=== PATIENT | male | born 1945 | race Caucasian/White ===

== ENCOUNTER 2019-11-11 16:06 | Inpatient (IN) | payer OTHER ==
--- OUTSIDE RECORDS SUMMARY | 2019-11-11 16:08 | XMS REPORT | Continuity of Care Document ---
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 claudication Coronary Active Diagnosis 10/10/2018 Ahmed atherosclerosis Ahme d 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 Ahmed heart disease without Ahmed congestive heart failure Pure Active Problem 10/10/2018 Ahmed hypercholesterolemia Ahmed Ex-smoker Active Diagnosis 10/10/2018 Ahmed Ahmed Medications Medication Details Route Status Patient Ordering Order Source Instructions Provider Date Calcium 1 tab Oral Active Oral Ahmed Ahmed Ahmed Prolia not Subcutaneous Active 60 MG/ML Ahmed Ahmed defined Subcutaneous Ahmed Plavix 1 tablet Orally Active 75 MG Orally Ahmed Ahmed Once a day Ahmed Levothyroxine 1 tablet Orally Active 50 MCG Orally Ahmed Ahm ed Sodium Once a day Ahmed Vitamin B 12 not Orally Active 100 MCG Orally Ahmed Ahme d defined Ahmed Omeprazole 1 capsule Orally Active 20 MG Orally Ahmed Ahmed Once a day Ahmed Aspir-81 1 tablet Orally Active 81 MG Orally Ahmed Ahmed Once a day Ahmed Vitamin D-3 1 capsule Orally Active 800 Orally Ahmed Ahmed Once a day Ahmed Furosemide 1 tablet Orally Active 40 MG Orally Ahmed Ahmed Once a day Ahmed Simvastatin 1 tablet Orally Active 40 MG Orally Ahmed Ahmed every Once a day Ahmed evening Lisinopril 1 tablet Orally Active 10 MG Orally Ahmed Ahmed Once a day Ahmed Vitamin C not Orally Active 500 MG Orally Ahmed Ahmed defined Ahmed Magnesium 1 capsule Orally Active 300 MG Orally Ahmed Ahmed with a Once a day Ahmed meal Folic Acid 1 tablet Orally Active 400 MCG Orally Ahmed [place] Once a day Ahmed Allergies, Adverse Reactions, Alerts Substance Category Reaction Severity Reaction Status Date Comments S ource type Reported N.K.D.A. Adverse Info Not Adverse Active Ahme d Reaction Available Reaction 9 Ahme d Immunizations No Data Provided for This Section Results No Data Provided for This Section Pathology Reports No Data Provided for This Section Diagnostic Reports No Data Provided for This Section Consultation Notes No Data Provided for This Section Discharge Summaries No Data Provided for This Section History and Physicals No Data Provided for This Section Vital Signs Vital Sign Value Date Comments Source Weight 230 06/26/2018 Ahmed Ahmed Heart Rate 60 06/26/2018 Ahmed Ahmed Diastolic (mm Hg) 76 06/26/2018 Ahmed Ahme d Systolic (mm Hg) 134 06/26/2018 Ahmed Ahmed Weight 225 04/26/2018 Ahmed Ahmed Heart Rate 68 04/26/2018 Ahmed Ahmed Diastolic (mm Hg) 80 04/26/2018 Ahmed Ahme d Systolic (mm Hg) 140 04/26/2018 Ahmed Ahmed Weight 233 10/24/2017 Ahmed Ahmed Heart Rate 60 10/24/2017 Ahmed Ahmed Diastolic (mm Hg) 78 10/24/2017 Ahmed Ahme d Systolic (mm Hg) 138 10/24/2017 Ahmed Ahmed Weight 236 04/25/2017 Ahmed Ahmed Heart Rate 60 04/25/2017 Ahmed Ahmed Diastolic (mm Hg) 72 04/25/2017 Ahmed Ahme d Systolic (mm Hg) 130 04/25/2017 Ahmed Ahmed Weight 223 01/04/2017 Ahmed Ahmed Heart Rate 52 01/04/2017 Ahmed Ahmed Diastolic (mm Hg) 66 01/04/2017 Ahmed Ahme d Systolic (mm Hg) 136 01/04/2017 Ahmed Ahmed Encounters No Data Provided for This Section Procedures No Data Provided for This Section Assessment and Plan No Data Provided for This Section Plan of Care No Data Provided for This Section Social History No Data Provided for This Section Family History No Data Provided for This Section Advance Directives No Data Provided for This Section Functional Status No Data Provided for This Section
[2019-11-11 16:49] LABS: Absolute Lymphocytes (CBC) 0.6 K/uL (0.7-4.9); Basophils % 0.3 % (0-1.3); Hematocrit 36.9 % (39.6-49.0); Lymphocytes % 4.4 % (15.3-44.8); MPV 7.6 fL (7.6-11.3); RBC Red Blood Cell Count 4.17 M/uL (4.33-5.43)
[2019-11-11 17:02] LABS: Protime INR 1.36
[2019-11-11 17:10] LABS: ALT/SGPT 21 U/L (12-78); AST/SGOT 17 U/L (15-37); Albumin 3.3 g/dL (3.4-5.0); Alkaline Phosphatase 50 U/L (45-117); BUN Blood Urea Nitrogen 23 mg/dL (7-18); Bicarbonate 24 mmol/L (21-32); Bilirubin Direct 0.3 mg/dL (0-0.2); Bilirubin Total 0.7 mg/dL (0.2-1.0); Glucose Level 159 mg/dL (74-106); Magnesium 2.1 mg/dL (1.8-2.4); NT PRO-BNP 254 pg/mL (<450); Potassium 4.2 mmol/L (3.5-5.1); Protein, Total 7.5 g/dL (6.4-8.2); Sodium Level 139 mmol/L (136-145); Troponin (Emerg Dept Use Only) < 0.02 ng/mL (0.0-0.045)
--- NOTE | 2019-11-11 18:11 | RAD REPORT ---
EXAM DESCRIPTION: RAD - Chest Single View - 11/11/2019 5:46 pm CLINICAL HISTORY: fever, sob COMPARISON: Portable September 2010 TECHNIQUE: AP portable chest image was obtained 11/11/2019 5:46 pm . FINDINGS: Lung volumes are low. No peripheral mass or consolidation. Interstitial pattern is promine nt due to body habitus, portable technique and low lung volumes. A true change is doubtful. Heart and vasculature are normal. No measurable pleural effusion and no pneumothorax. No acute bony abnormalit y seen. No acute aortic findings suspected. IMPRESSION: No acute cardiopulmonary process. Chest is not significantly different from comparison.
[2019-11-11 18:22] LABS: Blood Morphology Comment NOT SEEN (NOT SEEN); Platelet Estimate ADEQ; Urine White Blood Cell Casts OK
--- NOTE | 2019-11-11 19:38 | RAD REPORT ---
EXAM DESCRIPTION: CT - Chest For Pe Angio - 11/11/2019 6:57 pm CLINICAL HISTORY: shortness of breath, fever COMPARISON: CTANGIO CHEST FOR PE dated 10/08/2010; Chest Single View dated 11/11/2019 TECHNIQUE: Dynamically enhanced 3 mm thick images of the chest were obtained during administration o f approximately 150mL Isovue 370 IV contrast. Coronal and oblique MIP reconstruction images were gene rated and reviewed. Exam utilizes a protocol to evaluate the pulmonary arterial tree. All CT scans are performed using dose optimization technique as appropriate and may include automated exposure control or mA/KV adjustment according to patient size. FINDINGS: Pulmonary emboli present in the medial left lower lobe segmental branches. No left upper l obe pulmonary emboli confirmed. No right upper lobe emboli confirmed. Middle lobe is clear as well. M ultiple segmental branch and subsegmental branch pulmonary emboli noted in the right lower lobe. Atel ectasis changes are present in both lower lung brand. A more focal masslike density abutting the ple ura in the posterior left base can be monitored on a follow-up examination. This is still favored to be atelectasis rather than a mass or focal infiltrate. Small right pleural effusion is present. No left pleural effusion. The aorta as imaged shows no acute or suspicious finding. No pericardial thickening or effusion. No mediastinal or hilar suspicious masses. No chest wall masses or abnormal axillary lymphadenopathy. Prominent right side gynecomastia matches the remote study. No acute bone finding. Sternotomy wires are in place. IMPRESSION: Multiple segmental and subsegmental branch pulmonary emboli present in the bilateral low er lobes. Small right pleural effusion. Bilateral lower lobe atelectasis changes are present. The 3 centimeter masslike density posterior gut ter on the left is favored to be atelectasis. Follow-up imaging can be performed to monitor for infil trate versus mass. No mediastinal or hilar abnormalities.
[2019-11-11] MEDS ORDERED: ALBUTEROL 2.5 MG/3 ML NEB SOL NEB PRN (19:46)
[2019-11-11] MEDS ORDERED: IPRATROPIUM BROM 0.5MG/2.5ML NEB PRN (19:46)
[2019-11-11] MEDS ORDERED: ONDANSETRON 4 MG/2 ML VIAL IV PRN (19:46)
--- NOTE | 2019-11-11 19:51 | EDPHYS ---
Physician Documentation [facility] [place], [place] Name: Quentin Lei Age: 74 yrs Sex: Male : 1945 Arrival Date: 11/11/2019 Time: 16:08 Bed 13 Private MD: ED Physician Jose Maria Bauer HPI: 11/10 16:10 This 74 yrs old Male presents to ER via EMS with complaints of Shortness Of jmm Breath. 16:10 The patient has shortness of breath at rest, with light activity. Onset: The jmm symptoms/episode began/occurred gradually, 1 week(s) ago. Duration: The symptoms are continuous. The patient's shortness of breath is aggravated by exertion. Associated signs and symptoms: Pertinent positives: fever, Pertinent negatives: chest pain. This is a 74 year old male with a history of htn, hypothyroidism that presents to the ED with complaints of shortness of breath beginning 1 week ago with fever. Patient denies chest pain, denies abdominal pain, patient states increased urination since beginning bph medication. . Historical: - Allergies: 17:15 tramadol; - Home Meds: 17:15 aspirin 81 mg Oral chew 1 tab once daily [Active]; clopidogrel Oral [Active]; Furosemide Oral [Active]; levothyroxine 50 mcg tab 1 tab once daily [Active]; lisinopril Oral [Active]; Omeprazole Oral [Active]; Simvastatin Oral [Active]; anoro [Active]; - PMHx: 17:15 Arthritis; Arevalo's Esophagus; Hypertension; Hypothyroidism; Osteoporosis; - PSHx: 17:15 triple bypass; Heart stents; - Immunization history:: Adult Immunizations unknown. - Social history:: Smoking status: Patient denies any tobacco usage or history of. Patient/guardian denies using alcohol. ROS: 16:10 Cardiovascular: Negative for chest pain, palpitations, and edema, Abdomen/GI: Negative jmm for abdominal pain, nausea, vomiting, diarrhea, and constipation, Neuro: Negative for headache, weakness, numbness, tingling, and seizure. 16:10 Constitutional: Positive for body aches, fever. 16:10 Respiratory: Positive for cough. 16:10 All other systems are negative. Exam: 16:10 Constitutional: This is a well developed, well nourished patient who is awake, alert, jmm and in no acute distress. Head/Face: atraumatic. Eyes: EOMI, no conjunctival erythema appreciated ENT: Moist Mucus Membranes Neck: Trachea midline, Supple Chest/axilla: Normal chest wall appearance and motion. 16:10 Cardiovascular: Rate: normal, Rhythm: regular. 16:10 Respiratory: the patient does not display signs of respiratory distress, Respirations: normal, Breath sounds: are clear throughout. 16:10 Abdomen/GI: Inspection: abdomen appears normal, Bowel sounds: normal, Palpation: abdomen is soft and non-tender, in all quadrants. 16:10 Musculoskeletal/extremity: ROM: intact in all extremities, Compartment Syndrome exam of affected extremity: 16:10 Skin: Appearance: Color: normal in color. 16:10 Neuro: Orientation: is normal, Mentation: is normal, Memory: is normal. 16:10 Psych: Behavior/mood is pleasant, cooperative. Vital Signs: 16:08 BP 153 / 83; Pulse 117; Resp 18; Temp 100.6; Pulse Ox 93% 2 lpm ; Weight 115.21 kg; Height 5 ft. 11 in. (180.34 cm); Pain 0/10; 17:00 BP 131 / 78; Pulse 55; Resp 23; Pulse Ox 96% on R/A; vc 18:00 BP 135 / 80; Pulse 93; Resp 23; Pulse Ox 98% on R/A; vc 19:00 BP 129 / 88; Pulse 110; Resp 22; Pulse Ox 97% on R/A; vc 20:00 BP 148 / 73; Pulse 98; Resp 24; Temp 98.4(O); Pulse Ox 99% on R/A; vc 21:00 BP 132 / 77; Pulse 98; Resp 25; Temp 98.8(O); Pulse Ox 98% on R/A; vc 22:00 BP 121 / 66; Pulse 87; Resp 22; Pulse Ox 99% on R/A; vc 23:00 BP 138 / 65; Pulse 83; Resp 22; Pulse Ox 98% on R/A; vc 23:45 BP 142 / 73; Pulse 84; Resp 22; Pulse Ox 99% on R/A; vc 16:08 Body Mass Index 35.43 (115.21 kg, 180.34 cm) MDM: 16:17 Patient medically screened. [facility] 19:48 Data reviewed: vital signs, nurses notes, lab test result(s), radiologic studies, CT [facility] scan. ED course: I discussed the patient with Dr. Mccord whom accepted admission. . 11/10 16:10 Order name: Basic Metabolic Panel; Complete Time: 17:17 [facility] 11/10 16:10 Order name: CBC with Diff; Complete Time: 18:33 [facility] 11/10 16:10 Order name: LFT's; Complete Time: 17:17 [facility] 11/10 16:10 Order name: Magnesium; Complete Time: 17:17 [facility] 11/10 16:10 Order name: NT PRO-BNP; Complete Time: 17:17 [facility] 11/10 16:10 Order name: PT-INR; Complete Time: 17:11 [facility] 11/10 16:10 Order name: Troponin (emerg Dept Use Only); Complete Time: 17:17 [facility] 11/10 16:12 Order name: Procalcitonin; Complete Time: 17:46 [facility] 11/10 16:12 Order name: Lactate; Complete Time: 17:17 [facility] 11/10 16:12 Order name: Blood Culture Adult (2) [facility] 11/10 16:12 Order name: COVID-19; Complete Time: 21:37 [facility] 11/10 17:29 Order name: Flu; Complete Time: 18:33 [facility] 11/10 17:29 Order name: Strep; Complete Time: 18:20 [facility] 11/10 18:20 Order name: Throat Culture [facility] 11/10 16:10 Order name: XRAY Chest (1 view); Complete Time: 18:16 [facility] 11/10 16:10 Order name: EKG; Complete Time: 16:11 [facility] 11/10 16:10 Order name: Cardiac monitoring; Complete Time: 17:12 [facility] 11/10 16:10 Order name: EKG - Nurse/Tech; Complete Time: 17:12 [facility] 11/10 16:10 Order name: IV Saline Lock; Complete Time: 17:12 [facility] 11/10 18:21 Order name: CT Chest For PE Angio; Complete Time: 19:39 [facility] 11/10 18:23 Order name: CBC Smear Scan; Complete Time: 18:33 [facility] 11/10 19:52 Order name: Comprehensive Metabolic Panel [facility] 11/10 19:52 Order name: Comprehensive Metabolic Panel [facility] 11/10 19:52 Order name: Lactate [facility] 11/10 19:52 Order name: Lactate [facility] 11/10 19:52 Order name: Magnesium [facility] 11/10 19:52 Order name: Magnesium [facility] 11/10 19:53 Order name: Echo with Doppler [facility] 11/10 19:53 Order name: Troponin I; Complete Time: 23:23 [facility] 11/10 16:10 Order name: Labs collected and sent; Complete Time: 17:12 [facility] 11/10 16:10 Order name: O2 Per Protocol; Complete Time: 17:12 [facility] 11/10 16:10 Order name: O2 Sat Monitoring; Complete Time: 17:12 [facility] 11/10 16:12 Order name: Urine Dipstick-Ancillary (obtain specimen); Complete Time: 18:50 [facility] Administered Medications: 20:00 Drug: Lovenox 1 mg/kg Route: Sub-Q; Site: right lower abdomen; vc 20:29 Follow up: Response: No adverse reaction vc Disposition: 11/11/19 19:50 Hospitalization ordered by Ritesh Mccord for Inpatient Admission. Preliminary diagnosis is Pulmonary Embolism. - Bed requested for Telemetry/MedSurg (Inpatient). - Status is Inpatient Admission. vc - Condition is Stable. - Problem is new. - Symptoms are unchanged. Addendum: 11/15/2019 21:15 Co-signature as Attending Physician, Jose Maria Bauer MD. m Signatures: Dispatcher [facility] Joi Camarillo RN RN Jarrett Mcguire PA PA [facility] Maria E Bonilla RN RN vc Harris, Amy, RN RN Jose Maria Bauer MD MD [email or web address] Corrections: (The following items were deleted from the chart) 11/10 20:02 19:50 Hospitalization Ordered by Ritesh Mccord MD for Inpatient Admission. Preliminary brenna diagnosis is Pulmonary Embolism. Bed requested for Telemetry/MedSurg (Inpatient). Status is Inpatient Admission. Condition is Stable. Problem is new. Symptoms are unchanged. [facility] 23:58 20:02 11/11/2019 19:50 Hospitalization Ordered by Ritesh Mccord MD for Inpatient vc Admission. Preliminary diagnosis is Pulmonary Embolism. Bed requested for Telemetry/MedSurg (Inpatient). Status is Inpatient Admission. Condition is Stable. Problem is new. Symptoms are unchanged. dw
--- NOTE | 2019-11-11 19:51 | ER ---
Nurse's Notes [facility] Name: Quentin Lei Age: 74 yrs Sex: Male : 1945 Arrival Date: 11/11/2019 Time: 16:08 Bed 13 Private MD: Diagnosis: Pulmonary Embolism Presentation: 11/10 16:08 Chief complaint: EMS states: that pt has been short of breath for about one week. Coronavirus screen: Surgical mask placed on patient. Patient moved to private room, placed in contact and droplet isolation with eye protection until further assessment. Patient denies a cough. Patient reports shortness of breath or difficulty breathing. Patient reports a measured and/or subjective temperature greater than 100.4F. Patient denies travel on a cruise ship or to a country the [facility] currently lists as an affected area. Patient denies contact with known and/or suspected case of COVID-19. Ebola Screen: No symptoms or risks identified at this time. Initial Sepsis Screen: Does the patient meet any 2 criteria? No. Patient's initial sepsis screen is negative. Does the patient have a suspected source of infection? No. Patient's initial sepsis screen is negative. Risk Assessment: Do you want to hurt yourself or someone else? Patient reports no desire to harm self or others. Onset of symptoms is unknown. 16:08 Method Of Arrival: EMS: [facility] 16:08 Acuity: MAE 3 Triage Assessment: 17:20 General: Appears in no apparent distress. Respiratory: Reports shortness of breath at rest the patient has moderate shortness of breath. Historical: - Allergies: 17:15 tramadol; - Home Meds: 17:15 aspirin 81 mg Oral chew 1 tab once daily [Active]; clopidogrel Oral [Active]; Furosemide Oral [Active]; levothyroxine 50 mcg tab 1 tab once daily [Active]; lisinopril Oral [Active]; Omeprazole Oral [Active]; Simvastatin Oral [Active]; anoro [Active]; - PMHx: 17:15 Arthritis; Arevalo's Esophagus; Hypertension; Hypothyroidism; Osteoporosis; - PSHx: 17:15 triple bypass; Heart stents; - Immunization history:: Adult Immunizations unknown. - Social history:: Smoking status: Patient denies any tobacco usage or history of. Patient/guardian denies using alcohol. Screenin:16 Abuse screen: Denies threats or abuse. Nutritional screening: No deficits noted. ah Tuberculosis screening: No symptoms or risk factors identified. Fall Risk None identified. Assessment: 17:17 General: Appears in no apparent distress. Behavior is calm, cooperative. Pain: Denies ah pain. Neuro: Level of Consciousness is awake, alert, Oriented to person, place, time, situation. Cardiovascular: Denies chest pain, Heart tones S1 S2 present Capillary refill < 3 seconds Patient's skin is warm and dry. Pulses are palpable in right radial artery and left radial artery Rhythm is sinus tachycardia. Respiratory: Airway is patent Respiratory effort is even, unlabored, Respiratory pattern is regular, symmetrical, Breath sounds are diminished bilaterally. Onset: The symptoms/episode began/occurred x1 week, Denies cough. GI: No signs and/or symptoms were reported involving the gastrointestinal system. : No signs and/or symptoms were reported regarding the genitourinary system. EENT: No signs and/or symptoms were reported regarding the EENT system. Derm: No signs and/or symptoms reported regarding the dermatologic system. Musculoskeletal: No signs and/or symptoms reported regarding the musculoskeletal system. 19:00 Reassessment: Patient appears in no apparent distress at this time. Patient and/or vc family updated on plan of care and expected duration. Pain level reassessed. Patient is alert, oriented x 3, equal unlabored respirations, skin warm/dry/pink. No complaints at this time. 20:00 Reassessment: Patient appears in no apparent distress at this time. Patient and/or vc family updated on plan of care and expected duration. Pain level reassessed. Patient is alert, oriented x 3, equal unlabored respirations, skin warm/dry/pink. 21:00 Reassessment: Patient appears in no apparent distress at this time. Patient and/or vc family updated on plan of care and expected duration. Pain level reassessed. Patient is alert, oriented x 3, equal unlabored respirations, skin warm/dry/pink. Patient denies pain at this time. 22:00 Reassessment: Patient appears in no apparent distress at this time. Patient and/or vc family updated on plan of care and expected duration. Pain level reassessed. Patient is alert, oriented x 3, equal unlabored respirations, skin warm/dry/pink. Patient denies pain at this time. 23:00 Reassessment: Patient appears in no apparent distress at this time. Patient and/or vc family updated on plan of care and expected duration. Pain level reassessed. Patient is alert, oriented x 3, equal unlabored respirations, skin warm/dry/pink. Patient denies pain at this time. Vital Signs: 16:08 BP 153 / 83; Pulse 117; Resp 18; Temp 100.6; Pulse Ox 93% 2 lpm ; Weight 115.21 kg; Height 5 ft. 11 in. (180.34 cm); Pain 0/10; 17:00 BP 131 / 78; Pulse 55; Resp 23; Pulse Ox 96% on R/A; vc 18:00 BP 135 / 80; Pulse 93; Resp 23; Pulse Ox 98% on R/A; vc 19:00 BP 129 / 88; Pulse 110; Resp 22; Pulse Ox 97% on R/A; vc 20:00 BP 148 / 73; Pulse 98; Resp 24; Temp 98.4(O); Pulse Ox 99% on R/A; vc 21:00 BP 132 / 77; Pulse 98; Resp 25; Temp 98.8(O); Pulse Ox 98% on R/A; vc 22:00 BP 121 / 66; Pulse 87; Resp 22; Pulse Ox 99% on R/A; vc 23:00 BP 138 / 65; Pulse 83; Resp 22; Pulse Ox 98% on R/A; vc 23:45 BP 142 / 73; Pulse 84; Resp 22; Pulse Ox 99% on R/A; vc 16:08 Body Mass Index 35.43 (115.21 kg, 180.34 cm) ED Course: 16:08 Patient arrived in ED. aa5 16:09 Jarrett Mcguire PA is PHCP. [facility] 16:09 Jose Maria aBuer MD is Attending Physician. [facility] 16:35 Inserted saline lock: 22 gauge in right antecubital area, using aseptic technique. [email or web address] Blood collected. 16:35 First set of blood cultures drawn by mn. [email or web address] 16:50 Second set of blood cultures drawn by mn. [email or web address] 17:02 Crystal Alcocer, RN is Primary Nurse. 17:10 Triage completed. 17:12 COVID-19 Sent. [facility] 17:12 Blood Culture Adult (2) Sent. kj1 17:17 Patient has correct armband on for positive identification. Placed in gown. Bed in low ah position. Call light in reach. Side rails up X2. monitoring manager on. Pulse ox on. NIBP on. 17:46 XRAY Chest (1 view) In Process Unspecified. EDMS 18:57 CT Chest For PE Angio In Process Unspecified. EDMS 19:50 Ritesh Mccord MD is Hospitalizing Provider. [facility] 23:58 No provider procedures requiring assistance completed. Patient admitted, IV remains in vc place. Administered Medications: 20:00 Drug: Lovenox 1 mg/kg Route: Sub-Q; Site: right lower abdomen; vc 20:29 Follow up: Response: No adverse reaction vc Outcome: 19:50 Decision to Hospitalize by Provider. [facility] 23:27 Admitted to Med/surg accompanied by tech, via stretcher, room 413, Report called to armond Solano RN 23:58 Condition: good vc 23:58 Patient left the ED. vc Signatures: Dispatcher [employer] Elza Zuniga RN RN Jarrett Mcguire PA PA [facility] Cintia Fry RN RN Sanam Sun [email or web address] Maria E Bonilla RN RN Crystal Alcocer, RN RN Corrections: (The following items were deleted from the chart) 17:11 16:50 Initial lab(s) drawn, by me, sent to lab. First set of blood cultures drawn [email or web address] Second set of blood cultures drawn by me, [email or web address] 20:28 19:00 Reassessment: Patient appears in no apparent distress at this time. Patient vc and/or family updated on plan of care and expected duration. Pain level reassessed. Patient is alert, oriented x 3, equal unlabored respirations, skin warm/dry/pink. vc
[2019-11-11] MEDS ORDERED: NA CHLORIDE 0.9% 1,000 ML IV SCH (20:00)
[2019-11-11] MEDS ORDERED: ENOXAPARIN 100 MG/ML SYR SQ ONE (20:13)
[2019-11-12] MEDS ORDERED: FUROSEMIDE 20 MG/ 2ML VIAL IV ONE (01:18)
[2019-11-12 01:56] VITALS: BMI 34.0
[2019-11-12 04:39] LABS: Absolute Lymphocytes (CBC) 1.1 K/uL (0.7-4.9); Basophils % 0.4 % (0-1.3); Lymphocytes % 6.9 % (15.3-44.8); MPV 7.7 fL (7.6-11.3); Protime INR 1.36; RBC Red Blood Cell Count 3.91 M/uL (4.33-5.43)
[2019-11-12 04:47] LABS: Albumin 2.9 g/dL (3.4-5.0); Bilirubin Total 0.5 mg/dL (0.2-1.0); Magnesium 2.2 mg/dL (1.8-2.4); Phosphorus 1.5 mg/dL (2.5-4.9); Potassium 3.8 mmol/L (3.5-5.1); Protein, Total 6.9 g/dL (6.4-8.2); Troponin I 0.02 ng/mL (0.0-0.045)
[2019-11-12 06:50] LABS: Urine Appearance CLOUDY; Urine Bilirubin NEGATIVE (NEG); Urine Blood 1+ (NEG); Urine Color YELLOW; Urine Glucose NEGATIVE (NEG); Urine Protein NEGATIVE (NEG)
[2019-11-12 06:56] LABS: Urine Microscopic Reflex ORDER UMIC
[2019-11-12 07:04] LABS: Urine Bacteria >50 /HPF (NONE SEEN); Urine Culture Reflex Order REFLEXED; Urine RBC <5 /HPF (NONE SEEN)
[2019-11-12] MEDS: ACETAMINOPHEN 500 MG TAB PO PRN ×3 (07:38→21:00)
[2019-11-12] MEDS: APIXABAN 5 MG TABLET PO SCH ×3 (07:39→20:59)
[2019-11-12] MEDS: POTASS/SODIUM PHOSPHATE 1 PKT POWD.PACK PO SCH ×3 (07:39→09:31)
--- NOTE | 2019-11-12 08:53 | EKG ---
Test Date: 2019-11-11 Test Time: 16:25:45 Principal Research Economist: KARINA MEASUREMENT RESULTS: Intervals: Rate: 115 WV: 144 QRSD: 102 QT: 328 QTc: 453 [place]: P: 62 WV: 144 QRS: -13 T: 70 INTERPRETIVE STATEMENTS: Sinus tachycardia with premature atrial complexes with aberrant conduction Incomplete right bundle branch block Borderline ECG Compared to ECG 02/08/2011 14:50:20 Atrial premature complex(es) now present Aberrant conduction of supraventricular beat(s) now present Incomplete right bundle-branch block now present Sinus bradycardia no longer present Electronically Signed On 11-12-19 08:52:18 CDT by Myke Jose
--- NOTE | 2019-11-12 08:58 | RAD REPORT ---
EXAM DESCRIPTION: [place] Single View11/12/2019 7:09 am CLINICAL HISTORY: Chest pain COMPARISON: November 10 FINDINGS: Mild bibasilar lung opacities Heart is normal size. Postsurgical changes involve the chest. Small pleural effusions
[2019-11-12] MEDS ORDERED: HOME MED 1 EA UNK (Omeprazole [Omeprazole] 20 MG) PO SCH (09:00)
[2019-11-12] MEDS ORDERED: HOME MED 1 EA UNK (Cyclosporine [Restasis] 1 DROP) EACH EYE SCH (09:00)
[2019-11-12] MEDS ORDERED: HOME MED 1 EA UNK (Simvastatin [Simvastatin] 40 MG) PO SCH (09:00)
[2019-11-12] MEDS: ASPIRIN 81 MG CHEWABLE TABLET PO SCH ×3 (09:00→21:00)
[2019-11-12] MEDS ORDERED: lisinopriL 10 MG TAB PO SCH (09:00)
[2019-11-12] MEDS ORDERED: LEVOTHYROXINE SOD 0.05 MG TABLET PO SCH (09:00)
[2019-11-12] MEDS: FUROSEMIDE 40 MG TABLET PO SCH (09:29)
[2019-11-12] MEDS: PANTOPRAZOLE 40MG TABLET PO SCH (09:30)
--- NOTE | 2019-11-12 12:04 | P.HP ---
Certification for Inpatient Patient admitted to: Inpatient With expected LOS: >2 Midnights Patient will require the following post-hospital care: Home Health Services Practitioner: I am a practitioner with admitting privileges, knowledge of patient current condition, hospital course, and medical plan of care. Services: Services provided to patient in accordance with Admission requirements found in Title 42 Section 412.3 of the Code of Federal Regulations Patient History Date of Service: 11/11/19 Reason for admission: Acute pulmonary embolism History of Present Illness: Patient is a 74-year-old gentlemen who came into the hospital with difficulty breathing. Pt came into the emergency room for further evaluation. Patient's workup revealed a pulmonary embolism. Otherwise, patient's workup has been unremarkable. Patient is still short of breath. We will get an echocardiogram to evaluate for right ventricular strain from the pulmonary embolism. Although this is a distal pulmonary embolism patient is still short of breath. At this time, we will admit the patient to the hospital for further evaluation. Allergies tramadol Adverse Reaction (Severe, Verified 11/12/19 01:37) Unknown Home Medications: Apixaban [Eliquis] 5 mg PO SEECOM #75 tablet 11/12/19 Aspirin Chewable [Aspirin Chewable*] 81 mg PO DAILY 11/12/19 Clopidogrel Bisulfate [Plavix*] 75 mg PO DAILY 11/12/19 Cyclosporine [Restasis] 1 drop EACH EYE BID 11/12/19 Furosemide [Lasix*] 40 mg PO DAILY 11/12/19 Levothyroxine [Synthroid*] 0.05 mg PO DAILY 11/12/19 Lisinopril [Zestril] 10 mg PO DAILY 11/12/19 Omeprazole 20 mg PO DAILY 11/12/19 Simvastatin 40 mg PO DAILY 11/12/19 Umeclidinium Brm/Vilanterol Tr [Anoro Ellipta 62.5-25 Mcg INH] 1 dose IH DAILY 11/12/19 - Past Medical/Surgical History Has patient received pneumonia vaccine in the past: Yes Diabetic: No -: HTN -: hypothyroid -: glacoma -: Barretts esophagus -: CABG 2006 -: cardiac stent - Family History Father Medical History: Other (see notes) Notes: osteo arthritis Mother Medical History: Cancer Notes: Stomach CA Brother Medical History: Heart disease, Cancer Notes: Asbestosis - Social History Smoking Status: Never smoker Alcohol use: No CD- Drugs: No Caffeine use: Yes Place of Residence: Home Physical Examination - Vital Signs Temperature: 97.8 F Blood Pressure: 141/74 Pulse: 72 Respirations: 20 Pulse Ox (%): 97 - Physical Exam General: Alert, In no apparent distress, Oriented x3 HEENT: Atraumatic, PERRLA, Mucous membr. moist/pink, EOMI, Sclerae nonicteric Neck: Supple, 2+ carotid pulse no bruit, No LAD, Without JVD or thyroid abnormality Respiratory: Normal air movement, Diminished Cardiovascular: Regular rate/rhythm, Normal S1 S2, Other (Tachyarrhythmia ), Systolic murmur Gastrointestinal: Normal bowel sounds, Soft and benign, Non-distended, No tenderness Musculoskeletal: No clubbing, No swelling, No tenderness Integumentary: No rashes Neurological: Normal gait, Normal speech, Normal strength at 5/5 x4 extr, Normal tone, Sensation intact, Cranial nerves 3-12 intact, Normal affect Lymphatics: No axilla or inguinal lymphadenopathy - Studies Laboratory Data (last 24 hrs) 11/11/19 22:50: Troponin I 0.02 11/11/19 16:35: PT 16.0 H, INR 1.36 11/11/19 16:35: WBC 13.1 H, Hgb 12.1 L, Hct 36.9 L, Plt Count 152 11/11/19 16:35: Sodium 139, Potassium 4.2, BUN 23 H, Creatinine 1.41 H, Glucose 159 H, Magnesium 2.1, Total Bilirubin 0.7, AST 17, ALT 21, Alkaline Phosphatase 50 Microbiology Data (last 24 hrs): 11/11/19 14:35 Nasopharnyx Coronavirus COVID-19 PCR - Final 11/11/19 17:45 Nasopharnyx Influenza Type A Antigen Screen - Final 11/11/19 17:45 Nasopharnyx Influenza Type B Antigen Screen - Final 11/11/19 17:45 Throat Group A Streptococcus Rapid Screen - Final Assessment & Plan - Problems (Diagnosis) (1) Tachyarrhythmia Current Visit: Yes Status: Acute (2) Pulmonary embolism Current Visit: Yes Status: Acute (3) History of coronary artery disease Current Visit: Yes Status: Acute (4) History of coronary artery bypass graft x 2 Current Visit: Yes Status: Acute - Plan Plan: 1. Continue with anticoagulation 2. Echocardiogram 3. Venous Doppler of the lower extremities 4. Out of bed and ambulate 5. Monitor labs closely 6. GI and DVT prophylaxis Discharge Plan: Home Plan to discharge in: Greater than 2 days - Advance Directives Does patient have a Living Will: No Does patient have a Durable POA for Healthcare: No - Code Status/Comfort Care Code Status Assessed: Yes Code Status: Full Code Critical Care: No
--- NOTE | 2019-11-12 12:18 | P.PN ---
Subjective Date of Service: 11/12/19 Subjective: No new changes, No C/O voiced, Improving Review of Systems 10-point ROS is otherwise unremarkable Physical Examination - Vital Signs Temperature: 97.8 F Blood Pressure: 141/74 Pulse: 72 Respirations: 20 Pulse Ox (%): 97 - Physical Exam General: Alert, In no apparent distress, Oriented x3 Respiratory: Clear to auscultation bilaterally, Normal air movement Cardiovascular: Regular rate/rhythm, Normal S1 S2, Systolic murmur Gastrointestinal: Hypoactive, Soft and benign, Non-distended, No tenderness, No rebound, No guarding Musculoskeletal: No clubbing, No swelling - Studies Laboratory Data (last 24 hrs) 11/11/19 22:50: Troponin I 0.02 11/11/19 16:35: PT 16.0 H, INR 1.36 11/11/19 16:35: WBC 13.1 H, Hgb 12.1 L, Hct 36.9 L, Plt Count 152 11/11/19 16:35: Sodium 139, Potassium 4.2, BUN 23 H, Creatinine 1.41 H, Glucose 159 H, Magnesium 2.1, Total Bilirubin 0.7, AST 17, ALT 21, Alkaline Phosphatase 50 Microbiology Data (last 24 hrs): 11/11/19 14:35 Nasopharnyx Coronavirus COVID-19 PCR - Final 11/11/19 17:45 Nasopharnyx Influenza Type A Antigen Screen - Final 11/11/19 17:45 Nasopharnyx Influenza Type B Antigen Screen - Final 11/11/19 17:45 Throat Group A Streptococcus Rapid Screen - Final Assessment & Plan - Problems (Diagnosis) (1) Tachyarrhythmia Current Visit: Yes Status: Acute (2) Pulmonary embolism Current Visit: Yes Status: Acute (3) History of coronary artery disease Current Visit: Yes Status: Acute (4) History of coronary artery bypass graft x 2 Current Visit: Yes Status: Acute - Plan Plan: Continue with current plan of care as mentioned below 1. Continue with anticoagulation 2. Echocardiogram is pending 3. Venous Doppler of the lower extremities is pending 4. Out of bed and ambulate 5. Monitor labs closely 6. GI and DVT prophylaxis Discharge Plan: Home Plan to discharge in: Greater than 2 days - Advance Directives Does patient have a Living Will: No Does patient have a Durable POA for Healthcare: No - Code Status/Comfort Care Code Status: Full Code Critical Care: No Time Spent Managing PTS Care (In Minutes): 40
--- NOTE | 2019-11-12 14:05 | RAD REPORT ---
EXAM DESCRIPTION: US - Extrem Venous W Compress Carlo - 11/12/2019 1:57 pm CLINICAL HISTORY: DVT;history of pulmonary embolism Bilateral leg edema and swelling. COMPARISON: Chest For Pe Angio dated 11/11/2019 TECHNIQUE: Real-time sonographic interrogation of the left and right lower extremity deep venous sys tems was performed. FINDINGS: Right lower extremity deep venous system demonstrates no evidence of thrombus. In the left lower extremity deep venous system, partially occlusive small thrombus is present in the left poplit eal vein. IMPRESSION: Small area of partially occlusive thrombus is seen in the left popliteal vein.
--- NOTE | 2019-11-12 14:21 | P.PN ---
Subjective Date of Service: 11/12/19 Chief Complaint: Acute pulmonary embolism Subjective: No new changes, No C/O voiced Physical Examination - Vital Signs Temperature: 97.8 F Blood Pressure: 141/74 Pulse: 72 Respirations: 20 Pulse Ox (%): 97 - Physical Exam General: Alert - Studies Laboratory Data (last 24 hrs) 11/11/19 22:50: Troponin I 0.02 11/11/19 16:35: PT 16.0 H, INR 1.36 11/11/19 16:35: WBC 13.1 H, Hgb 12.1 L, Hct 36.9 L, Plt Count 152 11/11/19 16:35: Sodium 139, Potassium 4.2, BUN 23 H, Creatinine 1.41 H, Glucose 159 H, Magnesium 2.1, Total Bilirubin 0.7, AST 17, ALT 21, Alkaline Phosphatase 50 Microbiology Data (last 24 hrs): 11/11/19 14:35 Nasopharnyx Coronavirus COVID-19 PCR - Final 11/11/19 17:45 Nasopharnyx Influenza Type A Antigen Screen - Final 11/11/19 17:45 Nasopharnyx Influenza Type B Antigen Screen - Final 11/11/19 17:45 Throat Group A Streptococcus Rapid Screen - Final Assessment & Plan - Problems (Diagnosis) (1) DVT (deep venous thrombosis) Current Visit: Yes Status: Acute (2) Acute respiratory insufficiency Current Visit: Yes Status: Acute (3) History of coronary artery bypass graft x 2 Current Visit: Yes Status: Acute (4) History of coronary artery disease Current Visit: Yes Status: Acute (5) Pulmonary embolism Current Visit: Yes Status: Acute
--- NOTE | 2019-11-12 16:40 | P.PN ---
Date of Service: 11/12/19 Patient was seen, examined and findings were discussed with the patient On Lovenox for pulmonary embolism ultrasound findings noted to have DVT Awaiting echocardiogram Patient noted to have acute hypoxic respiratory insufficiency On oxygen supplementation We get a home O2 requirement evaluation. If needed will get home oxygen setup. Discussed with the patient regarding treatment options including Eliquis, Coumadin, Lovenox Monitor closely under telemetry Possible Dc in a.m.
[2019-11-12] MEDS: ATORVASTATIN 20 MG TAB PO SCH (21:00)
[2019-11-12] MEDS: lisinopriL 10 MG TAB PO SCH (21:01)
[2019-11-13 04:50] LABS: Absolute Lymphocytes (CBC) 0.8 K/uL (0.7-4.9); Basophils % 0.6 % (0-1.3); Hematocrit 34.7 % (39.6-49.0); Lymphocytes % 6.3 % (15.3-44.8); MPV 7.2 fL (7.6-11.3); RBC Red Blood Cell Count 3.87 M/uL (4.33-5.43)
[2019-11-13 05:06] LABS: Potassium 3.9 mmol/L (3.5-5.1)
[2019-11-13] MEDS: LEVOTHYROXINE SOD 0.05 MG TABLET PO SCH (05:24)
[2019-11-13] MEDS: ACETAMINOPHEN 500 MG TAB PO PRN ×2 (06:01→22:15)
[2019-11-13] MEDS ORDERED: POTASS/SODIUM PHOSPHATE 1 PKT POWD.PACK PO SCH (07:00)
[2019-11-13] MEDS: APIXABAN 5 MG TABLET PO SCH ×2 (08:00→20:47)
[2019-11-13] MEDS: FUROSEMIDE 40 MG TABLET PO SCH (08:01)
[2019-11-13] MEDS: POTASS/SODIUM PHOSPHATE 1 PKT POWD.PACK PO SCH ×3 (08:01→11:00)
[2019-11-13] MEDS: PANTOPRAZOLE 40MG TABLET PO SCH (08:01)
[2019-11-13] MEDS ORDERED: POTASSIUM CL SA 10 MEQ TAB PO ONE (09:00)
--- NOTE | 2019-11-13 12:13 | P.CNS ---
Date of Consult: 11/13/19 Chief Complaint: Acute pulmonary embolism History of Present Illness: Patient is 74 years of age reason dyspnea on exertion for many number of years he was a former smoker quit over 20 years ago, shortness of breath became worse over the past 2 weeks noticed some swelling of his left port admitted from the emergency room diagnosis of pulmonary emboli DVT swelling has decreased no new complaints is also seen by a assistant director of admissions for osteoporosis and he also follows up with the box stapler Allergies tramadol Adverse Reaction (Severe, Verified 11/12/19 01:37) Unknown Home Medications: Apixaban [Eliquis] 5 mg PO SEECOM #75 tablet 11/12/19 Aspirin Chewable [Aspirin Chewable*] 81 mg PO DAILY 11/12/19 Clopidogrel Bisulfate [Plavix*] 75 mg PO DAILY 11/12/19 Cyclosporine [Restasis] 1 drop EACH EYE BID 11/12/19 Furosemide [Lasix*] 40 mg PO DAILY 11/12/19 Levothyroxine [Synthroid*] 0.05 mg PO DAILY 11/12/19 Lisinopril [Zestril] 10 mg PO DAILY 11/12/19 Omeprazole 20 mg PO DAILY 11/12/19 Simvastatin 40 mg PO DAILY 11/12/19 Umeclidinium Brm/Vilanterol Tr [Anoro Ellipta 62.5-25 Mcg INH] 1 dose IH DAILY 11/12/19 - Past Medical/Surgical History Diabetic: No -: HTN -: hypothyroid -: glacoma -: Barretts esophagus -: CABG 2006 -: cardiac stent - Family History Father Medical History: Other (see notes) Notes: osteo arthritis Mother Medical History: Cancer Notes: Stomach CA Brother Medical History: Heart disease, Cancer Notes: Asbestosis - Social History Alcohol use: No CD- Drugs: No Caffeine use: Yes Place of Residence: Home Review of Systems 10-point ROS is otherwise unremarkable Physical Examination Temp Pulse Resp BP Pulse Ox 97.4 F 75 18 133/72 97 11/13/19 08:00 11/13/19 08:00 11/13/19 08:00 11/13/19 08:00 11/13/19 08:00 General: Alert, Oriented x3 Neck: Supple Respiratory: Clear to auscultation bilaterally Cardiovascular: No edema, Regular rate/rhythm Gastrointestinal: Normal bowel sounds, Soft and benign Musculoskeletal: No clubbing, No swelling - Problems (1) Pulmonary embolism Current Visit: Yes Status: Acute Plan: Patient is 74 years of age admitted with worsening dyspnea over the past 2 weeks diagnosed with pulmonary emboli patient also has a DVT labs reviewed mildly elevated white count check room air pulse ox again patient will need outpatient pulmonary function testing continue using his Anoro. Lifelong anticoagulation patient has a history of coronary artery disease status post CABG in 2010 seeing a box stapler as an outpatient he is on Lasix and lisinopril Qualifiers: Acute cor pulmonale presence: unspecified
--- NOTE | 2019-11-13 12:27 | P.PN ---
Subjective Date of Service: 11/13/19 Chief Complaint: Acute pulmonary embolism Subjective: No new changes, Improving (Chest pain is better Shortness of breath is improving Still on oxygen supplementation) Review of Systems 10-point ROS is otherwise unremarkable Physical Examination - Vital Signs Temperature: 97.4 F Blood Pressure: 133/72 Pulse: 75 Respirations: 18 Pulse Ox (%): 97 - Physical Exam General: Alert, In no apparent distress, Oriented x3 HEENT: Atraumatic, Normocephalic Neck: Supple, 2+ carotid pulse no bruit Respiratory: Clear to auscultation bilaterally, Normal air movement Cardiovascular: Normal pulses, Regular rate/rhythm Capillary refill: <2 Seconds Gastrointestinal: Normal bowel sounds, Soft and benign, W/out hepatosplenomegaly Musculoskeletal: No clubbing, No swelling Integumentary: No rashes, No breakdown Neurological: Normal speech, Normal strength at 5/5 x4 extr Lymphatics: No axilla or inguinal lymphadenopathy Rectal: Deferred - Studies Laboratory Last Values WBC 13.1 K/uL (4.3-10.9) H 11/11/19 16:35 RBC 4.17 M/uL (4.33-5.43) L 11/11/19 16:35 Hgb 12.1 g/dL (13.6-17.9) L 11/11/19 16:35 Hct 36.9 % (39.6-49.0) L 11/11/19 16:35 MCV 88.5 fL (80-100) 11/11/19 16:35 MCH 29.0 pg (27.0-35.0) 11/11/19 16:35 MCHC 32.7 g/dL (32.0-36.0) 11/11/19 16:35 RDW 14.0 % (12.1-15.2) 11/11/19 16:35 Plt Count 152 K/uL (152-406) 11/11/19 16:35 MPV 7.6 fL (7.6-11.3) 11/11/19 16:35 Neutrophils % 88.3 % (41.7-73.7) H 11/11/19 16:35 Lymphocytes % 4.4 % (15.3-44.8) L 11/11/19 16:35 Monocytes % 6.6 % (3.3-12.3) 11/11/19 16:35 Eosinophils % 0.4 % (0-4.4) 11/11/19 16:35 Basophils % 0.3 % (0-1.3) 11/11/19 16:35 Absolute Neutrophils 11.6 K/uL (1.8-8.0) H 11/11/19 16:35 Absolute Lymphocytes 0.6 K/uL (0.7-4.9) L 11/11/19 16:35 Absolute Monocytes 0.9 K/uL (0.1-1.3) 11/11/19 16:35 Absolute Eosinophils 0.1 K/uL (0-0.5) 11/11/19 16:35 Absolute Basophils 0.0 K/uL (0-0.5) 11/11/19 16:35 Morphology Comment Not seen (NOT SEEN) 11/11/19 16:35 PT 16.0 SECONDS (9.5-12.5) H 11/11/19 16:35 INR 1.36 11/11/19 16:35 Sodium 139 mmol/L (136-145) 11/11/19 16:35 Potassium 4.2 mmol/L (3.5-5.1) 11/11/19 16:35 Chloride 104 mmol/L (98-107) 11/11/19 16:35 Carbon Dioxide 24 mmol/L (21-32) 11/11/19 16:35 BUN 23 mg/dL (7-18) H 11/11/19 16:35 Creatinine 1.41 mg/dL (0.55-1.3) H 11/11/19 16:35 Estimated GFR 49 mL/min (=/>90) L 11/11/19 16:35 Glucose 159 mg/dL (74-106) H 11/11/19 16:35 Lactic Acid 1.4 mmol/L (0.4-2.0) 11/11/19 16:35 Calcium 8.7 mg/dL (8.5-10.1) 11/11/19 16:35 Magnesium 2.1 mg/dL (1.8-2.4) 11/11/19 16:35 Total Bilirubin 0.7 mg/dL (0.2-1.0) 11/11/19 16:35 Direct Bilirubin 0.3 mg/dL (0-0.2) H 11/11/19 16:35 AST 17 U/L (15-37) 11/11/19 16:35 ALT 21 U/L (12-78) 11/11/19 16:35 Alkaline Phosphatase 50 U/L (45-117) 11/11/19 16:35 Rapid Troponin I < 0.02 ng/mL (0.0-0.045) 11/11/19 16:35 Troponin I 0.02 ng/mL (0.0-0.045) 11/11/19 22:50 NT-Pro-B Natriuret Pep 254 pg/mL (<450) 11/11/19 16:35 Serum Total Protein 7.5 g/dL (6.4-8.2) 11/11/19 16:35 Albumin 3.3 g/dL (3.4-5.0) L 11/11/19 16:35 Globulin 4.2 g/dL (2.3-3.5) H 11/11/19 16:35 Albumin/Globulin Ratio 0.8 (1.1-1.8) L 11/11/19 16:35 Procalcitonin 0.16 ng/mL (<0.50) 11/11/19 16:35 Urine Color Yellow 11/11/19 06:15 Urine Appearance Cloudy 11/11/19 06:15 Urine pH 5.0 (5.0-7.0) 11/11/19 06:15 Ur Specific [place] 1.020 (1.005-1.030) 11/11/19 06:15 Glucose (UA)(Auto) Negative (NEG) 11/11/19 06:15 Urine Ketones Negative (NEG) 11/11/19 06:15 Urine Blood 1+ (NEG) H 11/11/19 06:15 Urine Nitrite Negative (NEG) 11/11/19 06:15 Urine Bilirubin Negative (NEG) 11/11/19 06:15 Urine Urobilinogen 1.0 mg/dL (0.2-1.0) 11/11/19 06:15 Ur Leukocyte Esterase Negative (NEG) 11/11/19 06:15 Urine RBC <5 /HPF (NONE SEEN) 11/11/19 06:15 Urine WBC <5 /HPF (<5) 11/11/19 06:15 Ur Squamous Epith Cells <5 /HPF (NONE SEEN) 11/11/19 06:15 Urine Bacteria >50 /HPF (NONE SEEN) H 11/11/19 06:15 Urine Culture Reflexed Reflexed 11/11/19 06:15 Urine Total Protein Negative (NEG) 11/11/19 06:15 Microbiology Data (last 24 hrs): 11/11/19 17:45 Throat Culture & Sensitivity - Final NORMAL UPPER RESPIRATORY LUZ GROWN. Assessment & Plan - Problems (Diagnosis) (1) DVT (deep venous thrombosis) Current Visit: Yes Status: Acute (2) Acute respiratory insufficiency Current Visit: Yes Status: Acute (3) History of coronary artery bypass graft x 2 Current Visit: Yes Status: Chronic (4) History of coronary artery disease Current Visit: Yes Status: Chronic (5) Pulmonary embolism Current Visit: Yes Status: Acute Qualifiers: Acute cor pulmonale presence: unspecified Physician Review Additional Text: Pulmonary embolism Acute DVT Acute respiratory insufficiency History of CAD status post CABG Plan Monitor under telemetry On Lovenox for pulmonary embolism ultrasound findings noted to have DVT Awaiting echocardiogram Patient noted to have acute hypoxic respiratory insufficiency On oxygen supplementation Pulmonology consult appreciated We get a home O2 requirement evaluation. will get home oxygen setup. Discussed with the patient regarding treatment options including Eliquis, Coumadin, Lovenox Monitor closely under telemetry Will start on Eliquis Possible Dc in a.m. Time Spent Managing Pts Care (In Minutes): 35
[2019-11-13] MEDS: ASPIRIN 81 MG CHEWABLE TABLET PO SCH ×3 (20:47→21:00)
[2019-11-13] MEDS: lisinopriL 10 MG TAB PO SCH (20:47)
[2019-11-13] MEDS: ATORVASTATIN 20 MG TAB PO SCH (20:48)
[2019-11-13 21:30] VITALS: O2SAT 96
[2019-11-14] MEDS: LEVOTHYROXINE SOD 0.05 MG TABLET PO SCH (06:28)
[2019-11-14 06:33] LABS: Phosphorus 2.8 mg/dL (2.5-4.9)
[2019-11-14 07:07] LABS: Absolute Lymphocytes (CBC) 1.1 K/uL (0.7-4.9); Basophils % 0.3 % (0-1.3); Hematocrit 33.4 % (39.6-49.0); Lymphocytes % 9.4 % (15.3-44.8); MPV 7.5 fL (7.6-11.3); RBC Red Blood Cell Count 3.77 M/uL (4.33-5.43)
--- NOTE | 2019-11-14 09:05 | ECHO ---
HEIGHT: 5 ft 11 in WEIGHT: 244 lb 3.2 oz DATE OF STUDY: 11/13/[address]: Ritesh Mccord MD 2-DIMENSIONAL: YES M.MODE: YES DOPPLER: YES COLOR FLOW: YES TDS: PORTABLE: DEFINITY: BUBBLE STUDY: DIAGNOSIS: PULMONARY EMBOLISM CARDIAC HISTORY: CATHERIZATION: YES SURGERY: CABG PROSTHETIC VALVE: NO PACEMAKER: NO MEASUREMENTS (cm) DIASTOLIC (NORMALS) SYSTOLIC (NORMALS) IVSd 1.1 (0.6-1.2) LA Diam (1.9-4.0) LVEF 67% LVIDd 4.9 (3.5-5.7) LVIDs 3.1 (2.0-3.5) %FS 37% LVPWd 1.2 (0.6-1.2) Ao Diam 3.3 (2.0-3.7) 2 DIMENSIONAL ASSESSMENT: RIGHT ATRIUM: NORMAL LEFT ATRIUM: NORMAL RIGHT VENTRICLE: NORMAL LEFT VENTRICLE: NORMAL TRICUSPID VALVE: NORMAL MITRAL VALVE: NORMAL PULMONIC VALVE: NORMAL AORTIC VALVE: NORMAL PERICARDIAL EFFUSION: NONE AORTIC ROOT: NORMAL LEFT VENTRICULAR WALL MOTION: NORMAL DOPPLER/COLOR FLOW: MILD TRICUSPID REGURGITATION. COMMENTS: TECHNICALLY DIFFICULT STUDY. MILD TRICUSPID REGURGITATION. NORMAL LEFT VENTRICULAR SIZE AND FUNCTION. NO PULMONARY HYPERTENSION. TECHNOLOGIST: CHARLOTTE CASTILLO
[2019-11-14] MEDS: FUROSEMIDE 40 MG TABLET PO SCH (09:20)
[2019-11-14] MEDS: APIXABAN 5 MG TABLET PO SCH (09:20)
[2019-11-14] MEDS: PANTOPRAZOLE 40MG TABLET PO SCH (09:20)
[2019-11-14] MEDS: ACETAMINOPHEN 500 MG TAB PO PRN (09:20)
--- NOTE | 2019-11-14 10:43 | P.DS ---
Admission Date: 11/11/19 Discharge Date: 11/14/19 Disposition: ROUTINE DISCHARGE Reason for Admission: Acute pulmonary embolism - Problems (1) Acute respiratory failure with hypoxemia Current Visit: Yes Status: Acute (2) DVT (deep venous thrombosis) Current Visit: Yes Status: Acute (3) Pulmonary embolism Current Visit: Yes Status: Acute Qualifiers: Acute cor pulmonale presence: unspecified (4) History of coronary artery bypass graft x 2 Current Visit: Yes Status: Chronic (5) History of coronary artery disease Current Visit: Yes Status: Chronic Brief History of Present Illness: 74-year-old gentleman with a history of coronary artery disease and CABG presented to the ED with a complaint of progressive shortness of breath. Workup in the ED revealed bilateral pulmonary embolism. Patient was hypoxemic and requiring oxygen. He was admitted for further management. Hospital Course: Patient admitted to the medical floor and started on full-dose Lovenox. Venous Doppler of the lower extremities reported small thrombosis in the left popliteal vein. Pulmonary was consulted, patient was seen by Dr. Manuel. He was transitioned from full-dose Lovenox to Eliquis. Dr. Manuel also plans to follow with patient in the office for PFT. Noted patient is on home bronchodilators. Home oxygen qualification was performed and patient does qualify for oxygen. Patient is deemed clinically stable for discharge with home oxygen. Vital Signs/Physical Exam: Temp Pulse Resp BP Pulse Ox 97.8 F 70 15 137/64 98 11/14/19 08:00 11/14/19 09:20 11/14/19 08:00 11/14/19 09:20 11/14/19 08:00 General: Alert, In no apparent distress, Oriented x3 HEENT: Mucous membr. moist/pink, Sclerae nonicteric Neck: Supple, JVD not distended Respiratory: Clear to auscultation bilaterally, Normal air movement Cardiovascular: No edema, Regular rate/rhythm, Normal S1 S2 Gastrointestinal: Normal bowel sounds, Soft and benign, Non-distended, No tenderness Musculoskeletal: No swelling Integumentary: No breakdown Neurological: Normal speech, Normal strength at 5/5 x4 extr Laboratory Data at Discharge: WBC 11.9 K/uL (4.3-10.9) H 11/14/19 03:46 Hgb 11.1 g/dL (13.6-17.9) L 11/14/19 03:46 Hct 33.4 % (39.6-49.0) L 11/14/19 03:46 Plt Count 184 K/uL (152-406) 11/14/19 03:46 PT 16.0 SECONDS (9.5-12.5) H 11/12/19 03:38 INR 1.36 11/12/19 03:38 APTT 31.9 SECONDS (24.3-36.9) 11/12/19 03:38 Sodium 140 mmol/L (136-145) 11/14/19 03:46 Potassium 4.0 mmol/L (3.5-5.1) 11/14/19 03:46 BUN 18 mg/dL (7-18) 11/14/19 03:46 Creatinine 1.08 mg/dL (0.55-1.3) 11/14/19 03:46 Glucose 106 mg/dL (74-106) 11/14/19 03:46 Phosphorus 2.8 mg/dL (2.5-4.9) 11/14/19 03:46 Magnesium 2.2 mg/dL (1.8-2.4) 11/12/19 03:38 Total Bilirubin 0.5 mg/dL (0.2-1.0) 11/12/19 03:38 AST 18 U/L (15-37) 11/12/19 03:38 ALT 18 U/L (12-78) 11/12/19 03:38 Alkaline Phosphatase 48 U/L (45-117) 11/12/19 03:38 Troponin I 0.02 ng/mL (0.0-0.045) 11/12/19 03:38 Home Medications: Apixaban [Eliquis] 5 mg PO SEECOM #75 tablet 11/12/19 Clopidogrel Bisulfate [Plavix*] 75 mg PO DAILY 11/12/19 Cyclosporine [Restasis] 1 drop EACH EYE BID 11/12/19 Furosemide [Lasix*] 40 mg PO DAILY 11/12/19 Levothyroxine [Synthroid*] 0.05 mg PO DAILY 11/12/19 Lisinopril [Zestril] 10 mg PO DAILY 11/12/19 Omeprazole 20 mg PO DAILY 11/12/19 Simvastatin 40 mg PO DAILY 11/12/19 Umeclidinium Brm/Vilanterol Tr [Anoro Ellipta 62.5-25 Mcg INH] 1 dose IH DAILY 11/12/19 New Medications: Apixaban [Eliquis] 5 mg PO SEECOM #75 tablet Patient Discharge Instructions: Patient to take Eliquis 10 mg twice a day for 1 week and then 5 mg twice a day indefinite anticoagulation Diet: Regular Activity: Ad yunier Followup: Jeremiah Manuel MD [ACTIVE - CAN ADMIT] - Time spent managing pt's care (in minutes): 35
[2019-11-14 12:27] VITALS: BP 132/69; TEMP 97.7
--- NOTE | 2019-11-14 12:35 | P.PN ---
Subjective Date of Service: 11/14/19 Chief Complaint: Acute pulmonary embolism Subjective: Improving (Patient is doing much better he does not take any bronchodilators at home main afraid of the side effects room-air saturation is now 97%) Review of Systems Unremarkable Physical Examination - Vital Signs Temperature: 97.7 F Blood Pressure: 132/69 Pulse: 71 Respirations: 15 Pulse Ox (%): 96 - Physical Exam General: Alert, Oriented x3 HEENT: Atraumatic Neck: Supple Respiratory: Clear to auscultation bilaterally Cardiovascular: No edema, Regular rate/rhythm - Studies Microbiology Data (last 24 hrs): 11/11/19 06:15 Clean Catch Urine [place] Count - Final 11/11/19 06:15 Clean Catch Urine - Final No growth. 11/11/19 17:45 Throat Culture & Sensitivity - Final NORMAL UPPER RESPIRATORY [place] GROWN. Assessment & Plan - Problems (Diagnosis) (1) Pulmonary embolism Current Visit: Yes Status: Acute Plan: Patient is 74 years of age admitted with pulmonary embolism he most likely has underlying COPD and be discharged home do not think he will qualify for home O2 room-air sat is 97% will plan to ambulate I have instructed him to uses an oral inhaler daily he will need lifelong anticoagulation vital signs are stable follow-up with me in 2 weeks Qualifiers: Acute cor pulmonale presence: unspecified Discharge Plan: Home
[2019-11-14] MEDS ORDERED: ALBUTEROL 2.5 MG/3 ML NEB SOL NEB PRN (14:00)
--- NOTE | 2019-11-14 15:03 | P.PN ---
Date of Service: 11/14/[address] Davila and business director Dr. Manuel. Covering for Dr. Davila. Plan is to discharge the patient after home O2 was set up however repeat O2 saturations are about 90% resting and patient does not qualify for home O2. Patient is otherwise stable and has been cleared for discharge by pulmonology.
== END 2019-11-14 16:15 | disposition home or self-care (01) | DRG 175 ==
LOC: ER 16:06 → 4TH 23:21 → 2ND 11-12 11:03
PROVIDERS: ADMIT Hospitalist; ATTEND Internal Medicine
DX: I26.09 Other pulmonary embolism with acute cor pulmonale (principal); J96.01 Acute respiratory failure with hypoxia; I82.432 Acute embolism and thrombosis of left popliteal vein; I25.10 Atherosclerotic heart disease of native coronary artery without angina pectoris; J44.9 Chronic obstructive pulmonary disease, unspecified; E03.9 Hypothyroidism, unspecified; I10 Essential (primary) hypertension; R00.0 Tachycardia, unspecified; Z88.5 Allergy status to narcotic agent; Z79.01 Long term (current) use of anticoagulants; Z79.82 Long term (current) use of aspirin; Z79.02 Long term (current) use of antithrombotics/antiplatelets; Z79.890 Hormone replacement therapy; Z79.899 Other long term (current) drug therapy; Z95.1 Presence of aortocoronary bypass graft; Z95.5 Presence of coronary angioplasty implant and graft; Z87.891 Personal history of nicotine dependence; Z20.828 Contact with and (suspected) exposure to other viral communicable diseases
CPT/HCPCS: 36415; 71045; 71275; 80048; 80053; 80076; 81003; 81015; 83605; 83735; 83880; 84100; 84145; 84484; 85025; 85610; 85730; 87040; 87070; 87081; 87086; 87088; 87804; 93005; 93306; 93970; 94760; 96372; 99285; J1650; J1940; J7030; Q9967; U0002

== ENCOUNTER 2021-10-05 12:44 | Emergency (ER) | payer OTHER ==
--- OUTSIDE RECORDS SUMMARY | 2021-10-05 12:47 | XMS REPORT | Continuity of Care Document ---
:1945 Author Organization [facility] t Address [address] [place] [address] [address] [place] [address] Care Team Providers Name Role Phone SONIA Attending Clinician Unavailable Problems This patient has no known problems. Allergies, Adverse Reactions, Alerts This patient has no known allergies or adverse reactions. Medications This patient has no known medications. Procedures This patient has no known procedures. Encounters Start End Encounter Admission Attending Care Care Encounter Source Date/Time Date/Time Type Type Clinicians Facility Department ID 2020-08-01 2020-08-01 Outpatient [facility] [id number] [place] 00:00:00 00:00:00 [facility] [address] 2020-02-05 2020-02-05 Outpatient [facility] [id number] 00:00:00 00:00:00 [facility] [address] 2020-01-25 2020-01-25 [facility] [id number] [place] 00:00:00 00:00:00 [facility] [address] Results Test Description Test Time Test Comments Results Result Comments Source SARS-COV2/RT-PCR ([facility]) 2019-11-12 06:03:00 Test Item Value Reference Range Interpretation Comme nts SARS-COV2/RT-PCR (test code = 6135294) Not Detected Not Detected, N egative SARS-COV-2 PERFORMING LAB (test code = [facility] [id number]) Negative results do not preclude SARS-CoV-2 infection and should not be used as the sole basis for patient management decisions. Negative results must be combined with clinical observations, patient history, and epidemiological information. A false negative result may occur if a specimen is improperly collected, transported or handled.The limit of detection for this assay is 250 copies/mL.This SARS CoV-2 test is a rapid, real-time RT-PCR test intended for the qualitative detection of nucleic acid from SARS-CoV-2 in a nasopharyngeal swab specimen collected from individuals suspected of COVID-19 by their healthcare provider.This test has not been Food and Drug Administration (FDA) cleared or approved and has been authorized by FDA under an Emergency Use Authorization (EUA). This EUA will be effective until the declaration that circumstances exist justifying the authorization of the emergency use of in vitro diagnostic tests for detection and/or diagnosis of COVID-19 is terminated under Section 564(b)(2) of the Act or the EUA is revoked under Section 564(g) of the Act.Fact Sheet for Healthcare Pro viders:https://www.[employer]/Documents/Xpert%20Xpress%20SARS%20CoV-2/Fact%20Sh eets/3023802%44JJAF-HKI-8%20HEALTHCARE%20PROVIDERS%20FACT%20SHEET.pdfFact Sheet for Healthcare Patients:https://www.[employer]/Documents/Xpert%20Xpress%20SARS%20CoV-2/Fact%20Sheets/3023801%20SARS-COV -2%20PATIENT%20FACT%20SHEET.pdfPerforming Laboratory:[facility] [place] [address]
--- NOTE | 2021-10-05 14:05 | RAD REPORT ---
EXAM DESCRIPTION: RAD - Chest Pa And Lat (2 Views) - 10/05/2021 1:51 pm CLINICAL HISTORY: SWELLING Chest pain. COMPARISON: Chest Single View dated 11/12/2019; Chest Single View dated 11/11/2019; CHEST SINGLE VIEW dated 10/08/2010; CHEST PA AND LAT 2 VIEW dated 07/12/2010 FINDINGS: The lungs are hyperexpanded but clear. 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 The heart is n ormal in size. There is a small to moderate right pleural effusion.
--- NOTE | 2021-10-05 14:06 | RAD REPORT ---
EXAM DESCRIPTION: US - Lower Extremity Arterial Bilat - 10/05/2021 1:59 pm CLINICAL HISTORY: PAIN COMPARISON: No comparisons TECHNIQUE: Bilateral lower extremity arterial Doppler examination was performed with john lester FINDINGS: Triphasic waveforms are seen throughout both lower extremity arterial systems to the level of the sabra salis pedis arteries. No significant flow abnormality. No significant stenosis or occlusion. IMPRESSION: No evidence of significant peripheral vascular disease.
--- NOTE | 2021-10-05 14:06 | RAD REPORT ---
EXAM DESCRIPTION: US - Extrem Venous W Compress Carlo - 10/05/2021 1:59 pm CLINICAL HISTORY: SWELLING Bilateral leg edema and swelling. COMPARISON: Extrem Venous W Compress Carlo dated 11/12/2019 TECHNIQUE: Real-time sonographic interrogation of the left and right lower extremity deep venous sys tems was performed. FINDINGS: Normal compressibility, flow augmentation, phasic flow and spontaneous flow is identified in both the left and right lower extremity deep venous systems. IMPRESSION: No sonographic evidence of left or right lower extremity deep venous thrombosis.
--- NOTE | 2021-10-05 14:55 | EDPHYS ---
Physician Documentation [facility] Name: Quentin Lei Age: 76 yrs Sex: Male : 1945 Arrival Date: 10/05/2021 Time: 12:47 Bed Waiting Private MD: ED Physician Mil Wolf HPI: 10/05 13:23 This 76 yrs old Male presents to ER via Ambulatory with complaints of Leg Swelling, pm1 Feet Swelling. 13:23 The patient presents with swelling. The complaints affect the right foot and left foot pm1 and lower extremities bilaterally. Context: resulted from an unknown cause, the patient can fully bear weight, the patient is able to ambulate. 13:23 Onset: The symptoms/episode began/occurred 1 week(s) ago. Modifying factors: The pm1 symptoms are alleviated by Walking. Movement decreases his lower extremity swelling. the symptoms are aggravated by Sedentary lifestyle per patient. Associated signs and symptoms: Pertinent negatives Chest pain. Patient reports he has baseline shortness of breath is actually improved. Treatment prior to arrival includes: no previous treatment. Severity of symptoms: in the emergency department the symptoms are unchanged. The patient has not recently seen a physician. Historical: - Allergies: 15:02 tramadol; ph - PMHx: 15:02 Arthritis; Arevalo's Esophagus; Hypertension; Hypothyroidism; Osteoporosis; ph - Immunization history:: Adult Immunizations unknown. - Social history:: Smoking status: Patient/guardian denies using tobacco, the patient reports quitting approximately 24 years ago. ROS: 13:23 Constitutional: Negative for fever, chills, and weight loss. pm1 13:23 Abdomen/GI: Negative for abdominal pain, nausea, vomiting, diarrhea, and constipation, Back: Negative for injury and pain, MS/Extremity: Negative for injury and deformity. 13:23 Skin: Negative for injury, rash, and discoloration, Neuro: Negative for headache, weakness, numbness, tingling, and seizure. 13:23 Cardiovascular: Positive for Lower extremity swelling bilaterally below knees. 13:23 Respiratory: Negative for cough, wheezing, acute changes. 13:23 All other systems are negative. Exam: 13:23 Constitutional: This is a well developed, well nourished patient who is awake, alert, pm1 and in no acute distress. Head/Face: Normocephalic, atraumatic. 13:23 Back: No spinal tenderness. No costovertebral tenderness. Full range of motion. Skin: Warm, dry with normal turgor. Normal color with no rashes, no lesions, and no evidence of cellulitis. 13:23 Cardiovascular: Exam negative for acute changes, Rate: normal, Rhythm: regular, Pulses: no pulse deficits are appreciated, Heart sounds: normal, normal S1and S2, Edema: pedal edema, that is mild, ankle edema, that is mild. 13:23 Respiratory: Exam negative for acute changes, respiratory distress, shortness of breath, Breath sounds: are clear throughout. 13:23 Musculoskeletal/extremity: DVT Exam: no pain, no tenderness, swelling, Calves: are non-tender, have equal circumference. 13:23 Neuro: Exam negative for acute changes, Orientation: is normal, Mentation: is normal, Motor: is normal, moves all fours. Vital Signs: 15:03 BP 148 / 66; Pulse 62; Resp 18; Temp 97.7; Pulse Ox 98% on R/A; ph 15:05 BP 137 / 86; Pulse 67; Resp 18; Temp 98.3; Pulse Ox 97% on R/A; ph MDM: 13:21 Patient medically screened. pm1 14:53 Counseling: I had a detailed discussion with the patient and/or guardian regarding: the pm1 historical points, exam findings, and any diagnostic results supporting the discharge/admit diagnosis, radiology results, the need for outpatient follow up, to return to the emergency department if symptoms worsen or persist or if there are any questions or concerns that arise at home. 15:06 Data reviewed: vital signs. Data interpreted: Pulse oximetry: on room air is 97 %. pm1 Interpretation: normal. 10/05 13:21 Order name: Chest Pa And Lat (2 Views) XRAY; Complete Time: 14:34 pm1 10/05 13:21 Order name: Extrem Venous W Compression Carlo US; Complete Time: 14:34 pm1 10/05 13:21 Order name: Lower Extremity Arterial Bilat US; Complete Time: 14:34 pm1 Administered Medications: No medications were administered Disposition: 21:33 Co-signature as Attending Physician, Mil MAC was immediately available on-site ms3 in the Emergency Department for consultation in the care of the patient.. Disposition Summary: 10/05/21 14:54 Discharge Ordered Location: Home pm1 Problem: new pm1 Symptoms: have improved pm1 Condition: Stable pm1 Diagnosis - Edema, unspecified - dependent pm1 Followup: pm1 - With: Emergency Department - When: As needed - Reason: Worsening of condition Followup: pm1 - With: Private Physician - When: 2 - 3 days - Reason: Recheck today's complaints, Continuance of care, Re-evaluation by your physician Discharge Instructions: - Discharge Summary Sheet pm1 - Edema pm1 Forms: - Medication Reconciliation Form pm1 - Thank You Letter pm1 - Antibiotic Education pm1 - Prescription Opioid Use pm1 Signatures: Dispatcher [employer] EDKaila Fisher RN RN Del Fiore NP COOPERATIVE MANAGER pm1 Mil Wolf DO DO ms3
--- NOTE | 2021-10-05 15:09 | ER ---
Nurse's Notes [facility] Name: Quentin Lei Age: 76 yrs Sex: Male : 1945 Arrival Date: 10/05/2021 Time: 12:47 Bed Waiting Private MD: Diagnosis: Edema, unspecified-dependent Presentation: 10/05 15:03 Chief complaint: Patient states: Bilateral feet swelling, mild SOB which pt states is ph "better than it usually is." Denies fever or chest pain. Coronavirus screen: Vaccine status: Patient reports receiving the 1st dose of the Covid vaccine. Ebola Screen: No symptoms or risks identified at this time. Initial Sepsis Screen: Does the patient meet any 2 criteria? No. Patient's initial sepsis screen is negative. Does the patient have a suspected source of infection? No. Patient's initial sepsis screen is negative. Risk Assessment: Do you want to hurt yourself or someone else? Patient reports no desire to harm self or others. Onset of symptoms was October 05, 2021. 15:03 Method Of Arrival: Ambulatory ph 15:03 Acuity: MAE 4 ph Triage Assessment: 15:00 General: Appears in no apparent distress. comfortable, Behavior is calm, cooperative, ph appropriate for age, Denies fever. Pain: Denies pain. Neuro: Level of Consciousness is awake, alert, obeys commands, Oriented to person, place, time, situation. Cardiovascular: No deficits noted. Cardiovascular: Edema is 2+ to left ankle, left foot, right ankle and right foot. Respiratory: Airway is patent Respiratory effort is even, unlabored. Derm: Skin is intact, is healthy with good turgor, Skin is pink, warm \\T\\ dry. Historical: - Allergies: 15:02 tramadol; ph - PMHx: 15:02 Arthritis; Arevalo's Esophagus; Hypertension; Hypothyroidism; Osteoporosis; ph - Immunization history:: Adult Immunizations unknown. - Social history:: Smoking status: Patient/guardian denies using tobacco, the patient reports quitting approximately 24 years ago. Screenin:08 Abuse screen: Denies threats or abuse. Denies injuries from another. Nutritional ph screening: No deficits noted. Tuberculosis screening: No symptoms or risk factors identified. Fall Risk None identified. Assessment: 15:01 Reassessment: ERP in triage to discuss US results w/ pt. ph 15:01 General: SEE TRIAGE ASSESSMENT. ph Vital Signs: 15:03 BP 148 / 66; Pulse 62; Resp 18; Temp 97.7; Pulse Ox 98% on R/A; ph 15:05 BP 137 / 86; Pulse 67; Resp 18; Temp 98.3; Pulse Ox 97% on R/A; ph ED Course: 12:47 Patient arrived in ED. mr 13:07 Del Butts [facility] pm1 13:07 Mil Wolf DO is Attending Physician. pm1 13:54 Chest Pa And Lat (2 Views) XRAY In Process Unspecified. EDMS 14:01 Extrem Venous W Compression Carlo US In Process Unspecified. EDMS 14:01 Lower Extremity Arterial Bilat US In Process Unspecified. EDMS 15:01 Kaila Ely, DUC is Primary Nurse. ph 15:05 Patient has correct armband on for positive identification. ph 15:07 Triage completed. ph 15:07 Arm band placed on. ph 15:08 No provider procedures requiring assistance completed. Patient did not have IV access ph during this emergency room visit. Administered Medications: No medications were administered Outcome: 14:54 Discharge ordered by MD. pm1 15:08 Patient left the ED. ph 15:08 Discharged to home ambulatory. ph 15:08 Condition: good 15:08 Discharge instructions given to patient, Instructed on discharge instructions, follow up and referral plans. Demonstrated understanding of instructions, follow-up care. Signatures: Dispatcher [employer] EDHI Bharati Pace mr Kaila Ely RN RN Del Butts NP SHOPPER INSIGHTS MANAGER pm1
[2021-10-05 18:37] VITALS: BP 148/66; TEMP 97.7; O2SAT 98
== END 2021-10-05 15:08 | disposition home or self-care (01) ==
LOC: ER 12:44
DX: R60.9 Edema, unspecified (principal); I10 Essential (primary) hypertension; Z88.5 Allergy status to narcotic agent
CPT/HCPCS: 71046; 93925; 93970; 99283

== ENCOUNTER 2023-02-09 18:02 | Inpatient (IN) | payer OTHER ==
--- OUTSIDE RECORDS SUMMARY | 2023-02-09 18:07 | XMS REPORT | Continuity of Care Document ---
:1945 Author Organization [facility] t Address [address] [place] [address]. [address] [place] [address] Care Team Providers Name Role Phone Paola Kasper MD Primary Care Physician Mitch Hanson Attending Clinician Unavailable Luis Alberto Monroe Attending Clinician Unavailable Fay GALEANA, Haley Giraldo Attending Clinician Ruth Ann Flowers RN Attending Clinician Unavailable Paola Kasper Admitting Clinician Unavailable Physician, No Primary or Family Admitting Clinician Unavaila ble Payers Payer Name Policy Type Policy Number Effective Date Expiration Date S ource Problems Condition Condition Condition Status Onset Resolution Last Treating Co mments Source Name Details Category Date Date Treatment Clinician Date Ex-smoker Ex-smoker Diagnosis Active 2021-01-26 Memoria Active 03:09:58 l Diagnosis [place] 01/26/2021 Alicia Ahmed Coronary Coronary Problem Active 2021-01-26 Memoria atheroscle atheroscle 03:09:58 l rosis Angie n cher-ae heights cher-ae heights coronary coronary artery artery Active Problem 01/26/2021 Alicia Vargas Coronary Coronary Diagnosis Active 2021-01-26 Memoria atheroscle atheroscle 03:09:58 l rosis sharla Jose Active Diagnosis 01/26/2021 Alicia Vargas Benign Benign Problem Active 2021-01-26 Dat kee hypertensi hypertensi 03:09:58 l ve heart ve heart Derek n 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 Active Problem 01/26/2021 Alpeshsravanthi Bettssravanthi Atheroscle Atheroscl Problem Active 2021-01-26 Memoria r of er of 03:09:58 l cher-ae heights cher-ae heights Jose artery 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 Active Problem 01/26/2021 Alicia Vargas Benign Benign Diagnosis Active 2021-01-26 Me moria hypertensi hypertensi 03:09:58 l ve heart ve heart Derek n disease disease without without congestive congestive heart heart failure failure Active Diagnosis 01/26/2021 Alicia Vargas Other Other Diagnosis Active 2021-01-26 Mem oria symptoms symptoms 03:09:58 l involving involving Herm satya cardiovasc cardiovasc ular ular system system Active Diagnosis 01/26/2021 Alicia Vargas Single Single Problem Active 2021-01-26 Dat kee subsegment subsegment 03:09:58 l al al Jose 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 N.K.D.A. Active Info Not 2019- Dat kee Available 2-17 l 00:00: Jose 00 Social History Social Habit Start Date Stop Date Quantity Comments Source Gender identity [facility] Sexual orientation Method [facility] Sex Assigned At [birth year] Met [facility] 00:00:00 00:00:00 Smoking Status Start Date Stop Date Source Tobacco smoking consumption unknown [facility] Medications Ordered Filled Start Stop Current Ordering Indication Dosage Frequency Signature Comments Components Source Medication Medication Date Date Medication? Clinician (SIG) Name Name Kristen Yes Ahmed not Memoria 01-26 Ahmed defined l 03:09: Jose 58 Calcium 0 Yes Ahmed 1 tab Memoria 01-26 Ahmed l 03:09: Jose 58 Lisinopril 0 Yes Ahmed 1 tablet Me moria 01-26 Ahmed l 03:09: Jose Verma Vitamin D-3 0 Yes Ahmed 1 capsule Memoria 01-26 Ahmed l 03:09: Jose 58 Vitamin C 0 Yes Ahmed not Memoria 01-26 Ahmed defined l 03:09: Jose Verma Prolia 0 Yes Ahmed not Memoria 01-26 Ahmed defined l 03:09: Jose 58 Vitamin B 0 Yes Ahmed not Memoria 12 01-26 Ahmed defined l 03:09: Jose 58 Furosemide 0 Yes Ahmed 1 tablet Me moria 01-26 Ahmed l 03:09: Jose Verma Aspir-81 0 Yes Ahmed 1 tablet Dat kee 01-26 Ahmed l 03:09: Jose 58 Levothyroxi 0 Yes Ahmed 1 tablet M emoria ne Sodium 01-26 Ahmed l 03:09: Jose Verma Omeprazole 0 Yes Ahmed 1 capsule M emoria 01-26 Ahmed l 03:09: Jose 58 Finasteride 0 Yes Ahmed 1 tablet M emoria 01-26 Ahmed l 03:09: Jose 58 Plavix 0 Yes Ahmed 1 tablet Memori a 01-26 Ahmed l 03:09: Jose Verma Simvastatin 0 Yes Ahmed 1 tablet M emoria 01-26 Ahmed every l 03:09: evening Jose Verma Eliquis 0 Yes Ahmed not Memoria 01-26 Ahmed defined l 03:09: Jose 58 Magnesium 0 Yes Ahmed 1 capsule Me moria 01-26 Ahmed with a l 03:09: meal Jose 58 Calcium 0 Yes Ahmed 1 tab Memoria 01-26 Ahmed l 03:09: Jose 58 Lisinopril 0 Yes Ahmed 1 tablet Me moria 01-26 Ahmed l 03:09: Jose 58 Vitamin D-3 2020-0 Yes Ahmed 1 capsule Memoria 01-26 Ahmed l 03:09: Jose 58 Vitamin C 0 Yes Ahmed not Memoria 01-26 Ahmed defined l 03:09: Jose 58 Prolia 0 Yes Ahmed not Memoria 01-26 Ahmed defined l 03:09: Jose 58 Vitamin B 2020-0 Yes Ahmed not Memoria 12 01-26 Ahmed defined l 03:09: Jose 58 Furosemide 2020-0 Yes Ahmed 1 tablet Me moria 01-26 Ahmed l 03:09: Jose 58 Aspir-81 0 Yes Ahmed 1 tablet Dat kee 01-26 Ahmed l 03:09: Jose 58 Levothyroxi 0 Yes Ahmed 1 tablet M emoria ne Sodium 01-26 Ahmed l 03:09: Jose 58 Omeprazole 0 Yes Ahmed 1 capsule M emoria 01-26 Ahmed l 03:09: Jose Verma Finasteride 0 Yes Ahmed 1 tablet M emoria 01-26 Ahmed l 03:09: Jose Verma Plavix 0 Yes Ahmed 1 tablet Memori a 01-26 Ahmed l 03:09: Jose 58 Simvastatin 0 Yes Ahmed 1 tablet M emoria 01-26 Ahmed every l 03:09: evening Jose 58 Eliquis 0 Yes Ahmed not Memoria 01-26 Ahmed defined l 03:09: Jose 58 Magnesium 2020-0 Yes Ahmed 1 capsule Me moria 01-26 Ahmed with a l 03:09: meal Jose Verma Calcium 2020-0 Yes Ahmed 1 tab Memoria 01-26 Ahmed l 03:09: Jose 58 Lisinopril 2020-0 Yes Ahmed 1 tablet Me moria 01-26 Ahmed l 03:09: Jose 58 Vitamin D-3 2020-0 Yes Ahmed 1 capsule Memoria 01-26 Ahmed l 03:09: Jose 58 Vitamin C 0 Yes Ahmed not Memoria 01-26 Ahmed defined l 03:09: Jose Verma Prolia 0 Yes Ahmed not Memoria 01-26 Ahmed defined l 03:09: Jose 58 Magnesium 2020-0 Yes Ahmed 1 capsule Me moria 01-26 Ahmed with a l 03:09: meal Jose 58 Calcium 0 Yes Ahmed 1 tab Memoria 01-26 Ahmed l 03:09: Jose 58 Lisinopril 0 Yes Ahmed 1 tablet Me moria 01-26 Ahmed l 03:09: Jose 58 Vitamin D-3 0 Yes Ahmed 1 capsule Memoria 01-26 Ahmed l 03:09: Jose 58 Vitamin C 0 Yes Ahmed not Memoria 01-26 Ahmed defined l 03:09: Jose 58 Prolia 0 Yes Ahmed not Memoria 01-26 Ahmed defined l 03:09: Jose 58 Vitamin B 0 Yes Ahmed not Memoria 12 01-26 Ahmed defined l 03:09: Jose 58 Furosemide 0 Yes Ahmed 1 tablet Me moria 01-26 Ahmed l 03:09: Jose 58 Aspir-81 0 Yes Ahmed 1 tablet Dat kee 01-26 Ahmed l 03:09: Jose Verma Levothyroxi 0 Yes Ahmed 1 tablet M emoria ne Sodium 01-26 Ahmed l 03:09: Jose 58 Omeprazole 0 Yes Ahmed 1 capsule M emoria 01-26 Ahmed l 03:09: Jose 58 Finasteride 0 Yes Ahmed 1 tablet M emoria 01-26 Ahmed l 03:09: Jose 58 Plavix 0 Yes Ahmed 1 tablet Memori a 01-26 Ahmed l 03:09: Jose 58 Simvastatin 0 Yes Ahmed 1 tablet M emoria 01-26 Ahmed every l 03:09: evening Jose 58 Eliquis 0 Yes Ahmed not Memoria 01-26 Ahmed defined l 03:09: Jose 58 Vitamin B 0 Yes Ahmed not Memoria 12 01-26 Ahmed defined l 03:09: Jose 58 Furosemide 2020-0 Yes Ahmed 1 tablet Me moria 01-26 Ahmed l 03:09: Jose 58 Aspir-81 2020-0 Yes Ahmed 1 tablet Dat kee 01-26 Ahmed l 03:09: Jose 58 Levothyroxi 2020-0 Yes Ahmed 1 tablet M emoria ne Sodium 01-26 Ahmed l 03:09: Jose 58 Omeprazole 2020-0 Yes Ahmed 1 capsule M emoria 01-26 Ahmed l 03:09: Jose 58 Finasteride 0 Yes Ahmed 1 tablet M emoria 01-26 Ahmed l 03:09: Jose 58 Plavix 2020-0 Yes Ahmed 1 tablet Memori a 01-26 Ahmed l 03:09: Jose 58 Simvastatin 2020-0 Yes Ahmed 1 tablet M emoria 01-26 Ahmed every l 03:09: evening Jose 58 Eliquis 0 Yes Ahmed not Memoria 01-26 Ahmed defined l 03:09: Jose 58 Magnesium 0 Yes Ahmed 1 capsule Me moria 01-26 Ahmed with a l 03:09: meal Jose 58 Calcium 0 Yes Ahmed 1 tab Memoria 01-26 Ahmed l 03:09: Jose 58 Lisinopril 0 Yes Ahmed 1 tablet Me moria 01-26 Ahmed l 03:09: Jose 58 Vitamin D-3 0 Yes Ahmed 1 capsule Memoria 01-26 Ahmed l 03:09: Jose 58 Vitamin C 0 Yes Ahmed not Memoria 01-26 Ahmed defined l 03:09: Jose 58 Magnesium 2020-0 Yes Ahmed 1 capsule Me moria 01-26 Ahmed with a l 03:09: meal Jose 58 Prolia 0 Yes Ahmed not Memoria 01-26 Ahmed defined l 03:09: Jose 58 Vitamin B 0 Yes Ahmed not Memoria 12 01-26 Ahmed defined l 03:09: Jose 58 Furosemide 2020-0 Yes Ahmed 1 tablet Me moria 01-26 Ahmed l 03:09: Jose 58 Aspir-81 2020-0 Yes Ahmed 1 tablet Dat kee 01-26 Ahmed l 03:09: Jose 58 Levothyroxi 2020-0 Yes Ahmed 1 tablet M emoria ne Sodium 01-26 Ahmed l 03:09: Jose 58 Omeprazole 2020-0 Yes Ahmed 1 capsule M emoria 01-26 Ahmed l 03:09: Jose 58 Finasteride 2020-0 Yes Ahmed 1 tablet M emoria 8- Ahmed l 03:09: Jose 58 Plavix 1-0 Yes Ahmed 1 tablet Memori a 01-26 Ahmed l 03:09: [place] 58 Simvastatin 2021-0 Yes Ahmed 1 tablet M emoria 8- Ahmed every l 03:09: evening Jose 58 Levothyroxi 2020-0 Yes Ahmed 1 tablet M emoria ne Sodium 12-20 Ahmed l 03:18: [place] 27 Simvastatin 2020-0 Yes Ahmed 1 tablet M emoria 12-20 Ahmed every l 03:18: evening [place] 27 Plavix 2020-0 Yes Ahmed 1 tablet Memori a 12-20 Ahmed l 03:18: [place] 27 Plavix 2020-0 Yes Ahmed 1 tablet Memori a 12-20 Ahmed l 03:18: Jose 27 Omeprazole 2020-0 Yes Ahmed 1 capsule M emoria 12-20 Ahmed l 03:18: Jose 27 Levothyroxi 2020-0 Yes Ahmed 1 tablet M emoria ne Sodium 12-20 Ahmed l 03:18: [place] 27 Simvastatin 2020-0 Yes Ahmed 1 tablet M emoria 12-20 Ahmed every l 03:18: evening Jose 27 Omeprazole 2020-0 Yes Ahmed 1 capsule M emoria 12-20 Ahmed l 03:18: Jose 27 Levothyroxi 2020-0 Yes Ahmed 1 tablet M emoria ne Sodium 12-20 Ahmed l 03:18: Jose 27 Simvastatin 2020-0 Yes Ahmed 1 tablet M emoria 12-20 Ahmed every l 03:18: evening [place] 27 Plavix 2020-0 Yes Ahmed 1 tablet Memori a 12-20 Ahmed l 03:18: Jose 27 Omeprazole 2020-0 Yes Ahmed 1 capsule M emoria 7 Ahmed l 03:18: Jose 27 Levothyroxi 2020-0 Yes Ahmed 1 tablet M emoria ne Sodium 12-20 Ahmed l 03:18: [place] 27 Simvastatin 2020-0 Yes Ahmed 1 tablet M emoria 7- Ahmed every l 03:18: evening [place] 27 Plavix 2020-0 Yes Ahmed 1 tablet Memori a 12-20 Ahmed l 03:18: Jose 27 Omeprazole 2020-0 Yes Ahmed 1 capsule M emoria 7-03 Ahmed l 03:18: Jose Plavix 2020-0 Yes Ahmed 1 tablet Memori a 7-03 Ahmed l 03:18: Jose 27 Omeprazole 2020-0 Yes Ahmed 1 capsule M emoria 7-03 Ahmed l 03:18: Jose Levothyroxi 2020-0 Yes Ahmed 1 tablet M emoria ne Sodium 7-03 Ahmed l 03:18: Jose Simvastatin 2020-0 Yes Ahmed 1 tablet M emoria 7-03 Ahmed every l 03:18: evening [place] Folic Acid 2017- Yes Ahmed 1 tablet Me moria 1-14 Ahmed l 04:23: [place] Folic Acid 2017- Yes Ahmed 1 tablet Me moria 1-14 Ahmed l 04:23: Jose Folic Acid 2017- Yes Ahmed 1 tablet Me moria 1-14 Ahmed l 04:23: [place] Folic Acid 2017- Yes Ahmed 1 tablet Me moria 1-14 Ahmed l 04:23: Jose Folic Acid 2017- Yes Ahmed 1 tablet Me moria 1-14 Ahmed l 04:23: Jose 09 Vital Signs Vital Name Observation Time Observation Value Comments Source Body height 2022-09-06 19:48:00 180.3 cm [facility] Body weight 2022-09-06 19:48:00 112.038 kg [facility] BMI 2022-09-06 19:48:00 34.45 kg/m2 [facility] Weight 2020-06-05 18:15:00 [facility] Jose Height 2020-06-05 18:15:00 [facility] Jose Heart Rate 2020-06-05 18:15:00 [facility] [place] Diastolic (mm Hg) 2020-06-05 18:15:00 Mem orial Jose Systolic (mm Hg) 2020-06-05 18:15:00 Dat [facility] [place] Weight 2020-02-04 18:00:00 [facility] [place] Heart Rate 2020-02-04 18:00:00 [facility] Jose Diastolic (mm Hg) 2020-02-04 18:00:00 Mem orial [place] Systolic (mm Hg) 2020-02-04 18:00:00 Dat rial Jose Weight 2019-11-21 17:00:00 [facility] [place] Heart Rate 2019-11-21 17:00:00 [facility] [place] Diastolic (mm Hg) 2019-11-21 17:00:00 Mem orial [place] Systolic (mm Hg) 2019-11-21 17:00:00 Dat riaaniyah [place] Weight 2018-12-28 15:45:00 [facility] [place] Heart Rate 2018-12-28 15:45:00 [facility] [place] Diastolic (mm Hg) 2018-12-28 15:45:00 Mem orial [place] Systolic (mm Hg) 2018-12-28 15:45:00 Dat rial [place] Weight 2018-06-26 18:00:00 [facility] [place] Heart Rate 2018-06-26 18:00:00 [facility] [place] Diastolic (mm Hg) 2018-06-26 18:00:00 Mem orial [place] Systolic (mm Hg) 2018-06-26 18:00:00 Dat rial Jose Weight 2018-04-26 18:15:00 [facility] [place] Heart Rate 2018-04-26 18:15:00 [facility] [place] Diastolic (mm Hg) 2018-04-26 18:15:00 Mem orial [place] Systolic (mm Hg) 2018-04-26 18:15:00 Dat rial [place] Weight 2017-10-24 18:00:00 [facility] [place] Heart Rate 2017-10-24 18:00:00 [facility] Jose Diastolic (mm Hg) 2017-10-24 18:00:00 Mem orial [place] Systolic (mm Hg) 2017-10-24 18:00:00 Dat rial [place] Weight 2017-04-25 20:30:00 [facility] Jose Heart Rate 2017-04-25 20:30:00 [facility] [place] Diastolic (mm Hg) 2017-04-25 20:30:00 Mem orial Jose Systolic (mm Hg) 2017-04-25 20:30:00 Dat riaaniyah [place] Weight 2017-01-04 16:45:00 [facility] Jose Heart Rate 2017-01-04 16:45:00 [facility] [place] Diastolic (mm Hg) 2017-01-04 16:45:00 Mem orial Jose Systolic (mm Hg) 2017-01-04 16:45:00 Dat mina Jose Procedures Procedure Date / Time Performed Performing Clinician Sourc e PET CT SKULL BASE TO 2022-09-06 20:53:12 [facility] MID THIGH CT CHEST WO CONTRAST 2022-07-15 19:45:[address] [facility] [address] CHEST WO CONTRAST 2021-11-09 18:43:32 [facility] Plan of Care Planned Activity Planned Date Details Comments Source Future Scheduled 2023-01-23 COVID-19 VACCINE (#1) [facility] Test 05:24:10 [code = COVID-19 VACCINE (#1)] Future Scheduled 2023-01-23 Hepatitis C screening [facility] Test 05:24:10 (procedure) [code = 608611349] Future Scheduled 2023-01-23 SHINGLES VACCINES (2 Met [facility] Test 05:24:10 of 3) [code = SHINGLES VACCINES (2 of 3)] Future Scheduled 2023-01-23 65+ [facility] 05:24:10 VACCINE (2 - PPSV23 if available, else PCV20) [code = 65+ PNEUMOCOCCAL VACCINE (2 - PPSV23 if available, else PCV20)] Future Scheduled 2023-01-23 INFLUENZA VACCINE Method is Hospital Test 05:24:10 [code = INFLUENZA VACCINE] Future Scheduled 2022-10-16 COVID-19 VACCINE (#1) [facility] Hospital Test 07:43:26 [code = COVID-19 VACCINE (#1)] Future Scheduled 2022-10-16 Hepatitis C screening [facility] Test 07:43:26 (procedure) [code = [id number]] Future Scheduled 2022-10-16 SHINGLES VACCINES (1 Met [facility] Test 07:43:26 of 2) [code = SHINGLES VACCINES (1 of 2)] Future Scheduled 2022-10-16 65+ P[facility]UMOCOCCAL [facility] Test 07:43:26 VACCINE (2 - PPSV23 if available, else PCV20) [code = 65+ PNEUMOCOCCAL VACCINE (2 - PPSV23 if available, else PCV20)] Future Scheduled 2022-10-16 INFLUENZA VACCINE Method is Hospital Test 07:43:26 [code = INFLUENZA VACCINE] Future Scheduled 2022-10-16 COVID-19 VACCINE (#1) [facility] Test 07:43:26 [code = COVID-19 VACCINE (#1)] Future Scheduled 2022-10-16 Hepatitis C screening [facility] Test 07:43:26 (procedure) [code = [id number]] Future Scheduled 2022-10-16 SHINGLES VACCINES (1 Met [facility] Test 07:43:26 of 2) [code = SHINGLES VACCINES (1 of 2)] Future Scheduled 2022-10-16 65+ PNEUMOCOCCAL Methodi [facility] Test 07:43:26 VACCINE (2 - PPSV23 if available, else PCV20) [code = 65+ PNEUMOCOCCAL VACCINE (2 - PPSV23 if available, else PCV20)] Future Scheduled 2022-10-16 INFLUENZA VACCINE Method [facility] Test 07:43:26 [code = INFLUENZA VACCINE] Encounters Start End Encounter Admission Attending Care Care Encounter Source Date/Time Date/Time Type Type Clinicians Facility Department ID 2023-02-09 Outpatient [id number] Memoria 18:06:00 [id number] -[id number] Jose [id number] [id number] 2022-11-09 Outpatient [id number] Memoria 05:32:31 [id number] [id number]-4537- B l -[id number]-[id number] Jose [id number] 2022-10-28 Outpatient [id number] Memoria 05:36:42 [id number]- 9 l -[id number] Jose [id number] [id number] 2022-09-06 Outpatient [id number] Memoria 17:07:55 [id number] l -[id number] Jose [id number] [id number] 2022-07-15 Outpatient [id number] [id number]-D Memoria 17:10:58 [id number] 8 l -[id number]-[id number] Jose [id number] [id number] 2022-12-14 2022-12-14 Outpatient Mitch Hanson [facility] G00 [id number] [facility] 13:59:00 13:59:00 04 [facility] 2022-11-09 2022-11-09 Outpatient Luis Alberto Mtz [facility] DAYS G00 [id number] [facility] 05:31:00 05:31:00 87 [facility] 2022-10-26 2022-10-26 Outpatient Luis Alberto Mtz [facility] G00 [id number] [facility] 13:21:00 13:21:00 54 [facility] 2022-09-06 2022-09-06 [facility], 1.2.840.1 [id number] Methodi 12:02:44 23:59:00 Encounter Haley R. 21080.1.[address] 3.430.2.7 Hospit a .3.468711 l .8 2022-09-06 2022-09-06 [facility], 1.2.840.1 [id number] Methodi 12:02:44 23:59:00 Encounter Haley R. 71392.1.[address] 3.430.2.7 Hospit a .3.780243 l .8 2022-09-06 2022-09-06 Travel 1.2.840.1 1.2.552.120 7350 [id number] Methodi 00:00:00 00:00:[address] 3.430.2.7 0.2.7.3.698 Ho spita .3.996162 084.8 l .8 2022-09-06 2022-09-06 Travel 1.2.840.1 1.2.475.483 7946 [id number] Methodi 00:00:00 00:00:[address] 3.430.2.7 0.2.7.3.698 Ho spita .3.792645 084.8 l .8 2022-08-27 2022-08-27 Transcribe Fay, 1.2.840.1 [id number] Methodi 00:00:00 00:00:00 Orders Haley R. 20284.1.[address] 3.430.2.7 Hospit a .3.630400 l .8 2022-08-27 2022-08-27 Transcribe Fay, 1.2.840.1 [id number] [id number] Methodi 00:00:00 00:00:00 Orders Haley R. 11134.1.[address] 3.430.2.7 Hospit a .3.797524 l .8 2022-08-12 2022-08-12 Transcribe Fay, 1.2.840.1 [id number] Methodi 00:00:00 00:00:00 Orders Haley R. 37081.1.[address] 3.430.2.7 Hospit a .3.019773 l .8 2022-08-12 2022-08-12 Transcribe Fay, 1.2.840.1 [id number] Methodi 00:00:00 00:00:00 Orders Haley R. 79733.1.[address] 3.430.2.7 Hospit a .3.977256 l .8 2022-07-16 2022-07-16 [facility] [place], 1.2.840.1 [id number] Methodi 00:00:00 00:00:00 [facility] Ruth Ann 48003.1.[address] ip 3.430.2.7 Hospit a .3.585329 l .8 2022-07-16 2022-07-16 [facility] [place], 1.2.840.1 [id number] Methodi 00:00:00 00:00:00 [facility] Ruth Ann 76890.1.[address] ip 3.430.2.7 Hospit a .3.858739 l .8 2022-07-15 2022-07-15 [facility], 1.2.840.1 [id number] Methodi 13:19:59 23:59:00 Encounter Haley R. 14810.1.[address] 3.430.2.7 Hospit a .3.529871 l .8 2022-07-15 2022-07-15 [facility], 1.2.840.1 [id number] Methodi 13:19:59 23:59:00 Encounter Haley R. 45335.1.[address] 3.430.2.7 Hospit a .3.104511 l .8 2022-07-15 2022-07-15 Travel 1.2.840.1 1.2.946.405 9561 [id number] Methodi 00:00:00 00:00:[address] 3.430.2.7 0.2.7.3.698 Ho spita .3.152463 084.8 l .8 2022-07-15 2022-07-15 Travel 1.2.840.1 1.2.053.232 3023 [id number] Methodi 00:00:00 00:00:[address] 3.430.2.7 0.2.7.3.698 Ho spita .3.897939 084.8 l .8 2022-06-15 2022-06-15 Transcribe [facility], 1.2.840.1 [id number] Methodi 00:00:00 00:00:00 Orders Haley R. 13977.1.[address] 3.430.2.7 Hospit a .3.636618 l .8 2022-06-15 2022-06-15 Transcribe [facility], 1.2.840.1 [id number] Methodi 00:00:00 00:00:00 Orders Haley R. 95245.1.[address] 3.430.2.7 Hospit a .3.326844 l .8 2021-11-13 2021-11-13 [facility], 1.2.840.1 [id number] Methodi 00:00:00 00:00:00 [facility] Ruth Ann 01461.1.[address] ip 3.430.2.7 Hospit a .3.040125 l .8 2021-11-09 2021-11-09 [facility], 1.2.840.1 [id number] Methodi 13:00:00 23:59:00 Encounter Haley R. 00388.1.[address] 3.430.2.7 Hospit a .3.326442 l .8 2021-11-09 2021-11-09 Travel 1.2.840.1 1.2.506.263 9208 [id number] Methodi 00:00:00 00:00:[address] 3.430.2.7 0.2.7.3.698 Ho spita .3.378247 084.8 l .8 2020-08-01 2020-08-01 Outpatient [facility] [id number] [place] 00:00:00 00:00:00 HALEY [address] 2020-06-05 2020-06-05 Outpatient med Alicia [id number] eClinic 13:15:00 13:15:00 Cardiolog Cardiology a Doron THORPE 2020-02-05 2020-02-05 Outpatient [facility] [id number] [place] 00:00:00 00:00:00 HALEY [address] 2020-02-04 2020-02-04 Outpatient med Alicia [id number] eClinic 13:00:00 13:00:00 Cardiolog Cardiology a Doron THORPE 2020-01-25 2020-01-25 Outpatient [facility] [id number] [address] [place] [address] 00:00:00 00:00:00 HALEY [address] 2019-11-21 2019-11-21 Outpatient [facility] [id number] eClinic 12:00:00 12:00:00 Cardiolog Cardiology a Jose Corks y Pa Maurilio 2018-12-28 2018-12-28 Outpatient [facility] [id number] eClinic 10:45:00 10:45:00 Cardiolog Cardiology a lWorks y Pa Maurilio 2018-06-26 2018-06-26 Outpatient [facility] [id number] eClinic 13:00:00 13:00:00 Cardiolog Cardiology a lWorks y Pa Maurilio 2018-04-26 2018-04-26 Outpatient [facility] [id number] eClinic 13:15:00 13:15:00 Cardiolog Cardiology a lWorks y Pa Maurilio 2017-10-24 2017-10-24 Outpatient [facility] [id number] eClinic 13:00:00 13:00:00 Cardiolog Cardiology a lWorks y Pa Maurilio 2017-04-25 2017-04-25 Outpatient [facility] [id number] eClinic 14:30:00 14:30:00 Cardiolog Cardiology a lWorks y Pa Maurilio 2017-01-04 2017-01-04 Outpatient [facility] [id number] eClinic 10:45:00 10:45:00 Cardiolog Cardiology a Artems y Maurilio Thorpe Results Test Description Test Time Test Comments Results Result Comments Source CYTOLOGY NON FIFTH HAND 2022-11-17 11:10:00 Test Item Value Reference Range Interpretation Comme nts CYTOLOGY RUN NON FIFTH HAND DATE: 11/17/22 [place] - LAB PAGE 1 RUN TIME: 1110 Specimen Inquiry RUN USER: INTERFACE (test PATIENT code = : HEATHER LEI ACCT #: G [id number] LOC: ISABEL U #: [id number] AGE/SX: 77/M ROOM: REG: ) 11/09/22REG DR: Luis Alberto Monroe : 41 BED: DIS: ATUS: [facility] TLOC: SPEC #: [id number] RECD: STATUS: GUSTAVO REQ #: [id number] TERESA: 11/09/22- SUBM DR: Luis Alberto Monroe ENTERED: 11/10/22 SP T YPE: CYTO NGYN OTHR DR: No Primary or Family PhysicianORDERED: 00002/3, SPEC STAIN GI/6, 17412, IHC ADD 47233/4, FNA ADEQUACY/2, FNA INTERP RPT, 27246, 46034, ANATOMIC SPEC COPIES TO: No Primary o r Family Physician Luis Alberto Monroe [address] [place], [place] [id number] PROCEDURE S: [id number] (11/10/22-1423) SPEC STAIN GI (11/11/22- 1229) [id number] (11/11/22) IHC ADD 8834 1 (11/11/22) FNA ADEQUACY (11/10/22) FNA INTERP RPT (11/10/22) 47594 (11/10) 07203 (11/10/22) TISSUES: A. LUNG, RIGHT UPPER - FNA B. LUNG, RIGHT UPPER - BX C. KAREN NG, RIGHT UPPER - BRUSHINGS D. LUNG, RIGHT UPPER - BAL CLINICAL COMMUNICATIONS Dr. Aniyah yung scussed the case with DR. MONROE on 11/17/22 at 1057. CLINICAL HISTORY OTHER NONSPECIFIC ABNORMAL F INDING OF LUNG FIELD FINAL DIAGNOSIS Lung, right upper lobe, FNA: Atypical cells identified. 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 Karen kumari, right upper lobe brushing: Atypical cells present. CONTINUED ON NEXT PAGE RUN DATE: 11/17/22 [facility] PAGE 2 RUN TIME: 1110 Specimen Inquiry RUN USER: INTERFACE SPEC #: [id number] PATIENT: HEATHER LEI #[id number] (Continued) ---- FINAL DIAGNOSIS (Contin ued) Lung, right upper lobe BAL, cellblock sections and cytospins: Rare atypical cellsidentified. Co mment: Special stains performed on specimens #1, #2, and #4 reveal no fungal or acid-fastorganisms (GMS and AFB). Controls are appropriate. GROSS DESCRIPTION 1. Received are 6 slides for intraoperat angie assessment and separately 2 slides forintraoperative assessment and also fluid for cell block pr eparations. Specimen #2 is received in formalin in a container labeled patient's name and designate dright upper lobe biopsy and consists of multiple fragments of slightly hemorrhagic tissuewhich in a ggregate measures 1.2 cm. The specimen is entirely submitted in cassette A. 3. Right upper l obe brushings for cytology evaluation. 4. Right upper lobe BAL for cytology evaluations. Techni froy component performed at [facility],[address] [place] [address], [place] [address] Unless gross only, the diagnosis is based upon microscopic examination .Immunohistochemistry: This test was developed and its performance characteristicsdetermined by this laboratory. It has not been approved nor does it need approvalby the [place] FDA. Appropriate posi tive and negative controls are reviewed and judgedto be acceptable for performedimmunohistochemistr y and/or special stains. This laboratoryis certified under the Clinical Laboratory Improvement Amend ments (CLIA-88) as qualified toperform high complexity clinical laboratory testing. INTRAOPE RATIVE CONSULTATION PROCEDURE: Intraoperative assessment: Lung, right upper lobe FNA passes 1 thro ugh 3 (6slides): Rare atypical cells present. Lung, right upper lobe FNA Pass #4 (2 slides): Noat ypical cells identified.Start Time: 1123End Time: 1130Performed by: Kirstin HERNANDEZ Reported to: KIMI VELAZQUEZ OSCOPIC DESCRIPTION Sections of the biopsy reveal abnormal cells in papillary and glandular stru ctures. Immunostaining reveals that the cells are positive for CK7 and TTF-1 and are negative forCK 20, PAX8, and thyroglobulin. 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 Controls are appropriate. Clinical correlation isrecommended. CONTINUED ON NEXT PAGE RUN DATE: 11/17/22 [place] - LAB PAGE 3 RUN TIME: 1110 Specimen Inquiry RUN USER: INTERFACE SPEC #: [id number] PATIENT: HEATHER LEI #[id number] (Continued) ---- CLINICAL INFORMATION LUNG NODULE Signed SIGNATURE ON FILE [place] 11/17/22 1110 END OF REPORT BASIC METABOLIC [id number] 11:05:00 Test Item Value Reference Range Interpretation Comments SODIUM (test code = 142 mEq/L 134-147 N NA) POTASSIUM (test code 4.2 mEq/L 3.4-5.0 N = K) CHLORIDE (test code 107 mEq/L 100-108 N = CL) CARBON DIOXIDE (test 29 mEq/l 21-33 N code = CO2) ANION GAP (test code 10 0-20 N = GAP) GLUCOSE (test code = 103 mg/dL 70-110 N GLU) BLOOD UREA NITROGEN 14 mg/dL 7-18 N (test code = BUN) GLOMERULAR 55.9 70-80 L The Glomerular FILTRATION RATE Filtration R ate is a (test code = GFR) calculated parameterbased on serum Creatinine, pat ient age and sex. GFR va luesless than 60 mL/min/ 1.73 square meters a re indicative ofCh ronic Kidney Disease. Values less than 15 mL/min/1.73squa re meters indicate Kidney failure. The calculation forGFR is based on the CKD-EPI (2020) calculat ion. This formulais race indifferent and is the recommended for nevaeh for GFRby the Natio nal Kidney Foundati on for Adults.The GFR will not calculate if th e sex is unknown or if thepatient's ag e is <18 years. CREATININE (test 1.3 mg/dL 0.6-1.3 N code = CREAT) CALCIUM (test code = 9.3 mg/dL 8.0-10.5 N CA) - XR FLUOROSCOPY 0-60 [id number] 00:00:00 [facility] LE[facility] : 1945 Sex: M FAX: Luis Alberto Casillas [phone] [place]: St: REG Name: [facility] [place] : 1945 Age/S: 77/M [address] [place] [address] Unit #: [id number] Loc: [place] [address] Phys: Luis Alberto Monroe Acct: [id number] Dis Date: Status[place] [facility] [place] #: [phone] Exam Date: 11/09/2022 1136 FAX #: [phone] Reason:BRONCH EXAMS: CPT CODE: [id number] XR FLUOROSCOPY 0-60 MIN 56593 PROCEDURE INFORMATION: Exam: FL Fluoroscopy, Up to 1 Hour Physician Time; Radiologist Not Present For Fluoroscopy Exam date and time: 11/09/2022 11:24 AM Age: 77 years old Clinical indication: Symptoms: Bronch TECHNIQUE: Imaging protocol: Fluoroscopy , up to 1 hour physician or other qualified health pharmacy care coordinator time. This radiologis t did not supervise this procedure. Exam supervised by facility personnel. Report for radiation dosage reporting and documentation only. Other technique: Radiologist was not present during this procedure. COMPARISON: No relevant prior studies available. RADIATION DOSE METRICS: Fluoroscopy time (seconds): seconds= 423.8 Number of fluoro spot images: images= 1 Reference air kerma (BRAD): 55.1 mGy FINDINGS: Procedural imaging: Fluoroscopic assistance was provided. Radiologist was not present during the procedure. Intraoperative review of these images was performed by the operating physician. Please refer to the procedure report for further details. Notes: Fluoroscopy supervised by facility personnel. See also separate procedure report. IMPRESSION: Fluoroscopy dosage documentation. See also separate procedure notes. at 5738 Reported and signed by: Heather Harrell M.D. CC: Luis Alberto Monroe Technologist: RT Miguel(Adriana) Trnscrd Date/Time/By: 11/09/2022 (7868) : By: [email or web address] Orig Print D/T: S: 11/09/2022 (4145) PAGE1 Signed Report- XR CHEST 1 [id number] 00:00:00 [facility] 1945 Sex: M FAX: Luis Alberto Casillas [phone] [place]: St: REG Name: [facility] [place] : 1945 Age/S: 77/M [address] [place] [address] Unit #: [id number] Loc: [place] [address] Phys: Luis Alberto Monroe Acct: [id number] Dis Date: Status[place] [facility] #: [phone] Exam Date: 11/09/2022 1316 FAX #: [phone] Reason: S/P ROBOTIC BRONCH/LUNG NODULE EXAMS: CPT CODE: [id number] XR CHEST 1 V 95601 PROCEDURE INFORMATION: Exam: XR Chest Exam date and time: 11/09/2022 12:01 PM Age: 77 years old Clinical indication: Screening exam; Other screening; Additional info: S/P robotic bronch/lung nodule TECHNIQUE: Imaging protocol: Radiologic exam of the chest. Views: 1 view. COMPARISON: CT CHEST W/O CONTRAST 10/26/2022 2:41 PM FIN DINGS: Lungs: Linear left basilar airspace disease suggestive of atelectasis or scarring, similar toprior CT. No new focal airspace disease. No evidence of pulmonary edema. Known pulmonary nodules better seen on prior CT. Pleural spaces: No pleural effusion. No pneumothorax. Heart/Mediastinum: Normal appearance of the cardiomediastinal silhouette. Bones/joints: Median sternotomy changes. IMPRESSION:Linear left basilar airspace disease suggestive of atelectasis or scarring, similar to prior CT. No new focal airspace disease. at 1345 Reported and signed by: Manjit Flores M.D. CC: Luis Alberto Monroe Technologist: RT Jerry(Adriana) Trnscrd Date/Time/By: 11/09/2022 (126) : By: [email or web address] Orig Print D/T: S: 11/09/2022 (8186) PAGE 1 Signed Report- CT CHEST W/O [id number] 00:00[facility]00[facility] : 1945 Sex: M Name: HEATHER LEI [facility] [place] : 1945 Age/S: 77 / M [address] [place] [address] Unit #: [id number] Loc: [facility] [place] [address] Phys: Luis Alberto Monroe Acct: [id number] Dis Date: Status: DEP CLI PHONE #: [phone] Exam Date: 10/26/2022 1442 FAX #: [phone] Reason: R91.8, OTHER NONSPECIFIC ABNORMAL FINDING OF KAREN EXAMS: CPT CODE: [id number] CT CHEST W/O CONTRAST 95848 PROCEDURE INFORMATION: Exam: CT Chest Without Contrast; Diagnostic Exam date and time: 10/26/2022 2:41 PM Age: 77 years old Clinical indication: Other nonspecific abnormal finding of lung field; Additional info: R91.8, other nonspecific abnormal finding of lung field. TECHNIQUE: Imaging protocol: Diagnostic computed tomography of the chest without contrast. Radiation optimization: All CT scans at this facility use at least one ofthese dose optimization techniques: automated exposure control; mA and/or kV adjustment per patient size (includes targeted exams where dose is matched to clinical indication); or iterative reconstruction. REPORTING DATA: Count of CT and Cardiac NM exams in prior 12 months: This patient has received 3known CTs and 0 known cardiac nuclear medicine studies in the 12 months prior to the current study. COMPARISON: CT CHEST W/O CONTRAST 07/15/2022 1:41 PM FINDINGS: Trachea: Central bronchi are patent. Lungs: 8 mm right upper lobe pulmonary nodule is stable (series 3, image 70). Two adjacent pulmonary nodules by small focus of ground-glass opacity are stable at 6 mm and 8 mm (series 3, images 94, 98). Stable 4 mm ground-glass opacity right upper lobe (series 3, image 104). Stable 2 mm left upper lobe pulmonary nodule (series 3, image 58). Stable scarring and rounded atelectasis left lower lobe. Stable volume loss of the left lung. Pleural spaces: No pneumothorax or pleural effusion. Right pleural calcification. Heart: Heart size is within normal limits. No pericardial effusion. Coronary arteries: Status post CABG procedure. Coronary artery calcification. Lymph nodes: No enlarged lymph nodes. Vasculature: No aortic aneurysm. Diaphragm: Small hiatal hernia. Bones/joints: Degenerative changes of the spine. No suspicious osseous lesion. Dextroscoliosis of the thoracic spine. Soft tissues: Unilateral right gynecomastia. Other findings: Visualized upper abdomen is stable. Notes: Visualized lower neck is unremarkable. PAGE 1 Signed Report (CONTINUED) Name: HEATHER LEI [facility] : 1945 Age/S: 77 / M [address] [place] [address] Unit #: [id number] Loc: [place] [address] Phys: Luis Alberto Monroe Acct: [id number] Dis Date: Status: DEP CLI PHONE #: [phone] Exam Date: 10/26/2022 1442 FAX #: [phone] Reason: R91.8, OTHER NONSPECIFIC ABNORMAL FINDING OF KAREN EXAMS: CPT CODE: [id number] CT CHEST W/O CONTRAST 64095 (Continued) IMPRESSION: Multiple stable pulmonary nodules, follow-up as per patient's clinical history (Fleischner criteria not applicable). Electronically Signedby Aramis Clifford on 10/27/2022 at 1357 Reported and signed by: Ashlyn Clifford M.D. CC: Luis Alberto Monroe; Paola Kasper MD Technologist:Amadeo Alvarenga, RT(R)(CT) CTDI: DLP:Trnscb Date/Time: 10/27/2022 (618) t.[id number] Orig Print D/T: S: 10/27/2022 (505) PAGE 2 Signed Report Notes Date/Time Note Provider Source 2022-11-09 09:49:00-00:00 [id number] [place] [address] PATIENT NAME: HEATHER LEI ADMIT DATE: ACCOUNT NO: [id number] ROOM NO: AGE: 77 REPORT TYPE: ENDOSCOPY REPORT SEX: M ADMITTING PHYSICIAN: ATTENDING PHYSICIAN:Luis Alberto Monroe Patient Name: Heather Lei Procedure Date: 9:49 AM Date of : 1945 Procedure: Bronchoscopy Indications: Right upper lobe nodule Providers: Luis Alberto Monroe MD (Doctor) Referring MD: Luis Alberto Monroe MD (Referring MD) Requesting Physician: Medicines: General Anesthesia Procedure: Pre-Anesthesia Assessment: - Prior to the procedure, a History and Physic al was performed, and patient medications and allergie s were reviewed. The patient's tolerance of previous anesthesia was also reviewed. The risks and randi efits of the procedure and the sedation options and r isks were discussed with the patient. All questions were answered, and informed consent was obtained. Pr ior Anticoagulants: The patient has taken Eliquis (apixaban), last dose was 5 days prior to proce dure. ASA Grade Assessment: III - A patient with janice re systemic disease. After reviewing the risks and benefits, the patient was deemed in satisfactor y condition to undergo the procedure. After I obtained informed consent, the scope w as passed under direct vision. Throughout the proc edure, the patient's blood pressure, pulse, and oxygen saturations were monitored continuously. The wa s introduced through the mouth, via the endotrach eal tube and advanced to the tracheobronchial tree of both lungs. The procedure was accomplished without difficulty. The patient tolerated the procedure well. Findings: The endotracheal tube is in good position. The visualized portion of the trachea is of normal caliber. The vannesa is sha rp. The tracheobronchial tree was examined to at least the first subsegm ental level. Bronchial mucosa and anatomy are normal; there are no end obronchial lesions, and no secretions. Robotic bronchoscopy utilizing the [employer] Security[employer]umi nal system was performed. The CT scan was used for planning purposes. A v irtual bronchoscopic image was generated using the planning software and the vannesa, left PATIENT NAME: HEATHER LEI [id number] main bronchus vannesa, left lower lobe basilar s egment, right upper lobe and right lower lobe basilar segment registrati on points were marked on the virtual image. The target in the right uppe r lobe was marked. A nodule 1.4 cm in size was found and a pathway w as created. After a complete airway exam, the locatable guide/exten ded working channel was inserted and the pre-planned fiducial landmarks , including vannesa were registered. The navigation phase was then begun to locate the target lesion(s). Positioning was confirmed using fluo roscopy and centrally (in relation to the lesion) was confirmed using the Olympus radial probe US catheter. The locatable guide was removed from the extended working channel. Transbronchial needle aspirations of a nodule w ere performed in the right upper lobe using a fine 21 gauge needle a nd sent for histopathology examination. The procedure was g uided by fluoroscopy and ultrasound. Transbronchial needle aspiration te chnique was selected because the sampling site was not visible endos copically. The sampling device penetrated the full thickness of the bro nchial wall to obtain the needle aspiration of lung tissue. Four samples were obtained. Transbronchial biopsies of a nodule were perfor med in the right upper lobe using forceps and sent for histopathology examination. The procedure was guided by fluoroscopy and ultraso und. Transbronchial biopsy technique was selected because the sampl ing site was not visible endoscopically. The sampling device penetrated the full thickness of the bronchial wall to obtain the biopsy of lung tis pam. Seven biopsy passes were performed. Seven biopsy samples were obtai magan. Fluoroscopy and ultrasound guided transbronchia l brushings of a nodule were obtained in the right upper lobe with a [employer] brush and sent for histopathology examination. Two samples were ob tained. Transbronchial brushing technique was selected because the rachell pling site was not accessible using standard endoscopic (bronchosc opic) techniques. The bronchoscope was advanced until wedged at t he desired location for bronchoalveolar lavage. BAL was performed in th e right upper lobe of the lung and sent for routine cytology and bacteria l, AFB and fungal analysis. 50 mL of fluid were instilled. 22 mL were returned. The return was bloody and cellular. There were no mucoid p lugs in the return fluid. Complications: No immediate complications. Estim ated blood loss: Minimal Estimated Blood Loss: Estimated blood loss was minimal. Impression: - Right upper lobe nodule - The airway examination was normal. - Robotic bronchoscopy was performed. - A transbronchial needle aspiration was perfor med. RUL - Transbronchial lung biopsies were performed. RUL - Transbronchial brushings were obtained. RUL - Bronchoalveolar lavage was performed. RUL Recommendation: - Await BAL, biopsy, culture and cytology results. Procedure Code(s): --- Professional --- 29877, Bronchoscopy, rigid or flexible, includi ng fluoroscopic guidance, when performed; with transbronchial needle aspiration biopsy(s), tra lynn, main stem and/or lobar bronchus(i) 05377, Bronchoscopy, rigid or flexible, includ ing PATIENT NAME: HEATHER LEI [id number] fluoroscopic guidance, when performed; with transbronchial lung biopsy(s), single lobe 73611, Bronchoscopy, rigid or flexible, includi ng fluoroscopic guidance, when performed; with br onchial alveolar lavage 60451, Bronchoscopy, rigid or flexible, includi ng fluoroscopic guidance, when performed; with br ushing or protected brushings 36751, Bronchoscopy, rigid or flexible, includi ng fluoroscopic guidance, when performed; with computer-assisted, image-guided navigation (Lis t separately in addition to code for primary procedure[s]) 80954, Bronchoscopy, rigid or flexible, includi ng fluoroscopic guidance, when performed; with transendoscopic endobronchial ultrasound (EBUS) during bronchoscopic diagnostic or therapeutic intervention(s) for peripheral lesion(s) (List separately in addition to code for primary procedure[s]) CPT copyright 2020 [employer]. All rights reserved. The codes documented in this report are prelimin ralph and upon applications support specialist review may be revised to meet current compliance requiremen ts. Luis Alberto Monroe MD Luis Alberto Monroe MD 11/09/2022 11:48:12 AM This report has been signed electronically. Number of Addenda: 0 Note Initiated On: 11/09/2022 9:49 AM Provation {[id number]}.pdf ProVation FT PDF at 1148 PATIENT NAME: HEATHER LEI [id number]
[2023-02-09] MEDS ORDERED: Meropenem 1000 MG/VIAL IV ONE (18:28)
[2023-02-09] MEDS ORDERED: NA CHLORIDE 0.9% 100 ML ONE (18:28)
[2023-02-09] MEDS ORDERED: NA CHLORIDE 0.9% 2,000 ML ONE (18:28)
[2023-02-09] MEDS ORDERED: ACETAMINOPHEN 500 MG TAB ONE (18:30)
[2023-02-09 18:32] LABS: Absolute Lymphocytes (CBC) 0.8 K/uL (0.7-4.9); Lymphocytes % 11.7 % (15.3-44.8); MCV 79.5 fL (80-100); MPV 7.3 fL (7.6-11.3); Platelets 151 thou/uL (152-406); RBC Red Blood Cell Count 4.16 M/uL (4.33-5.43)
[2023-02-09 18:34] LABS: Protime INR 2.03
[2023-02-09 18:48] LABS: SARS-CoV-2 Antigen Rapid Res Negative (Negative)
[2023-02-09 18:51] LABS: Albumin 3.7 g/dL (3.4-5.0); Bilirubin Direct 0.2 mg/dL (0-0.2); Bilirubin Indirect, Calculated 0.4 mg/dL (0.2-0.8); Bilirubin Total 0.6 mg/dL (0.2-1.0); Protein, Total 7.9 g/dL (6.4-8.2); Troponin High Sensitivity 47.5 pg/mL (<58.9)
[2023-02-09] MEDS ORDERED: HYDROCORTISONE SUC 100 MG INJ ONE (19:06)
[2023-02-09] MEDS ORDERED: FAMOTIDINE 20 MG/2 ML VIAL IV ONE (19:07)
--- NOTE | 2023-02-09 19:40 | RAD REPORT ---
EXAM DESCRIPTION: CT - Head C Spine Cap Wo Con - 02/09/2023 7:07 pm CLINICAL HISTORY: Trauma, head and neck injury. Chest, abdomen and pelvis pain. Confused;Pain COMPARISON: Chest For Pe Angio dated 11/11/2019; CT-STONE PROTOCOL dated 02/08/2011 TECHNIQUE: CT head without contrast. CT cervical spine without contrast with coronal and sagittal reformatted images. CT chest, abdomen and pelvis without contrast with coronal and sagittal reformatted images of the spi ne. All CT scans are performed using dose optimization technique as appropriate and may include automated exposure control or mA/KV adjustment according to patient size. FINDINGS: CT HEAD WITHOUT CONTRAST: No intracranial hemorrhage, hydrocephalus or extra-axial fluid collection. No areas of brain edema o r midline shift. Complete opacification of the left maxillary sinus. The paranasal sinuses and mastoids are otherwise clear. The calvarium is intact. CT CERVICAL SPINE WITHOUT CONTRAST: No fracture or subluxation. Mild midcervical degenerative changes are present. The prevertebral soft tissues are normal in thickness. CT CHEST, ABDOMEN, PELVIS WITHOUT CONTRAST: NOTE: Lack of contrast is a significant limitation in the assessment of trauma related findings. Spec ifically, solid organ, vascular and bowel evaluation is significantly limited. Noncalcified pulmonary nodule is present in the right upper lobe measuring 8 mm, unchanged since 10/19 study.Mild linear opacity in the medial left lung base likely atelectasis.No pneumothorax or p ericardial/pleural fluid. Small hiatal hernia. No evidence of intra-abdominal visceral injury, free fluid or free air is seen within the above detai led limitations. 6 mm stone is present inferior calyx left kidney. Protuberance along the anterolater al left kidney cortex measuring 39 mm is present, showing no significant change since 2019. No concerning pelvic findings. Mild lumbar degenerative changes. IMPRESSION: Negative for acute traumatic findings within the above detailed limitations.
--- NOTE | 2023-02-09 19:44 | ER ---
Nurse's Notes [facility] Name: Quentin Lei Age: 77 yrs Sex: Male : 1945 Arrival Date: 02/09/2023 Time: 18:02 Bed 7 Private MD: Diagnosis: Fever, unspecified;Weakness;Pneumonia due to other specified bacteria-LEFT LOWER LOBE;Altered mental status, unspecified;Anemia, unspecified Presentation: 02/09 18:05 Chief complaint: EMS states: Pt's friend reported pt c/o feeling feverish and not aa5 feeling well. EMS reports AMS. Pt currently A\T\O x 2. 18:05 Coronavirus screen: fever. Ebola Screen: Unable to complete the Ebola screening aa5 because:. Initial Sepsis Screen: Does the patient meet any 2 criteria? Temp <36.0*C (96.8*F)) or > 38.3*C (100.9*F). Altered Mental Status. Yes Does the patient have a suspected source of infection? Yes:. Risk Assessment: Do you want to hurt yourself or someone else? Patient reports no desire to harm self or others. Onset of symptoms is unknown. Care prior to arrival: IV initiated. 20 GA, in the left forearm. 18:05 Acuity: MAE 2 aa5 18:05 Method Of Arrival: EMS: [facility] aa5 Historical: - Allergies: 18:06 tramadol; aa5 - PMHx: 18:06 Arthritis; Arevalo's Esophagus; Hypertension; Hypothyroidism; Osteoporosis; aa5 Hypercholesterolemia; 18:06 Lung tumor with radiation tx completed January 2023; aa5 - Immunization history:: Adult Immunizations unknown. - Social history:: Smoking status: Patient denies any tobacco usage or history of. Screenin:10 [facility] ED Fall Risk Assessment (Adult) Confusion or Disorientation Yes (5 pts) aa5 Score/Fall Risk Level 3 or more points = High Risk Oriented to surroundings, Maintained a safe environment, Educated pt \T\ family on fall prevention, incl call for assistance when getting out of bed. Abuse screen: Denies threats or abuse. EMS reports AMS report will be filed by them due to poor living conditions. Nutritional screening: No deficits noted. Tuberculosis screening: unable to complete, pt confused. . Assessment: 18:05 General: Appears uncomfortable, Behavior is calm, cooperative, Reports chills for 2-3 aa5 days, feeling ill for 2-3 days. Pain: Denies pain. Neuro: Level of Consciousness is awake, obeys commands, confused, Oriented to person, place, Field Service Tech are equal bilaterally Moves all extremities. Speech is normal, Facial symmetry appears normal, Pupils are PERRLA. Cardiovascular: Heart tones S1 S2 present Rhythm is regular. Respiratory: Airway is patent Respiratory effort is even, unlabored, Respiratory pattern is regular, symmetrical, Breath sounds are clear bilaterally. Cough noted. GI: Abdomen is round Bowel sounds present X 4 quads. Abd is soft and non tender X 4 quads. : Lesions noted on pubic area. EENT: No signs and/or symptoms were reported regarding the EENT system. Derm: Skin is dry, Skin is normal, Skin temperature is hot. Musculoskeletal: Range of motion: intact in all extremities. 18:06 Reassessment: Del España (pt's friend) [phone], phone number provided to ER aa5 staff by [facility]. . 18:32 Reassessment: DUC Cassidy at bedside collecting 2nd set of blood cultures. . aa5 19:02 Reassessment: Pt to CT scan . aa5 19:21 Reassessment: Patient and/or family updated on plan of care and expected duration. Pain vc1 level reassessed. 20:00 Reassessment: Patient and/or family updated on plan of care and expected duration. Pain vc1 level reassessed. Patient is alert, oriented x 3, equal unlabored respirations, skin warm/dry/pink. 21:00 Reassessment: No changes from previously documented assessment. Patient and/or family vc1 updated on plan of care and expected duration. Pain level reassessed. Patient is alert, oriented x 3, equal unlabored respirations, skin warm/dry/pink. 22:00 Reassessment: No changes from previously documented assessment. Patient and/or family vc1 updated on plan of care and expected duration. Pain level reassessed. Patient is alert, oriented x 3, equal unlabored respirations, skin warm/dry/pink. 23:00 Reassessment: No changes from previously documented assessment. Patient and/or family vc1 updated on plan of care and expected duration. Pain level reassessed. Patient is alert, oriented x 3, equal unlabored respirations, skin warm/dry/pink. 02/10 00:00 Reassessment: No changes from previously documented assessment. Patient and/or family vc1 updated on plan of care and expected duration. Pain level reassessed. Patient is alert, oriented x 3, equal unlabored respirations, skin warm/dry/pink. Vital Signs: 02/09 18:05 BP 144 / 97; Pulse 101; Resp 26 S; Temp 102.8(O); Pulse Ox 96% on R/A; aa5 18:05 Weight 104.78 kg (M); aa5 18:52 BP 141 / 60; Pulse 90; Resp 22 S; Temp 102.5(O); Pulse Ox 95% on R/A; aa5 20:34 BP 107 / 60; Pulse 77; Resp 20; Pulse Ox 96% ; vc1 20:34 Temp 97.9; vc1 22:00 BP 116 / 52; Pulse 76; Resp 20; Pulse Ox 96% on R/A; vc1 23:00 BP 122 / 56; Pulse 70; Resp 18; Pulse Ox 95% ; vc1 02/10 00:00 BP 119 / 65; Pulse 83; Resp 18; Pulse Ox 99% ; vc1 02:06 BP 160 / 80; Pulse 97; Resp 20; Temp 98; Pulse Ox 96% ; rv Frederica Coma Score: 02/09 18:22 Eye Response: spontaneous(4). Motor Response: obeys commands(6). Verbal Response: mikaela oriented(5). Total: 15. 02/10 02:06 Eye Response: spontaneous(4). Motor Response: obeys commands(6). Verbal Response: rv confused(4). Total: 14. ED Course: 02/09 18:05 Patient arrived in ED. aa5 18:06 Cintia Fry, RN is Primary Nurse. aa5 18:06 Arm band placed on. aa5 18:06 Patient has correct armband on for positive identification. Placed in gown. Bed in low aa5 position. Call light in reach. Side rails up X2. Client placed on continuous cardiac and pulse oximetry monitoring. NIBP monitoring applied. 18:06 Maintain EMS IV. Dressing intact. Site clean \T\ dry. Gauge \T\ site: 20G L FA . aa 5 18:10 Lauro Carr MD is Attending Physician. mikaela 18:18 Inserted saline lock: 18 gauge in right antecubital area, using aseptic technique. aa5 18:20 Initial lab(s) drawn, by me, sent to lab. First set of blood cultures drawn by me. aa5 18:25 COVID swab sent to lab. Flu and/or RSV swab sent to lab. aa5 18:35 Triage completed. aa5 18:40 Second set of blood cultures drawn by ED staff. aa5 18:40 Inserted saline lock: 22 gauge in left forearm, using aseptic technique. Blood rs5 collected. 19:00 Report given to DUC Cevallos and DUC Sanderson. aa5 19:08 CT Traumagram (Head C Spine CAP wo con) In Process Unspecified. EDMS 19:41 Ritesh Mccord MD is Hospitalizing Provider. [facility] 19:51 XRAY Chest (1 view) In Process Unspecified. EDMS 21:35 Primary Nurse role handed off by Cintia Fry RN 23:11 Maria E Bonilla RN is Primary Nurse. vc1 02/10 02:08 Provided Education on: [PNUEMONIA. rv 02:08 No provider procedures requiring assistance completed. Patient admitted, IV remains in rv place. Administered Medications: 02/09 18:26 Drug: NS 0.9% IV 1000 ml Route: IV; Rate: 1 bolus; Site: left forearm; hb 19:30 Follow up: IV Status: Completed infusion vc1 18:26 Drug: NS 0.9% IV 1000 ml Route: IV; Rate: 1 bolus; Site: right antecubital; hb 19:30 Follow up: IV Status: Completed infusion; IV Intake: 1000ml vc1 18:26 Drug: Acetaminophen PO 1000 mg Route: PO; hb 22:35 Follow up: Response: No adverse reaction; Marked relief of symptoms; Temperature is vc1 decreased 18:41 Drug: Meropenem IV 1 grams Route: IV; Rate: per protocol; Site: left forearm; aa5 19:41 Follow up: IV Status: Completed infusion; IV Intake: 100ml vc1 18:59 Drug: Famotidine IVP 20 mg Route: IVP; Site: right antecubital; aa5 22:35 Follow up: Response: No adverse reaction vc1 18:59 Drug: Solu-CORTEF IVP 100 mg Route: IVP; Site: right antecubital; aa5 22:35 Follow up: Response: No adverse reaction vc1 20:39 Drug: Zithromax IVPB 500 mg Route: IVPB; Infused Over: 1 hrs; Site: left wrist; vc1 21:39 Follow up: IV Status: Completed infusion; IV Intake: 250ml vc1 Medication: 22:18 VIS not applicable for this client. vc1 Intake: 19:30 IV: 1000ml; Total: 1000ml. vc1 19:41 IV: 100ml; Total: 1100ml. vc1 21:39 IV: 250ml; Total: 1350ml. vc1 Outcome: 19:43 Decision to Hospitalize by Provider. mikaela 02/10 02:08 Admitted to Tele accompanied by nurse, via stretcher, room 413, with chart, Report rv called to ESE XAVIER Condition: good Instructed on the need for admit. 02:19 Patient left the ED. rv Signatures: Dispatcher [employer] Lauro Amaya MD MD cha Calderon, Audri, RN RN aa5 Fe Gallo RN RN Edson Taylor RN RN rv Shelby Adams Vanessa, RN RN vc1 Seth Guzman RN RN rs5
--- NOTE | 2023-02-09 19:44 | EDPHYS ---
Physician Documentation [facility] Name: Quentin Lei Age: 77 yrs Sex: Male : 1945 Arrival Date: 02/09/2023 Time: 18:02 Bed 7 Private MD: ED Physician Lauro Carr HPI: 02/09 18:20 This 77 yrs old Male presents to ER via Unassigned with complaints of Fever, mikaela Doesn't Feel Right. 18:20 The patient reports fever, that was measured at 102 degrees Fahrenheit. Onset: The mikaela symptoms/episode began/occurred 3 day(s) ago. Modifying factors: there are no obvious modifying factors. Associated signs and symptoms: Pertinent positives: altered mental status,\E\ chills, cough. Severity of symptoms: At their worst the symptoms were moderate in the emergency department the symptoms are unchanged. It is unknown whether or not the patient has had similar symptoms in the past. Historical: - Allergies: 18:06 tramadol; aa5 - PMHx: 18:06 Arthritis; Arevalo's Esophagus; Hypertension; Hypothyroidism; Osteoporosis; aa5 Hypercholesterolemia; 18:06 Lung tumor with radiation tx completed January 2023; aa5 - Immunization history:: Adult Immunizations unknown. - Social history:: Smoking status: Patient denies any tobacco usage or history of. ROS: 18:22 Eyes: Negative for injury, pain, redness, and discharge, ENT: Negative for injury, mikaela pain, and discharge, Neck: Negative for injury, pain, and swelling, Respiratory: Negative for shortness of breath, cough, wheezing, and pleuritic chest pain, Abdomen/GI: Negative for abdominal pain, nausea, vomiting, diarrhea, and constipation, Back: Negative for injury and pain, : Negative for injury, bleeding, discharge, and swelling, MS/Extremity: Negative for injury and deformity, Skin: Negative for injury, rash, and discoloration, Neuro: Negative for headache, weakness, numbness, tingling, and seizure, Psych: Negative for depression, anxiety, suicide ideation, homicidal ideation, and hallucinations, Allergy/Immunology: Negative for hives, rash, and allergies, Endocrine: Negative for neck swelling, polydipsia, polyuria, polyphagia, and marked weight changes, Hematologic/Lymphatic: Negative for swollen nodes, abnormal bleeding, and unusual bruising. 18:22 Constitutional: Positive for body aches, chills, fatigue, fever, malaise. 18:22 Neck: Positive for 18:22 Cardiovascular: Positive for palpitations. 18:22 Respiratory: Positive for cough. 18:22 MS/extremity: Positive for weakness. 18:22 Neuro: Positive for altered mental status, dizziness, near syncope, weakness. Exam: 18:22 Head/Face: Normocephalic, atraumatic. Eyes: Pupils equal round and reactive to light, mikaela extra-ocular motions intact. Lids and lashes normal. Conjunctiva and sclera are non-icteric and not injected. Cornea within normal limits. Periorbital areas with no swelling, redness, or edema. ENT: Nares patent. No nasal discharge, no septal abnormalities noted. Tympanic membranes are normal and external auditory canals are clear. Oropharynx with no redness, swelling, or masses, exudates, or evidence of obstruction, uvula midline. Mucous membranes moist. Neck: Trachea midline, no thyromegaly or masses palpated, and no cervical lymphadenopathy. Supple, full range of motion without nuchal rigidity, or vertebral point tenderness. No Meningismus. Chest/axilla: Normal chest wall appearance and motion. Nontender with no deformity. No lesions are appreciated. Respiratory: Lungs have equal breath sounds bilaterally, clear to auscultation and percussion. No rales, rhonchi or wheezes noted. No increased work of breathing, no retractions or nasal flaring. Abdomen/GI: Soft, non-tender, with normal bowel sounds. No distension or tympany. No guarding or rebound. No evidence of tenderness throughout. Back: No spinal tenderness. No costovertebral tenderness. Full range of motion. Male : Normal genitalia with no discharge or lesions. Skin: Warm, dry with normal turgor. Normal color with no rashes, no lesions, and no evidence of cellulitis. MS/ Extremity: Pulses equal, no cyanosis. Neurovascular intact. Full, normal range of motion. Psych: Awake, alert, with orientation to person, place and time. Behavior, mood, and affect are within normal limits. 18:22 Constitutional: The patient appears febrile. 18:22 Cardiovascular: Rate: tachycardic, Rhythm: regular, Pulses: Pulses are 4+ in bilateral radial, brachial, femoral, popliteal, posterior tibial and and dorsalis pedis arteries.. Heart sounds: normal, Edema: is not appreciated, JVD: is not appreciated. 18:22 ECG was reviewed by the Attending Physician. 18:22 Neuro: Orientation: Not oriented to person, place, time, situation, Mentation: slow to respond, confused, Memory: unable to test, Cranial nerves: grossly normal, is grossly normal based on the patient's age, no acute changes, Cerebellar function: unable to test, Motor: moves all fours, Sensation: no obvious gross deficits, appropriate no acute changes, Gait: not tested. Babinski testing is not performed, seizure activity, is not displayed by the patient. 19:46 Neck: External neck: is normal, no acute changes, C-spine: appears grossly normal, no mikaela acute changes, Thyroid: appears normal, no acute changes, Trachea: is midline with no obvious abnormalities, no acute changes, ROM/movement: is normal, no acute changes, Meningeal signs: are not present, Kernig's sign is negative, Brudzinski's sign is negative, Lymph nodes: no appreciated lymphadenopathy. Vital Signs: 18:05 BP 144 / 97; Pulse 101; Resp 26 S; Temp 102.8(O); Pulse Ox 96% on R/A; aa5 18:05 Weight 104.78 kg (M); aa5 18:52 BP 141 / 60; Pulse 90; Resp 22 S; Temp 102.5(O); Pulse Ox 95% on R/A; aa5 20:34 BP 107 / 60; Pulse 77; Resp 20; Pulse Ox 96% ; vc1 20:34 Temp 97.9; vc1 22:00 BP 116 / 52; Pulse 76; Resp 20; Pulse Ox 96% on R/A; vc1 23:00 BP 122 / 56; Pulse 70; Resp 18; Pulse Ox 95% ; vc1 24 00:00 BP 119 / 65; Pulse 83; Resp 18; Pulse Ox 99% ; vc1 02:06 BP 160 / 80; Pulse 97; Resp 20; Temp 98; Pulse Ox 96% ; rv Tabby Coma Score: 02/09 18:22 Eye Response: spontaneous(4). Motor Response: obeys commands(6). Verbal Response: mikaela oriented(5). Total: 15. 02/10 02:06 Eye Response: spontaneous(4). Motor Response: obeys commands(6). Verbal Response: rv confused(4). Total: 14. MDM: 02/09 18:10 Patient medically screened. mikaela 18:29 Differential diagnosis: viral Infection, bacterial infection, URI, bronchitis, mikaela pneumonia UTI. Differential Diagnosis altered mental status, sepsis, flu. Differential Diagnosis: CVA, electrolyte abnormality, hypoglycemia, intracranial bleed, meningitis, pneumonia, seizure, sepsis, TIA, UTI, volume depletion. Data reviewed: vital signs, nurses notes, EMS record, lab test result(s), EKG, radiologic studies. Consideration of Admission/Observation Patient was admitted/placed on observation. Escalation of care including admission/observation considered. I considered the following discharge prescriptions or medication management in the emergency department Medications were administered in the Emergency Department. See MAR. Test considered but Not performed: Ultrasound no usg abd . Care significantly affected by the following chronic conditions: Hypertension, Obesity, oa, barretts, osteoporosis, hypothyroid. 02/09 18:16 Order name: Basic Metabolic Panel; Complete Time: 19:37 [facility] 02/09 18:16 Order name: CBC with Diff; Complete Time: 19:37 [facility] 02/09 18:16 Order name: LFT's; Complete Time: 19:37 [facility] 02/09 18:16 Order name: Magnesium; Complete Time: 19:37 [facility] 02/09 18:16 Order name: NT PRO-BNP; Complete Time: 19:37 [facility] 02/09 18:16 Order name: PT-INR; Complete Time: 19:37 [facility] 02/09 18:16 Order name: Troponin HS; Complete Time: 19:37 [facility] 02/09 18:16 Order name: Blood Culture Adult (2) [facility] 02/09 18:16 Order name: Lactate w/ 2H reflex if indic.; Complete Time: 19:37 [facility] 02/09 18:16 Order name: Lipase; Complete Time: 19:37 [facility] 02/09 18:16 Order name: Urinalysis w/ reflexes [facility] 02/09 18:16 Order name: SARS RAPID; Complete Time: 19:37 [facility] 02/09 18:16 Order name: Flu; Complete Time: 19:37 [facility] 02/10 01:31 Order name: Basic Metabolic Panel [facility] 02/10 01:31 Order name: Basic Metabolic Panel [facility] 02/10 01:31 Order name: Basic Metabolic Panel EDMS 02/10 01:31 Order name: Basic Metabolic Panel EDMS 02/10 01:31 Order name: Basic Metabolic Panel EDMS 02/10 01:31 Order name: CBC with Automated Diff EDMS 02/10 01:31 Order name: CBC with Automated Diff EDMS 02/10 01:31 Order name: CBC with Automated Diff EDMS 02/10 01:31 Order name: CBC with Automated Diff EDMS 02/10 01:31 Order name: CBC with Automated Diff EDMS 02/10 01:31 Order name: Magnesium EDMS 02/10 01:31 Order name: Magnesium EDMS 02/10 01:31 Order name: Magnesium EDMS 02/09 18:16 Order name: XRAY Chest (1 view); Complete Time: 21:16 [facility] 02/09 18:19 Order name: CT Traumagram (Head C Spine CAP wo con); Complete Time: 21:16 [facility] 02/09 18:16 Order name: EKG; Complete Time: 18:16 [facility] 02/10 01:31 Order name: CONS Physician Consult [facility] 02/10 01:31 Order name: Heart Healthy [facility] 02/09 18:16 Order name: Cardiac monitoring; Complete Time: 18:25 [facility] 02/09 18:16 Order name: EKG - Nurse/Tech; Complete Time: 18:25 [facility] 02/09 18:16 Order name: IV Saline Lock; Complete Time: 18:25 [facility] 02/09 18:16 Order name: Labs collected and sent; Complete Time: 18:25 [facility] 02/09 18:16 Order name: O2 Per Protocol; Complete Time: 18:25 [facility] 02/09 18:16 Order name: O2 Sat Monitoring; Complete Time: 18:25 [facility] 02/09 19:40 Order name: Misc. Order: PLEASE GET UA; Complete Time: 20:34 [facility] EC:22 Rate is 101 beats/min. Rhythm is regular. QRS [place] is Normal. OR interval is normal. mikaela QRS interval is normal. QT interval is normal. No Q waves. T waves are Normal. No ST changes noted. Clinical impression: Sinus tachycardia and No evidence of ischemia. Interpreted by me. Reviewed by me. Administered Medications: 18:26 Drug: NS 0.9% IV 1000 ml Route: IV; Rate: 1 bolus; Site: left forearm; hb 19:30 Follow up: IV Status: Completed infusion vc1 18:26 Drug: NS 0.9% IV 1000 ml Route: IV; Rate: 1 bolus; Site: right antecubital; hb 19:30 Follow up: IV Status: Completed infusion; IV Intake: 1000ml vc1 18:26 Drug: Acetaminophen PO 1000 mg Route: PO; hb 22:35 Follow up: Response: No adverse reaction; Marked relief of symptoms; Temperature is vc1 decreased 18:41 Drug: Meropenem IV 1 grams Route: IV; Rate: per protocol; Site: left forearm; aa5 19:41 Follow up: IV Status: Completed infusion; IV Intake: 100ml vc1 18:59 Drug: Famotidine IVP 20 mg Route: IVP; Site: right antecubital; aa5 22:35 Follow up: Response: No adverse reaction vc1 18:59 Drug: Solu-CORTEF IVP 100 mg Route: IVP; Site: right antecubital; aa5 22:35 Follow up: Response: No adverse reaction vc1 20:39 Drug: Zithromax IVPB 500 mg Route: IVPB; Infused Over: 1 hrs; Site: left wrist; vc1 21:39 Follow up: IV Status: Completed infusion; IV Intake: 250ml vc1 Disposition Summary: 02/09/23 19:43 Hospitalization Ordered Hospitalization Status: Inpatient Admission mikaela Provider: Ritesh Mccord cha Location: Telemetry/[facility] (Inpatient) mikaela Condition: Fair mikaela Problem: new mikaela Symptoms: have improved mikaela Bed/Room Type: Standard mikaela Room Assignment: 413(02/10/23 01:57) eb1 Diagnosis - Fever, unspecified mikaela - Weakness mikaela - Pneumonia due to other specified bacteria - LEFT LOWER LOBE mikaela - Altered mental status, unspecified mikaela - Anemia, unspecified mikaela Forms: - Medication Reconciliation Form mikaela - SBAR form mikaela - Leadership Thank You Letter mikaela Signatures: Dispatcher [employer] Lauro Amaya MD MD cha Calderon, Audri RN RN aa5 Fe Gallo RN RN Sylvia Manning RN RN eb1 Maria E Bonilla RN RN vc1 Corrections: (The following items were deleted from the chart) 02/10 01:57 02/09 19:43 mikaela eb1
--- NOTE | 2023-02-09 20:15 | RAD REPORT ---
EXAM DESCRIPTION: RAD - Chest Single View - 02/09/2023 7:49 pm CLINICAL HISTORY: COUGH Chest pain. COMPARISON: Chest Pa And Lat (2 Views) dated 10/05/2021; Chest Single View dated 11/12/2019; Chest Sin gle View dated 11/11/2019; CHEST SINGLE VIEW dated 10/08/2010 FINDINGS: Portable technique limits examination quality. COPD is present. Moderate opacity in the left lung base with haziness likely represents infiltrate wi th left pleural effusion. The heart is upper limit normal in size. Sternotomy. IMPRESSION: Left lower lung pneumonia suspected.
[2023-02-09] MEDS ORDERED: AZITHROMYCIN 500 MG INJ IVPB ONE (20:23)
[2023-02-09] MEDS ORDERED: NA CHLORIDE 0.9% 250 ML ONE (20:23)
[2023-02-09 21:29] LABS: Specific Gravity 1.022 (1.005-1.030); Urine Bacteria None Seen /HPF (<20); Urine Bilirubin NEGATIVE (Negative); Urine Blood 3+ (Negative); Urine Clarity Turbid (Clear); Urine Color Yellow (Yellow); Urine Glucose NEGATIVE (Negative); Urine Protein 1+ (Negative); Urine RBC >50 /HPF (None Seen); Urine Urobilinogen Normal (Normal); Urine pH 6.5 (5.0-7.0)
[2023-02-10] MEDS ORDERED: ONDANSETRON 4 MG/2 ML VIAL IV PRN (01:29)
--- NOTE | 2023-02-10 01:30 | P.HP ---
Patient History Date of Service: 02/10/23 Reason for admission: Shortness of breath History of Present Illness: 77 yrs old Male with past medical history of Arthritis; Arevalo's Esophagus; Hypertension; Hypothyroidism; Osteoporosis Hypercholesterolemia, PE, presents to ER complaints of Fever, 102.0, He reports symptoms/episode began/occurred 3 day(s) ago.He reports assocatiated shortenss of breath and cough. He denies chest pain, edema, dizziness, NVD. ER evaluation, BP 144 / 97; Pulse 101; Resp 26 S; Temp 102.8(O); Pulse Ox 96% on R/A EKG, 2 Rate is 101 beats/min. Rhythm is regular. QRS Madill is Normal. MO interval is normal. QRS interval is normal. QT interval is normal. No Q waves. T waves are Normal. No ST changes noted. Clinical impression: Sinus tachycardia and No evidence of ischemia. Plan to admit for - Fever, Pneumonia due to other specified bacteria - LEFT LOWER LOBE, Anemia, unspecified Lab evaluation WBC microcytic anemia 10.8, 33.1, left shift 79.5, acute on chronic kidney injury, BUN 17, creatinine 1.93, UA 3+ blood, COVID, negative, BNP 628, troponin 47.1, so initial last day with seizure last day CXR IMPRESSION: Left lower lung pneumonia suspected, COPD is present. Moderate opacity in the left lung base with haziness likely represents infiltrate with left pleural effusion. The heart is upper limit normal in size. Sternotomy. CT head FINDINGS: CT HEAD WITHOUT CONTRAST: No intracranial hemorrhage, hydrocephalus or extra-axial fluid collection. No areas of brain edema or midline shift. CT CERVICAL SPINE WITHOUT CONTRAST: No fracture or subluxation. Mild midcervical degenerative changes are present. The prevertebral soft tissues are normal in thickness CT CHEST, ABDOMEN, PELVIS WITHOUT CONTRAST Noncalcified pulmonary nodule is present in the right upper lobe measuring 8 mm, unchanged since 11/11/2019 study.Mild linear opacity in the medial left lung base likely atelectasis.No pneumothorax or pericardial/pleural fluid. Small hiatal hernia. Allergies tramadol Adverse Reaction (Severe, Verified 11/12/19 01:37) Unknown Home Medications: Apixaban [Eliquis] 5 mg PO SEECOM #75 tablet 11/12/19 Clopidogrel Bisulfate [Plavix*] 75 mg PO DAILY 11/12/19 Cyclosporine [Restasis] 1 drop EACH EYE BID 11/12/19 Furosemide [Lasix*] 40 mg PO DAILY 11/12/19 Levothyroxine [Synthroid*] 0.05 mg PO DAILY 11/12/19 Lisinopril [Zestril] 10 mg PO DAILY 11/12/19 Omeprazole 20 mg PO DAILY 11/12/19 Simvastatin 40 mg PO DAILY 11/12/19 Umeclidinium Brm/Vilanterol Tr [Anoro Ellipta 62.5-25 Mcg INH] 1 dose IH DAILY 11/12/19 - Past Medical/Surgical History Diabetic: No -: HTN -: hypothyroid -: glacoma -: Barretts esophagus -: CABG 2006 -: cardiac stent - Family History Father -: Other (see notes) Notes: osteo arthritis Mother -: Cancer Notes: Stomach CA Brother -: Heart disease, Cancer Notes: Asbestosis - Social History Alcohol use: No CD- Drugs: No Caffeine use: Yes Review of Systems 10-point ROS is otherwise unremarkable Physical Examination - Physical Exam General: Alert, In no apparent distress, Oriented x2, Other (confusion) HEENT: Atraumatic, Normocephalic, PERRLA Neck: Supple, 2+ carotid pulse no bruit, JVD not distended Respiratory: Normal air movement, Expiratory wheezes, Inspiratory wheezes Cardiovascular: No edema, Normal pulses, Regular rate/rhythm Capillary refill: <2 Seconds Gastrointestinal: Normal bowel sounds, Soft and benign, Non-distended Musculoskeletal: No clubbing, No swelling Neurological: Normal speech, Normal strength at 5/5 x4 extr, Sensation intact - Studies Laboratory Data (last 24 hrs) 02/09/23 02/09/23 02/09/23 18:20 18:20 18:20 WBC 7.10 Hgb 10.8 L Hct 33.0 L Plt Count 151 L PT 22.3 H INR 2.03 Sodium 134 L Potassium 4.0 BUN 17 Creatinine 1.93 H Glucose 115 H Magnesium 2.0 Total Bilirubin 0.6 AST 17 ALT 19 Alkaline Phosphatase 55 Lipase 43 Microbiology Data (last 24 hrs): 02/09/23 18:25 Nasopharnyx Influenza Type A Antigen Screen - Final 02/09/23 18:25 Nasopharnyx Influenza Type B Antigen Screen - Final Assessment and Plan - Plan Assessment plan Sepsis without septic shock my mouth to speak in more than the brain Acute hypoxic respiratory failure secondary to pneumonia Fever, Pneumonia due to other specified bacterial Metabolic encephalopathy Acute on chronic kidney injury Anemia, unspecified HX Arthritis HX Arevalo's Esophagus Hypertension Hypothyroidism Osteoporosis Microcytic anemia she does PE DVT prplx Assessment plan Sepsis without septic shock my mouth to speak in more than the brain Acute hypoxic respiratory failure secondary to pneumonia Fever, Pneumonia LEFT LOWER LOBE, Pulmonary consult Infectious disease consult, IV antibiotics meropenem, azithromycin, DuoNebs, Temp 102.8(O); Pulse Ox 96% on R/A EKG, 2 Rate is 101 beats/min Rhythm is regular. QRS Madill is Normal. MO interval is normal. QRS interval is normal. QT interval is normal. No Q waves. T waves are Normal. No ST changes noted. Clinical impression: Sinus tachycardia and No evidence of ischemia. CT CHEST, ABDOMEN, PELVIS WITHOUT CONTRAST Noncalcified pulmonary nodule is present in the right upper lobe measuring 8 mm, unchanged since 11/11/2019 study.Mild linear opacity in the medial left lung base likely atelectasis.No pneumothorax or pericardial/pleural fluid. Small hiatal hernia. BNP 628, troponin 47.1, Anemia, unspecified microcytic anemia 10.8, 33.1, left shift 79.5 Metabolic encephalopathy Fall precautions, supportive care, CT CERVICAL SPINE WITHOUT CONTRAST:No fracture or subluxation. Mild midcervical degenerative changes are present. The prevertebral soft tissues are normal in thickness T head FINDINGS: CT HEAD WITHOUT CONTRAST: No intracranial hemorrhage, hydrocephalus or extra-axial fluid collection. No areas of brain edema or midline shift. Acute on chronic kidney injury acute on chronic kidney injury, BUN 17, creatinine 1.93, UA 3+ blood, HX Arthritis HX Arevalo's Esophagus Hypertension Hypothyroidism Osteoporosis PE Resume appropriate home medications DVT p prophylaxis Cardiac diet Full code Discharge Plan: Home Plan to discharge in: 48 Hours - Advance Directives Does patient have a Living Will: No Does patient have a Durable POA for Healthcare: No - Code Status/Comfort Care Code Status: Full Code Physician Review: Patient Assessed, Agree with Above Assessment and Plan Critical Care: No Time Spent Managing Pts Care (In Minutes): 50
[2023-02-10] MEDS ORDERED: ACETAMINOPHEN 500 MG TAB ONE (02:38)
[2023-02-10] MEDS: NA CHLORIDE 0.9% 1,000 ML IV SCH ×4 (03:28→23:48)
[2023-02-10 06:49] LABS: Absolute Lymphocytes (CBC) 0.9 K/uL (0.7-4.9); Hematocrit 31.6 % (39.6-49.0); Lymphocytes % 11.2 % (15.3-44.8); MCV 80.2 fL (80-100); MPV 8.1 fL (7.6-11.3); Platelets 112 thou/uL (152-406); RBC Red Blood Cell Count 3.94 M/uL (4.33-5.43)
--- NOTE | 2023-02-10 08:22 | P.CNS ---
Date of Consult: 02/10/23 Reason for Consult: Fever possible pneumonia Chief Complaint: Shortness of breath History of Present Illness: Patient is 77 years of age history of pulmonary embolism or other medical problems admitted to the emergency room complaining of fever for the past 3 to 4 days worsening shortness of breath denies any cough no chest pain she of pulmonary embolism patient is compliant with his medications at home does not smoke no prior history of cardiac problems Allergies tramadol Adverse Reaction (Severe, Verified 11/12/19 01:37) Unknown Home Medications: Apixaban [Eliquis] 5 mg PO SEECOM #75 tablet 11/12/19 Clopidogrel Bisulfate [Plavix*] 75 mg PO DAILY 11/12/19 Cyclosporine [Restasis] 1 drop EACH EYE BID 11/12/19 Furosemide [Lasix*] 40 mg PO DAILY 11/12/19 Levothyroxine [Synthroid*] 0.05 mg PO DAILY 11/12/19 Lisinopril [Zestril] 10 mg PO DAILY 11/12/19 Omeprazole 20 mg PO DAILY 11/12/19 Simvastatin 40 mg PO DAILY 11/12/19 Umeclidinium Brm/Vilanterol Tr [Anoro Ellipta 62.5-25 Mcg INH] 1 dose IH DAILY 11/12/19 - Past Medical/Surgical History Diabetic: No -: HTN -: hypothyroid -: glacoma -: Barretts esophagus -: CABG 2006 -: cardiac stent - Family History Father Medical History: Other (see notes) Notes: osteo arthritis Mother Medical History: Cancer Notes: Stomach CA Brother Medical History: Heart disease, Cancer Notes: Asbestosis - Social History Alcohol use: No CD- Drugs: No Caffeine use: Yes Place of Residence: Home Review of Systems 10-point ROS is otherwise unremarkable General: Fever, Weakness Respiratory: Shortness of Breath Physical Examination Temp Pulse Resp BP Pulse Ox 100.5 F 109 H 20 160/71 H 02/10/23 03:22 02/10/23 03:22 02/10/23 03:22 02/10/23 03:22 General: Alert, In no apparent distress, Oriented x3 HEENT: Atraumatic Neck: Supple Respiratory: Clear to auscultation bilaterally Cardiovascular: No edema, Regular rate/rhythm, Normal S1 S2 Gastrointestinal: Normal bowel sounds, Soft and benign, Non-distended Laboratory Data (last 24 hrs) 02/09/23 02/09/23 02/09/23 18:20 18:20 18:20 WBC 7.10 Hgb 10.8 L Hct 33.0 L Plt Count 151 L PT 22.3 H INR 2.03 Sodium 134 L Potassium 4.0 BUN 17 Creatinine 1.93 H Glucose 115 H Magnesium 2.0 Total Bilirubin 0.6 AST 17 ALT 19 Alkaline Phosphatase 55 Lipase 43 - Problems (1) Fever Current Visit: Yes Status: Acute Plan: Patient is 77 years of age admitted with 3 to 4-day onset of fever COVID negative chest x-ray is clear count is also normal mild microcytic anemia with renal insufficiency there is no evidence of pneumonia on the CT scan patient has rounded atelectasis at the left base in any case his meropenem can be discontinued to be viral in origin pressure is mildly elevated and is anticoagulated with Eliquis sensation is satisfactory evidence of a UTI continue with IV fluid Qualifiers: Encounter type: initial encounter
[2023-02-10] MEDS ORDERED: Meropenem 1,000 MG in NA CHLORIDE 0.9% 100 ML IV SCH (09:00)
--- NOTE | 2023-02-10 09:00 | P.CNS ---
Date of Consult: 02/10/23 Reason for Consult: Pneumonia Chief Complaint: Shortness of breath History of Present Illness: Patient is a 77 yo male with a history of hypertension, COPD, hyperlipidemia, hypothyroidism, arthritis, norman's esophagus and hx PE who presented to the ED with complaints of fever and cough. Temperature in ED of 102.8 F. COVID and influenza A&B negative. Patient admitted for fever, pneumonia. ID was consulted. Allergies tramadol Adverse Reaction (Severe, Verified 11/12/19 01:37) Unknown Home medications list reviewed: Yes Home Medications: Apixaban [Eliquis] 5 mg PO SEECOM #75 tablet 11/12/19 Clopidogrel Bisulfate [Plavix*] 75 mg PO DAILY 11/12/19 Cyclosporine [Restasis] 1 drop EACH EYE BID 11/12/19 Furosemide [Lasix*] 40 mg PO DAILY 11/12/19 Levothyroxine [Synthroid*] 0.05 mg PO DAILY 11/12/19 Lisinopril [Zestril] 10 mg PO DAILY 11/12/19 Omeprazole 20 mg PO DAILY 11/12/19 Simvastatin 40 mg PO DAILY 11/12/19 Umeclidinium Brm/Vilanterol Tr [Anoro Ellipta 62.5-25 Mcg INH] 1 dose IH DAILY 11/12/19 - Past Medical/Surgical History Diabetic: No -: HTN -: hypothyroid -: glacoma -: Barretts esophagus -: CABG 2006 -: cardiac stent - Family History Father Medical History: Other (see notes) Notes: osteo arthritis Mother Medical History: Cancer Notes: Stomach CA Brother Medical History: Heart disease, Cancer Notes: Asbestosis - Social History Alcohol use: No CD- Drugs: No Caffeine use: Yes Place of Residence: Home Review of Systems 10-point ROS is otherwise unremarkable General: Fever Respiratory: Cough Physical Examination Temp Pulse Resp BP Pulse Ox 100.5 F 109 H 20 160/71 H 02/10/23 03:22 02/10/23 03:22 02/10/23 03:22 02/10/23 03:22 General: Alert, In no apparent distress, Oriented x3 HEENT: Atraumatic, Normocephalic Neck: Supple, JVD not distended Respiratory: Normal air movement, Diminished Cardiovascular: No edema, Normal pulses, Regular rate/rhythm Gastrointestinal: Normal bowel sounds, Soft and benign Musculoskeletal: No clubbing, No swelling Integumentary: No rashes Neurological: Normal speech, Normal tone, Normal affect Laboratory Data (last 24 hrs) 02/09/23 02/09/23 02/09/23 18:20 18:20 18:20 WBC 7.10 Hgb 10.8 L Hct 33.0 L Plt Count 151 L PT 22.3 H INR 2.03 Sodium 134 L Potassium 4.0 BUN 17 Creatinine 1.93 H Glucose 115 H Magnesium 2.0 Total Bilirubin 0.6 AST 17 ALT 19 Alkaline Phosphatase 55 Lipase 43 Microbiology Data - Reviewed Imagings Data: - Reviewed Conclusions/Impression: Problem List Arthritis Norman's Esophagus COPD Hypertension Hypothyroidism Osteoporosis Hyperlipidemia Microcytic anemia hx PE Hx CABG 2006 Pneumonia, Viral vs Bacterial - XR Chest 02/09: "COPD is present. Moderate opacity in the left lung base with haziness likely represents infiltrate with left pleural effusion. The heart is upper limit normal in size. Sternotomy." - CT head/spine/chest/abdomen/pelvis 02/09: "Noncalcified pulmonary nodule is present in the right upper lobe measuring 8 mm, unchanged since 11/11/2019 study.Mild linear opacity in the medial left lung base likely atelectasis.No pneumothorax or pericardial/pleural fluid." - Influenza A&B negative. Covid Negative. - No leukocytosis - 24 hour Tmax = 102.8 F - Reports SOB, cough, fever COPD: pulmonology on case Recommendations - He is currently on Rocephin and Azithromycin (started 02/10). Continue antibiotic therapy x 5 days (02/10-02/14). Switch to PO as tolerated. - Supportive care and nutritional supplementation as needed - Fever trends. PRN tylenol. Case discussed with Cesario Marks
[2023-02-10] MEDS: ACETAMINOPHEN 500 MG TAB PO PRN ×3 (10:16→18:05)
[2023-02-10] MEDS: ENOXAPARIN 40 MG/0.4 ML SQ SCH (10:18)
[2023-02-10] MEDS: AZITHROMYCIN IV 500 MG in NA CHLORIDE 0.9% 250 ML IVPB SCH (10:22)
--- NOTE | 2023-02-10 12:38 | EKG ---
Test Date: 2023-02-09 Test Time: 18:18:38 Advertising Intern: CRISTOBAL MEASUREMENT RESULTS: Intervals: Rate: 101 NC: 176 QRSD: 106 QT: 346 QTc: 448 [place]: P: 54 NC: 176 QRS: -39 T: 39 INTERPRETIVE STATEMENTS: Sinus tachycardia Left axis deviation Incomplete right bundle branch block Inferior infarct, age undetermined Abnormal ECG Compared to ECG 11/11/2019 16:25:45 Left-axis deviation now present Myocardial infarct finding now present Atrial premature complex(es) no longer present Aberrant conduction of supraventricular beat(s) no longer present Electronically Signed On 02-10-23 12:36:51 CDT by Krish Martle
[2023-02-10] MEDS: CEFTRIAXONE 1,000 MG in NA CHLORIDE 0.9% 50 ML IVPB SCH (13:53)
--- NOTE | 2023-02-10 18:24 | P.PN ---
Subjective Date of Service: 02/10/23 Chief Complaint: Shortness of breath Patient has been experiencing persistent fever today. He denies shortness of breath. He has intermittent cough productive of whitish sputum. Physical Examination - Vital Signs Temperature: 100.9 F Blood Pressure: 136/62 Pulse: 80 Respirations: 22 Pulse Ox (%): 93 - Studies Laboratory Data (last 24 hrs) 02/09/23 02/09/23 02/09/23 18:20 18:20 18:20 WBC 7.10 Hgb 10.8 L Hct 33.0 L Plt Count 151 L PT 22.3 H INR 2.03 Sodium 134 L Potassium 4.0 BUN 17 Creatinine 1.93 H Glucose 115 H Magnesium 2.0 Total Bilirubin 0.6 AST 17 ALT 19 Alkaline Phosphatase 55 Lipase 43 Microbiology Data (last 24 hrs): 02/09/23 18:20 Blood - Blood Blood Culture Gram Stain - Final 02/09/23 18:25 Nasopharnyx Influenza Type A Antigen Screen - Final 02/09/23 18:25 Nasopharnyx Influenza Type B Antigen Screen - Final Assessment And Plan - Plan Physical Exam General: Alert, In no apparent distress, Oriented x3 Neck: Supple, JVD not distended Respiratory: Normal air movement, wheezes, no crackles. Cardiovascular: No edema, Normal pulses, Regular rate/rhythm Capillary refill: <2 Seconds Gastrointestinal: Normal bowel sounds, Soft and benign, Non-distended Musculoskeletal: No clubbing, No swelling Neurological: Normal speech, Normal strength at 5/5 x4 extr, Sensation intact Assessment and plan Sepsis without septic shock my mouth to speak in more than the brain Acute hypoxic respiratory failure secondary to pneumonia Metabolic encephalopathy Acute on chronic kidney injury Anemia, unspecified HX Arthritis HX Arevalo's Esophagus Hypertension Hypothyroidism Osteoporosis History of PE and DVT Assessment plan Sepsis without septic shock my mouth to speak in more than the brain Acute hypoxic respiratory failure secondary to pneumonia Fever, Pneumonia LEFT LOWER LOBE, Pulmonary consult appreciated Infectious disease consult appreciated IV Rocephin azithromycin DuoNebs Follow blood cultures. Anemia, unspecified microcytic anemia 10.8, 33.1, left shift 79.5 Metabolic encephalopathy Likely secondary to sepsis Fall precautions, supportive care, Acute on chronic kidney injury IV hydration. Monitor renal function HX Arthritis HX Arevalo's Esophagus Hypertension Hypothyroidism Osteoporosis PE Continue home medications. Resume Eliquis. DVT p prophylaxis Cardiac diet Full code
[2023-02-11] MEDS: ACETAMINOPHEN 500 MG TAB PO PRN (00:30)
[2023-02-11 03:15] LABS: Absolute Lymphocytes (CBC) 0.8 K/uL (0.7-4.9); Hematocrit 29.3 % (39.6-49.0); MCV 80.5 fL (80-100); MPV 7.8 fL (7.6-11.3); Platelets 127 thou/uL (152-406); RBC Red Blood Cell Count 3.64 M/uL (4.33-5.43)
[2023-02-11 03:20] LABS: Magnesium 1.9 mg/dL (1.6-2.4); Potassium 4.2 mEq/L (3.5-5.1)
[2023-02-11] MEDS: ENOXAPARIN 40 MG/0.4 ML SQ SCH (09:00)
[2023-02-11] MEDS: CEFTRIAXONE 1,000 MG in NA CHLORIDE 0.9% 50 ML IVPB SCH (09:16)
[2023-02-11] MEDS: AZITHROMYCIN IV 500 MG in NA CHLORIDE 0.9% 250 ML IVPB SCH (09:17)
--- NOTE | 2023-02-11 09:36 | P.PN ---
Date of Service: 02/11/23 Chief Complaint: Shortness of breath Subjective: Patient seen and examined at bedside. Patient is lethargic today and appears to be in mild distress. He denies feeling short of breath or chest pain at this time. No nausea, vomiting or diarrhea. Denies any new or worsening complaints. Physical Examination Temp Pulse Resp BP Pulse Ox 99.8 F 83 18 173/80 H 95 02/11/23 04:00 02/11/23 04:00 02/11/23 04:00 02/11/23 04:00 02/11/23 04:00 General: Lethargic, Oriented x2, HEENT: Atraumatic, Normocephalic Neck: Supple, JVD not distended Respiratory: Diminished. mildly labored respirations on room air. Cardiovascular: No edema, Normal pulses, Regular rate/rhythm Gastrointestinal: Normal bowel sounds, Soft and benign Musculoskeletal: No clubbing, No swelling Integumentary: No rashes Laboratory Data - Reviewed Microbiology Data - Reviewed Imagings Data: - Reviewed Medications List: Reviewed Assessment and Plan Problem List Arthritis Arevalo's Esophagus COPD Hypertension Hypothyroidism Osteoporosis Hyperlipidemia Microcytic anemia hx PE Hx CABG 2006 Pneumonia, Viral vs Bacterial - XR Chest 02/09: "COPD is present. Moderate opacity in the left lung base with haziness likely represents infiltrate with left pleural effusion. The heart is upper limit normal in size. Sternotomy." - CT head/spine/chest/abdomen/pelvis 02/09: "Noncalcified pulmonary nodule is present in the right upper lobe measuring 8 mm, unchanged since 11/11/2019 study. Mild linear opacity in the medial left lung base likely atelectasis.No pneumothorax or pericardial/pleural fluid." - Influenza A&B negative. Covid Negative. - 24 hour Tmax = 102 F . WBC WNL. COPD: pulmonology on case Recommendations - Pneumonia: Continue antibiotic therapy x 7 days days (02/10-02/17). - Currently on Rocephin and Azithromycin (started 02/10), continue - once clinically stable, switch to oral - Continue nebulizer treatments - Supportive care and nutritional supplementation as needed - Fever trends. PRN tylenol. Case discussed with Cesario Marks
[2023-02-11] MEDS: NA CHLORIDE 0.9% 1,000 ML IV SCH ×2 (12:00→20:16)
[2023-02-11] MEDS ORDERED: VANCOMYCIN 2 GM in NA CHLORIDE 0.9% 500 ML IVPB ONE (12:30)
[2023-02-11] MEDS: CEFEPIME 2 GM in NA CHLORIDE 0.9% 100 ML IV SCH (12:44)
--- NOTE | 2023-02-11 19:02 | P.PN ---
Subjective Date of Service: 02/11/23 Chief Complaint: Shortness of breath Patient has been experiencing intermittent fever today. He reports chills. He denies shortness of breath. Physical Examination - Vital Signs Temperature: 98.8 F Blood Pressure: 129/88 Pulse: 79 Respirations: 20 Pulse Ox (%): 94 - Studies Microbiology Data (last 24 hrs): 02/09/23 18:20 Blood - Blood Blood Culture Gram Stain - Final Assessment And Plan - Plan Physical Exam General: Alert, In no apparent distress, Oriented x3 Neck: Supple, JVD not distended Respiratory: Normal air movement, wheezes, no crackles. Cardiovascular: No edema, Normal pulses, Regular rate/rhythm Capillary refill: <2 Seconds Gastrointestinal: Normal bowel sounds, Soft and benign, Non-distended Musculoskeletal: No clubbing, No swelling Neurological: Normal speech, Normal strength at 5/5 x4 extr, Sensation intact Assessment and plan Sepsis without septic shock my mouth to speak in more than the brain Acute hypoxic respiratory failure secondary to pneumonia Metabolic encephalopathy Acute on chronic kidney injury Anemia, unspecified HX Arthritis HX Arevalo's Esophagus Hypertension Hypothyroidism Osteoporosis History of PE and DVT Assessment plan Sepsis without septic shock. Acute hypoxic respiratory failure secondary to pneumonia Fever, Pneumonia LEFT LOWER LOBE, Pulmonary consult appreciated Infectious disease consulted 1 blood culture bottles is growing Staphylococcus Antibiotics changed to IV cefepime and vancomycin DuoNebs Follow blood cultures. Repeat blood culture. Anemia, unspecified microcytic anemia 10.8, 33.1, left shift 79.5 Metabolic encephalopathy Likely secondary to sepsis Fall precautions, supportive care, Acute on chronic kidney injury Improving with IV hydration. Monitor renal function HX Arthritis HX Arevalo's Esophagus Hypertension Hypothyroidism Osteoporosis PE Continue home medications. Continue Eliquis. DVT p prophylaxis Cardiac diet Full code
[2023-02-11] MEDS: ALBUTEROL 2.5 MG/3 ML NEB SOL NEB PRN (19:55)
[2023-02-11] MEDS: ACETAMINOPHEN 325 MG TABLET PO PRN (20:16)
[2023-02-12] MEDS: CEFEPIME 2 GM in NA CHLORIDE 0.9% 100 ML IV SCH ×2 (00:02→12:35)
[2023-02-12] MEDS: ALBUTEROL 2.5 MG/3 ML NEB SOL NEB PRN ×3 (02:14→19:35)
[2023-02-12] MEDS: ACETAMINOPHEN 325 MG TABLET PO PRN ×3 (05:20→20:14)
[2023-02-12 06:09] LABS: Absolute Lymphocytes (CBC) 0.7 K/uL (0.7-4.9); Hematocrit 27.8 % (39.6-49.0); Lymphocytes % 10.2 % (15.3-44.8); MCV 80.2 fL (80-100); MPV 7.8 fL (7.6-11.3); Platelets 99 thou/uL (152-406); RBC Red Blood Cell Count 3.46 M/uL (4.33-5.43)
[2023-02-12 06:34] LABS: Potassium 3.4 mEq/L (3.5-5.1)
[2023-02-12] MEDS: NA CHLORIDE 0.9% 1,000 ML IV SCH ×2 (08:27→17:40)
[2023-02-12] MEDS: ENOXAPARIN 40 MG/0.4 ML SQ SCH (08:28)
[2023-02-12 09:00] LABS: Blood Morphology Comment NOT SEEN (NOT SEEN); Platelet Estimate DECR; White Blood Cell Scan OK (OK)
[2023-02-12] MEDS ORDERED: POTASSIUM CL SA 10 MEQ TAB PO ONE (09:00)
[2023-02-12] MEDS: VANCOMYCIN 1.5 GM in NA CHLORIDE 0.9% 500 ML IVPB SCH (12:35)
--- NOTE | 2023-02-12 12:38 | P.PN ---
Subjective Date of Service: 02/12/23 Chief Complaint: Shortness of breath Patient states he feels better today. He has been experiencing intermittent low-grade fever today. He denies shortness of breath. Physical Examination - Vital Signs Temperature: 99.3 F Blood Pressure: 169/72 Pulse: 83 Respirations: 20 Pulse Ox (%): 95 - Studies Microbiology Data (last 24 hrs): 02/09/23 18:20 Blood - Blood Blood Culture Gram Stain - Final Assessment And Plan - Plan Physical Exam General: Alert, In no apparent distress, Oriented x2 Neck: Supple, JVD not distended Respiratory: Normal air movement, wheezes, no crackles. Cardiovascular: No edema, Normal pulses, Regular rate/rhythm Gastrointestinal: Normal bowel sounds, Soft and benign, Non-distended Musculoskeletal: No clubbing, No swelling Neurological: Normal speech, no focal motor deficit, mildly confused. Assessment and plan Sepsis without septic shock my mouth to speak in more than the brain Acute hypoxic respiratory failure secondary to pneumonia Metabolic encephalopathy Acute on chronic kidney injury Anemia, unspecified HX Arthritis HX Arevalo's Esophagus Hypertension Hypothyroidism Osteoporosis History of PE and DVT Assessment plan Sepsis without septic shock. Acute hypoxic respiratory failure secondary to pneumonia Fever, Pneumonia LEFT LOWER LOBE, Pulmonary input appreciated Infectious disease input appreciated 1 blood culture bottles grew Staphylococcus. Organism identification is pending. Antibiotics changed to IV cefepime and vancomycin. Added Levaquin due to persistent fever. DuoNebs Follow blood cultures. Repeat blood culture. Anemia, unspecified microcytic anemia. Stable Monitor and transfuse as needed. Metabolic encephalopathy Likely secondary to sepsis Fall precautions, supportive care, Acute on chronic kidney injury Resolved with IV hydration. Monitor renal function HX Arthritis HX Arevalo's Esophagus Hypertension Hypothyroidism Osteoporosis PE Continue home medications. Continue Eliquis. DVT prophylaxis: Eliquis. Cardiac diet Full code
[2023-02-12] MEDS: Levofloxacin 750mg IV 750 MG/150 ML BAG IV SCH (13:49)
[2023-02-12] MEDS: ATORVASTATIN 20 MG TAB PO SCH (13:50)
[2023-02-12] MEDS: CLOPIDOGREL 75 MG TABLET PO SCH (13:50)
[2023-02-12] MEDS: APIXABAN 5 MG TABLET PO SCH ×2 (13:50→20:14)
[2023-02-13] MEDS: CEFEPIME 2 GM in NA CHLORIDE 0.9% 100 ML IV SCH ×2 (00:58→13:05)
[2023-02-13] MEDS: ALBUTEROL 2.5 MG/3 ML NEB SOL NEB PRN ×3 (02:05→20:49)
[2023-02-13] MEDS: NA CHLORIDE 0.9% 1,000 ML IV SCH ×2 (04:00→08:32)
[2023-02-13 05:51] LABS: Absolute Lymphocytes (CBC) 0.5 K/uL (0.7-4.9); Hematocrit 27.2 % (39.6-49.0); MCV 80.4 fL (80-100); MPV 7.8 fL (7.6-11.3); Platelets 87 thou/uL (152-406); RBC Red Blood Cell Count 3.38 M/uL (4.33-5.43)
[2023-02-13 06:10] LABS: Potassium 3.9 mEq/L (3.5-5.1)
[2023-02-13] MEDS: LEVOTHYROXINE SOD 0.05 MG TABLET PO SCH (06:23)
[2023-02-13] MEDS: APIXABAN 5 MG TABLET PO SCH ×2 (08:33→22:09)
[2023-02-13] MEDS: ENOXAPARIN 40 MG/0.4 ML SQ SCH (08:33)
[2023-02-13] MEDS: CLOPIDOGREL 75 MG TABLET PO SCH (08:33)
[2023-02-13] MEDS: ATORVASTATIN 20 MG TAB PO SCH (08:33)
[2023-02-13] MEDS ORDERED: POTASSIUM CL SA 10 MEQ TAB PO ONE (09:00)
[2023-02-13] MEDS ORDERED: ATORVASTATIN 20 MG TAB PO SCH (09:00)
[2023-02-13] MEDS ORDERED: HOME MED 1 EA UNK (Simvastatin [Simvastatin] 40 MG Tablet) PO SCH (09:00)
[2023-02-13] MEDS: Levofloxacin 750mg IV 750 MG/150 ML BAG IV SCH (13:04)
[2023-02-13] MEDS: VANCOMYCIN 1.5 GM in NA CHLORIDE 0.9% 500 ML IVPB SCH (13:04)
--- NOTE | 2023-02-13 13:49 | P.PN ---
Subjective Date of Service: 02/13/23 Chief Complaint: Shortness of breath Patient states he feels much better today. He is more interactive. No recorded fever since this morning. He reports heartburn. Physical Examination - Vital Signs Temperature: 99.6 F Blood Pressure: 148/73 Pulse: 61 Respirations: 20 Pulse Ox (%): 97 - Studies Microbiology Data (last 24 hrs): 02/09/23 18:20 Blood - Blood Blood Culture Gram Stain - Final Assessment And Plan - Plan Physical Exam General: Alert, In no apparent distress, Oriented x2 Neck: Supple Respiratory: Normal air movement, wheezes, no crackles. Cardiovascular: No edema, Normal pulses, Regular rate/rhythm Gastrointestinal: Normal bowel sounds, Soft and benign, Non-distended Musculoskeletal: No clubbing, No swelling Neurological: Normal speech, no focal motor deficit. Assessment and plan Sepsis without septic shock my mouth to speak in more than the brain Acute hypoxic respiratory failure secondary to pneumonia Metabolic encephalopathy Acute on chronic kidney injury Anemia, unspecified HX Arthritis HX Arevalo's Esophagus Hypertension Hypothyroidism Osteoporosis History of PE and DVT Assessment plan Sepsis without septic shock. Acute hypoxic respiratory failure secondary to pneumonia Fever, Pneumonia LEFT LOWER LOBE, Pulmonary input appreciated Infectious disease input appreciated 1 blood culture bottles grew Staphylococcus hominis which is likely a skin cont aminant. Continue current antibiotics DuoNebs Repeat blood culture. Anemia, unspecified microcytic anemia. Stable Monitor and transfuse as needed. Metabolic encephalopathy Likely secondary to sepsis Fall precautions, supportive care, Acute on chronic kidney injury Resolved with IV hydration. Monitor renal function HX Arthritis HX Arevalo's Esophagus Hypertension Hypothyroidism Osteoporosis PE Continue home medications. Continue Eliquis. PPI and sucralfate for Arevalo's esophagitis. DVT prophylaxis: Eliquis. Cardiac diet Full code
[2023-02-13] MEDS: PANTOPRAZOLE 40MG TABLET PO SCH (16:01)
[2023-02-13] MEDS: SUCRALFATE 1GM/10ML UCUP PO SCH ×2 (16:01→22:09)
[2023-02-14] MEDS: CEFEPIME 2 GM in NA CHLORIDE 0.9% 100 ML IV SCH ×2 (00:48→13:00)
[2023-02-14] MEDS: LEVOTHYROXINE SOD 0.05 MG TABLET PO SCH (06:12)
[2023-02-14 06:49] LABS: Absolute Lymphocytes (CBC) 0.4 K/uL (0.7-4.9); Hematocrit 28.3 % (39.6-49.0); Lymphocytes % 7.3 % (15.3-44.8); MCV 80.4 fL (80-100); MPV 8.1 fL (7.6-11.3); Platelets 106 thou/uL (152-406); RBC Red Blood Cell Count 3.52 M/uL (4.33-5.43)
[2023-02-14 07:07] LABS: Magnesium 2.2 mg/dL (1.6-2.4); Potassium 4.2 mEq/L (3.5-5.1)
[2023-02-14] MEDS: ALBUTEROL 2.5 MG/3 ML NEB SOL NEB PRN ×2 (07:35→19:55)
[2023-02-14] MEDS: APIXABAN 5 MG TABLET PO SCH ×2 (07:52→21:36)
[2023-02-14] MEDS: ATORVASTATIN 20 MG TAB PO SCH (07:52)
[2023-02-14] MEDS: PANTOPRAZOLE 40MG TABLET PO SCH ×2 (07:52→16:15)
[2023-02-14] MEDS: CLOPIDOGREL 75 MG TABLET PO SCH (07:52)
[2023-02-14] MEDS: SUCRALFATE 1GM/10ML UCUP PO SCH ×4 (07:53→21:00)
[2023-02-14] MEDS: ENOXAPARIN 40 MG/0.4 ML SQ SCH (07:53)
[2023-02-14] MEDS: POTASS/SODIUM PHOSPHATE 1 PKT POWD.PACK PO SCH ×2 (07:53→09:50)
[2023-02-14] MEDS: NA CHLORIDE 0.9% 1,000 ML IV SCH ×3 (09:51→20:00)
[2023-02-14] MEDS: VANCOMYCIN 1.5 GM in NA CHLORIDE 0.9% 500 ML IVPB SCH (12:00)
[2023-02-14] MEDS: Levofloxacin 750mg IV 750 MG/150 ML BAG IV SCH (13:00)
--- NOTE | 2023-02-14 14:53 | P.PN ---
Date of Service: 02/14/23 Chief Complaint: Shortness of breath Subjective: Patient seen and examined at bedside. Remains somewhat lethargic. Nonlabored respirations on room air. He denies any new or worsening complaints at this time. Physical Examination Temp Pulse Resp BP Pulse Ox 98.3 F 55 16 140/67 98 02/14/23 08:00 02/14/23 08:00 02/14/23 08:00 02/14/23 08:00 02/14/23 08:00 General: Oriented x2. Remains lethargic. HEENT: Atraumatic, Normocephalic. Neck: Supple, JVD not distended Respiratory: Diminished. Nonlabored respirations on room air. Cardiovascular: No edema, Normal pulses, Regular rate/rhythm Gastrointestinal: Normal bowel sounds, Soft and benign Musculoskeletal: No clubbing, No swelling Integumentary: No rashes Laboratory Data - Reviewed Microbiology Data - Reviewed Imagings Data: - Reviewed Medications List: Acetaminophen (Acetaminophen 500 Mg Tab) 500 mg PO Q4HP PRN PRN Reason: Pain scale 2-4 (Mild) Last Admin: 02/11/23 00:30 Dose: 500 mg Acetaminophen (Acetaminophen 325 Mg Tablet) 650 mg PO Q6H PRN PRN Reason: TEMP > 101' F Last Admin: 02/12/23 20:14 Dose: 650 mg Albuterol Sulfate (Albuterol 2.5 Mg/3 Ml Neb Brittney) 2.5 mg NEB [id number] PRN PRN Reason: SHORTNESS OF BREATH Last Admin: 02/14/23 07:35 Dose: 2.5 mg Apixaban (Apixaban 5 Mg Tablet) 5 mg PO BID [facility] Last Admin: 02/14/23 07:52 Dose: 5 mg Atorvastatin Calcium (Atorvastatin 20 Mg Tab) 20 mg PO DAILY [facility] Last Admin: 02/14/23 07:52 Dose: 20 mg Clopidogrel Bisulfate (Clopidogrel 75 Mg Tablet) 75 mg PO DAILY [facility] Last Admin: 02/14/23 07:52 Dose: 75 mg Cefepime HCl 2 gm/ Sodium (Chloride) 100 mls @ 200 mls/hr IV Q12H [facility] Last Admin: 02/14/23 13:00 Dose: Not Given Vancomycin HCl 1.5 gm/ Sodium (Chloride) 500 mls @ 333.333 mls/hr IVPB Q24H [facility] Last Admin: 02/14/23 12:00 Dose: Not Given Levofloxacin/Dextrose (Levaquin 750 Mg/150 Ml Ivpb (Premix)) 750 mg in 150 mls @ 100 mls/hr IV Q24H [facility]; Protocol Last Admin: 02/14/23 13:00 Dose: Not Given Levothyroxine Sodium (Levothyroxine Sod 0.05 Mg Tablet) 0.05 mg PO DAILYAC [facility] Last Admin: 02/14/23 06:12 Dose: 0.05 mg Ondansetron HCl (Ondansetron 4 Mg/2 Ml Vial) 4 mg IV Q6HP PRN PRN Reason: NAUSEA / VOMITING Pantoprazole Sodium (Pantoprazole 40mg Tablet) 40 mg PO BIDAC [facility]; Protocol Last Admin: 02/14/23 07:52 Dose: 40 mg Sucralfate (Sucralfate 1gm/10ml Ucup) 1 gm PO QID [facility] Last Admin: 02/14/23 14:26 Dose: 1 gm Assessment and Plan Problem List Arthritis Arevalo's Esophagus COPD Hypertension Hypothyroidism Osteoporosis Hyperlipidemia Microcytic anemia hx PE Hx CABG 2006 Pneumonia, Viral vs Bacterial - XR Chest 02/09: "COPD is present. Moderate opacity in the left lung base with haziness likely represents infiltrate with left pleural effusion. The heart is upper limit normal in size. Sternotomy." - CT head/spine/chest/abdomen/pelvis 02/09: "Noncalcified pulmonary nodule is present in the right upper lobe measuring 8 mm, unchanged since 11/11/2019 study. Mild linear opacity in the medial left lung base likely atelectasis.No pneumothorax or pericardial/pleural fluid." - Influenza A&B negative. Covid Negative. - No leukocytosis - Afebrile 24 hours - Previously on Rocephin and Azithromycin 02/10-02/11 - Currently on Cefepime (02/11-), Levaquin (02/12-) and Vancomycin (02/12-) COPD: pulmonology on case Blood cultures 02/09: Staph hominis in 1 of 4 bottles. - Likely a contaminant. - Repeat blood cultures 02/13 pending. Recommendations - Pneumonia: Continue antibiotic therapy for at least 7 days (02/10-02/17). - Currently on Cefepime, Levaquin and Vancomycin (02/12) to cover MRSA and pseudomonas risk factors. Continue while inpatient. - Once clinically stable, consider switch to Levaquin and Doxycycline PO - Continue nebulizer treatments - Supportive care and nutritional supplementation as needed - Fever trends. PRN tylenol. Case discussed with Cesario Marks
--- NOTE | 2023-02-14 15:57 | P.PN ---
Subjective Date of Service: 02/14/23 Chief Complaint: Shortness of breath Patient reports no new complaint No recorded fever over the last 24 hours. He states that his epigastric pain is better. Physical Examination - Vital Signs Temperature: 98.3 F Blood Pressure: 140/67 Pulse: 55 Respirations: 16 Pulse Ox (%): 98 Assessment And Plan - Plan Physical Exam General: Alert, In no apparent distress, Oriented x2 Neck: Supple Respiratory: Normal air movement, wheezes, no crackles. Cardiovascular: No edema, Normal pulses, Regular rate/rhythm Gastrointestinal: Normal bowel sounds, Soft and benign, Non-distended Musculoskeletal: No clubbing, No swelling Neurological: Normal speech, no focal motor deficit. Assessment and plan Sepsis without septic shock my mouth to speak in more than the brain Acute hypoxic respiratory failure secondary to pneumonia Metabolic encephalopathy Acute on chronic kidney injury Anemia, unspecified HX Arthritis HX Arevalo's Esophagus Hypertension Hypothyroidism Osteoporosis History of PE and DVT Assessment plan Sepsis without septic shock. Acute hypoxic respiratory failure secondary to pneumonia Fever, Pneumonia LEFT LOWER LOBE, Pulmonary input appreciated Infectious disease is following 1 blood culture bottles grew Staphylococcus hominis which is likely a skin contaminant. Repeat blood culture is pending. No fever for 24 hours. Continue antibiotics DuoNebs Anemia, unspecified microcytic anemia. Stable Monitor and transfuse as needed. Metabolic encephalopathy Likely secondary to sepsis Fall precautions, supportive care, Acute on chronic kidney injury Resolved with IV hydration. Monitor renal function Diet as tolerated. HX Arthritis HX Arevalo's Esophagus Hypertension Hypothyroidism Osteoporosis PE Continue home medications. Continue Eliquis. PPI and sucralfate for Arevalo's esophagitis. PT consult to assess mobility. DVT prophylaxis: Eliquis. Cardiac diet Full code
[2023-02-15] MEDS: CEFEPIME 2 GM in NA CHLORIDE 0.9% 100 ML IV SCH (00:42)
[2023-02-15 05:42] VITALS: BMI 32.7
[2023-02-15] MEDS: NA CHLORIDE 0.9% 1,000 ML IV SCH ×3 (06:00→20:22)
[2023-02-15] MEDS: LEVOTHYROXINE SOD 0.05 MG TABLET PO SCH (06:17)
[2023-02-15 07:17] LABS: Phosphorus 2.2 mg/dL (2.5-4.9); Potassium 4.1 mEq/L (3.5-5.1)
--- NOTE | 2023-02-15 07:24 | P.PN ---
Date of Service: 02/15/23 Subjective: Doing okay no acute events overnight afebrile feeling better, sitting up at bedside eating breakfast ROS: 10 point ROS as noted above, otherwise negative Physical Exam: GEN: Alert, orientedx2, NAD HEENT: Normal conjunctiva, sclera anicteric CV: Regular rate and rhythm, no edema Pulm: Nonlabored respirations on room air, diminished at bases bilaterally ABD: Soft, nontender, nondistended Neuro: Normal speech, normal affect vitals reviewed Problem List: Sepsis without septic shock secondary to pneumonia Acute hypoxic respiratory failure secondary to pneumonia Metabolic encephalopathy secondary to pneumonia Microcytic anemia JDAE on CKD Anemia, unspecified h/o Arthritis h/o Arevalo's Esophagus Hypertension Hypothyroidism Osteoporosis h/o PE and DVT Sepsis without septic shock likely secondary to pneumonia Acute hypoxic respiratory failure secondary to pneumonia Metabolic encephalopathy likely secondary to pneumonia Pulm and ID consulted blood cx 02/09: 1/ bottles grew Staphylococcus hominis which is likely a skin contaminant. Repeat blood cx 02/13: NGTD Last fever: 02/12, +no leukocytosis currently on IV Cefepime, Levaquin and Vancomycin (02/12-) to cover MRSA and pseudomonas risk factors lost IV access 02/14 Continue PO levaquin / doxy for now PRN nebs Fall precautions Microcytic anemia Monitor H&H. Transfuse for hgb < 7 stable JADE on CKD Monitor renal function Diet as tolerated. improving h/o Arthritis h/o Arevalo's Esophagus Hypertension Hypothyroidism Osteoporosis PE Continue home medications. Continue Eliquis. PPI and sucralfate for Arevalo's esophagitis. PT consult to assess mobility. VTE: Home eliquis Code: Full Dispo: Home vs SNF, ~2 days
[2023-02-15] MEDS: SUCRALFATE 1GM/10ML UCUP PO SCH ×4 (09:00→20:21)
--- NOTE | 2023-02-15 09:44 | P.PN ---
Date of Service: 02/15/23 Chief Complaint: Shortness of breath Subjective: Improving Patient sitting up on side of bed, breathing comfortably on room air. He is more alert today compared to yesterday. Denies any cough, chest pain or shortness of breath. Denies any nausea, vomiting or diarrhea. Physical Examination Temp Pulse Resp BP Pulse Ox 97.5 F 64 17 152/74 H 95 02/15/23 08:00 02/15/23 08:00 02/15/23 08:00 02/15/23 08:00 02/15/23 08:00 General: Alert and Oriented x2. HEENT: Atraumatic, Normocephalic. Neck: Supple, JVD not distended Respiratory: slightly diminished. Breathing comfortably on room air. Cardiovascular: No edema, Normal pulses, Regular rate/rhythm Gastrointestinal: Normal bowel sounds, Soft and benign Musculoskeletal: No clubbing, No swelling Integumentary: No rashes Laboratory Data - Reviewed Microbiology Data - Reviewed Imagings Data: - Reviewed Medications List: Acetaminophen (Acetaminophen 500 Mg Tab) 500 mg PO Q4HP PRN PRN Reason: Pain scale 2-4 (Mild) Last Admin: 02/11/23 00:30 Dose: 500 mg Acetaminophen (Acetaminophen 325 Mg Tablet) 650 mg PO Q6H PRN PRN Reason: TEMP > 101' F Last Admin: 02/12/23 20:14 Dose: 650 mg Albuterol Sulfate (Albuterol 2.5 Mg/3 Ml Neb Brittney) 2.5 mg NEB [id number] PRN PRN Reason: SHORTNESS OF BREATH Last Admin: 02/14/23 19:55 Dose: 2.5 mg Apixaban (Apixaban 5 Mg Tablet) 5 mg PO BID [facility] Last Admin: 02/14/23 21:36 Dose: 5 mg Atorvastatin Calcium (Atorvastatin 20 Mg Tab) 20 mg PO DAILY [facility] Last Admin: 02/14/23 07:52 Dose: 20 mg Clopidogrel Bisulfate (Clopidogrel 75 Mg Tablet) 75 mg PO DAILY [facility] Last Admin: 02/14/23 07:52 Dose: 75 mg Cefepime HCl 2 gm/ Sodium (Chloride) 100 mls @ 200 mls/hr IV Q12H [facility] Last Admin: 02/15/23 00:42 Dose: Not Given Vancomycin HCl 1.5 gm/ Sodium (Chloride) 500 mls @ 333.333 mls/hr IVPB Q24H [facility] Last Admin: 02/14/23 12:00 Dose: Not Given Levofloxacin/Dextrose (Levaquin 750 Mg/150 Ml Ivpb (Premix)) 750 mg in 150 mls @ 100 mls/hr IV Q24H [facility]; Protocol Last Admin: 02/14/23 13:00 Dose: Not Given Levothyroxine Sodium (Levothyroxine Sod 0.05 Mg Tablet) 0.05 mg PO DAILYAC [facility] Last Admin: 02/15/23 06:17 Dose: 0.05 mg Ondansetron HCl (Ondansetron 4 Mg/2 Ml Vial) 4 mg IV Q6HP PRN PRN Reason: NAUSEA / VOMITING Pantoprazole Sodium (Pantoprazole 40mg Tablet) 40 mg PO BIDAC [facility]; Protocol Last Admin: 02/14/23 16:15 Dose: 40 mg Potassium Phos/Sodium Phos (Potass/Sodium Phosphate 1 Pkt Powd.Pack) 1 pkt PO Q1HWA [facility] Stop: 02/15/23 10:01 Sucralfate (Sucralfate 1gm/10ml Ucup) 1 gm PO QID [facility] Last Admin: 02/14/23 21:00 Dose: 1 gm Assessment and Plan Problem List Arthritis Arevalo's Esophagus COPD Hypertension Hypothyroidism Osteoporosis Hyperlipidemia Microcytic anemia hx PE Hx CABG 2006 Pneumonia, Viral vs Bacterial - XR Chest 02/09: "COPD is present. Moderate opacity in the left lung base with haziness likely represents infiltrate with left pleural effusion. The heart is upper limit normal in size. Sternotomy." - CT head/spine/chest/abdomen/pelvis 02/09: "Noncalcified pulmonary nodule is present in the right upper lobe measuring 8 mm, unchanged since 11/11/2019 study. Mild linear opacity in the medial left lung base likely atelectasis.No pneumothorax or pericardial/pleural fluid." - Influenza A&B negative. Covid Negative. - No leukocytosis. Afebrile 48 hours. - Previously on Rocephin and Azithromycin (02/10-02/11) --> switched to Cefepime (02/11-), Levaquin (02/12-) and Vancomycin (02/12-) to cover MRSA and pseudomonas risk factors. COPD: pulmonology on case Blood cultures 02/09: Staph hominis in 1 of 4 bottles. - Likely a contaminant. - Repeat blood cultures 02/13: No growth 24 hours Recommendations - Pneumonia: Continue antibiotic therapy for at least 7 days (02/10-02/17). - On Levaquin and Doxycycline PO, continue - Nebulizer treatments - Supportive care and nutritional supplementation as needed - Fever trends. PRN tylenol. Case discussed with Cesario Marks
[2023-02-15] MEDS: APIXABAN 5 MG TABLET PO SCH ×2 (09:49→20:21)
[2023-02-15] MEDS: CLOPIDOGREL 75 MG TABLET PO SCH (09:49)
[2023-02-15] MEDS: POTASS/SODIUM PHOSPHATE 1 PKT POWD.PACK PO SCH ×3 (09:49→11:11)
[2023-02-15] MEDS: PANTOPRAZOLE 40MG TABLET PO SCH ×2 (09:50→17:45)
[2023-02-15] MEDS: ATORVASTATIN 20 MG TAB PO SCH (09:50)
[2023-02-15] MEDS: VANCOMYCIN 1.5 GM in NA CHLORIDE 0.9% 500 ML IVPB SCH (11:53)
[2023-02-15] MEDS: levoFLOXacin 750 MG TAB PO SCH (12:43)
[2023-02-15] MEDS ORDERED: PHENOL 1.4% ORAL SPRAY 180ML MM PRN (17:00)
[2023-02-15] MEDS: DOXYCYCLINE 100 MG CAP PO SCH (20:21)
[2023-02-15] MEDS: ALBUTEROL 2.5 MG/3 ML NEB SOL NEB PRN (20:50)
[2023-02-16] MEDS: LEVOTHYROXINE SOD 0.05 MG TABLET PO SCH (05:43)
[2023-02-16] MEDS: PANTOPRAZOLE 40MG TABLET PO SCH ×2 (05:44→16:20)
[2023-02-16 07:29] LABS: Magnesium 2.3 mg/dL (1.6-2.4); Phosphorus 2.4 mg/dL (2.5-4.9); Potassium 4.1 mEq/L (3.5-5.1)
--- NOTE | 2023-02-16 07:44 | P.PN ---
Date of Service: 02/16/23 Subjective: Doing okay, feels some improvement each day Ambulating with PT, +SOB with activity no new / worsening problems afebrile ROS: 10 point ROS as noted above, otherwise negative Physical Exam: GEN: Alert, orientedx2, NAD HEENT: Normal conjunctiva, sclera anicteric CV: Regular rate and rhythm, no edema Pulm: Nonlabored respirations on room air, diminished at bases bilaterally ABD: Soft, nontender, nondistended Neuro: Normal speech, normal affect vitals reviewed Problem List: Sepsis without septic shock secondary to pneumonia Acute hypoxic respiratory failure secondary to pneumonia Metabolic encephalopathy secondary to pneumonia Microcytic anemia JADE on CKD Anemia, unspecified h/o Arthritis h/o Arevalo's Esophagus Hypertension Hypothyroidism Osteoporosis h/o PE and DVT Sepsis without septic shock likely secondary to pneumonia Acute hypoxic respiratory failure secondary to pneumonia Metabolic encephalopathy likely secondary to pneumonia Pulm and ID consulted blood cx 02/09: 1/4 bottles grew Staphylococcus hominis which is likely a skin contaminant. Repeat blood cx 02/13: NGTD Last fever: 02/12, +no leukocytosis Previously on IV Cefepime, Levaquin and Vancomycin (02/12-) to cover MRSA and pseudomonas risk factors lost IV access 02/14 Continue PO levaquin / doxy for now PRN nebs Fall precautions Microcytic anemia Monitor H&H. Transfuse for hgb < 7 stable JADE on CKD Monitor renal function Diet as tolerated. improving h/o Arthritis h/o Arevalo's Esophagus Hypertension Hypothyroidism Osteoporosis PE Continue home medications. Continue Eliquis. PPI and sucralfate for Arevalo's esophagitis. PT consult to assess mobility. VTE: Home eliquis Code: Full Dispo: Home vs SNF, ~2 days
[2023-02-16] MEDS: APIXABAN 5 MG TABLET PO SCH ×2 (09:25→20:33)
[2023-02-16] MEDS: LOSARTAN POTASSIUM 50 MG TABLET PO SCH (09:25)
[2023-02-16] MEDS: ATORVASTATIN 20 MG TAB PO SCH (09:25)
[2023-02-16] MEDS: DOXYCYCLINE 100 MG CAP PO SCH ×2 (09:26→20:33)
[2023-02-16] MEDS: SUCRALFATE 1GM/10ML UCUP PO SCH ×4 (09:26→20:33)
[2023-02-16] MEDS: CLOPIDOGREL 75 MG TABLET PO SCH (09:26)
[2023-02-16] MEDS: levoFLOXacin 750 MG TAB PO SCH (09:26)
--- NOTE | 2023-02-16 09:49 | P.PN ---
Date of Service: 02/16/23 Chief Complaint: Shortness of breath Subjective: Improving. Patient ambulating in hallway with walker and physical therapy. Denies any new or worsening complaints. Physical Examination Temp Pulse Resp BP Pulse Ox 98.1 F 67 18 150/77 H 95 02/16/23 08:00 02/16/23 08:00 02/16/23 08:00 02/16/23 08:00 02/16/23 08:00 General: Alert and Oriented x2. HEENT: Atraumatic, Normocephalic. Neck: Supple, JVD not distended Respiratory: slightly diminished. Breathing comfortably on room air. Cardiovascular: No edema, Normal pulses, Regular rate/rhythm Gastrointestinal: Normal bowel sounds, Soft and benign Musculoskeletal: No clubbing, No swelling Integumentary: No rashes Laboratory Data - Reviewed Microbiology Data - Reviewed Imagings Data: - Reviewed Medications List: Reviewed Assessment and Plan Problem List Arthritis Arevalo's Esophagus COPD Hypertension Hypothyroidism Osteoporosis Hyperlipidemia Microcytic anemia hx PE Hx CABG 2006 Pneumonia, Viral vs Bacterial - XR Chest 02/09: "COPD is present. Moderate opacity in the left lung base with haziness likely represents infiltrate with left pleural effusion. The heart is upper limit normal in size. Sternotomy." - CT head/spine/chest/abdomen/pelvis 02/09: "Noncalcified pulmonary nodule is present in the right upper lobe measuring 8 mm, unchanged since 11/11/2019 study. Mild linear opacity in the medial left lung base likely atelectasis.No pneumothorax or pericardial/pleural fluid." - Influenza A&B negative. Covid Negative. - No leukocytosis. Afebrile 48 hours. - Previously on Rocephin and Azithromycin (02/10-02/11) --> switched to Cefepime (02/11-), Levaquin (02/12-) and Vancomycin (02/12-) to cover MRSA and pseudomonas risk factors. COPD: pulmonology on case Blood cultures 02/09: Staph hominis in 1 of 4 bottles. - Likely a contaminant. - Repeat blood cultures 02/13: No growth to date Recommendations - Pneumonia: Continue antibiotic therapy for at least 7 days (02/10-02/17). - On Levaquin and Doxycycline PO, continue - Nebulizer treatments - Supportive care and nutritional supplementation as needed - Fever trends. PRN tylenol. - physical therapy Case discussed with Cesario Marks
[2023-02-16] MEDS: ALBUTEROL 2.5 MG/3 ML NEB SOL NEB PRN (13:46)
[2023-02-16 20:59] VITALS: O2SAT 96
[2023-02-16] MEDS: ACETAMINOPHEN 325 MG TABLET PO PRN (23:35)
[2023-02-17] MEDS: LEVOTHYROXINE SOD 0.05 MG TABLET PO SCH (06:29)
[2023-02-17] MEDS: PANTOPRAZOLE 40MG TABLET PO SCH (06:29)
[2023-02-17 08:07] VITALS: BP 167/81; TEMP 97.2
[2023-02-17] MEDS: POTASS/SODIUM PHOSPHATE 1 PKT POWD.PACK PO SCH ×3 (09:00→10:29)
[2023-02-17] MEDS: DOXYCYCLINE 100 MG CAP PO SCH (09:26)
[2023-02-17] MEDS: LOSARTAN POTASSIUM 50 MG TABLET PO SCH (09:27)
[2023-02-17] MEDS: ATORVASTATIN 20 MG TAB PO SCH (09:28)
[2023-02-17] MEDS: CLOPIDOGREL 75 MG TABLET PO SCH (09:29)
[2023-02-17] MEDS: APIXABAN 5 MG TABLET PO SCH (09:29)
[2023-02-17] MEDS: SUCRALFATE 1GM/10ML UCUP PO SCH (09:30)
--- NOTE | 2023-02-17 09:57 | P.DS ---
Admission Date: 02/10/23 Discharge Date: 02/17/23 Reason for Admission: Shortness of breath Consultations: Pulmonology - Dr. Manuel Infectious Disease - Dr. Ponce Brief History of Present Illness: 77 yo M, PMH: Arthritis; Arevalo's Esophagus; Hypertension; Hypothyroidism; Osteoporosis Hypercholesterolemia, PE, Patient presents to ER complaints of Fever, 102.0, He reports symptoms/episode began/occurred 3 day(s) ago.He reports assocatiated shortenss of breath and cough. He denies chest pain, edema, dizziness, NVD. ER evaluation, BP 144 / 97; Pulse 101; Resp 26 S; Temp 102.8(O); Pulse Ox 96% on R/A EKG, 2 Rate is 101 beats/min. Rhythm is regular. QRS [place] is Normal. [place] interval is normal. QRS interval is normal. QT interval is normal. No Q waves. T waves are Normal. No ST changes noted. Clinical impression: Sinus tachycardia and No evidence of ischemia. Plan to admit for Fever, Pneumonia Hospital Course: Problem List: Sepsis without septic shock secondary to pneumonia Acute hypoxic respiratory failure secondary to pneumonia Metabolic encephalopathy secondary to pneumonia Microcytic anemia JADE on CKD Anemia, unspecified h/o Arthritis h/o Arevalo's Esophagus Hypertension Hypothyroidism Osteoporosis h/o PE and DVT Patient presented with fever, shortness of breath. He was found to have a left lower lung pneumonia. Pulmonology and Infectious disease was consulted. He was given empiric Rocephin and Azithromycin for ~2 days and continued with fever so he was switched to Cefepime / Levaquin / Vancomycin and had improvement of his symptoms. Initial blood culture grew Staph hominis in 1 of 4 bottles, which was likely a contaminant. Repeat blood cultures (02/13) were without growth on day of discharge. Patient had continued improvement, Patient lost IV access 02/14 and antibiotics were transitioned to PO levaquin and doxycycline and patient continued to show improvement. Patients breathing improved, remained afebrile for > 48 hours, no leukocytosis throughout hospitalization, was deemed stable for discharge home. Patient is to complete 3 more days of PO levaquin / doxy on discharge for a total of ~10 days of antibiotics treatment. Medication: New: Levaquin Doxycycline Change: Advise patient to take his 40mg lasix every other day and to check weight daily. If you notice more than a 2lb gain in ~24 hours, increase lasix back to full normal dose. (40mg daily) Follow up with Cardiology / Nephrology in a few weeks for further evaluation / adjustments of lasix Continue other home medications as previously prescribed Follow up: PCP 3-5 days Pulmonology within 1-2 weeks Cardiology and Nephrology in 1-2 months Physical Exam: GEN: Alert, orientedx2, NAD HEENT: Normal conjunctiva, sclera anicteric CV: Regular rate and rhythm, no edema Pulm: Nonlabored respirations on room air, diminished at bases bilaterally ABD: Soft, nontender, nondistended Neuro: Normal speech, normal affect Vital Signs/Physical Exam: Temp Pulse Resp BP Pulse Ox 97.2 F 62 16 167/81 H 99 02/17/23 08:00 02/17/23 08:00 02/17/23 08:00 02/17/23 08:00 02/17/23 08:00 Laboratory Data at Discharge: WBC 5.90 thou/uL (4.3-10.9) 02/14/23 05:45 Hgb 9.5 g/dL (13.6-17.9) L 02/14/23 05:45 Hct 28.3 % (39.6-49.0) L 02/14/23 05:45 Plt Count 106 thou/uL (152-406) L 02/14/23 05:45 PT 22.3 SECONDS (9.5-12.5) H 02/09/23 18:20 INR 2.03 02/09/23 18:20 Sodium 138 mEq/L (136-145) 02/16/23 06:57 Potassium 4.1 mEq/L (3.5-5.1) 02/16/23 06:57 BUN 10 mg/dL (7-18) 02/16/23 06:57 Creatinine 0.84 mg/dL (0.70-1.30) 02/16/23 06:57 Glucose 110 mg/dL (74-106) H 02/16/23 06:57 Phosphorus 2.4 mg/dL (2.5-4.9) L 02/16/23 06:57 Magnesium 2.3 mg/dL (1.6-2.4) 02/16/23 06:57 Total Bilirubin 0.6 mg/dL (0.2-1.0) 02/09/23 18:20 AST 17 U/L (15-37) 02/09/23 18:20 ALT 19 U/L (16-61) 02/09/23 18:20 Alkaline Phosphatase 55 U/L (45-117) 02/09/23 18:20 Lipase 43 U/L (13-75) 02/09/23 18:20 Home Medications: Apixaban [Eliquis] 5 mg PO SEECOM #75 tablet 11/12/19 Clopidogrel Bisulfate [Plavix*] 75 mg PO DAILY 11/12/19 Cyclosporine [Restasis] 1 drop EACH EYE BID 11/12/19 Furosemide [Lasix*] 40 mg PO DAILY 11/12/19 Levothyroxine [Synthroid*] 0.05 mg PO DAILY 11/12/19 Lisinopril [Zestril] 10 mg PO DAILY 11/12/19 Omeprazole 20 mg PO DAILY 11/12/19 Simvastatin 40 mg PO DAILY 11/12/19 Umeclidinium Brm/Vilanterol Tr [Anoro Ellipta 62.5-25 Mcg INH] 1 dose IH DAILY 11/12/19 Doxycycline Hyclate [Vibramycin] 100 mg PO BID 3 Days #6 cap 02/17/23 levoFLOXacin [Levaquin*] 750 mg PO Q24H 3 Days #3 tab 02/17/23 New Medications: levoFLOXacin [Levaquin*] 750 mg PO Q24H 3 Days #3 tab Doxycycline Hyclate [Vibramycin] 100 mg PO BID 3 Days #6 cap Physician Discharge Instructions: Patient presented with fever, shortness of breath. He was found to have a left lower lung pneumonia. Pulmonology and Infectious disease was consulted. He was given empiric Rocephin and Azithromycin for ~2 days and continued with fever so he was switched to Cefepime / Levaquin / Vancomycin and had improvement of his symptoms. Initial blood culture grew Staph hominis in 1 of 4 bottles, which was likely a contaminant. Repeat blood cultures were without growth however final results pending upon discharge. Patient lost IV access 02/14. Antibiotics were transitioned to PO levaquin and doxycycline and patient continued to show improvement. Patients breathing improved, remained afebrile for > 48 hours, no leukocytosis throughout hospitalization, was deemed stable for discharge home. Patient is to complete 3 more days of PO levaquin / doxy on discharge for a total of ~10 days of antibiotics treatment. Medication: New: Levaquin Doxycycline Follow up: PCP 3-5 days Pulmonology within 1-2 weeks Followup: NONE,NONE [Primary Care Provider] - Time spent managing pt's care (in minutes): 45
== END 2023-02-17 12:15 | disposition home or self-care (01) | DRG 871 ==
LOC: ER 18:02 → ERHOLD 02-10 01:42 → 4TH 02-10 02:00
PROVIDERS: ADMIT Internal Medicine; ATTEND Hospitalist
DX: A41.9 Sepsis, unspecified organism (principal); G93.41 Metabolic encephalopathy; J18.9 Pneumonia, unspecified organism; J96.01 Acute respiratory failure with hypoxia; N17.9 Acute kidney failure, unspecified; J90 Pleural effusion, not elsewhere classified; J98.11 Atelectasis; J44.0 Chronic obstructive pulmonary disease with (acute) lower respiratory infection; E87.1 Hypo-osmolality and hyponatremia; D50.9 Iron deficiency anemia, unspecified; R00.0 Tachycardia, unspecified; I12.9 Hypertensive chronic kidney disease with stage 1 through stage 4 chronic kidney disease, or unspecified chronic kidney disease; N18.2 Chronic kidney disease, stage 2 (mild); D63.1 Anemia in chronic kidney disease; K44.9 Diaphragmatic hernia without obstruction or gangrene; E78.00 Pure hypercholesterolemia, unspecified; E03.9 Hypothyroidism, unspecified; K22.70 Barrett's esophagus without dysplasia; H40.9 Unspecified glaucoma; M81.0 Age-related osteoporosis without current pathological fracture; M19.90 Unspecified osteoarthritis, unspecified site; Z95.1 Presence of aortocoronary bypass graft; Z79.02 Long term (current) use of antithrombotics/antiplatelets; Z79.01 Long term (current) use of anticoagulants; Z86.711 Personal history of pulmonary embolism; Z86.718 Personal history of other venous thrombosis and embolism; Z79.890 Hormone replacement therapy; Z79.899 Other long term (current) drug therapy
CPT/HCPCS: 36415; 70450; 71045; 71250; 72125; 80048; 80076; 80202; 81001; 82947; 83605; 83690; 83735; 83880; 84100; 84132; 84484; 85025; 85610; 87040; 87077; 87186; 87205; 87804; 87811; 93005; 94640; 94760; 97110; 97116; 97162; 97530; 99285; J0692; J0696; J1650; J1720; J2185; J7030; J7040; J7050; J7613

== ENCOUNTER 2024-01-23 13:46 | Emergency (ER) | payer OTHER ==
[2024-01-23] MEDS ORDERED: HYDROCODONE/APAP 10/325 TAB ONE (16:00)
--- NOTE | 2024-01-23 16:07 | EDPHYS ---
Physician Documentation [facility] Name: Quentin Lei Age: 78 yrs Sex: Male : 1945 Arrival Date: 01/23/2024 Time: 13:46 Bed 8 Private MD: ED Physician Juliette Camarena HPI: 01/22 16:10 This 78 yrs old Male presents to ER via Ambulatory with complaints of Leg gb1 Pain, Back Pain. 16:10 78-year-old homeless male living in a tent has also been sleeping in a recliner and gb1 having pain from the right buttock all the way down to his right ankle. It is painful to walk. Patient denies any trauma or falls. He has had an itchy rash on the back of his bottom since the pain began. He denies any fever or chills. He is able to walk unassisted.. 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 - Infectious Disease History:: Denies. - Social history:: Smoking status: Patient/guardian denies using tobacco, the patient reports quitting approximately 26 years ago. Exam: 16:10 Constitutional: This is a well developed, well nourished patient who is awake, alert, gb1 and in no acute distress. Head/Face: Normocephalic, atraumatic. Eyes: Pupils equal round and reactive to light, extra-ocular motions intact. Lids and lashes normal. Conjunctiva and sclera are non-icteric and not injected. Cornea within normal limits. Periorbital areas with no swelling, redness, or edema. ENT: Nares patent. No nasal discharge, no septal abnormalities noted. Tympanic membranes are normal and external auditory canals are clear. Oropharynx with no redness, swelling, or masses, exudates, or evidence of obstruction, uvula midline. Mucous membranes moist. Neck: Trachea midline, no thyromegaly or masses palpated, and no cervical lymphadenopathy. Supple, full range of motion without nuchal rigidity, or vertebral point tenderness. No Meningismus. Chest/axilla: Normal chest wall appearance and motion. Nontender with no deformity. No lesions are appreciated. Cardiovascular: Regular rate and rhythm with a normal S1 and S2. No gallops, murmurs, or rubs. Normal PMI, no JVD. No pulse deficits. Respiratory: Lungs have equal breath sounds bilaterally, clear to auscultation and percussion. No rales, rhonchi or wheezes noted. No increased work of breathing, no retractions or nasal flaring. Abdomen/GI: Soft, non-tender, with normal bowel sounds. No distension or tympany. No guarding or rebound. No evidence of tenderness throughout. Back: No spinal tenderness. No costovertebral tenderness. Full range of motion. Skin: Scattered scabs rash on erythematous base that appears to have been vesicular as described from the patient on the right buttock all the way down to the mid posterior thigh. MS/ Extremity: Pulses equal, no cyanosis. Neurovascular intact. Full, normal range of motion. Neuro: Awake and alert, GCS 15, oriented to person, place, time, and situation. Cranial nerves II-XII grossly intact. Motor strength 5/5 in all extremities. Sensory grossly intact. Cerebellar exam normal. Normal gait. Vital Signs: 13:57 BP 128 / 62; Pulse 82; Resp 16; Temp 98; Pulse Ox 100% on R/A; Weight 102.97 kg; Height hb 5 ft. 11 in. ; Pain 7/10; 16:23 BP 131 / 75; Pulse 75; Resp 16; Pulse Ox 99% ; bp 13:57 Body Mass Index 31.66 (102.97 kg, 180.34 cm) hb 13:57 Pain Scale: Adult hb MDM: 14:12 Patient medically screened. 1 16:10 Data reviewed: vital signs, nurses notes. gb1 16:10 ED course: 78-year-old male with scabbed over erythematous rash on the posterior just gb1 above the buttock to the mid thigh on the right.. Rash is consistent with uncomplicated zoster. No signs symptoms at this time consistent for dissemination. At this time I am concerned the patient is homeless however he does have a friend that can help him ambulate and get comfortable with sleeping. I have prescribed Wake No. 12 and given the patient's with return precautions to which he is compliant with. Of also educated him on the concern and likelihood that he may have postherpetic neuralgia as well, as the rash on his backside resolves.. Administered Medications: 16:08 Drug: Wake PO 10 mg-325 mg 1 tabs PO once Route: PO; bp 16:24 Follow up: Response: No adverse reaction bp Disposition Summary: 01/23/24 16:06 Discharge Ordered Notes: Location: Home gb1 Condition: Stable gb1 Diagnosis - Zoster without complications gb1 Followup: gb1 - With: Private Physician - When: 2 - 3 days - Reason: Wound Recheck Discharge Instructions: - Discharge Summary Sheet gb1 - Neuropathic Pain gb1 - Shingles, [id number] gb1 Forms: - Medication Reconciliation Form gb1 - Antibiotic Education gb1 - Prescription Opioid Use gb1 - Patient Portal Instructions gb1 - Leadership Thank You Letter gb1 Prescriptions: - Hydrocodone-Acetaminophen 5-325 mg Oral Tablet - take 1 tablet ORAL route every 6 hours As needed; 12 tablet; Refills: 0, gb1 Product Selection Permitted Signatures: Fe Gallo RN RN hb Peltier, Brian, RN RN bp Juliette Camarena MD MD gb1 Corrections: (The following items were deleted from the chart) 14:04 13:59 Social history: Smoking status: Patient denies any tobacco usage or history of. hbhb
--- NOTE | 2024-01-23 16:07 | ER ---
Nurse's Notes [facility] Name: Quentin Lei Age: 78 yrs Sex: Male : 1945 Arrival Date: 01/23/2024 Time: 13:46 Bed 8 Private MD: Diagnosis: Zoster without complications Presentation: 01/22 13:57 Chief complaint: Low back pain that radiates to right leg x 1 week. Coronavirus screen: hb At this time, the client does not indicate any symptoms associated with coronavirus-19. Ebola Screen: No symptoms or risks identified at this time. Initial Sepsis Screen: Does the patient meet any 2 criteria? No. Patient's initial sepsis screen is negative. Does the patient have a suspected source of infection? No. Patient's initial sepsis screen is negative. Risk Assessment: Do you want to hurt yourself or someone else? Patient reports no desire to harm self or others. Onset of symptoms was January 17, 2024. 13:57 Method Of Arrival: Ambulatory hb 13:57 Acuity: MAE 4 hb Triage Assessment: 14:00 General: Appears in no apparent distress. uncomfortable, Behavior is calm, cooperative, bp appropriate for age. Pain: Complains of pain in right leg. EENT: No deficits noted. Neuro: No deficits noted. Cardiovascular: No deficits noted. Musculoskeletal: Circulation, motion, and sensation intact. Range of motion: intact in all extremities. 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 - Infectious Disease History:: Denies. - Social history:: Smoking status: Patient/guardian denies using tobacco, the patient reports quitting approximately 26 years ago. Screenin:00 [facility] ED Fall Risk Assessment (Adult) History of falling in the last 3 months, bp including since admission No falls in past 3 months (0 pts) Confusion or Disorientation No (0 pts) Intoxicated or Sedated No (0 pts) Impaired Gait No (0 pts) Mobility Assist Device Used No (0 pt) Altered Elimination No (0 pt) Score/Fall Risk Level 0 - 2 = Low Risk. Abuse screen: Denies threats or abuse. Denies injuries from another. Nutritional screening: No deficits noted. Tuberculosis screening: No symptoms or risk factors identified. Assessment: 14:00 General: Appears in no apparent distress. uncomfortable, Behavior is calm, cooperative, bp appropriate for age. Neuro: Level of Consciousness is awake, alert, obeys commands, Oriented to Appropriate for age Gait is steady. 15:00 General: Appears uncomfortable, Behavior is calm, cooperative. Pain: Complains of pain aa5 in right low back Pain radiates to right leg Pain currently is 7 out of 10 on a pain scale. Quality of pain is described as burning, sharp, Pain began 1 week ago Is continuous. Neuro: Level of Consciousness is awake, alert, obeys commands, Oriented to person, place, time, situation. Cardiovascular: Patient's skin is warm and dry. Respiratory: Airway is patent Respiratory effort is even, unlabored, Respiratory pattern is regular, symmetrical. GI: No signs and/or symptoms were reported involving the gastrointestinal system. : No signs and/or symptoms were reported regarding the genitourinary system. EENT: No signs and/or symptoms were reported regarding the EENT system. Derm: Skin is pink, warm \T\ dry. Rash noted that is red, raised, vesicular, on right subscapular area, right mid back and right low back. Musculoskeletal: Range of motion: intact in all extremities. 16:23 Reassessment: Patient appears in no apparent distress at this time. Patient is alert, bp oriented x 3, equal unlabored respirations, skin warm/dry/pink. Vital Signs: 13:57 BP 128 / 62; Pulse 82; Resp 16; Temp 98; Pulse Ox 100% on R/A; Weight 102.97 kg; Height hb 5 ft. 11 in. ; Pain 7/10; 16:23 BP 131 / 75; Pulse 75; Resp 16; Pulse Ox 99% ; bp 13:57 Body Mass Index 31.66 (102.97 kg, 180.34 cm) hb 13:57 Pain Scale: Adult hb ED Course: 13:49 Patient arrived in ED. mr 13:51 Juliette Camarena MD is Attending Physician. gb1 13:59 Triage completed. hb 14:00 Patient has correct armband on for positive identification. bp 14:03 Arm band placed on. hb 14:10 Cintia Fry, RN is Primary Nurse. aa5 16:23 No provider procedures requiring assistance completed. Patient did not have IV access bp during this emergency room visit. Administered Medications: 16:08 Drug: [place] PO 10 mg-325 mg 1 tabs PO once Route: PO; bp 16:24 Follow up: Response: No adverse reaction bp Medication: 14:00 VIS not applicable for this client. bp Outcome: 16:06 Discharge ordered by MD. gb1 16:23 Discharged to home via wheelchair, bp 16:23 Condition: stable 16:23 Discharge instructions given to patient, Instructed on discharge instructions, follow up and referral plans. medication usage, Demonstrated understanding of instructions, follow-up care, medications, Prescriptions given X 1, 16:37 Patient left the ED. bp Signatures: Bharati Pace, Reg Reg mr Cintia Fry, RN RN aa5 Fe Gallo, RN DUC Srinivas Collado RN RN bp Juliette Camarena MD MD gb1 Corrections: (The following items were deleted from the chart) 14:04 13:59 Social history: Smoking status: Patient denies any tobacco usage or history of. hbhb
[2024-01-23 20:03] VITALS: TEMP 98
[2024-01-23 20:04] VITALS: BP 131/75; O2SAT 99
== END 2024-01-23 16:37 | disposition home or self-care (01) ==
LOC: ER 13:46
DX: B02.9 Zoster without complications (principal)
CPT/HCPCS: 99283

== ENCOUNTER 2024-04-06 11:00 | Emergency (ER) | payer OTHER ==
[2024-04-06 11:39] LABS: Absolute Eosinophils 0.1 K/uL (0-0.5); Absolute Lymphocytes (CBC) 1.3 K/uL (0.7-4.9); Absolute Monocytes 0.5 K/uL (0.1-1.3); Absolute Neutrophil 2.1 K/uL (1.8-8.0); Basophils % 0.4 % (0-1.3); Hematocrit 18.4 % (39.6-49.0); Hemoglobin 6.2 g/dL (13.6-17.9); Lymphocytes % 32.1 % (15.3-44.8); MCHC 33.9 g/dL (32.0-36.0); MCV 115.1 fL (80-100); MPV 7.3 fL (7.6-11.3); Monocytes % 11.3 % (3.3-12.3); Neutrophils % 53.2 % (41.7-73.7); Platelets 163 thou/uL (152-406); Red Cell Distribution Width 17.7 % (12.1-15.2)
[2024-04-06 11:46] LABS: PT Prothrombin Time 19.4 SECONDS (9.4-12.5); PTT, Activated Partial Thromb 35.3 SECONDS (24.3-36.9); Protime INR 1.76
[2024-04-06 11:56] LABS: Albumin 3.6 g/dL (3.4-5.0); Albumin/Globulin Ratio 1.2 (1.1-1.8); Anion Gap 6.8 mEq/L (5.0-15.0); Bilirubin Total 0.6 mg/dL (0.2-1.0); Globulin 3.1 g/dL (2.3-3.5); Potassium 3.8 mEq/L (3.5-5.1); Protein, Total 6.7 g/dL (6.4-8.2)
[2024-04-06 12:28] LABS: Blood Morphology Comment NOTED (NOT SEEN); Macrocytosis 3+; Platelet Estimate ADEQ; White Blood Cell Scan OK (OK)
[2024-04-06 12:29] LABS: Polychromasia 1+; Rouleau NOTED; Teardrop Cell 2+
[2024-04-06] MEDS ORDERED: NA CHLORIDE 0.9% 250 ML ONE ×2 (13:20→16:10)
--- NOTE | 2024-04-06 13:53 | ER ---
Nurse's Notes [facility] Name: Quentin Lei Age: 78 yrs Sex: Male : 1945 Arrival Date: 04/06/2024 Time: 11:00 Bed 23 Private MD: Diagnosis: Symptomatic anemia Presentation: 04/06 11:13 Chief complaint: Sent by PCP for low hemoglobin. Coronavirus screen: At this time, the hb client does not indicate any symptoms associated with coronavirus-19. Ebola Screen: No symptoms or risks identified at this time. Initial Sepsis Screen: Does the patient meet any 2 criteria? No. Patient's initial sepsis screen is negative. Does the patient have a suspected source of infection? No. Patient's initial sepsis screen is negative. Risk Assessment: Do you want to hurt yourself or someone else? Patient reports no desire to harm self or others. Onset of symptoms was April 06, 2024. 11:13 Method Of Arrival: Ambulatory hb 11:13 Acuity: MAE 3 hb Triage Assessment: 11:14 General: Appears in no apparent distress. Behavior is calm. hb 11:14 Pain: Denies pain. Neuro: Level of Consciousness is awake, alert, obeys commands, hb Oriented to person, place, time, situation. Cardiovascular: Patient's skin is warm and dry. Respiratory: Respiratory effort is even, unlabored, Respiratory pattern is regular, symmetrical. Historical: - Allergies: 11:13 tramadol; hb - PMHx: 11:13 Arthritis; Arevalo's Esophagus; Hypothyroidism; Lung tumor with radiation tx completed hb January 2023; Hypertension; Hypercholesterolemia; Osteoporosis; - PSHx: 11:13 lung biopsy; triple bypass; hb - Immunization history:: Adult Immunizations up to date. - Infectious Disease History:: Denies. - Family history:: not pertinent. - Social history:: Smoking status: unknown Patient uses. Screenin:33 [facility] ED Fall Risk Assessment (Adult) History of falling in the last 3 months, tm6 including since admission No falls in past 3 months (0 pts) Confusion or Disorientation No (0 pts) Intoxicated or Sedated No (0 pts) Impaired Gait No (0 pts) Mobility Assist Device Used No (0 pt) Altered Elimination No (0 pt) Score/Fall Risk Level 0 - 2 = Low Risk Oriented to surroundings, Maintained a safe environment, Educated pt \T\ family on fall prevention, incl call for assistance when getting out of bed. Abuse screen: Denies threats or abuse. Denies injuries from another. Nutritional screening: No deficits noted. Tuberculosis screening: No symptoms or risk factors identified. Assessment: 11:33 General: Appears in no apparent distress. Behavior is calm, cooperative. Pain: Denies tm6 pain. Neuro: Level of Consciousness is awake, alert, obeys commands, Oriented to person, place, time, situation. Cardiovascular: Patient's skin is warm and dry. Respiratory: Airway is patent Respiratory effort is even, unlabored. GI: No signs and/or symptoms were reported involving the gastrointestinal system. Abdomen is flat, non-distended. : No signs and/or symptoms were reported regarding the genitourinary system. EENT: No signs and/or symptoms were reported regarding the EENT system. Derm: No signs and/or symptoms reported regarding the dermatologic system. Musculoskeletal: No signs and/or symptoms reported regarding the musculoskeletal system. 12:54 Reassessment: Patient and/or family updated on plan of care and expected duration. Pain tm6 level reassessed. Patient is alert, oriented x 3, equal unlabored respirations, skin warm/dry/pink. 14:14 Reassessment: Patient and/or family updated on plan of care and expected duration. Pain tm6 level reassessed. Patient is alert, oriented x 3, equal unlabored respirations, skin warm/dry/pink. 14:14 Reassessment: attempted to call report to [facility], no answer. tm6 14:31 Reassessment: attempted to call report to [facility] through the transfer center, still no tm6 answer by [facility]. 14:44 Reassessment: report called to Tracie XAVIER at [facility]. tm6 15:23 Reassessment: Patient and/or family updated on plan of care and expected duration. Pain tm6 level reassessed. Patient is alert, oriented x 3, equal unlabored respirations, skin warm/dry/pink. 16:34 Reassessment: Patient and/or family updated on plan of care and expected duration. Pain tm6 level reassessed. Patient is alert, oriented x 3, equal unlabored respirations, skin warm/dry/pink. Vital Signs: 11:13 BP 127 / 63; Pulse 70; Resp 16; Temp 98.2(TE); Pulse Ox 100% on R/A; Pain 0/10; hb 12:54 BP 140 / 63; Pulse 66; Pulse Ox 100% on R/A; MAP 85 mmHg; Pain 0/10; tm6 14:14 BP 165 / 70; Pulse 63; Pulse Ox 100% on R/A; MAP 97 mmHg; Pain 0/10; tm6 15:23 BP 137 / 69; Pulse 70; Pulse Ox 100% ; MAP 88 mmHg; Pain 0/10; tm6 16:33 BP 147 / 66; Pulse 68; Pulse Ox 100% on R/A; Pain 0/10; tm6 11:13 Pain Scale: Adult hb 12:54 Pain Scale: Adult tm6 14:14 Pain Scale: Adult tm6 15:23 Pain Scale: Adult tm6 16:33 Pain Scale: Adult tm6 ED Course: 11:02 Patient arrived in ED. mr 11:02 Jeffrey Fleming MD is Attending Physician. rt 11:13 Triage completed. hb 11:13 Arm band placed on. hb 11:19 Arielle Martines, DUC is Primary Nurse. tm6 11:33 Patient has correct armband on for positive identification. Placed in gown. Bed in low tm6 position. Call light in reach. Side rails up X 1. Provided Education on: use of call renteria. Client placed on continuous cardiac and pulse oximetry monitoring. NIBP monitoring applied. Pulse ox on. NIBP on. Door closed. Noise minimized. Warm blanket given. 11:33 Ptt, Activated Sent. tm6 11:33 PT-INR Sent. tm6 11:33 Type And Screen Sent. tm6 11:33 CMP Sent. tm6 11:33 CBC with Diff Sent. tm6 11:33 Inserted saline lock: 20 gauge in right antecubital area, using aseptic technique. tm6 Blood collected. Flushed with 10 mL NS. 12:48 initiated a transfer with Joanne from the [facility] [place]. eb 13:00 Provided Education on: Blood Transfusion. tm6 13:41 administrative approval given by Joanne Crawford Rn/ patient has been accepted to [facility] 525/ Dr. Jorge Cantu has accepted the patient in transfer/ report to be called to [phone]. Administered Medications: No medications were administered Medication: 11:33 VIS not applicable for this client. tm6 Outcome: 13:52 ER care complete, transfer ordered by . rt 17:15 Patient left the ED. tm6 Signatures: PaceBharati mckenna, Reg Reg mr SabinoFe, RN RN hb Blanca Villalpando Ryan, MD MD rt Arielle Martines RN RN tm6 Corrections: (The following items were deleted from the chart) 11:14 11:13 Chief complaint: Sent by PCP for low hemoglobin. hb hb 11:15 11:14 General: Appears in no apparent distress. hb hb
--- NOTE | 2024-04-06 13:53 | EDPHYS ---
Physician Documentation [facility] Name: Quentin Lei Age: 78 yrs Sex: Male : 1945 Arrival Date: 04/06/2024 Time: 11:00 Bed 23 Private MD: ED Physician Jeffrey Fleming HPI: 04/06 12:18 This 78 yrs old Male presents to ER via Ambulatory with complaints of Abnormal Lab rt Results. 12:18 Patient presents to the ED with reported low hemoglobin on outpatient labs. Patient rt does not know what level it was, was told to come to the ED by his PCP. The patient does take Eliquis. States that he feels somewhat short of breath and fatigued but denies other acute complaints. Denies black stools. Denies vomiting. Denies other acute complaints, symptoms are moderate in severity, no other aggravating or alleviating factors.. Historical: - Allergies: 11:13 tramadol; hb - PMHx: 11:13 Arthritis; Arevalo's Esophagus; Hypothyroidism; Lung tumor with radiation tx completed hb January 2023; Hypertension; Hypercholesterolemia; Osteoporosis; - PSHx: 11:13 lung biopsy; triple bypass; hb - Immunization history:: Adult Immunizations up to date. - Infectious Disease History:: Denies. - Family history:: not pertinent. - Social history:: Smoking status: unknown Patient uses. ROS: 12:18 Cardiovascular: Negative for chest pain, palpitations, and edema, Abdomen/GI: Negative rt for abdominal pain, nausea, vomiting, diarrhea, and constipation, MS/Extremity: Negative for injury and deformity, Skin: Negative for injury, rash, and discoloration, Neuro: Negative for headache, weakness, numbness, tingling, and seizure, 12:18 Constitutional: Positive for fatigue, Negative for fever, 12:18 Respiratory: Positive for shortness of breath, Negative for cough, Exam: 12:18 Constitutional: This is a well developed, well nourished patient who is awake, alert, rt and in no acute distress. Head/Face: Normocephalic, atraumatic. Chest/axilla: Normal chest wall appearance and motion. Nontender with no deformity. No lesions are appreciated. Cardiovascular: Regular rate and rhythm with a normal S1 and S2. No gallops, murmurs, or rubs. Normal PMI, no JVD. No pulse deficits. Respiratory: Lungs have equal breath sounds bilaterally, clear to auscultation and percussion. No rales, rhonchi or wheezes noted. No increased work of breathing, no retractions or nasal flaring. Abdomen/GI: Soft, non-tender, with normal bowel sounds. No distension or tympany. No guarding or rebound. No evidence of tenderness throughout. Skin: Warm, dry with normal turgor. Normal color with no rashes, no lesions, and no evidence of cellulitis. MS/ Extremity: Pulses equal, no cyanosis. Neurovascular intact. Full, normal range of motion. Neuro: Awake and alert, GCS 15, oriented to person, place, time, and situation. Cranial nerves II-XII grossly intact. Motor strength 5/5 in all extremities. Sensory grossly intact. Cerebellar exam normal. Normal gait. Vital Signs: 11:13 BP 127 / 63; Pulse 70; Resp 16; Temp 98.2(TE); Pulse Ox 100% on R/A; Pain 0/10; hb 12:54 BP 140 / 63; Pulse 66; Pulse Ox 100% on R/A; MAP 85 mmHg; Pain 0/10; tm6 14:14 BP 165 / 70; Pulse 63; Pulse Ox 100% on R/A; MAP 97 mmHg; Pain 0/10; tm6 15:23 BP 137 / 69; Pulse 70; Pulse Ox 100% ; MAP 88 mmHg; Pain 0/10; tm6 16:33 BP 147 / 66; Pulse 68; Pulse Ox 100% on R/A; Pain 0/10; tm6 11:13 Pain Scale: Adult hb 12:54 Pain Scale: Adult tm6 14:14 Pain Scale: Adult tm6 15:23 Pain Scale: Adult tm6 16:33 Pain Scale: Adult tm6 MDM: 11:17 Medical Screening Exam initiated rt 14:11 Differential Diagnosis Anemia, GI bleed, folate, B12, iron deficiency. Data reviewed: rt vital signs, nurses notes, lab test result(s). I considered the following discharge prescriptions or medication management in the emergency department Medications were administered in the Emergency Department. See MAR. Care significantly affected by the following chronic conditions: Atrial fibrillation. Counseling: I had a detailed discussion with the patient and/or guardian regarding the historical points, exam findings, and any diagnostic results supporting the discharge/admit diagnosis, lab results, the need to transfer to another facility. Response to treatment: the patient's symptoms have mildly improved after treatment. 16:16 Management of patient was discussed with the following: Engraver Wood: Discussed with rt accepting hospitalist at [facility]. 04/06 11:17 Order name: Type And Screen rt 04/06 11:17 Order name: CBC with Diff; Complete Time: 12:33 rt 04/06 11:17 Order name: CMP; Complete Time: 12:22 rt 04/06 11:17 Order name: PT-INR; Complete Time: 12:22 rt 04/06 11:17 Order name: Ptt, Activated; Complete Time: 12:22 rt 04/06 11:43 Order name: CBC Smear Scan; Complete Time: 12:33 EDMS 04/06 12:53 Order name: Packed RBC Leukored EDMS Administered Medications: No medications were administered Disposition Summary: 04/06/24 13:52 Transfer Ordered Notes: Transfer Location: [facility] rt Reason: Higher level of care rt Condition: Stable rt Problem: new rt Symptoms: have improved rt Accepting Physician: (04/06/24 17:15) tm6 Diagnosis - Symptomatic anemia rt Forms: - Medication Reconciliation Form rt - SBAR form rt Critical care time excluding procedures: 14:11 Critical care time: Bedside Care: 30 minutes, Consultation: 5 minutes. Total time: 35 rt minutes Signatures: Dispatcher [employer] EDFe Tamayo RN RN hb [place], Ryan, MD MD rt Masterson, Tawney, RN RN tm6 Corrections: (The following items were deleted from the chart) 17:15 13:52 rt tm6
[2024-04-06 19:32] VITALS: TEMP 98.2; O2SAT 100
[2024-04-06 19:37] VITALS: BP 147/66
== END 2024-04-06 17:15 | disposition short-term general hospital (02) ==
LOC: ER 11:00
PROC: 30233N1 Transfusion of Nonautologous Red Blood Cells into Peripheral Vein, Percutaneous Approach (ICD-10-PCS; principal; 2024-04-06)
DX: D64.9 Anemia, unspecified (principal); I10 Essential (primary) hypertension; Z95.1 Presence of aortocoronary bypass graft; Z79.01 Long term (current) use of anticoagulants
CPT/HCPCS: 85025; 36415; 86900; 86850; 85610; 86901; 85730; 86920 ×2; 80053; 99283; 36430; P9016 ×2; J7050 ×2

== ENCOUNTER 2024-04-22 12:52 | Emergency (ER) | payer OTHER ==
[2024-04-22 14:22] LABS: SARS-CoV-2 Antigen CONTROL BLUE LINE VIS/BG OK; SARS-CoV-2 Antigen Rapid Res Negative (Negative)
--- NOTE | 2024-04-22 14:50 | EDPHYS ---
Physician Documentation [facility] Name: Quentin Lei Age: 78 yrs Sex: Male : 1945 Arrival Date: 04/22/2024 Time: 12:52 Bed 19 Private MD: ED Physician Salvador Nieves HPI: 04/22 14:47 This 78 yrs old Male presents to ER via Ambulatory with complaints of Fever - chills jr8 and body aches. 14:47 Onset: The symptoms/episode began/occurred acutely, yesterday. Modifying factors: there jr8 are no obvious modifying factors. Associated signs and symptoms: Pertinent positives: chills, Pertinent negatives: abdominal pain, chest pain, cough, diarrhea, earache, headache, sinus congestion, sore throat, vomiting. Severity of symptoms: At their worst the symptoms were mild in the emergency department the symptoms are unchanged. The patient has not experienced similar symptoms in the past. The patient has not recently seen a physician. 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 - Infectious Disease History:: Denies. - Social history:: Smoking status: Patient/guardian denies using tobacco, the patient reports quitting approximately 20 years ago. ROS: 14:47 Constitutional: Positive for body aches, chills, fever, jr8 14:47 All other systems are negative, Exam: 14:47 Constitutional: This is a well developed, well nourished patient who is awake, alert, jr8 and in no acute distress. Eyes: Pupils equal round and reactive to light, extra-ocular motions intact. Lids and lashes normal. Conjunctiva and sclera are non-icteric and not injected. Cornea within normal limits. Periorbital areas with no swelling, redness, or edema. ENT: Nares patent. No nasal discharge, no septal abnormalities noted. Tympanic membranes are normal and external auditory canals are clear. Oropharynx with no redness, swelling, or masses, exudates, or evidence of obstruction, uvula midline. Mucous membranes moist. Neck: Trachea midline, no thyromegaly or masses palpated, and no cervical lymphadenopathy. Supple, full range of motion without nuchal rigidity, or vertebral point tenderness. No Meningismus. Cardiovascular: Regular rate and rhythm with a normal S1 and S2. No gallops, murmurs, or rubs. Normal PMI, no JVD. No pulse deficits. Respiratory: Lungs have equal breath sounds bilaterally, clear to auscultation and percussion. No rales, rhonchi or wheezes noted. No increased work of breathing, no retractions or nasal flaring. Abdomen/GI: Soft, non-tender, with normal bowel sounds. No distension or tympany. No guarding or rebound. No evidence of tenderness throughout. Back: No spinal tenderness. No costovertebral tenderness. Full range of motion. Skin: Warm, dry with normal turgor. Normal color with no rashes, no lesions, and no evidence of cellulitis. MS/ Extremity: Pulses equal, no cyanosis. Neurovascular intact. Full, normal range of motion. Neuro: Awake and alert, GCS 15, oriented to person, place, time, and situation. Motor strength 5/5 in all extremities. Sensory grossly intact. Vital Signs: 13:16 BP 163 / 59; Pulse 86; Resp 20; Temp 98.9(TE); Pulse Ox 100% on R/A; Weight 95.25 kg; hb Height 5 ft. 11 in. ; Pain 2/10; 14:00 BP 122 / 50; Pulse 83; Resp 18; Pulse Ox 99% on R/A; cm10 15:00 BP 126 / 55; Pulse 72; Resp 16; Pulse Ox 99% on R/A; cm10 13:16 Body Mass Index 29.29 (95.25 kg, 180.34 cm) hb 13:16 Pain Scale: Adult hb MDM: 13:08 Medical Screening Exam initiated jr8 14:47 Differential diagnosis: viral Infection, bacterial infection, URI, bronchitis, jr8 pneumonia UTI. Data reviewed: vital signs, nurses notes, lab test result(s). Counseling: I had a detailed discussion with the patient and/or guardian regarding the historical points, exam findings, and any diagnostic results supporting the discharge/admit diagnosis, lab results, the need for outpatient follow up, a family practitioner, to return to the emergency department if symptoms worsen or persist or if there are any questions or concerns that arise at home. ED course: Patient remains hemodynamically stable and afebrile here. No increased work of breathing, O2 saturation 99% on room air, no adventitious breath sounds on physical exam. Unlikely that this is pneumonia or bronchitis. Throat clear and no other acute findings on physical exam. Swabs for flu and COVID were both negative. Most likely viral in nature which I have discussed with the patient and to continue to treat symptomatically at this time. If her have worsening or change come back to emergency room for reevaluation. Patient understand good plan at this time.. 04/22 13:07 Order name: Influenza Screen (a \T\ B); Complete Time: 14:39 jr8 04/22 13:07 Order name: SARS RAPID; Complete Time: 14:39 jr8 Administered Medications: No medications were administered Disposition Summary: 04/22/24 14:50 Discharge Ordered Notes: Location: Home jr8 Problem: new jr8 Symptoms: have improved jr8 Condition: Stable jr8 Diagnosis - Viral Illness jr8 Followup: jr8 - With: Private Physician - When: 2 - 3 days - Reason: Recheck today's complaints, Continuance of care, Re-evaluation by your physician Discharge Instructions: - Discharge Summary Sheet jr8 - Viral Illness, Adult jr8 Forms: - Medication Reconciliation Form jr8 - Antibiotic Education jr8 - Prescription Opioid Use jr8 - Patient Portal Instructions jr8 - Leadership Thank You Letter jr8 Signatures: Dispatcher [employer] EDMS Farhan Trevizo PA PA jr8 Fe Gallo RN RN hb Corrections: (The following items were deleted from the chart) 13:18 13:18 Social history: Smoking status: Patient denies any tobacco usage or history of. hbhb
--- NOTE | 2024-04-22 14:50 | ER ---
Nurse's Notes [facility] Name: Quentin Lei Age: 78 yrs Sex: Male : 1945 Arrival Date: 04/22/2024 Time: 12:52 Bed 19 Private MD: Diagnosis: Viral Illness Presentation: 04/22 13:16 Chief complaint: Subjective fever, chills, body aches, nausea, dizziness, and diarrhea hb x 2 days. Coronavirus screen: Client presents with at least one sign or symptom that may indicate coronavirus-19. Provider contacted for isolation considerations. Ebola Screen: No symptoms or risks identified at this time. Initial Sepsis Screen: Does the patient meet any 2 criteria? No. Patient's initial sepsis screen is negative. Does the patient have a suspected source of infection? No. Patient's initial sepsis screen is negative. Risk Assessment: Do you want to hurt yourself or someone else? Patient reports no desire to harm self or others. Onset of symptoms was April 21, 2024. 13:16 Method Of Arrival: Ambulatory hb 13:16 Acuity: MAE 3 hb Triage Assessment: 14:23 General: Appears in no apparent distress. comfortable, Behavior is calm, cooperative, cm10 appropriate for age. Pain: Complains of pain in Generalized body aches. Neuro: No deficits noted. Level of Consciousness is awake, alert, obeys commands, Oriented to person, place, time, situation, Appropriate for age. Cardiovascular: Patient's skin is warm and dry. Respiratory: No deficits noted. Airway is patent Respiratory effort is even, unlabored, Respiratory pattern is regular, symmetrical. Musculoskeletal: No deficits noted. Range of motion: intact in all extremities. Historical: - Allergies: 13:18 tramadol; hb - PMHx: 13:18 Arevaol's Esophagus; Arthritis; Hypercholesterolemia; Hypertension; Hypothyroidism; hb Lung tumor with radiation tx completed January 2023; Osteoporosis; - PSHx: 13:18 lung biopsy; triple bypass; hb - Immunization history:: Adult Immunizations up to date. - Infectious Disease History:: Denies. - Social history:: Smoking status: Patient/guardian denies using tobacco, the patient reports quitting approximately 20 years ago. Screenin:24 [facility] ED Fall Risk Assessment (Adult) History of falling in the last 3 months, cm10 including since admission No falls in past 3 months (0 pts) Confusion or Disorientation No (0 pts) Intoxicated or Sedated No (0 pts) Impaired Gait No (0 pts) Mobility Assist Device Used No (0 pt) Altered Elimination No (0 pt) Score/Fall Risk Level 0 - 2 = Low Risk Oriented to surroundings, Maintained a safe environment, Hourly rounding (assess needs \T\ fall precautionary measures) done. Abuse screen: Denies threats or abuse. Denies injuries from another. Nutritional screening: No deficits noted. Tuberculosis screening: No symptoms or risk factors identified. Assessment: 15:14 Reassessment: Patient appears in no apparent distress at this time. No changes from cm10 previously documented assessment. Patient and/or family updated on plan of care and expected duration. Pain level reassessed. Patient is alert, oriented x 3, equal unlabored respirations, skin warm/dry/pink. Vital Signs: 13:16 BP 163 / 59; Pulse 86; Resp 20; Temp 98.9(TE); Pulse Ox 100% on R/A; Weight 95.25 kg; hb Height 5 ft. 11 in. ; Pain 2/10; 14:00 BP 122 / 50; Pulse 83; Resp 18; Pulse Ox 99% on R/A; cm10 15:00 BP 126 / 55; Pulse 72; Resp 16; Pulse Ox 99% on R/A; cm10 13:16 Body Mass Index 29.29 (95.25 kg, 180.34 cm) hb 13:16 Pain Scale: Adult hb ED Course: 12:54 Patient arrived in ED. ra3 13:07 Farhan Trevizo PA is PHCP. jr8 13:07 Salvador Nieves MD is Attending Physician. jr8 13:18 Triage completed. hb 13:18 Arm band placed on. hb 13:32 Gaby Allen, DUC is Primary Nurse. cm10 13:54 SARS RAPID Sent. cm10 13:55 Influenza Screen (a \T\ B) Sent. cm10 13:55 COVID swab sent to lab. Flu and/or RSV swab sent to lab. cm10 14:24 Patient has correct armband on for positive identification. Placed in gown. Bed in low cm10 position. Call light in reach. Side rails up X 1. Provided Education on: ER process and procedures.. Pulse ox on. NIBP on. 15:14 No provider procedures requiring assistance completed. Patient did not have IV access cm10 during this emergency room visit. Administered Medications: No medications were administered Medication: 14:24 VIS not applicable for this client. cm10 Outcome: 14:50 Discharge ordered by MD. clemons 15:15 Discharged to home ambulatory, with friend, kim 15:15 Condition: good 15:15 Discharge instructions given to patient, Instructed on discharge instructions, follow up and referral plans. Demonstrated understanding of instructions, follow-up care, 15:16 Patient left the ED. cm10 Signatures: Farhan Trevizo PA PA jr8 Baxter, Heather RN RN Gaby Laurent RN RN cm10 Rupinder Gómez ra3 Corrections: (The following items were deleted from the chart) 13:18 13:18 Social history: Smoking status: Patient denies any tobacco usage or history of. hbhb
[2024-04-22 15:52] VITALS: TEMP 98.9
[2024-04-22 15:53] VITALS: O2SAT 99
[2024-04-22 15:54] VITALS: BP 126/55
== END 2024-04-22 15:16 | disposition home or self-care (01) ==
LOC: ER 12:52
DX: B34.9 Viral infection, unspecified (principal); Z11.52 Encounter for screening for COVID-19; I10 Essential (primary) hypertension; Z95.1 Presence of aortocoronary bypass graft
CPT/HCPCS: 36415; 87804; 87811; 99283

== ENCOUNTER 2024-05-17 13:32 | Emergency (ER) | payer OTHER ==
[2024-05-17 14:04] LABS: Absolute Eosinophils 0.1 K/uL (0-0.5); Absolute Lymphocytes (CBC) 1.6 K/uL (0.7-4.9); Absolute Monocytes 0.5 K/uL (0.1-1.3); Absolute Neutrophil 2.1 K/uL (1.8-8.0); Basophils % 0.8 % (0-1.3); Eosinophils % 3.3 % (0-4.4); Hematocrit 22.2 % (39.6-49.0); Hemoglobin 7.8 g/dL (13.6-17.9); Lymphocytes % 35.9 % (15.3-44.8); MCH 33.7 pg (27.0-35.0); MCV 96.3 fL (80-100); MPV 7.4 fL (7.6-11.3); Monocytes % 11.7 % (3.3-12.3); Neutrophils % 48.3 % (41.7-73.7); Nucleated Red Blood Cells % 0.1 % (0-0); Platelets 175 thou/uL (152-406); Red Cell Distribution Width 19.7 % (12.1-15.2)
[2024-05-17 14:46] LABS: Anion Gap 5.5 mEq/L (5.0-15.0); Ferritin 380.3 ng/mL (26-388); Potassium 3.5 mEq/L (3.5-5.1)
[2024-05-17] MEDS ORDERED: NA CHLORIDE 0.9% 250 ML ONE (14:46)
[2024-05-17 16:37] LABS: Platelet Estimate ADEQ; White Blood Cell Scan OK (OK)
[2024-05-17 16:38] LABS: Anisocytosis 1+; Blood Morphology Comment NOTED (NOT SEEN); Polychromasia 1+
--- NOTE | 2024-05-17 17:28 | ER ---
Nurse's Notes [facility] Name: Quentin Lei Age: 78 yrs Sex: Male : 1945 Arrival Date: 05/17/2024 Time: 13:32 Bed 14 Private MD: Diagnosis: Anemia, unspecified Presentation: 05/17 13:46 Chief complaint: Patient states: he is feeling weak, and like he needs another blood ap3 transfusion. Coronavirus screen: At this time, the client does not indicate any symptoms associated with coronavirus-19. Ebola Screen: No symptoms or risks identified at this time. Initial Sepsis Screen: Does the patient meet any 2 criteria? No. Patient's initial sepsis screen is negative. Does the patient have a suspected source of infection? No. Patient's initial sepsis screen is negative. Risk Assessment: Do you want to hurt yourself or someone else? Patient reports no desire to harm self or others. Onset of symptoms was May 17, 2024. 13:46 Method Of Arrival: Ambulatory ap3 13:46 Acuity: MAE 3 ap3 Triage Assessment: 13:48 General: Appears in no apparent distress. Behavior is calm, cooperative, appropriate ap3 for age, Reports fatigue for. Pain: Denies pain. Neuro: Level of Consciousness is awake, alert, obeys commands, Oriented to person, place, time, situation, Appropriate for age. Neuro: Reports weakness. Cardiovascular: Patient's skin is warm and dry. Respiratory: Airway is patent Respiratory effort is even, unlabored, Respiratory pattern is regular, symmetrical. 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 - Infectious Disease History:: Denies. - Social history:: Smoking status: Patient/guardian denies using tobacco, the patient reports quitting approximately 26 years ago. - Family history:: not pertinent. - Hospitalizations: : No recent hospitalization is reported. Screenin:48 Abuse screen: Denies threats or abuse. Nutritional screening: No deficits noted. ap3 Tuberculosis screening: No symptoms or risk factors identified. 13:57 [facility] ED Fall Risk Assessment (Adult) History of falling in the last 3 months, cm10 including since admission No falls in past 3 months (0 pts) Confusion or Disorientation No (0 pts) Intoxicated or Sedated No (0 pts) Impaired Gait No (0 pts) Mobility Assist Device Used No (0 pt) Altered Elimination No (0 pt) Score/Fall Risk Level 0 - 2 = Low Risk Oriented to surroundings, Maintained a safe environment, Hourly rounding (assess needs \T\ fall precautionary measures) done. Assessment: 13:57 General: Appears in no apparent distress. comfortable, Behavior is calm, cooperative. cm10 Pain: Denies pain. Neuro: No deficits noted. Level of Consciousness is awake, alert, obeys commands, Oriented to person, place, time, situation, Appropriate for age. Cardiovascular: No deficits noted. Patient's skin is warm and dry. Rhythm is regular. Respiratory: No deficits noted. Airway is patent Respiratory effort is even, unlabored, Respiratory pattern is regular, symmetrical. Derm: Skin is healthy with good turgor. 15:00 Reassessment: Patient appears in no apparent distress at this time. No changes from cm10 previously documented assessment. Patient and/or family updated on plan of care and expected duration. Pain level reassessed. Patient is alert, oriented x 3, equal unlabored respirations, skin warm/dry/pink. 16:00 Reassessment: Patient appears in no apparent distress at this time. No changes from cm10 previously documented assessment. Patient and/or family updated on plan of care and expected duration. Pain level reassessed. Patient is alert, oriented x 3, equal unlabored respirations, skin warm/dry/pink. 16:23 General: BLOOD TRANSFUSION INITIATED AT THIS TIME.. cm10 16:30 General: PT PROVIDED WITH FOOD AT THIS TIME.. cm10 16:38 General: PT TOLERATING BLOOD TRANSFUSION WELL. NO S/S OF TRANSFUSION REACTION.. cm10 17:35 Reassessment: Awaiting completion of blood for discharge. cm10 18:16 General: BLOOD TRANSFUSION COMPLETED AT THIS TIME. PT TOLERATED WELL. NO S/S OF cm10 TRANSFUSION REACTION.. Vital Signs: 13:46 BP 150 / 74; Pulse 79; Resp 16; Temp 97.9; Pulse Ox 98% ; ap3 14:00 BP 123 / 55; Pulse 58; Resp 16; Pulse Ox 100% on R/A; cm10 14:30 BP 138 / 65; Pulse 66; Resp 16; Pulse Ox 100% on R/A; cm10 15:00 BP 136 / 66; Pulse 63; Resp 18; Pulse Ox 100% on R/A; cm10 15:30 BP 129 / 62; Pulse 60; Resp 17; Pulse Ox 100% on R/A; cm10 16:00 BP 126 / 60; Pulse 61; Resp 15; Pulse Ox 100% on R/A; cm10 16:30 BP 149 / 68; Pulse 76; Resp 17; Pulse Ox 100% on R/A; cm10 17:00 BP 132 / 57; Pulse 60; Resp 15; Pulse Ox 100% on R/A; cm10 17:30 BP 120 / 68; Pulse 62; Resp 17; Pulse Ox 100% on R/A; cm10 18:00 BP 144 / 64; Pulse 65; Resp 18; Pulse Ox 100% on R/A; cm10 ED Course: 13:35 Patient arrived in ED. im 13:36 Rafa Higgins MD is Attending Physician. rn 13:43 Gaby Allen, DUC is Primary Nurse. cm10 13:47 Triage completed. ap3 13:48 Arm band placed on right wrist. ap3 13:49 Client placed on continuous cardiac and pulse oximetry monitoring. NIBP monitoring ap3 applied. cardiac monitor on. Pulse ox on. NIBP on. 13:49 Initial lab(s) drawn, by me, sent to lab. T\T\S collected, blood band applied to patient. cm10 Inserted saline lock: 20 gauge in right forearm, using aseptic technique. Blood collected. Flushed with 10 mL NS. 13:56 Type And Screen Sent. cm10 13:56 Iron Level Sent. cm10 13:56 TRANSFERRIN SAT/IRON BINDING Sent. cm10 13:56 Basic Metabolic Panel Sent. cm10 13:56 CBC with Diff Sent. cm10 13:58 Patient has correct armband on for positive identification. Bed in low position. Call cm10 light in reach. Side rails up X 1. Provided Education on: ER PROCESS AND PROCEDURES.. 14:17 Lab(s) recollected, by me, sent to lab. cm10 14:40 chaya in the lab confirmed the faxed blood slip. bc6 14:45 Provided Education on: Blood Transfusion. cm10 18:34 No provider procedures requiring assistance completed. IV discontinued, intact, cm10 bleeding controlled, No redness/swelling at site. Pressure dressing applied. Administered Medications: No medications were administered Medication: 13:57 VIS not applicable for this client. cm10 18:16 Blood products: PRBCs X 1 unit given. PT TOLERATED TRANSFUSION WELL See transfusion cm10 record. Outcome: 17:27 Discharge ordered by . rn 18:34 Discharged to home ambulatory, with family, cm10 18:34 Condition: good 18:34 Discharge instructions given to patient, Instructed on discharge instructions, follow up and referral plans. Demonstrated understanding of instructions, follow-up care, 18:34 Patient left the ED. cm10 Signatures: Rafa Higgins MD MD rn Prokisch, Amanda RN RN ap3 Jesi Batista 6 Sherrell Agee Clarissa RN RN cm10 Corrections: (The following items were deleted from the chart) 16:51 16:51 No provider procedures requiring assistance completed. cm10 cm10 16:51 16:51 IV discontinued, intact, bleeding controlled, No redness/swelling at site. cm10 Pressure dressing applied, cm10 18:27 18:26 General: PT PROVIDED WITH FOOD AT THIS TIME.. cm10 cm10
--- NOTE | 2024-05-17 17:28 | EDPHYS ---
Physician Documentation [facility] Name: Quentin Lei Age: 78 yrs Sex: Male : 1945 Arrival Date: 05/17/2024 Time: 13:32 Bed 14 Private MD: ED Physician Rafa Higgins HPI: 05/17 13:50 This 78 yrs old Male presents to ER via Ambulatory with complaints of General Weakness. rn 13:50 Patient reports generalized weakness and malaise. Recent admission to hospital for rn symptomatic anemia where he received 3 units of blood transfusion. States had upper EGD and colonoscopy without acute findings other than possible gastritis. Has been taking his antacid medication. Denies blood in stool or dark stool. Patient has had anemia in the past without clear etiology. Denies chest pain.. Severity of symptoms: At their worst the symptoms were mild in the emergency department the symptoms are unchanged. The patient has experienced similar episodes in the past. The patient has been recently been admitted at [facility] Emergency [facility]. 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 - Infectious Disease History:: Denies. - Social history:: Smoking status: Patient/guardian denies using tobacco, the patient reports quitting approximately 26 years ago. - Family history:: not pertinent. - Hospitalizations: : No recent hospitalization is reported. ROS: 13:50 Constitutional: Negative for fever, chills, and weight loss, Eyes: Negative for injury, rn pain, redness, and discharge, Cardiovascular: Negative for chest pain, palpitations, and edema, Respiratory: Negative for cough, wheezing, and pleuritic chest pain, Abdomen/GI: Negative for abdominal pain, nausea, vomiting, diarrhea, and constipation, Back: Negative for injury and pain, MS/Extremity: Negative for injury and deformity, Skin: Negative for injury, rash, and discoloration, Neuro: Negative for headache, numbness, tingling, and seizure, Exam: 13:50 Constitutional: This is a well developed, well nourished patient who is awake, alert, rn and in no acute distress. Eyes: Pale conjunctiva Cardiovascular: Regular rate and rhythm. No pulse deficits. Respiratory: No increased work of breathing, no retractions or nasal flaring. Abdomen/GI: Soft, non-tender MS/ Extremity: Pulses equal, no cyanosis. Neuro: Awake and alert, GCS 15, normal gait, normal strength, ambulatory to room without difficulty or assistance Vital Signs: 13:46 BP 150 / 74; Pulse 79; Resp 16; Temp 97.9; Pulse Ox 98% ; ap3 14:00 BP 123 / 55; Pulse 58; Resp 16; Pulse Ox 100% on R/A; cm10 14:30 BP 138 / 65; Pulse 66; Resp 16; Pulse Ox 100% on R/A; cm10 15:00 BP 136 / 66; Pulse 63; Resp 18; Pulse Ox 100% on R/A; cm10 15:30 BP 129 / 62; Pulse 60; Resp 17; Pulse Ox 100% on R/A; cm10 16:00 BP 126 / 60; Pulse 61; Resp 15; Pulse Ox 100% on R/A; cm10 16:30 BP 149 / 68; Pulse 76; Resp 17; Pulse Ox 100% on R/A; cm10 17:00 BP 132 / 57; Pulse 60; Resp 15; Pulse Ox 100% on R/A; cm10 17:30 BP 120 / 68; Pulse 62; Resp 17; Pulse Ox 100% on R/A; cm10 18:00 BP 144 / 64; Pulse 65; Resp 18; Pulse Ox 100% on R/A; cm10 MDM: 13:36 Medical Screening Exam initiated rn 17:27 Differential Diagnosis anemia. rn 17:27 Data reviewed: vital signs, nurses notes, lab test result(s), and as a result, I will assistant district attorney patient. Counseling: I had a detailed discussion with the patient and/or guardian regarding the historical points, exam findings, and any diagnostic results supporting the discharge/admit diagnosis, lab results, the need for outpatient follow up, to return to the emergency department if symptoms worsen or persist or if there are any questions or concerns that arise at home. Response to treatment: the patient's symptoms have mildly improved after treatment, and as a result, I will discharge patient. Special discussion: I discussed with the patient/guardian in detail that at this point there is no indication for admission to the hospital. It is understood, however, that if the symptoms persist or worsen the patient needs to return immediately for re-evaluation. 05/17 13:43 Order name: CBC with Diff; Complete Time: 16:50 rn 05/17 13:43 Order name: Basic Metabolic Panel; Complete Time: 15:02 rn 05/17 13:43 Order name: Iron Level; Complete Time: 15:02 rn 05/17 13:43 Order name: TRANSFERRIN SAT/IRON BINDING; Complete Time: 15:02 rn 05/17 13:43 Order name: Type And Screen rn 05/17 15:27 Order name: Packed RBC Leukored EDKY 05/17 16:23 Order name: CBC Smear Scan; Complete Time: 16:50 EDKY 05/17 13:43 Order name: IV Start; Complete Time: 13:56 rn 05/17 13:43 Order name: Cardiac monitoring; Complete Time: 13:56 rn 05/17 13:43 Order name: O2 Sat Monitoring; Complete Time: 13:56 rn 05/17 14:07 Order name: Labs - recollect needed: all tubes ; Complete Time: 14:17 bc6 05/17 14:38 Order name: Transfuse; Complete Time: 16:45 rn Administered Medications: No medications were administered Disposition Summary: 05/17/24 17:27 Discharge Ordered Notes: Location: Home rn Problem: chronic rn Symptoms: have improved rn Condition: Stable rn Diagnosis - Anemia, unspecified rn Followup: rn - With: Private Physician - When: As needed - Reason: Recheck today's complaints, Re-evaluation by your physician Discharge Instructions: - Discharge Summary Sheet rn - Anemia rn - Blood Transfusion, Adult rn Forms: - Medication Reconciliation Form rn - Antibiotic dietetic intern - Prescription Opioid Use rn - Patient Portal Instructions rn - Leadership Thank You Letter rn Signatures: Dispatcher [employer] EDRafa Oconnell MD MD rn Prokisch, Amanda, RN RN ap3 Jesi Batista bc6 Corrections: (The following items were deleted from the chart) 13:44 13:44 CBC+H.LAB.BRZ ordered. EDMS EDMS 13:44 13:44 BASIC METABOLIC PANEL+C.LAB.BRZ ordered. EDMS EDMS 13:44 13:44 FERRITIN+C.LAB.BRZ ordered. EDMS EDMS 13: 13:44 TRANSFERRIN SAT/IRON BINDING+C.LAB.BRZ ordered. EDMS EDMS : 13:44 TYPE AND SCREEN+BB.LAB.BRZ ordered. EDMS EDMS 13: 13:50 Constitutional: Negative for fever, chills, and weight loss, Eyes: Negative for rn injury, pain, redness, and discharge, Cardiovascular: Negative for chest pain, palpitations, and edema, Respiratory: Negative for cough, wheezing, and pleuritic chest pain, Abdomen/GI: Negative for abdominal pain, nausea, vomiting, diarrhea, and constipation, Back: Negative for injury and pain, MS/Extremity: Negative for injury and deformity, Skin: Negative for injury, rash, and discoloration, Neuro: Negative for headache, weakness, numbness, tingling, and seizure, rn
[2024-05-17 18:58] VITALS: TEMP 97.9
[2024-05-17 19:03] VITALS: O2SAT 100
[2024-05-17 19:22] VITALS: BP 144/64
== END 2024-05-17 18:34 | disposition home or self-care (01) ==
LOC: ER 13:32
DX: D64.9 Anemia, unspecified (principal); I10 Essential (primary) hypertension; Z95.1 Presence of aortocoronary bypass graft
CPT/HCPCS: 85025; 80048; 36415; 86900; 86850; 86901; 86920; 82728; 83540; 84466; 36430; 99285; P9016; J7050

== ENCOUNTER 2024-05-31 15:46 | Emergency (ER) | payer OTHER ==
--- NOTE | 2024-05-31 17:00 | RAD REPORT ---
EXAMINATION: ONE VIEW CHEST XR CLINICAL INDICATION: weakness TECHNIQUE: Frontal chest projection is submitted. Examination is limited by patient positioning and t echnique. COMPARISON: 02/09/2023 FINDINGS: Mild scarring seen right apex laterally. Lungs otherwise grossly clear but mildly emphysematous. The heart is upper limit of normal in size. No displaced fractures identified. Sternotomy. IMPRESSION: No acute intrathoracic abnormalities.
--- NOTE | 2024-05-31 17:23 | RAD REPORT ---
EXAM: CT brain without contrast HISTORY: DIZZINESS COMPARISON: None TECHNIQUE: Multiple contiguous axial images were obtained and a CT of the brain without contrast. Sag ittal and coronal reformats were performed. One or more of the following dose reduction techniques were used: Automated exposure control, adjust ment of the mA and/or kV according to patient size, and/or iterative reconstruction. FINDINGS: No evidence of hydrocephalus, intracranial hemorrhage, or extra-axial fluid collection. The brain is normal in morphology. No evidence of midline shift or areas of brain edema. The calvarium is intact. The visualized paranasal sinuses and mastoid air cells are essentially clear . IMPRESSION: No evidence of acute intracranial abnormality.
[2024-05-31 17:52] LABS: PT Prothrombin Time 16.4 SECONDS (9.4-12.5); Protime INR 1.48
[2024-05-31 18:09] LABS: Albumin 3.8 g/dL (3.4-5.0); Albumin/Globulin Ratio 1.3 (1.1-1.8); Anion Gap 8.1 mEq/L (5.0-15.0); Bilirubin Direct 0.3 mg/dL (0-0.2); Bilirubin Indirect, Calculated 0.4 mg/dL (0.2-0.8); Bilirubin Total 0.7 mg/dL (0.2-1.0); Potassium 4.1 mEq/L (3.5-5.1); Protein, Total 6.8 g/dL (6.4-8.2); Troponin High Sensitivity 17.7 pg/mL (<58.9)
[2024-05-31 18:13] LABS: Absolute Eosinophils 0.1 K/uL (0-0.5); Absolute Lymphocytes (CBC) 1.4 K/uL (0.7-4.9); Absolute Monocytes 0.4 K/uL (0.1-1.3); Basophils % 0.5 % (0-1.3); Eosinophils % 2.6 % (0-4.4); Hematocrit 20.2 % (39.6-49.0); Lymphocytes % 35.3 % (15.3-44.8); MCH 32.9 pg (27.0-35.0); MCHC 34.7 g/dL (32.0-36.0); MCV 94.8 fL (80-100); MPV 7.7 fL (7.6-11.3); Monocytes % 10.1 % (3.3-12.3); Neutrophils % 51.5 % (41.7-73.7); Platelets 157 thou/uL (152-406); RBC Red Blood Cell Count 2.13 M/uL (4.33-5.43); Red Cell Distribution Width 20.3 % (12.1-15.2)
[2024-05-31] MEDS ORDERED: FUROSEMIDE 40 MG/4 ML VIAL ONE (23:01)
[2024-05-31] MEDS ORDERED: NA CHLORIDE 0.9% 250 ML ONE (23:01)
[2024-06-01 00:01] LABS: Sqamous Epithelial <5 /HPF (None Seen); Urine Bacteria None Seen /HPF (<20); Urine Bilirubin NEGATIVE (Negative); Urine Blood Negative (Negative); Urine Clarity Clear (Clear); Urine Color Yellow (Yellow); Urine Culture Reflex Order NOT NEEDED; Urine Glucose NEGATIVE (Negative); Urine Ketones NEGATIVE (Negative); Urine Micro Reflex YN NO BILL MICROSCOPIC; Urine Mucus Slight /HPF (None Seen); Urine Nitrite NEGATIVE (Negative); Urine Protein NEGATIVE (Negative); Urine RBC <5 /HPF (None Seen); Urine Urobilinogen Normal (Normal); Urine WBC <5 /HPF (<5); Urine pH 5.5 (5.0-7.0)
--- NOTE | 2024-06-01 01:35 | ER ---
Nurse's Notes [facility] Name: Quentin Lei Age: 78 yrs Sex: Male : 1945 Arrival Date: 05/31/2024 Time: 15:46 Bed 16 Private MD: Diagnosis: Anemia, unspecified-symptomatic Presentation: 05/31 15:59 Chief complaint: Patient states: had a blood transfusion around [facility] [place], has a hx ko1 of anemia, has been feeling weak and dizzy. Coronavirus screen: At this time, the client does not indicate any symptoms associated with coronavirus-19. Ebola Screen: No symptoms or risks identified at this time. Initial Sepsis Screen: Does the patient meet any 2 criteria? No. Patient's initial sepsis screen is negative. Does the patient have a suspected source of infection? No. Patient's initial sepsis screen is negative. Risk Assessment: Do you want to hurt yourself or someone else? Patient reports no desire to harm self or others. Onset of symptoms was May 31, 2024. 15:59 Method Of Arrival: Ambulatory ko1 15:59 Acuity: MAE 3 ko1 Triage Assessment: 16:01 General: Appears in no apparent distress. Behavior is calm, cooperative, appropriate ko1 for age. Pain: Denies pain. Historical: - Allergies: 16:01 tramadol; ko1 - PMHx: 16:01 Arthritis; Arevalo's Esophagus; Hypercholesterolemia; Hypertension; Hypothyroidism; ko1 Lung tumor with radiation tx completed January 2023; Osteoporosis; Anemia; - PSHx: 16:01 lung biopsy; triple bypass; ko1 - Immunization history:: Adult Immunizations unknown. - Infectious Disease History:: Denies. - Social history:: Smoking status: Patient/guardian denies using tobacco, the patient reports quitting approximately 26 years ago. Screenin:12 [facility] ED Fall Risk Assessment (Adult) History of falling in the last 3 months, ph including since admission No falls in past 3 months (0 pts) Confusion or Disorientation No (0 pts) Intoxicated or Sedated No (0 pts) Impaired Gait No (0 pts) Mobility Assist Device Used No (0 pt) Altered Elimination No (0 pt) Score/Fall Risk Level 0 - 2 = Low Risk Oriented to surroundings, Maintained a safe environment, Hourly rounding (assess needs \T\ fall precautionary measures) done. Abuse screen: Denies threats or abuse. Denies injuries from another. Nutritional screening: No deficits noted. Tuberculosis screening: No symptoms or risk factors identified. Assessment: 17:12 General: Appears in no apparent distress. comfortable, Behavior is calm, cooperative, ph appropriate for age. Pain: Denies pain. Neuro: Level of Consciousness is awake, alert, obeys commands, Oriented to person, place, time, situation. Cardiovascular: Capillary refill < 3 seconds in bilateral fingers Patient's skin is warm and dry. Respiratory: Airway is patent Respiratory effort is even, unlabored. Derm: Skin is pink, warm \T\ dry. 19:10 General: Appears in no apparent distress. comfortable, Behavior is calm, cooperative, rg5 appropriate for age. 19:10 Pain: Denies pain. Neuro: Level of Consciousness is awake, alert, obeys commands, rg5 Oriented to person, place, time. Cardiovascular: Denies chest pain, Patient's skin is warm and dry. Respiratory: Airway is patent Respiratory effort is even, unlabored. GI: Abdomen is round non-distended, Abd is soft and non tender. : No signs and/or symptoms were reported regarding the genitourinary system. EENT: No deficits noted. Derm: Skin is intact, Skin is dry, Skin is normal. Musculoskeletal: Circulation, motion, and sensation intact. Range of motion: intact in all extremities. 20:25 Reassessment: No changes from previously documented assessment. Patient and/or family rg5 updated on plan of care and expected duration. Pain level reassessed. Patient is alert, oriented x 3, equal unlabored respirations, skin warm/dry/pink. 21:20 Reassessment: Patient and/or family updated on plan of care and expected duration. Pain rg5 level reassessed. Patient is alert, oriented x 3, equal unlabored respirations, skin warm/dry/pink. 22:30 Reassessment: Patient and/or family updated on plan of care and expected duration. Pain rg5 level reassessed. Patient is alert, oriented x 3, equal unlabored respirations, skin warm/dry/pink. 23:30 Reassessment: Patient and/or family updated on plan of care and expected duration. Pain rg5 level reassessed. Patient is alert, oriented x 3, equal unlabored respirations, skin warm/dry/pink. 06/01 00:30 Reassessment: No changes from previously documented assessment. Patient and/or family rg5 updated on plan of care and expected duration. Pain level reassessed. Patient is alert, oriented x 3, equal unlabored respirations, skin warm/dry/pink. 01:38 Reassessment: Patient and/or family updated on plan of care and expected duration. Pain rg5 level reassessed. Patient is alert, oriented x 3, equal unlabored respirations, skin warm/dry/pink. Vital Signs: 05/31 15:59 BP 119 / 54; Pulse 82; Resp 15; Temp 98; Pulse Ox 100% ; ko1 18:05 BP 117 / 57; Pulse 69; Resp 18; Temp 97.5; Pulse Ox 99% on R/A; ph 19:10 BP 110 / 52; Pulse 69; Resp 17; Pulse Ox 99% on R/A; rg5 20:00 BP 108 / 56; Pulse 71; Resp 17; Pulse Ox 100% on R/A; rg5 21:00 BP 149 / 57; Pulse 79; Resp 18; Pulse Ox 99% on R/A; rg5 22:00 BP 129 / 47; Pulse 75; Resp 17; Pulse Ox 100% on R/A; rg5 23:00 BP 133 / 57; Pulse 82; Resp 17; Temp 97.8(O); Pulse Ox 100% on R/A; Pain 0/10; rg5 06/01 01:30 BP 121 / 54; Pulse 62; Resp 17; Temp 97.7(O); Pulse Ox 99% ; Pain 0/10; rg5 23:00 Pain Scale: Adult rg5 06/01 01:30 Pain Scale: Adult rg5 [place] Coma Score: 05/31 19:10 Eye Response: spontaneous(4). Motor Response: obeys commands(6). Verbal Response: rg5 oriented(5). Total: 15. ED Course: 15:48 Patient arrived in ED. ra3 15:52 Lauro Ibrahim PA is PHCP. cp 15:52 Jose Ibrahim MD is Attending Physician. cp 16:01 Triage completed. ko1 16:01 Arm band placed on right wrist. Patient placed in an exam room, on a stretcher, on ko1 environmental monitoring technician, on pulse oximetry, Patient notified of wait time. 16:03 Kaila Ely, RN is Primary Nurse. ph 16:51 XRAY Chest (1 view) In Process Unspecified. EDMS 17:11 Missed attempt(s): 22 gauge in right antecubital area. Bleeding controlled, band aid ph applied, catheter tip intact. 17:12 Patient has correct armband on for positive identification. Bed in low position. Call ph light in reach. Side rails up X 1. Client placed on continuous cardiac and pulse oximetry monitoring. NIBP monitoring applied. environmental monitoring technician on. 17:18 CT Head Brain wo Cont In Process Unspecified. EDMS 17:41 Basic Metabolic Panel Sent. ph 17:41 CBC with Diff Sent. ph 17:41 LFT's Sent. ph 17:41 Magnesium Sent. ph 17:41 NT PRO-BNP Sent. ph 17:41 PT-INR Sent. ph 17:41 Troponin HS Sent. ph 17:41 Initial lab(s) drawn, by ED staff, sent to lab. EKG done, by ED staff, reviewed by ph Jose Ibrahim MD. Inserted saline lock: 22 gauge in right antecubital area, using aseptic technique. Blood collected. Flushed with 10 mL NS. 18:08 No provider procedures requiring assistance completed. ph 19:10 Door closed. Noise minimized. Verbal reassurance given. rg5 06/01 01:37 Provided Education on: Blood Transfusion. rg5 01:37 IV discontinued, bleeding controlled, No redness/swelling at site. Pressure dressing rg5 applied. Administered Medications: 05/31 23:00 Drug: Furosemide IVP 20 mg IVP once; give over 2 minutes Route: IVP; Site: right rg5 antecubital; 06/01 00:20 Follow up: Response: No adverse reaction rg5 Medication: 05/31 17:12 VIS not applicable for this client. ph 23:10 Blood products: PRBCs X 1 unit given. rg5 Outcome: 06/01 01:35 Discharge ordered by . cp 01:54 Discharged to home ambulatory, rg5 01:54 Condition: stable 01:54 Discharge instructions given to patient, Instructed on discharge instructions, Demonstrated understanding of instructions, follow-up care, 01:54 Patient left the ED. rg5 Signatures: Dispatcher [employer] EDAZ Kaila Ely RN RN ph Lauro Ibrahim PA PA cp Oliver, Kathy, RN RN ko1 Rupinder Gómez ra3 Ezio Rosa, RN RN rg5
--- NOTE | 2024-06-01 01:35 | EDPHYS ---
Physician Documentation [facility] Name: Quentin Lei Age: 78 yrs Sex: Male : 1945 Arrival Date: 05/31/2024 Time: 15:46 Bed 16 Private MD: ED Physician Jose Ibrahim HPI: 05/31 16:30 This 78 yrs old Male presents to ER via Ambulatory with complaints of Weakness, Nausea, cp Dizziness. 16:30 The patient presents to the emergency department with weakness of the entire body, cp generalized weakness, that is mild. Onset: The symptoms/episode began/occurred 1 week(s) ago. 16:30 Associated signs and symptoms: Pertinent positives: dizziness, nausea. Patient's cp baseline: Neuro: alert and fully oriented, Motor: no gross deficits, Ambulation: walks without assistance, Speech: normal. Patient presents to ED with concern for anemia and needing blood transfusion. Patient reports increasing general weakness, dizziness when walking and nausea. Reports having recent endoscopy and colonoscopy to r/o GI bleed and denies black/tarry stools, gross blood in stools. Historical: - Allergies: 16:01 tramadol; ko1 - PMHx: 16:01 Arthritis; Arevalo's Esophagus; Hypercholesterolemia; Hypertension; Hypothyroidism; ko1 Lung tumor with radiation tx completed January 2023; Osteoporosis; Anemia; - PSHx: 16:01 lung biopsy; triple bypass; ko1 - Immunization history:: Adult Immunizations unknown. - Infectious Disease History:: Denies. - Social history:: Smoking status: Patient/guardian denies using tobacco, the patient reports quitting approximately 26 years ago. ROS: 16:33 Constitutional: Negative for body aches, chills, fever, poor PO intake, cp 16:33 Cardiovascular: Negative for chest pain, edema, palpitations, cp 16:33 Respiratory: Negative for cough, shortness of breath, wheezing, 16:33 Eyes: Negative for injury, pain, redness, and discharge, cp 16:33 ENT: Negative for drainage from ear(s), ear pain, sore throat, difficulty swallowing, difficulty handling secretions, 16:33 Abdomen/GI: Positive for nausea, Negative for abdominal pain, vomiting, diarrhea, constipation, hematemesis, black/tarry stool, rectal bleeding, 16:33 : Negative for urinary symptoms, 16:33 Neuro: Positive for dizziness, weakness, Negative for altered mental status, syncope, near syncope, 16:33 All other systems are negative, Exam: 16:35 Constitutional: The patient appears in no acute distress, alert, awake, cp non-diaphoretic, non-toxic, well developed, well nourished, 16:35 Head/Face: Normocephalic, atraumatic. cp 16:35 Eyes: Pupils: equal, round, and reactive to light and accomodation, Extraocular movements: intact throughout, Conjunctiva: normal, Sclera: no appreciated abnormality, Lids and lashes: appear normal, bilaterally, 16:35 ENT: External ear(s): are unremarkable, Nose: is normal, Mouth: Lips: moist, Oral mucosa: moist, Posterior pharynx: Airway: no evidence of obstruction, patent, 16:35 Chest/axilla: Inspection: normal, 16:35 Cardiovascular: Rate: normal, Rhythm: regular, Edema: is not appreciated, JVD: is not appreciated, 16:35 Respiratory: the patient does not display signs of respiratory distress, Respirations: labored breathing, is not present, shallow respirations, are not present, Breath sounds: decreased breath sounds, that are mild, throughout, stridor, is not appreciated, wheezing: is not appreciated, 16:35 Abdomen/GI: Inspection: abdomen appears normal, Bowel sounds: active, all quadrants, Palpation: abdomen is soft and non-tender, in all quadrants, 16:35 Back: pain, is absent, ROM is normal, 16:35 Neuro: Orientation: to person, place \T\ time. Mentation: is normal, Gait: is steady, 17:40 ECG was reviewed by the Attending Physician. cp Vital Signs: 15:59 BP 119 / 54; Pulse 82; Resp 15; Temp 98; Pulse Ox 100% ; ko1 18:05 BP 117 / 57; Pulse 69; Resp 18; Temp 97.5; Pulse Ox 99% on R/A; ph 19:10 BP 110 / 52; Pulse 69; Resp 17; Pulse Ox 99% on R/A; rg5 20:00 BP 108 / 56; Pulse 71; Resp 17; Pulse Ox 100% on R/A; rg5 21:00 BP 149 / 57; Pulse 79; Resp 18; Pulse Ox 99% on R/A; rg5 22:00 BP 129 / 47; Pulse 75; Resp 17; Pulse Ox 100% on R/A; rg5 23:00 BP 133 / 57; Pulse 82; Resp 17; Temp 97.8(O); Pulse Ox 100% on R/A; Pain 0/10; [facility] 06/01 01:30 BP 121 / 54; Pulse 62; Resp 17; Temp 97.7(O); Pulse Ox 99% ; Pain 0/10; rg5 23:00 Pain Scale: Adult 5 06/01 01:30 Pain Scale: Adult rg5 [place] Coma Score: 05/31 19:10 Eye Response: spontaneous(4). Motor Response: obeys commands(6). Verbal Response: rg5 oriented(5). Total: 15. MDM: 16:15 Medical Screening Exam initiated cp 18:45 Data reviewed: vital signs, nurses notes, lab test result(s), EKG, radiologic studies, cp CT scan, plain films, and as a result, I will transfuse 1 unit of blood and discharge to home to f/u with pcp. 05/31 16:27 Order name: Basic Metabolic Panel; Complete Time: 18:27 05/31 18:27 Interpretation: Normal except: BUN 22; CRE 1.42; GFR 50. 05/31 16:27 Order name: CBC with Diff; Complete Time: 18:27 05/31 18:28 Interpretation: Normal except: WBC 4.00; RBC 2.13; HGB 7.0; HCT 20.2; RDW 20.3. 05/31 16:27 Order name: LFT's; Complete Time: 18:27 05/31 16:27 Order name: Magnesium; Complete Time: 18:27 05/31 16:27 Order name: NT PRO-BNP; Complete Time: 18:27 05/31 16:27 Order name: PT-INR; Complete Time: 18:27 05/31 16:27 Order name: Troponin HS; Complete Time: 18:27 05/31 18:34 Order name: Urinalysis W/Microscopic cp 05/31 18:52 Order name: Type and Screen EDMI 05/31 19:16 Order name: Packed RBC Leukored EDMI 05/31 16:27 Order name: XRAY Chest (1 view); Complete Time: 17:26 05/31 16:39 Order name: CT Head Brain wo Cont; Complete Time: 17:26 05/31 16:27 Order name: Cardiac monitoring; Complete Time: 17:11 05/31 16:27 Order name: EKG - Nurse/Tech; Complete Time: 17:40 05/31 16:27 Order name: IV Saline Lock; Complete Time: 17:41 05/31 16:27 Order name: Labs collected and sent; Complete Time: 17:41 05/31 16:27 Order name: O2 Per Protocol; Complete Time: 17:11 05/31 16:27 Order name: O2 Sat Monitoring; Complete Time: 17:11 05/31 18:44 Order name: Transfuse; Complete Time: 23:16 cp EC:40 Rate is 74 beats/min. Rhythm is regular. IL interval is normal. QRS interval is cp prolonged at 124 msec. QT interval is normal. Administered Medications: 23:00 Drug: Furosemide IVP 20 mg IVP once; give over 2 minutes Route: IVP; Site: right rg5 antecubital; 06/01 00:20 Follow up: Response: No adverse reaction rg5 Disposition Summary: 06/01/24 01:35 Discharge Ordered Notes: Location: Home cp Problem: an ongoing problem cp Symptoms: have improved cp Condition: Stable cp Diagnosis - Anemia, unspecified - symptomatic cp Followup: cp - With: Private Physician - When: 2 - 3 days - Reason: Recheck today's complaints Discharge Instructions: - Discharge Summary Sheet cp - Anemia cp - Blood Transfusion, Adult cp - Blood Transfusion, Adult, Care After cp Forms: - Medication Reconciliation Form cp - Antibiotic Education cp - Prescription Opioid Use cp - Patient Portal Instructions cp - Leadership Thank You Letter cp Signatures: Dispatcher [employer] Kaila Hsu RN RN Lauro Souza PA PA cp Alethea Crook, RN RN ko1 Ezio Rosa RN RN rg5 Corrections: (The following items were deleted from the chart) 05/31 16:28 16:28 BASIC METABOLIC PANEL+C.LAB.BRZ ordered. EDMS EDMS 16:28 16:28 CBC+H.LAB.BRZ ordered. EDMS EDMS 16:28 16:28 HEPATIC FUNCTION+C.LAB.BRZ ordered. EDMS EDMS 16:28 16:28 MAGNESIUM+C.LAB.BRZ ordered. EDMS EDMS 16:28 16:28 PROBNP+C.LAB.BRZ ordered. EDMS EDMS 16:28 16:28 PROTIME (+INR)+COAG.LAB.BRZ ordered. EDMS EDMS 16:28 16:28 Troponin High Sensitivity+C.LAB.BRZ ordered. EDMS EDMS 16:28 16:28 Chest Single View+RAD.RAD.BRZ ordered. EDMS EDMS 18:35 18:35 TYPE AND SCREEN+BB.LAB.BRZ ordered. EDMS EDMS 18:35 18:35 Urinalysis W/Microscopic+U.LAB.BRZ ordered. EDMS EDMS 18:42 18:42 TYPE AND SCREEN+BB.LAB.BRZ ordered. EDMS EDMS 19:05 15:59 Orthostatics ordered. cp ph
[2024-06-01 02:47] VITALS: BP 121/54; TEMP 97.7; O2SAT 99
--- NOTE | 2024-06-01 15:44 | EKG ---
Test Date: 2024-05-31 Test Time: 17:34:39 Crown Attacher: PH MEASUREMENT RESULTS: Intervals: Rate: 74 UT: 184 QRSD: 124 QT: 440 QTc: 488 [place]: P: 60 UT: 184 QRS: -23 T: 51 INTERPRETIVE STATEMENTS: Normal sinus rhythm Right bundle branch block Abnormal ECG Compared to ECG 05/03/2024 08:00:34 Ventricular premature complex(es) no longer present Left ventricular hypertrophy no longer present Myocardial infarct finding no longer present Electronically Signed On 06-01-24 15:44:03 PER DIEM PHYSICAL THERAPIST ASSISTANT by Louis Scales
== END 2024-06-01 01:54 | disposition home or self-care (01) ==
LOC: ER 15:46
PROC: 30233N1 Transfusion of Nonautologous Red Blood Cells into Peripheral Vein, Percutaneous Approach (ICD-10-PCS; principal; 2024-06-01)
DX: D64.9 Anemia, unspecified (principal); Z95.1 Presence of aortocoronary bypass graft
CPT/HCPCS: 93005; 85025; 81001; 80048; 36415; 86900; 83735; 86850; 85610; 86901; 80076; 86920; 84484; 83880; 70450; 71045; 36430; 96374; 99285; J1940; P9016; J7050

== ENCOUNTER 2024-06-11 14:53 | Emergency (ER) | payer OTHER ==
--- NOTE | 2024-06-11 16:27 | RAD REPORT ---
Procedure: Chest Single View HISTORY: Cough COMPARISON: May 31, 2024 FINDINGS: Opacities right upper and left lower lobes unchanged presumably atelectasis or scarring. Lungs appear clear of acute infiltrate. No significant pleural effusion noted. The heart is normal size. Post surgical changes involve the chest
[2024-06-11] MEDS ORDERED: NA CHLORIDE 0.9% 1,000 ML ONE (16:31)
[2024-06-11] MEDS ORDERED: FAMOTIDINE 20 MG/2 ML VIAL IV ONE (16:31)
[2024-06-11 16:36] LABS: Absolute Eosinophils 0.1 K/uL (0-0.5); Absolute Lymphocytes (CBC) 1.8 K/uL (0.7-4.9); Absolute Monocytes 0.8 K/uL (0.1-1.3); Absolute Neutrophil 5.5 K/uL (1.8-8.0); Basophils % 0.2 % (0-1.3); Eosinophils % 0.7 % (0-4.4); Hematocrit 20.1 % (39.6-49.0); Hemoglobin 6.7 g/dL (13.6-17.9); Lymphocytes % 21.8 % (15.3-44.8); MCH 31.7 pg (27.0-35.0); MCHC 33.4 g/dL (32.0-36.0); MCV 95.1 fL (80-100); MPV 7.3 fL (7.6-11.3); Monocytes % 10.3 % (3.3-12.3); Platelets 145 thou/uL (152-406); RBC Red Blood Cell Count 2.11 M/uL (4.33-5.43); Red Cell Distribution Width 24.5 % (12.1-15.2)
[2024-06-11 16:37] LABS: PT Prothrombin Time 19.9 SECONDS (9.4-12.5); Protime INR 1.81
[2024-06-11 16:53] LABS: Albumin 3.5 g/dL (3.4-5.0); Anion Gap 8.2 mEq/L (5.0-15.0); Bilirubin Direct 0.3 mg/dL (0-0.2); Bilirubin Indirect, Calculated 0.6 mg/dL (0.2-0.8); Bilirubin Total 0.9 mg/dL (0.2-1.0); Globulin 3.4 g/dL (2.3-3.5); Potassium 4.2 mEq/L (3.5-5.1); Protein, Total 6.9 g/dL (6.4-8.2); Troponin High Sensitivity 18.8 pg/mL (<58.9)
[2024-06-11] MEDS ORDERED: NA CHLORIDE 0.9% 500 ML ONE (18:30)
--- NOTE | 2024-06-11 19:20 | EDPHYS ---
Physician Documentation [facility] Name: Quentin Lei Age: 78 yrs Sex: Male : 1945 Arrival Date: 06/11/2024 Time: 14:53 Bed 14 Private MD: ED Physician Lauro Carr HPI: 06/11 18:02 This 78 yrs old Male presents to ER via Ambulatory with complaints of mikaela Dizziness, General Weakness. 18:02 The patient presents with dizziness, generalized weakness. Onset: The symptoms/episode mikaela began/occurred 2 day(s) ago. Context: occurred at home. Modifying factors: The symptoms are alleviated by lying down, the symptoms are aggravated by standing up. Associated signs and symptoms: The patient has no apparent associated signs or symptoms. Severity of symptoms: At their worst the symptoms were mild in the emergency department the symptoms are unchanged. Patient's baseline: Neuro: alert and fully oriented. The patient has experienced similar episodes in the past, multiple times. 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 - Infectious Disease History:: Denies. - Family history:: not pertinent. - Social history:: Smoking status: unknown. ROS: 18:02 Constitutional: Negative for fever, chills, and weight loss, Eyes: Negative for injury, mikaela pain, redness, and discharge, ENT: Negative for injury, pain, and discharge, Neck: Negative for injury, pain, and swelling, Cardiovascular: Negative for chest pain, palpitations, and edema, Respiratory: Negative for shortness of breath, cough, wheezing, and pleuritic chest pain, Abdomen/GI: Negative for abdominal pain, nausea, vomiting, diarrhea, and constipation, Back: Negative for injury and pain, : Negative for injury, bleeding, discharge, and swelling, MS/Extremity: Negative for injury and deformity, Skin: Negative for injury, rash, and discoloration, Psych: Negative for depression, anxiety, suicide ideation, homicidal ideation, and hallucinations, Allergy/Immunology: Negative for hives, rash, and allergies, Endocrine: Negative for neck swelling, polydipsia, polyuria, polyphagia, and marked weight changes, Hematologic/Lymphatic: Negative for swollen nodes, abnormal bleeding, and unusual bruising, 18:02 Neuro: Positive for weakness, Exam: 18:02 Constitutional: This is a well developed, well nourished patient who is awake, alert, mikaela and in no acute distress. Head/Face: Normocephalic, atraumatic. Eyes: Pupils equal round and reactive to light, extra-ocular motions intact. Lids and lashes normal. Conjunctiva and sclera are non-icteric and not injected. Cornea within normal limits. Periorbital areas with no swelling, redness, or edema. ENT: Nares patent. No nasal discharge, no septal abnormalities noted. Tympanic membranes are normal and external auditory canals are clear. Oropharynx with no redness, swelling, or masses, exudates, or evidence of obstruction, uvula midline. Mucous membranes moist. Neck: Trachea midline, no thyromegaly or masses palpated, and no cervical lymphadenopathy. Supple, full range of motion without nuchal rigidity, or vertebral point tenderness. No Meningismus. Chest/axilla: Normal chest wall appearance and motion. Nontender with no deformity. No lesions are appreciated. Cardiovascular: Regular rate and rhythm with a normal S1 and S2. No gallops, murmurs, or rubs. Normal PMI, no JVD. No pulse deficits. Respiratory: Lungs have equal breath sounds bilaterally, clear to auscultation and percussion. No rales, rhonchi or wheezes noted. No increased work of breathing, no retractions or nasal flaring. Abdomen/GI: Soft, non-tender, with normal bowel sounds. No distension or tympany. No guarding or rebound. No evidence of tenderness throughout. Back: No spinal tenderness. No costovertebral tenderness. Full range of motion. Skin: Warm, dry with normal turgor. Normal color with no rashes, no lesions, and no evidence of cellulitis. MS/ Extremity: Pulses equal, no cyanosis. Neurovascular intact. Full, normal range of motion., bilateral aka Neuro: Awake and alert, GCS 15, oriented to person, place, time, and situation. Cranial nerves II-XII grossly intact. Motor strength 5/5 in all extremities. Sensory grossly intact. Cerebellar exam normal. Normal gait. Psych: Awake, alert, with orientation to person, place and time. Behavior, mood, and affect are within normal limits. 18:02 Abdomen/GI: Rectal exam: is unremarkable, Prostate: normal, rectal tone normal, Stool: guaiac negative, hemorrhoid(s), are not appreciated, mass, is not appreciated, swelling, is not appreciated, tenderness, is not appreciated, fecal impaction, is not appreciated, Liver: no appreciated palpable abnormalities, Hernia: not appreciated, 18:10 ECG was reviewed by the Attending Physician. [facility] Vital Signs: 15:44 BP 123 / 55; Pulse 76; Resp 20; Temp 97.5; Pulse Ox 100% on R/A; Weight 95.25 kg; hb Height 5 ft. 11 in. ; Pain 0/10; 16:37 BP 137 / 71; Pulse 71; Resp 19 S; Pulse Ox 100% on R/A; kc6 17:58 BP 117 / 58; Pulse 80; Resp 16 S; Pulse Ox 98% on R/A; kc6 19:06 BP 116 / 56; Pulse 84; Resp 16 S; Temp 98.7(O); Pulse Ox 100% on R/A; kc6 15:44 Body Mass Index 29.29 (95.25 kg, 180.34 cm) hb 15:44 Pain Scale: Adult hb MDM: 15:46 Medical Screening Exam initiated mikaela 18:06 Differential diagnosis: cardiac arrhythmia, generalized weakness, GI bleed, idiopathic mikaela dizziness. Data reviewed: vital signs, nurses notes, lab test result(s), EKG, radiologic studies, plain films. Consideration of Admission/Observation Escalation of care including admission/observation considered. I considered the following discharge prescriptions or medication management in the emergency department Medications were administered in the Emergency Department. See MAR. Independent interpretation of the following test(s) in the Emergency Department EKG: See my EKG interpretation above. Test considered but Not performed: Ultrasound no ct , no abd usg. Historians other than the Patient: pt well informed. Care significantly affected by the following chronic conditions: Hypertension, barretts, oa, hypothyroid, anemia, high chlesterol. 06/11 15:47 Order name: Basic Metabolic Panel; Complete Time: 17:51 [facility] 06/11 15:47 Order name: CBC with Diff; Complete Time: 17:51 [facility] 06/11 15:47 Order name: LFT's; Complete Time: 17:51 [facility] 06/11 15:47 Order name: Magnesium; Complete Time: 17:51 [facility] 06/11 15:47 Order name: NT PRO-BNP; Complete Time: 17:51 [facility] 06/11 15:47 Order name: PT-INR; Complete Time: 17:51 [facility] 06/11 15:47 Order name: Troponin HS; Complete Time: 17:51 [facility] 06/11 15:47 Order name: Lipase; Complete Time: 17:51 [facility] 06/11 15:47 Order name: Blood Culture Adult (2) [facility] 06/11 15:47 Order name: Urinalysis w/ reflexes [facility] 06/11 15:48 Order name: Type And Screen [facility] 06/11 18:05 Order name: Packed RBCs (Additional Unit) [facility] 06/11 15:47 Order name: XRAY Chest (1 view); Complete Time: 17:51 [facility] 06/11 15:47 Order name: Cardiac monitoring; Complete Time: 16:28 [facility] 06/11 15:47 Order name: EKG - Nurse/Tech; Complete Time: 16:28 [facility] 06/11 15:47 Order name: IV Saline Lock; Complete Time: 16:28 [facility] 06/11 15:47 Order name: Labs collected and sent; Complete Time: 16:28 [facility] 06/11 15:47 Order name: O2 Per Protocol; Complete Time: 16:28 [facility] 06/11 15:47 Order name: O2 Sat Monitoring; Complete Time: 16:28 [facility] EC:10 Rate is 73 beats/min. Rhythm is regular. QRS [place] is Normal. SC interval is normal. QRS mikaela interval is normal. QT interval is normal. No Q waves. T waves are Normal. No ST changes noted. Clinical impression: NSR w/ Non-specific ST/T Changes and No evidence of ischemia. Interpreted by me. Reviewed by me. Administered Medications: 16:37 Drug: NS 0.9% IV 500 ml 500 ml IV at 1 bolus once; to be given as a bolus over 30 kc6 minutes Volume: 500 ml; Route: IV; Rate: 1 bolus; Site: right antecubital; 17:08 Follow up: Response: No adverse reaction; IV Status: Completed infusion; IV Intake: kc6 500ml 16:37 Drug: Famotidine IVP 20 mg IVP once; dilute with 10 mL 0.9% NaCl; give over 2 minutes kc6 Route: IVP; Site: right antecubital; 17:08 Follow up: Response: No adverse reaction kc6 16:37 Drug: NS 0.9% IV 500 ml 500 ml IV at 125 ml/hr once Volume: 500 ml; Route: IV; Rate: kc6 125 ml/hr; Site: right antecubital; 19:00 Follow up: IV Status: Completed infusion; IV Intake: 500ml br2 Disposition Summary: 06/11/24 19:19 Discharge Ordered Notes: Location: Home mikaela Problem: new mikaela Symptoms: have improved mikaela Condition: Fair mikaela Diagnosis - 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 mikaela - Weakness mikaela Followup: mikaela - With: Private Physician - When: 2 - 3 days - Reason: Recheck today's complaints, Continuance of care, Re-evaluation by your physician Discharge Instructions: - Discharge Summary Sheet mikaela - Anemia mikaela - Blood Transfusion, Adult mikaela - Weakness mikaela - Fatigue mikaela - Near-Syncope, [id number] mikaela - Blood Transfusion, Adult, Gcqm-[id number]-[id number] mikaela - Weakness, Lwct-ft-Offc mikaela - Deconditioning mikaela - Blood Transfusion, Adult, Care After, Tpbs-[id number] mikaela - Blood Transfusion, Adult, Care After mikaela Forms: - Medication Reconciliation Form mikaela - Antibiotic Education mikaela - Prescription Opioid Use mikaela - Patient Portal Instructions [facility] - Leadership Thank You Letter [facility] Prescriptions: - Protonix 40 mg Oral Tablet - take 1 tablet ORAL route once daily; 30 tablet; Refills: 0, Product Selection mikaela Permitted Signatures: Dispatcher [employer] EDLauro Silva MD MD mikaela Fe Gallo, DUC RN Thalia Camp RN RN kc6 Hollie Jacob RN br2 Corrections: (The following items were deleted from the chart) 15:48 15:48 BASIC METABOLIC PANEL+C.LAB.BRZ ordered. EDMS EDMS 15:48 15:48 CBC+H.LAB.BRZ ordered. EDMS EDMS 15:48 15:48 HEPATIC FUNCTION+C.LAB.BRZ ordered. EDMS EDMS 15:48 15:48 MAGNESIUM+C.LAB.BRZ ordered. EDMS EDMS 15:48 15:48 PROBNP+C.LAB.BRZ ordered. EDMS EDMS 15:48 15:48 PROTIME (+INR)+COAG.LAB.BRZ ordered. EDMS EDMS 15:48 15:48 Troponin High Sensitivity+C.LAB.BRZ ordered. EDMS EDMS 15:48 15:48 LIPASE+C.LAB.BRZ ordered. EDMS EDMS 15:48 15:48 BLOOD CULTURE*+BA.LAB.BRZ ordered. EDMS EDMS 15:48 15:48 Urinalysis+U.LAB.BRZ ordered. EDMS EDMS 15:48 15:48 Chest Single View+RAD.RAD.BRZ ordered. EDMS EDMS 15:48 15:48 Head Brain Wo Cont+CT.RAD.BRZ ordered. EDMS EDMS
--- NOTE | 2024-06-11 19:20 | ER ---
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 Coronavirus screen: At this hb time, the client does not indicate any symptoms associated with coronavirus-19. Ebola Screen: No symptoms or risks identified at this time. Initial Sepsis Screen: Does the patient meet any 2 criteria? No. Patient's initial sepsis screen is negative. Does the patient have a suspected source of infection? No. Patient's initial sepsis screen is negative. Risk Assessment: Do you want to hurt yourself or someone else? Patient reports no desire to harm self or others. Onset of symptoms was June 11, 2024. 15:44 Method Of Arrival: Ambulatory hb 15:44 Acuity: MAE 3 hb Historical: - Allergies: 15:45 tramadol; hb - PMHx: 15:45 Arthritis; Hypertension; Hypothyroidism; Hypercholesterolemia; Arevalo's Esophagus; hb Anemia; Lung tumor with radiation tx completed January 2023; Osteoporosis; - PSHx: 15:45 lung biopsy; triple bypass; hb - Immunization history:: Adult Immunizations up to date. - Infectious Disease History:: Denies. - Family history:: not pertinent. - Social history:: Smoking status: unknown. Screenin:29 [facility] ED Fall Risk Assessment (Adult) History of falling in the last 3 months, kc6 including since admission No falls in past 3 months (0 pts) Confusion or Disorientation No (0 pts) Intoxicated or Sedated No (0 pts) Impaired Gait No (0 pts) Mobility Assist Device Used No (0 pt) Altered Elimination No (0 pt) Score/Fall Risk Level 0 - 2 = Low Risk Oriented to surroundings, Maintained a safe environment. Abuse screen: Denies threats or abuse. Denies injuries from another. Nutritional screening: No deficits noted. Tuberculosis screening: No symptoms or risk factors identified. Assessment: 16:38 General: Appears in no apparent distress. comfortable, well groomed, well developed, kc6 Behavior is calm, cooperative, appropriate for age. Pain: Denies pain. Neuro: Level of Consciousness is awake, alert, obeys commands, Oriented to person, place, time, situation, Appropriate for age Reports dizziness, weakness. Cardiovascular: Reports fatigue, lightheadedness, Capillary refill < 3 seconds. Respiratory: Airway is patent Trachea midline Respiratory effort is even, unlabored, Respiratory pattern is regular, symmetrical. GI: No signs and/or symptoms were reported involving the gastrointestinal system. : No signs and/or symptoms were reported regarding the genitourinary system. EENT: No signs and/or symptoms were reported regarding the EENT system. Derm: No signs and/or symptoms reported regarding the dermatologic system. Skin is intact, is healthy with good turgor, Skin is dry, Skin is pale, Skin temperature is warm. Musculoskeletal: No signs and/or symptoms reported regarding the musculoskeletal system. Circulation, motion, and sensation intact. Capillary refill < 3 seconds, Range of motion: intact in all extremities. 17:58 Reassessment: Patient appears in no apparent distress at this time. No changes from kc6 previously documented assessment. Patient and/or family updated on plan of care and expected duration. Pain level reassessed. Patient is alert, oriented x 3, equal unlabored respirations, skin warm/dry/pink. 18:55 Reassessment: please see blood transfusion flow sheet for further vitals. kc6 18:58 Reassessment: Patient appears in no apparent distress at this time. No changes from kc6 previously documented assessment. Patient and/or family updated on plan of care and expected duration. Pain level reassessed. Patient is alert, oriented x 3, equal unlabored respirations, skin warm/dry/pink. 19:59 Reassessment: PT HAS BLOOD INFUSING AND WILL BE RECEIVING ANOTHER UNIT, PT WILL BE br2 DISCHARGED ONCE COMPLETED. 06/12 01:56 Reassessment: 2ND DOSE PRBC STILL INFUSING. br2 02:57 Reassessment: see blood transfusion record for vital signs. br2 Vital Signs: 06/11 15:44 BP 123 / 55; Pulse 76; Resp 20; Temp 97.5; Pulse Ox 100% on R/A; Weight 95.25 kg; hb Height 5 ft. 11 in. ; Pain 0/10; 16:37 BP 137 / 71; Pulse 71; Resp 19 S; Pulse Ox 100% on R/A; kc6 17:58 BP 117 / 58; Pulse 80; Resp 16 S; Pulse Ox 98% on R/A; kc6 19:06 BP 116 / 56; Pulse 84; Resp 16 S; Temp 98.7(O); Pulse Ox 100% on R/A; kc6 15:44 Body Mass Index 29.29 (95.25 kg, 180.34 cm) hb 15:44 Pain Scale: Adult hb ED Course: 14:55 Patient arrived in ED. im 15:45 Triage completed. hb 15:45 Arm band placed on. kc6 15:46 Lauro Carr MD is Attending Physician. mikaela 15:51 Thalia Camp, DUC is Primary Nurse. kc6 16:12 XRAY Chest (1 view) In Process Unspecified. EDMS 16:12 Radiology exam delayed due to patient is refusing CT exam, notified Dr. Carr. nj 16:28 Type And Screen Sent. kc6 16:28 Blood Culture Adult (2) Sent. kc6 16:28 Lipase Sent. kc6 16:28 Basic Metabolic Panel Sent. kc6 16:28 CBC with Diff Sent. kc6 16:28 LFT's Sent. kc6 16:28 Magnesium Sent. kc6 16:28 NT PRO-BNP Sent. kc6 16:28 PT-INR Sent. kc6 16:28 Troponin HS Sent. kc6 16:28 Inserted saline lock: 20 gauge in right antecubital area, using aseptic technique. kc6 Blood collected. Flushed with 10 mL NS. Patient maintains SpO2 saturation greater than 95% on room air. 16:28 Patient has correct armband on for positive identification. Placed in gown. Bed in low kc6 position. Call light in reach. Side rails up X2. nuclear monitoring technician on. Pulse ox on. NIBP on. Door closed. Noise minimized. Lights dimmed. Pillow given. 18:30 Provided Education on: Blood Transfusion. kc6 19:00 Report given to Hollie Jacob RN. kc6 06/12 02:56 No provider procedures requiring assistance completed. IV discontinued, intact, br2 bleeding controlled, No redness/swelling at site. Pressure dressing applied. Administered Medications: 06/11 16:37 Drug: NS 0.9% IV 500 ml 500 ml IV at 1 bolus once; to be given as a bolus over 30 kc6 minutes Volume: 500 ml; Route: IV; Rate: 1 bolus; Site: right antecubital; 17:08 Follow up: Response: No adverse reaction; IV Status: Completed infusion; IV Intake: kc6 500ml 16:37 Drug: Famotidine IVP 20 mg IVP once; dilute with 10 mL 0.9% NaCl; give over 2 minutes kc6 Route: IVP; Site: right antecubital; 17:08 Follow up: Response: No adverse reaction kc6 16:37 Drug: NS 0.9% IV 500 ml 500 ml IV at 125 ml/hr once Volume: 500 ml; Route: IV; Rate: kc6 125 ml/hr; Site: right antecubital; 19:00 Follow up: IV Status: Completed infusion; IV Intake: 500ml br2 Medication: 06/12 02:56 VIS not applicable for this client. br2 Intake: 06/11 17:08 IV: 500ml; Total: 500ml. kc6 19:00 IV: 500ml; Total: 1000ml. br2 Outcome: 19:19 Discharge ordered by MD. la 06/12 02:56 Discharged to home ambulatory, br2 Condition: improved Discharge instructions given to Discharge instructions given to patient, Instructed on discharge instructions, follow up and referral plans. Demonstrated understanding of instructions, follow-up care, medications, Prescriptions given X 1, 02:58 Patient left the ED. br2 Signatures: Dispatcher [employer] Lauro Amaya MD MD cha Baxter, Heather, RN RN hb Jordan, Nathan nj Campbell, Kaitlyn, RN RN kc6 Sherrell Agee Belinda, RN RN br2
[2024-06-11 22:13] LABS: Specific Gravity 1.017 (1.005-1.030); Sqamous Epithelial <5 /HPF (None Seen); Urine Bacteria None Seen /HPF (<20); Urine Bilirubin NEGATIVE (Negative); Urine Blood Negative (Negative); Urine Clarity Clear (Clear); Urine Color Yellow (Yellow); Urine Culture Reflex Order NOT NEEDED; Urine Glucose NEGATIVE (Negative); Urine Ketones TRACE (Negative); Urine Microscopic Reflex YN ORDER UMIC; Urine Mucus Slight /HPF (None Seen); Urine Nitrite NEGATIVE (Negative); Urine Protein NEGATIVE (Negative); Urine RBC <5 /HPF (None Seen); Urine Urobilinogen Normal (Normal); Urine WBC <5 /HPF (<5)
[2024-06-12 03:28] VITALS: BP 116/56; TEMP 98.7; O2SAT 100
== END 2024-06-12 02:58 | disposition home or self-care (01) ==
LOC: ER 14:53
PROC: 30233N1 Transfusion of Nonautologous Red Blood Cells into Peripheral Vein, Percutaneous Approach (ICD-10-PCS; principal; 2024-06-11)
DX: D46.9 Myelodysplastic syndrome, unspecified (principal); D63.8 Anemia in other chronic diseases classified elsewhere; R53.1 Weakness; I10 Essential (primary) hypertension; E78.00 Pure hypercholesterolemia, unspecified; E03.9 Hypothyroidism, unspecified; M19.90 Unspecified osteoarthritis, unspecified site; M81.0 Age-related osteoporosis without current pathological fracture; Z88.5 Allergy status to narcotic agent
CPT/HCPCS: 96361; 87040 ×2; 85025; 81001; 80048; 36415; 86900; 83735; 86850; 85610; 86901; 80076; 86920 ×2; 84484; 83690; 83880; 71045; 96374; 99285; 36430; P9016 ×2; J7050; J7030

== ENCOUNTER 2024-06-24 15:26 | Emergency (ER) | payer OTHER ==
[2024-06-24] MEDS ORDERED: PANTOPRAZOLE 40 MG INJ ONE (16:48)
[2024-06-24] MEDS ORDERED: NA CHLORIDE 0.9% 500 ML ONE (16:48)
[2024-06-24 17:51] LABS: PT Prothrombin Time 15.4 SECONDS (9.4-12.5); Protime INR 1.39
[2024-06-24 17:52] LABS: Absolute Eosinophils 0.1 K/uL (0-0.5); Absolute Lymphocytes (CBC) 1.6 K/uL (0.7-4.9); Absolute Monocytes 0.5 K/uL (0.1-1.3); Absolute Neutrophil 2.3 K/uL (1.8-8.0); Basophils % 0.4 % (0-1.3); Eosinophils % 2.6 % (0-4.4); Hematocrit 21.8 % (39.6-49.0); Hemoglobin 7.6 g/dL (13.6-17.9); MCH 31.1 pg (27.0-35.0); MCHC 34.9 g/dL (32.0-36.0); MCV 89.2 fL (80-100); Monocytes % 10.3 % (3.3-12.3); Neutrophils % 51.7 % (41.7-73.7); Nucleated Red Blood Cells % 0.1 % (0-0); Platelets 193 thou/uL (152-406); RBC Red Blood Cell Count 2.44 M/uL (4.33-5.43); Red Cell Distribution Width 22.4 % (12.1-15.2)
[2024-06-24 17:54] LABS: Platelet Estimate ADEQ; White Blood Cell Scan OK (OK)
[2024-06-24 17:55] LABS: Anisocytosis 2+; Blood Morphology Comment NOTED (NOT SEEN)
[2024-06-24 18:08] LABS: ALT/SGPT 58 U/L (16-61); AST/SGOT 41 U/L (15-37); Albumin 3.2 g/dL (3.4-5.0); Alkaline Phosphatase 52 U/L (45-117); Anion Gap 6.9 mEq/L (5.0-15.0); BUN Blood Urea Nitrogen 20 mg/dL (7-18); Bicarbonate 29 mEq/L (21-32); Bilirubin Total 0.5 mg/dL (0.2-1.0); Globulin 3.3 g/dL (2.3-3.5); Glomerular Filtration Rate 54 ml/min (=/>90); Glucose Level 127 mg/dL (74-106); Lipase 43 U/L (13-75); Magnesium 2.1 mg/dL (1.6-2.4); NT PRO-BNP 719 pg/mL (<450); Potassium 3.9 mEq/L (3.5-5.1); Protein, Total 6.5 g/dL (6.4-8.2); Sodium Level 140 mEq/L (136-145); Troponin High Sensitivity 19.3 pg/mL (<58.9)
[2024-06-24 18:10] LABS: Bilirubin Direct < 0.2 mg/dL (0-0.2); Bilirubin Indirect, Calculated 0.3 mg/dL (0.2-0.8)
--- NOTE | 2024-06-24 19:05 | ER ---
Nurse's Notes [facility] Name: Quentin Lei Age: 78 yrs Sex: Male : 1945 Arrival Date: 06/24/2024 Time: 15:26 Bed 14 Private MD: Diagnosis: Anemia, unspecified;Iron deficiency anemia secondary to blood loss (chronic);Weakness;Unspecified kidney failure-CRONIC Presentation: 06/24 16:10 Chief complaint: Patient states: Generalized weakness and increased fatigue onset cm10 yesterday. PT reports that his last blood transfusion was 13 days ago. Coronavirus screen: Client denies travel out of the [place] in the last 14 days. Ebola Screen: Patient denies travel to an Ebola-affected area in the 21 days before illness onset. No symptoms or risks identified at this time. Initial Sepsis Screen: Does the patient meet any 2 criteria? No. Patient's initial sepsis screen is negative. Does the patient have a suspected source of infection? No. Patient's initial sepsis screen is negative. Risk Assessment: Do you want to hurt yourself or someone else? Patient reports no desire to harm self or others. Onset of symptoms was June 24, 2024. 16:10 Method Of Arrival: Ambulatory cm10 16:10 Acuity: MAE 3 cm10 Triage Assessment: 16:11 General: Appears in no apparent distress. comfortable, Behavior is calm, cooperative. cm10 Neuro: No deficits noted. Level of Consciousness is awake, alert, obeys commands, Oriented to person, place, time, situation, Appropriate for age. Respiratory: No deficits noted. Airway is patent Respiratory effort is even, unlabored, Respiratory pattern is regular, symmetrical. Historical: - Allergies: 16:11 tramadol; cm10 - PMHx: 16:11 Anemia; Arthritis; Arevalo's Esophagus; Hypercholesterolemia; Hypertension; cm10 Hypothyroidism; Lung tumor with radiation tx completed January 2023; Osteoporosis; - PSHx: 16:11 lung biopsy; triple bypass; cm10 - Immunization history:: Adult Immunizations up to date. - Infectious Disease History:: Denies. - Social history:: Smoking status: Patient denies any tobacco usage or history of. Screenin:00 [facility] ED Fall Risk Assessment (Adult) History of falling in the last 3 months, kc6 including since admission No falls in past 3 months (0 pts) Confusion or Disorientation No (0 pts) Intoxicated or Sedated No (0 pts) Impaired Gait No (0 pts) Mobility Assist Device Used No (0 pt) Altered Elimination No (0 pt) Score/Fall Risk Level 0 - 2 = Low Risk Oriented to surroundings, Maintained a safe environment, Educated pt \T\ family on fall prevention, incl call for assistance when getting out of bed. Abuse screen: Denies threats or abuse. Denies injuries from another. Nutritional screening: No deficits noted. Tuberculosis screening: No symptoms or risk factors identified. Assessment: 17:01 General: Appears in no apparent distress. comfortable, well groomed, well developed, kc6 Behavior is calm, cooperative, appropriate for age, Reports feeling ill for 12-24 hours, fatigue for 12-24 hours. Pain: Denies pain. Neuro: Level of Consciousness is awake, alert, obeys commands, Oriented to person, place, time, situation, Appropriate for age Reports weakness. Cardiovascular: Capillary refill < 3 seconds. Respiratory: Airway is patent Trachea midline Respiratory effort is even, unlabored, Respiratory pattern is regular, symmetrical. GI: No signs and/or symptoms were reported involving the gastrointestinal system. : No signs and/or symptoms were reported regarding the genitourinary system. EENT: No signs and/or symptoms were reported regarding the EENT system. Derm: No signs and/or symptoms reported regarding the dermatologic system. Skin is intact, is healthy with good turgor, Skin is dry, Skin is pale, Skin temperature is warm. Musculoskeletal: No signs and/or symptoms reported regarding the musculoskeletal system. Circulation, motion, and sensation intact. Range of motion: intact in all extremities. 18:01 Reassessment: Patient appears in no apparent distress at this time. No changes from kc6 previously documented assessment. Patient and/or family updated on plan of care and expected duration. Pain level reassessed. Patient is alert, oriented x 3, equal unlabored respirations, skin warm/dry/pink. 19:00 Reassessment: Patient appears in no apparent distress at this time. Patient and/or kj2 family updated on plan of care and expected duration. Pain level reassessed. Patient is alert, oriented x 3, equal unlabored respirations, skin warm/dry/pink. discharge on hold, blood transfusion pending. 19:30 Reassessment: DISCHARGE PENDING. AWAITING ON BLOOD TRANSFUSION. ha1 20:28 Reassessment: Patient appears in no apparent distress at this time. Patient and/or kj2 family updated on plan of care and expected duration. Pain level reassessed. Patient is alert, oriented x 3, equal unlabored respirations, skin warm/dry/pink. 21:00 Reassessment: Patient appears in no apparent distress at this time. Patient is alert, kj2 oriented x 3, equal unlabored respirations, skin warm/dry/pink. blood transfusion started at 2100. 23:23 Reassessment: blood stopped at 2323. kj2 06/25 00:25 Reassessment: Patient appears in no apparent distress at this time. Patient and/or kj2 family updated on plan of care and expected duration. Pain level reassessed. Patient is alert, oriented x 3, equal unlabored respirations, skin warm/dry/pink. 2nd unit of blood started at 0025. 01:20 Reassessment: Patient appears in no apparent distress at this time. Patient and/or kj2 family updated on plan of care and expected duration. Pain level reassessed. Patient is alert, oriented x 3, equal unlabored respirations, skin warm/dry/pink. 01:25 Reassessment: Patient appears in no apparent distress at this time. Patient and/or kj2 family updated on plan of care and expected duration. Pain level reassessed. Patient is alert, oriented x 3, equal unlabored respirations, skin warm/dry/pink. 02:25 Reassessment: Patient appears in no apparent distress at this time. Patient and/or kj2 family updated on plan of care and expected duration. Pain level reassessed. Patient is alert, oriented x 3, equal unlabored respirations, skin warm/dry/pink. 02:52 Reassessment: Patient appears in no apparent distress at this time. Patient and/or kj2 family updated on plan of care and expected duration. Pain level reassessed. Patient is alert, oriented x 3, equal unlabored respirations, skin warm/dry/pink. blood stopped/complete. Vital Signs: 06/24 16:10 BP 140 / 48; Pulse 66; Resp 15; Temp 98.3; Pulse Ox 100% on R/A; Weight 95.71 kg; cm10 Height 5 ft. 11 in. ; Pain 0/10; 17:00 BP 146 / 66; Pulse 59; Resp 16 S; Pulse Ox 100% on R/A; kc6 19:00 BP 112 / 55; Pulse 61; Resp 18; Pulse Ox 100% on R/A; kj2 21:00 BP 104 / 67; Pulse 65; Resp 18; Temp 97.9; Pulse Ox 100% ; kj2 22:00 BP 94 / 57; Pulse 61; Resp 20; Temp 97.9; Pulse Ox 100% on R/A; kj2 23:23 BP 108 / 61; Pulse 62; Resp 18; Temp 97.9; Pulse Ox 100% on R/A; kj2 01 00:25 BP 117 / 62; Pulse 66; Resp 20; Temp 97.9; Pulse Ox 100% on R/A; kj2 01:20 BP 146 / 54; Pulse 64; Resp 18; Temp 97.9; Pulse Ox 100% ; kj2 02:20 BP 130 / 60; Pulse 62; Resp 18; Temp 97.9; Pulse Ox 100% on R/A; kj2 02:52 BP 129 / 63; Pulse 65; Resp 18; Temp 97.9; Pulse Ox 100% on R/A; kj2 06/24 16:10 Body Mass Index 29.43 (95.71 kg, 180.34 cm) cm10 06/24 16:10 Pain Scale: Adult cm10 ED Course: 06/24 15:33 Patient arrived in ED. sj2 16:11 Triage completed. cm10 16:11 Arm band placed on right wrist. Patient placed in waiting room. cm10 16:26 Lauro Carr MD is Attending Physician. mikaela 16:33 Gaby Allen, RN is Primary Nurse. cm10 16:41 Thalia Camp, RN is Primary Nurse. kc6 17:00 Patient has correct armband on for positive identification. Placed in gown. Bed in low kc6 position. Call light in reach. Side rails up X 1. monitoring engineer on. Pulse ox on. NIBP on. Door closed. Noise minimized. Lights dimmed. Pillow given. 17:00 Patient maintains SpO2 saturation greater than 95% on room air. kc6 17:41 Initial lab(s) drawn, by me, sent to lab. Missed attempt(s): 22 gauge in right wrist. kc6 Inserted saline lock: 20 gauge in left antecubital area, using aseptic technique. Blood collected. Flushed with 10 mL NS. 19:00 Report given to Marisabel Alva RN. 6 19:00 Provided Education on: Blood Transfusion. kj2 06/25 03:06 No provider procedures requiring assistance completed. IV discontinued, intact, kj2 bleeding controlled, No redness/swelling at site. Pressure dressing applied. Administered Medications: 06/24 17:40 Drug: NS 0.9% IV 500 ml 500 ml IV at 1 bolus once; to be given as a bolus over 30 kc6 minutes Volume: 500 ml; Route: IV; Rate: 1 bolus; Site: left antecubital; 06/25 03:23 Follow up: Response: No adverse reaction; IV Status: Completed infusion; IV Intake: kj2 500ml 06/24 17:40 Drug: Pantoprazole IVP 40 mg IVP once Route: IVP; Site: left antecubital; kc6 17:51 Follow up: Response: No adverse reaction kc Medication: 21:54 VIS not applicable for this client. kj2 Intake: 06/25 03:23 IV: 500ml; Total: 500ml. kj2 Outcome: 06/24 19:04 Discharge ordered by . mikaela 06/25 03:06 Discharged to home ambulatory, kj2 Condition: stable Discharge instructions given to patient, Instructed on discharge instructions, follow up and referral plans. Demonstrated understanding of instructions, follow-up care, medications, 03:24 Patient left the ED. kj2 Signatures: Lauro Carr MD MD cha Ayala, Heidy, RN RN ha1 Thalia Camp RN RN kc6 Gaby Allen, DUC RN cm10 Marisabel Alva RN RN kj2 [place] [facility]
--- NOTE | 2024-06-24 19:05 | EDPHYS ---
Physician Documentation [facility] Name: Quentin Lei Age: 78 yrs Sex: Male : 1945 Arrival Date: 06/24/2024 Time: 15:26 Bed 14 Private MD: ED Physician Lauro Carr HPI: 06/24 18:27 This 78 yrs old Male presents to ER via Ambulatory with complaints of Anemia. mikaela 18:27 NEEDS BLOOD. The patient presents with dizziness, generalized weakness. Onset: The mikaela symptoms/episode began/occurred 5 day(s) ago. Context: occurred while the patient was walking. Modifying factors: The symptoms are alleviated by nothing, the symptoms are aggravated by nothing. Severity of symptoms: At their worst the symptoms were moderate in the emergency department the symptoms are unchanged. Onset: The symptoms/episode began/occurred 5 week(s) ago. Patient's baseline: Neuro: alert and fully oriented, Motor: no deficits. Historical: - Allergies: 16:11 tramadol; cm10 - PMHx: 16:11 Anemia; Arthritis; Arevalo's Esophagus; Hypercholesterolemia; Hypertension; cm10 Hypothyroidism; Lung tumor with radiation tx completed January 2023; Osteoporosis; - PSHx: 16:11 lung biopsy; triple bypass; cm10 - Immunization history:: Adult Immunizations up to date. - Infectious Disease History:: Denies. - Social history:: Smoking status: Patient denies any tobacco usage or history of. ROS: 18:28 Constitutional: Negative for fever, chills, and weight loss, Eyes: Negative for injury, mikaela pain, redness, and discharge, ENT: Negative for injury, pain, and discharge, Neck: Negative for injury, pain, and swelling, Cardiovascular: Negative for chest pain, palpitations, and edema, Respiratory: Negative for shortness of breath, cough, wheezing, and pleuritic chest pain, Abdomen/GI: Negative for abdominal pain, nausea, vomiting, diarrhea, and constipation, Back: Negative for injury and pain, : Negative for injury, bleeding, discharge, and swelling, MS/Extremity: Negative for injury and deformity, Psych: Negative for depression, anxiety, suicide ideation, homicidal ideation, and hallucinations, Allergy/Immunology: Negative for hives, rash, and allergies, Endocrine: Negative for neck swelling, polydipsia, polyuria, polyphagia, and marked weight changes, Hematologic/Lymphatic: Negative for swollen nodes, abnormal bleeding, and unusual bruising, 18:28 Skin: Positive for pallor, 18:28 Neuro: Positive for dizziness, weakness, Exam: 18:28 Constitutional: This is a well developed, well nourished patient who is awake, alert, mikaela and in no acute distress. Head/Face: Normocephalic, atraumatic. Eyes: Pupils equal round and reactive to light, extra-ocular motions intact. Lids and lashes normal. Conjunctiva and sclera are non-icteric and not injected. Cornea within normal limits. Periorbital areas with no swelling, redness, or edema. ENT: Nares patent. No nasal discharge, no septal abnormalities noted. Tympanic membranes are normal and external auditory canals are clear. Oropharynx with no redness, swelling, or masses, exudates, or evidence of obstruction, uvula midline. Mucous membranes moist. Neck: Trachea midline, no thyromegaly or masses palpated, and no cervical lymphadenopathy. Supple, full range of motion without nuchal rigidity, or vertebral point tenderness. No Meningismus. Chest/axilla: Normal chest wall appearance and motion. Nontender with no deformity. No lesions are appreciated. Cardiovascular: Regular rate and rhythm with a normal S1 and S2. No gallops, murmurs, or rubs. Normal PMI, no JVD. No pulse deficits. Respiratory: Lungs have equal breath sounds bilaterally, clear to auscultation and percussion. No rales, rhonchi or wheezes noted. No increased work of breathing, no retractions or nasal flaring. Abdomen/GI: Soft, non-tender, with normal bowel sounds. No distension or tympany. No guarding or rebound. No evidence of tenderness throughout. Back: No spinal tenderness. No costovertebral tenderness. Full range of motion. Male : Normal genitalia with no discharge or lesions. MS/ Extremity: Pulses equal, no cyanosis. Neurovascular intact. Full, normal range of motion., bilateral aka Neuro: Awake and alert, GCS 15, oriented to person, place, time, and situation. Cranial nerves II-XII grossly intact. Motor strength 5/5 in all extremities. Sensory grossly intact. Cerebellar exam normal. Normal gait. Psych: Awake, alert, with orientation to person, place and time. Behavior, mood, and affect are within normal limits. 18:28 ECG was reviewed by the Attending Physician. Vital Signs: 16:10 BP 140 / 48; Pulse 66; Resp 15; Temp 98.3; Pulse Ox 100% on R/A; Weight 95.71 kg; cm10 Height 5 ft. 11 in. ; Pain 0/10; 17:00 BP 146 / 66; Pulse 59; Resp 16 S; Pulse Ox 100% on R/A; kc6 19:00 BP 112 / 55; Pulse 61; Resp 18; Pulse Ox 100% on R/A; kj2 21:00 BP 104 / 67; Pulse 65; Resp 18; Temp 97.9; Pulse Ox 100% ; kj2 22:00 BP 94 / 57; Pulse 61; Resp 20; Temp 97.9; Pulse Ox 100% on R/A; kj2 23:23 BP 108 / 61; Pulse 62; Resp 18; Temp 97.9; Pulse Ox 100% on R/A; kj2 06/25 00:25 BP 117 / 62; Pulse 66; Resp 20; Temp 97.9; Pulse Ox 100% on R/A; kj2 01:20 BP 146 / 54; Pulse 64; Resp 18; Temp 97.9; Pulse Ox 100% ; kj2 02:20 BP 130 / 60; Pulse 62; Resp 18; Temp 97.9; Pulse Ox 100% on R/A; kj2 02:52 BP 129 / 63; Pulse 65; Resp 18; Temp 97.9; Pulse Ox 100% on R/A; kj2 06/24 16:10 Body Mass Index 29.43 (95.71 kg, 180.34 cm) cm10 06/24 16:10 Pain Scale: Adult cm10 MDM: 06/24 16:26 Medical Screening Exam initiated mikaela 18:29 Differential Diagnosis altered mental status, sepsis, flu. Differential diagnosis: mikaela cardiac arrhythmia, CVA, generalized weakness, GI bleed, hypovolemia, idiopathic dizziness, near-syncope, sepsis, syncope, TIA, vertigo. Data reviewed: vital signs, nurses notes, lab test result(s), EKG, radiologic studies. Consideration of Admission/Observation Escalation of care including admission/observation considered. I considered the following discharge prescriptions or medication management in the emergency department Medications were administered in the Emergency Department. See MAR. Independent interpretation of the following test(s) in the Emergency Department EKG: See my EKG interpretation above. Test considered but Not performed: Ultrasound NO 2 D ECHO. Historians other than the Patient: PT WELL INFORMED. Care significantly affected by the following chronic conditions: Hypertension, ANEMIA, ARTHRITIS, BARRETTS, HYPOTHYROID. Counseling: I had a detailed discussion with the patient and/or guardian regarding the historical points, exam findings, and any diagnostic results supporting the discharge/admit diagnosis, lab results, radiology results, the need for outpatient follow up, for definitive care, a family practitioner. 06/24 16:27 Order name: Type And Screen [facility] 06/24 16:27 Order name: Basic Metabolic Panel; Complete Time: 18:21 [facility] 06/24 16:27 Order name: CBC with Diff; Complete Time: 18:21 [facility] 06/24 16:27 Order name: LFT's; Complete Time: 18:21 [facility] 06/24 16:27 Order name: Magnesium; Complete Time: 18:21 [facility] 06/24 16:27 Order name: NT PRO-BNP; Complete Time: 18:21 [facility] 06/24 16:27 Order name: PT-INR; Complete Time: 18:21 [facility] 06/24 16:27 Order name: Troponin HS; Complete Time: 18:21 [facility] 06/24 16:27 Order name: Lipase; Complete Time: 18:21 [facility] 06/24 17:55 Order name: CBC Smear Scan; Complete Time: 18:21 [facility] 06/24 18:35 Order name: Packed RBC Leukored [facility] 06/24 16:27 Order name: Cardiac monitoring; Complete Time: 17:20 [facility] 06/24 16:27 Order name: EKG - Nurse/Tech; Complete Time: 17:20 [facility] 06/24 16:27 Order name: IV Saline Lock; Complete Time: 17:40 [facility] 06/24 16:27 Order name: Labs collected and sent; Complete Time: 17:40 [facility] 06/24 16:27 Order name: O2 Per Protocol; Complete Time: 17:00 [facility] 06/24 16:27 Order name: O2 Sat Monitoring; Complete Time: 17:00 [facility] EC:28 Rate is 63 beats/min. Rhythm is regular. QRS [place] is Normal. NM interval is normal. QRS mikaela interval is normal. QT interval is normal. No Q waves. T waves are Normal. No ST changes noted. Clinical impression: NSR w/ Non-specific ST/T Changes and No evidence of ischemia. Interpreted by me. Reviewed by me. Administered Medications: 17:40 Drug: NS 0.9% IV 500 ml 500 ml IV at 1 bolus once; to be given as a bolus over 30 kc6 minutes Volume: 500 ml; Route: IV; Rate: 1 bolus; Site: left antecubital; 06/25 03:23 Follow up: Response: No adverse reaction; IV Status: Completed infusion; IV Intake: kj2 500ml 06/24 17:40 Drug: Pantoprazole IVP 40 mg IVP once Route: IVP; Site: left antecubital; kc6 17:51 Follow up: Response: No adverse reaction kc6 Disposition Summary: 06/24/24 19:04 Discharge Ordered Notes: Location: Home mikaela Problem: new mikaela Symptoms: have improved mikaela Condition: Stable mikaela Diagnosis - Anemia, unspecified mikaela - Iron deficiency anemia secondary to blood loss (chronic) mikaela - Weakness mikaela - Unspecified kidney failure - CRONIC mikaela Followup: mikaela - With: Private Physician - When: 2 - 3 days - Reason: Recheck today's complaints, Continuance of care, Re-evaluation by your physician Discharge Instructions: - Discharge Summary Sheet mikaela - Anemia mikaela - Blood Transfusion, Adult mikaela - Iron-Rich Diet mikaela - Weakness mikaela - Fatigue mikaela - Weakness, [id number] mikaela - Chronic Kidney Disease, Adult, Dlae-il-[id number] mikaela - Iron Deficiency Anemia, Adult, [id number] mikaela - Blood Transfusion, Adult, Care After, [id number] mikaela - Blood Transfusion, Adult, Care After mikaela Forms: - Medication Reconciliation Form mikaela - Antibiotic Education mikaela - Prescription Opioid Use mikaela - Patient Portal Instructions [facility] - Leadership Thank You Letter [facility] Prescriptions: - Protonix 40 mg Oral Tablet - take 1 tablet ORAL route once daily; 30 tablet; Refills: 0, Product Selection mikaela Permitted Signatures: Dispatcher [employer] Lauro Amaya MD MD cha Campbell, Kaitlyn RN RN kc6 Gaby Allen RN RN cm10 Marisabel Alva RN kj2 Corrections: (The following items were deleted from the chart) 16:28 16:28 Chest Single View+RAD.RAD.BRZ ordered. EDMS EDMS 18:35 18:24 PACKED RBC LEUKORED+BB.LAB.BRZ ordered. EDMS EDMS 18:35 18:26 ABO/RH typing ordered. EDMS EDMS :35 18:26 Antibody Screen ordered. EDMS EDMS
[2024-06-24] MEDS ORDERED: NA CHLORIDE 0.9% 250 ML ONE ×2 (20:07→23:34)
[2024-06-25 03:37] VITALS: O2SAT 100
[2024-06-25 03:50] VITALS: TEMP 97.9
[2024-06-25 03:58] VITALS: BP 129/63
--- NOTE | 2024-07-02 11:12 | EKG ---
Test Date: 2024-06-24 Test Time: 17:12:42 Block Breaker Operator: AM MEASUREMENT RESULTS: Intervals: Rate: 63 UT: 182 QRSD: 140 QT: 456 QTc: 466 [place]: P: 52 UT: 182 QRS: -35 T: 34 INTERPRETIVE STATEMENTS: Normal sinus rhythm Left axis deviation Right bundle branch block Moderate voltage criteria for LVH, may be normal variant Cannot rule out Septal infarct, age undetermined Abnormal ECG Compared to ECG 05/31/2024 17:34:39 Left-axis deviation now present Left ventricular hypertrophy now present Myocardial infarct finding now present Electronically Signed On 07-02-24 11:01:17 COMPOUND FINISHER by Louis Scaels
== END 2024-06-25 03:24 | disposition home or self-care (01) ==
LOC: ER 15:26
PROC: 30233N1 Transfusion of Nonautologous Red Blood Cells into Peripheral Vein, Percutaneous Approach (ICD-10-PCS; principal; 2024-06-24)
DX: D50.0 Iron deficiency anemia secondary to blood loss (chronic) (principal); E03.9 Hypothyroidism, unspecified; E78.00 Pure hypercholesterolemia, unspecified; I10 Essential (primary) hypertension; Z88.5 Allergy status to narcotic agent; R53.1 Weakness; N18.9 Chronic kidney disease, unspecified; Z85.118 Personal history of other malignant neoplasm of bronchus and lung
CPT/HCPCS: 96361; 93005; 85025; 80048; 36415; 86900; 83735; 86850; 85610; 86901; 80076; 86920 ×2; 84484; 83690; 83880; 96374; 99285; 36430; J2470; P9016 ×2; J7050 ×2; J7040

== ENCOUNTER 2024-07-09 11:42 | Emergency (ER) | payer OTHER ==
[2024-07-09 12:15] LABS: Absolute Eosinophils 0.1 K/uL (0-0.5); Absolute Lymphocytes (CBC) 1.4 K/uL (0.7-4.9); Absolute Monocytes 0.4 K/uL (0.1-1.3); Absolute Neutrophil 2.4 K/uL (1.8-8.0); Basophils % 0.3 % (0-1.3); Eosinophils % 3.1 % (0-4.4); Hemoglobin 8.2 g/dL (13.6-17.9); Lymphocytes % 31.4 % (15.3-44.8); MCH 29.6 pg (27.0-35.0); MCV 87.1 fL (80-100); MPV 6.8 fL (7.6-11.3); Monocytes % 9.9 % (3.3-12.3); Neutrophils % 55.3 % (41.7-73.7); Nucleated Red Blood Cells % 0.1 % (0-0); Platelets 172 thou/uL (152-406); RBC Red Blood Cell Count 2.76 M/uL (4.33-5.43)
[2024-07-09 12:30] LABS: Anion Gap 8.2 mEq/L (5.0-15.0); Potassium 4.2 mEq/L (3.5-5.1)
[2024-07-09 13:46] LABS: Specific Gravity 1.011 (1.005-1.030); Sqamous Epithelial <5 /HPF (None Seen); Urine Bacteria None Seen /HPF (<20); Urine Bilirubin NEGATIVE (Negative); Urine Blood Negative (Negative); Urine Clarity Clear (Clear); Urine Color Light-Yellow (Yellow); Urine Culture Reflex Order NOT NEEDED; Urine Glucose NEGATIVE (Negative); Urine Ketones NEGATIVE (Negative); Urine Micro Reflex YN NO BILL MICROSCOPIC; Urine Mucus Slight /HPF (None Seen); Urine Nitrite NEGATIVE (Negative); Urine Protein NEGATIVE (Negative); Urine RBC <5 /HPF (None Seen); Urine Urobilinogen Normal (Normal); Urine WBC <5 /HPF (<5)
--- NOTE | 2024-07-09 13:54 | ER ---
Nurse's Notes [facility] Name: Quentin Lei Age: 78 yrs Sex: Male : 1945 Arrival Date: 07/09/2024 Time: 11:42 Bed 17 Private MD: Diagnosis: Weakness Presentation: 07/09 11:54 Chief complaint: Patient states: Generalized weakness, nausea and some shortness of cm10 breath. Pt was here 2 weeks ago and received blood transfusion. Pt states that he is scheduled to have a bone marrow biopsy on tuesday. Coronavirus screen: Client denies travel out of the [place] in the last 14 days. Ebola Screen: Patient denies travel to an Ebola-affected area in the 21 days before illness onset. Initial Sepsis Screen: Does the patient meet any 2 criteria? No. Patient's initial sepsis screen is negative. Does the patient have a suspected source of infection? No. Patient's initial sepsis screen is negative. Risk Assessment: Do you want to hurt yourself or someone else? Patient reports no desire to harm self or others. Onset of symptoms was July 09, 2024. 11:54 Method Of Arrival: Ambulatory cm10 11:54 Acuity: MAE 3 cm10 Triage Assessment: 11:58 General: Appears in no apparent distress. uncomfortable, Behavior is calm, cooperative, cm10 appropriate for age. Neuro: No deficits noted. Level of Consciousness is awake, alert, obeys commands, Oriented to person, place, time, Appropriate for age. Respiratory: No deficits noted. Airway is patent Respiratory effort is even, unlabored, Respiratory pattern is regular, symmetrical. Historical: - Allergies: 11:56 tramadol; cm10 - PMHx: 11:56 Anemia; Arthritis; Arevalo's Esophagus; Hypercholesterolemia; Hypertension; cm10 Hypothyroidism; Lung tumor with radiation tx completed January 2023; Osteoporosis; Myelodysplastic Syndrome; 11:58 COPD; cm10 - PSHx: 11:56 lung biopsy; triple bypass; cm10 - Immunization history:: Adult Immunizations up to date. - Infectious Disease History:: Denies. - Social history:: Smoking status: unknown. Screenin:00 [facility] ED Fall Risk Assessment (Adult) History of falling in the last 3 months, kc6 including since admission No falls in past 3 months (0 pts) Confusion or Disorientation No (0 pts) Intoxicated or Sedated No (0 pts) Impaired Gait No (0 pts) Mobility Assist Device Used No (0 pt) Altered Elimination No (0 pt) Score/Fall Risk Level 0 - 2 = Low Risk Oriented to surroundings, Maintained a safe environment, Educated pt \T\ family on fall prevention, incl call for assistance when getting out of bed. Abuse screen: Denies threats or abuse. Denies injuries from another. Nutritional screening: No deficits noted. Tuberculosis screening: No symptoms or risk factors identified. Assessment: 12:09 General: Appears in no apparent distress. comfortable, well groomed, well developed, kc6 Behavior is calm, cooperative, appropriate for age, Reports fatigue for >3 days. Pain: Denies pain. Neuro: Level of Consciousness is awake, alert, obeys commands, Oriented to person, place, time, situation, Appropriate for age Reports weakness. Cardiovascular: Denies chest pain, Capillary refill < 3 seconds. Respiratory: Reports shortness of breath on exertion Airway is patent Trachea midline Respiratory effort is even, unlabored, Respiratory pattern is regular, symmetrical. GI: No signs and/or symptoms were reported involving the gastrointestinal system. : No signs and/or symptoms were reported regarding the genitourinary system. EENT: No signs and/or symptoms were reported regarding the EENT system. Derm: No signs and/or symptoms reported regarding the dermatologic system. Skin is intact, is fragile, is thin, with poor turgor Skin is dry, Skin is pale, yellow, Skin temperature is warm. Musculoskeletal: No signs and/or symptoms reported regarding the musculoskeletal system. Circulation, motion, and sensation intact. Range of motion: intact in all extremities. 13:34 Reassessment: Patient appears in no apparent distress at this time. No changes from kc6 previously documented assessment. Patient and/or family updated on plan of care and expected duration. Pain level reassessed. Patient is alert, oriented x 3, equal unlabored respirations, skin warm/dry/pink. Vital Signs: 11:54 BP 160 / 71; Pulse 78; Resp 15; Temp 97.8(O); Pulse Ox 100% on R/A; Weight 95.25 kg; cm10 Height 5 ft. 11 in. ; Pain 0/10; 12:41 BP 123 / 53; Pulse 64; Resp 16 S; Pulse Ox 99% on R/A; kc6 11:54 Body Mass Index 29.29 (95.25 kg, 180.34 cm) cm10 11:54 Pain Scale: Adult cm10 ED Course: 11:46 Patient arrived in ED. mr 11:46 Jose Ibrahim MD is Attending Physician. ec2 11:48 Thalia aCmp, DUC is Primary Nurse. kc6 11:56 Triage completed. cm10 11:58 Arm band placed on right wrist. Patient placed in an exam room, on a stretcher. cm10 12:00 Patient has correct armband on for positive identification. Bed in low position. Call kc6 light in reach. Side rails up X2. quality assurance monitor final on. Pulse ox on. NIBP on. Door closed. Noise minimized. Lights dimmed. Warm blanket given. Pillow given. 12:09 Type And Screen Sent. 6 12:09 BMP Sent. 6 12:09 CBC with Diff Sent. 6 12:09 Initial lab(s) drawn, by in, sent to lab. Inserted saline lock: 20 gauge in right 6 antecubital area, using aseptic technique. Blood collected. Flushed with 10 mL NS. 12:09 Patient maintains SpO2 saturation greater than 95% on room air. kc6 13:34 Urine collected: clean catch specimen, cloudy. kc6 14:11 No provider procedures requiring assistance completed. IV discontinued, intact, kc6 bleeding controlled, No redness/swelling at site. Pressure dressing applied. Administered Medications: No medications were administered Medication: 14:12 VIS not applicable for this client. kc6 Outcome: 13:54 Discharge ordered by . ec2 14:11 Discharged to home ambulatory, kc6 14:11 Condition: good 14:11 Discharge instructions given to patient, Instructed on discharge instructions, follow up and referral plans. Demonstrated understanding of instructions, follow-up care, 14:12 Patient left the ED. kc6 Signatures: Bharati aPce, Reg Reg Thalia Camp, RN RN kc6 Jesi Batista 6 Gaby Allen RN RN 10 Jose Ibrahim MD MD 2
--- NOTE | 2024-07-09 13:54 | EDPHYS ---
Physician Documentation [facility] Name: Quentin Lei Age: 78 yrs Sex: Male : 1945 Arrival Date: 07/09/2024 Time: 11:42 Bed 17 Private MD: ED Physician Jose Ibrahim HPI: 07/09 12:04 This 78 yrs old Male presents to ER via Ambulatory with complaints of Anemia. ec2 12:04 Patient arrives today for evaluation of generalized weakness. History of anemia. ec2 Patient reports he believes his blood counts are low. Denies any other concerns.. Historical: - Allergies: 11:56 tramadol; cm10 - PMHx: 11:56 Anemia; Arthritis; Arevalo's Esophagus; Hypercholesterolemia; Hypertension; cm10 Hypothyroidism; Lung tumor with radiation tx completed January 2023; Osteoporosis; Myelodysplastic Syndrome; 11:58 COPD; cm10 - PSHx: 11:56 lung biopsy; triple bypass; cm10 - Immunization history:: Adult Immunizations up to date. - Infectious Disease History:: Denies. - Social history:: Smoking status: unknown. ROS: 12:04 Constitutional: as per hpi ec2 Exam: 12:04 Constitutional: GEN: NAD Head: atraumatic Eyes: EOMI Ears: External ears are ec2 normal. CV: regular rate LUNGS: no respiratory distress ABD: non-distended SKIN: no evidence of rashes MSK: no evidence of trauma Vital Signs: 11:54 BP 160 / 71; Pulse 78; Resp 15; Temp 97.8(O); Pulse Ox 100% on R/A; Weight 95.25 kg; cm10 Height 5 ft. 11 in. ; Pain 0/10; 12:41 BP 123 / 53; Pulse 64; Resp 16 S; Pulse Ox 99% on R/A; kc6 11:54 Body Mass Index 29.29 (95.25 kg, 180.34 cm) cm10 11:54 Pain Scale: Adult cm10 MDM: 11:47 Medical Screening Exam initiated ec2 12:04 Data reviewed:. Data reviewed: vital signs, nurses notes. ED course: Patient arrives ec2 today for evaluation of generalized weakness. Examination is unrevealing. Will obtain lab work. Differential includes dehydration, anemia.. 13:54 ED course: Labs unrevealing. Will discharge home. Return precautions given.. ec2 07/09 11:47 Order name: CBC with Diff; Complete Time: 12:17 ec2 07/09 11:47 Order name: BMP; Complete Time: 12:47 ec2 07/09 11:47 Order name: Type And Screen; Complete Time: 13:43 ec2 07/09 12:17 Order name: UAM; Complete Time: 13:48 ec2 07/09 11:47 Order name: IV; Complete Time: 12:07 ec2 Administered Medications: No medications were administered Disposition Summary: 07/09/24 13:54 Discharge Ordered Notes: Location: Home ec2 Condition: Stable ec2 Diagnosis - Weakness ec2 Followup: ec2 - With: Private Physician - When: - Reason: Re-evaluation by your physician Discharge Instructions: - Discharge Summary Sheet ec2 - Weakness ec2 Forms: - Medication Reconciliation Form ec2 - Antibiotic Education ec2 - Prescription Opioid Use ec2 - Patient Portal Instructions ec2 - Leadership Thank You Letter ec2 Signatures: Dispatcher [employer] Gaby Gurrola RN RN cm10 Jose Ibrahim MD MD ec2 Corrections: (The following items were deleted from the chart) 11:47 11:47 CBC+H.LAB.BRZ ordered. EDMS EDMS 11:47 11:47 BASIC METABOLIC PANEL+C.LAB.BRZ ordered. EDMS EDMS 11:47 11:47 TYPE AND SCREEN+BB.LAB.BRZ ordered. EDMS EDMS
[2024-07-09 14:29] VITALS: TEMP 97.8
[2024-07-09 14:35] VITALS: BP 123/53; O2SAT 99
== END 2024-07-09 14:12 | disposition home or self-care (01) ==
LOC: ER 11:42
DX: R53.1 Weakness (principal); D64.9 Anemia, unspecified; I10 Essential (primary) hypertension; J44.9 Chronic obstructive pulmonary disease, unspecified; Z95.1 Presence of aortocoronary bypass graft
CPT/HCPCS: 36415; 80048; 81001; 85025; 86850; 86900; 86901; 99284

== ENCOUNTER 2024-07-13 06:32 | Day surgery (SDC) | payer OTHER ==
[2024-07-13] MEDS ORDERED: NA CHLORIDE 0.9% 1,000 ML ONE (07:36)
[2024-07-13 08:22] LABS: Absolute Eosinophils 0.1 K/uL (0-0.5); Absolute Lymphocytes (CBC) 1.1 K/uL (0.7-4.9); Absolute Monocytes 0.4 K/uL (0.1-1.3); Absolute Neutrophil 1.8 K/uL (1.8-8.0); Basophils % 0.4 % (0-1.3); Eosinophils % 1.8 % (0-4.4); Hematocrit 19.3 % (39.6-49.0); Lymphocytes % 32.2 % (15.3-44.8); MCH 30.9 pg (27.0-35.0); MCV 85.9 fL (80-100); MPV 7.1 fL (7.6-11.3); Monocytes % 11.9 % (3.3-12.3); Neutrophils % 53.7 % (41.7-73.7); Platelets 127 thou/uL (152-406); RBC Red Blood Cell Count 2.25 M/uL (4.33-5.43); Red Cell Distribution Width 18.3 % (12.1-15.2)
[2024-07-13] MEDS ORDERED: FLUMAZENIL 0.1 MG/ML (5 mL VIAL) IV ONE (08:22)
[2024-07-13] MEDS ORDERED: MIDAZOLAM HCL 2 MG/2 ML INJ ONE (08:22)
[2024-07-13] MEDS ORDERED: NALOXONE HCL 2 MG/2 ML VIAL ONE (08:23)
[2024-07-13] MEDS ORDERED: FENTANYL CITR 100 MCG/2 ML ONE (08:23)
[2024-07-13 08:36] LABS: PT Prothrombin Time 12.4 SECONDS (9.4-12.5); PTT, Activated Partial Thromb 28.3 SECONDS (24.3-36.9); Protime INR 1.18
[2024-07-13 10:39] LABS: Percent Reticulocyte Count 1.51 % (0.4-2.05)
--- NOTE | 2024-07-13 11:30 | RAD REPORT ---
PROCEDURE: CT-GUIDED BIOPSY Pre-procedure diagnosis: Anemia Post-procedure diagnosis: Same as above. COMPLICATIONS: No immediate complications. IMPRESSION: CT-guided biopsy bone marrow aspiration and core biopsy PROCEDURE DETAILS: Consent: Informed consent for the procedure including risks, benefits and alternatives was obtained a nd time-out was performed prior to the procedure. Sedation: Moderate sedation (conscious sedation) Administered by: Nurse, or other independent traine d observer, with level of consciousness and vital signs continuously monitored. Total sedation administered: 100 mL Versed and 50 mcg Fentanyl. Total intra-service sedation time: 30 minutes. Biopsy: Local anesthesia was administered. Under CT guidance, the biopsy needle was advanced to the t arget and biopsy was performed. [id number]. Number of specimens: Aspirate plus core sample Additional sampling description: None. Preliminary assessment of sample adequacy: Not applicable. The biopsy needle was removed and a sterile dressing was applied. Post-biopsy imaging findings: No immediate complications seen. Additional Details: Estimated blood loss: Less than 10 mL.
[2024-07-13 11:38] LABS: Atypical Lymphocytes 14 %; Blood Morphology Comment NOT SEEN (NOT SEEN); Differential Total Cells Count 100; Eosinophils 1 % (0-3); Lymphocytes 27 % (15-42); Monocytes 4 % (0-10); Platelet Estimate DECR; Segmented Neutrophils 54 % (40-80)
[2024-07-13 11:52] LABS: Cytogenetics, Bone Marrow SENT; Flow Cytometry, Bone Marrow SENT
[2024-07-13 12:57] VITALS: BMI 29.2
[2024-07-13 13:01] VITALS: O2SAT 100
[2024-07-13 16:01] VITALS: BP 127/50; TEMP 97.7
== END 2024-07-13 16:01 | disposition home or self-care (01) ==
LOC: DS 06:32
PROVIDERS: ATTEND Internal Medicine
DX: C34.11 Malignant neoplasm of upper lobe, right bronchus or lung (principal); D64.9 Anemia, unspecified; I10 Essential (primary) hypertension; K76.0 Fatty (change of) liver, not elsewhere classified
CPT/HCPCS: 85025; 36415; 86900; 86850; 88313; 85610; 85044; 86901; 88305; 85730; 86920; 36430; 38221; J2250; J3010; P9016; J7030; J2310

== ENCOUNTER 2024-07-20 18:41 | Emergency (ER) | payer OTHER ==
[2024-07-20 19:33] LABS: Absolute Eosinophils 0.1 K/uL (0-0.5); Absolute Lymphocytes (CBC) 1.4 K/uL (0.7-4.9); Absolute Monocytes 0.5 K/uL (0.1-1.3); Absolute Neutrophil 3.6 K/uL (1.8-8.0); Basophils % 0.2 % (0-1.3); Eosinophils % 1.1 % (0-4.4); Hemoglobin 7.7 g/dL (13.6-17.9); Lymphocytes % 24.4 % (15.3-44.8); MCH 30.6 pg (27.0-35.0); MCV 87.4 fL (80-100); MPV 7.2 fL (7.6-11.3); Monocytes % 9.6 % (3.3-12.3); Neutrophils % 64.7 % (41.7-73.7); Nucleated Red Blood Cells % 0.1 % (0-0); Platelets 183 thou/uL (152-406); RBC Red Blood Cell Count 2.51 M/uL (4.33-5.43); Red Cell Distribution Width 18.2 % (12.1-15.2)
[2024-07-20 19:41] LABS: PT Prothrombin Time 15.9 SECONDS (9.4-12.5); Protime INR 1.52
[2024-07-20 19:53] LABS: Albumin 3.6 g/dL (3.4-5.0); Anion Gap 11.4 mEq/L (5.0-15.0); Bilirubin Direct 0.2 mg/dL (0-0.2); Bilirubin Indirect, Calculated 0.5 mg/dL (0.2-0.8); Bilirubin Total 0.7 mg/dL (0.2-1.0); Globulin 3.5 g/dL (2.3-3.5); Magnesium 2.3 mg/dL (1.6-2.4); Potassium 4.4 mEq/L (3.5-5.1); Protein, Total 7.1 g/dL (6.4-8.2); Troponin High Sensitivity 14.9 pg/mL (<58.9)
[2024-07-20] MEDS ORDERED: NA CHLORIDE 0.9% 500 ML ONE (21:07)
[2024-07-20 21:31] LABS: SARS-CoV-2 Antigen CONTROL BLUE LINE VIS/BG OK; SARS-CoV-2 Antigen Rapid Res Negative (Negative)
--- NOTE | 2024-07-21 02:16 | ER ---
Nurse's Notes [facility] Name: Quentin Lei Age: 78 yrs Sex: Male : 1945 Arrival Date: 07/20/2024 Time: 18:41 Bed 7 Private MD: Diagnosis: Anemia, unspecified Presentation: 07/20 18:48 Chief complaint: Patient states: Weak and dizzy for 2 days. Sore throat for 2-3 days, ll1 no fever. Last blood transfusion was last week. Coronavirus screen: Client denies travel out of the [place] in the last 14 days. fatigue, sore throat, Client presents with at least one sign or symptom that may indicate coronavirus-19. Standard/surgical mask placed on the client. Ebola Screen: Patient denies travel to an Ebola-affected area in the 21 days before illness onset. No acute neurological deficit is noted. Initial Sepsis Screen: Does the patient meet any 2 criteria? No. Patient's initial sepsis screen is negative. Does the patient have a suspected source of infection? No. Patient's initial sepsis screen is negative. Risk Assessment: Do you want to hurt yourself or someone else? Patient reports no desire to harm self or others. Onset of symptoms was July 18, 2024. 18:48 Method Of Arrival: Ambulatory ll1 18:48 Acuity: MAE 3 ll1 Triage Assessment: 18:48 General: Appears uncomfortable, Behavior is calm, cooperative, appropriate for age. ll1 Pain: Complains of pain in throat Quality of pain is described as aching. EENT: Reports pain when swallowing. Neuro: Reports dizziness, weakness. Stroke Activation: Symptom onset > 6 hours Physician: ED Attending; Name: ; Notified At: ; Arrived At: Physician: Mid-Level Provider; Name: ; Notified At: ; Arrived At: Physician: [not used]; Name: ; Notified At: ; Arrived At: Physician: [not used]; Name: ; Notified At: ; Arrived At: Physician: [not used]; Name: ; Notified At: ; Arrived At: Historical: - Allergies: 18:44 tramadol; ll1 - PMHx: 18:44 Anemia; Arthritis; Arevalo's Esophagus; Hypercholesterolemia; COPD; Hypothyroidism; ll1 Lung tumor with radiation tx completed January 2023; Hypertension; Osteoporosis; Myelodysplastic Syndrome; - PSHx: 18:44 triple bypass; lung biopsy; ll1 - Immunization history:: Adult Immunizations up to date. - Infectious Disease History:: Denies. - Social history:: Smoking status: Patient/guardian denies using tobacco, the patient reports quitting approximately 20 years ago. Screenin:51 [facility] ED Fall Risk Assessment (Adult) History of falling in the last 3 months, bm8 including since admission No falls in past 3 months (0 pts) Confusion or Disorientation No (0 pts) Intoxicated or Sedated No (0 pts) Impaired Gait No (0 pts) Mobility Assist Device Used No (0 pt) Altered Elimination No (0 pt) Score/Fall Risk Level 0 - 2 = Low Risk Oriented to surroundings, Maintained a safe environment, Educated pt \T\ family on fall prevention, incl call for assistance when getting out of bed, Assessed \T\ reinforced patient's understanding of fall precautions, Hourly rounding (assess needs \T\ fall precautionary measures) done, Used ambulatory aids as needed (educated on \T\ assisted with), Used gait belt as appropriate. Abuse screen: Denies threats or abuse. Nutritional screening: No deficits noted. Tuberculosis screening: No symptoms or risk factors identified. Assessment: 20:51 VAN Scoring: Arm Drift: Patients demonstrates NO arm weakness. Patient is VAN Negative. bm8 Visual Disturbance: No visual disturbance noted. [place]by Swallow Protocol Exclusion Criteria: Unable to remain alert for testing: No NPO for medical/surgical reason by provider order No Head-of-bed restricted <30 degrees Tracheostomy tube present No No thin liquids due to preexisting dysphagia/baseline modified diet thickened liquids No Exclusion Criteria Result: Proceed Brief Cognitive Screen What is your name? Normal, Where are you right now? Normal, What year is it? Normal. Oral Mechanism Examination Facial Symmetry: Normal, Motion: Normal, Lip Closure: Normal, Oral Mechanism Result: Normal. 3 oz Water Swallow Challenge: Pt able to drink all water without stopping, coughing, choking or throat clearing: Yes Result: ANTONIA GALEANA Notified: Brandon Quintero MD. TNKase (Tenecteplase) Screening: Not Applicable. Reassessment: Patient appears in no apparent distress at this time. Patient and/or family updated on plan of care and expected duration. Pain level reassessed. Patient is alert, oriented x 3, equal unlabored respirations, skin warm/dry/pink. Patient denies pain at this time. General: Appears in no apparent distress. comfortable, Behavior is calm, cooperative, appropriate for age. Pain: Denies pain. Neuro: No deficits noted. Level of Consciousness is awake, alert, obeys commands, Oriented to person, place, time, situation, Appropriate for age. Cardiovascular: Denies chest pain, Capillary refill < 3 seconds in bilateral fingers Patient's skin is warm and dry. Rhythm is sinus rhythm. Respiratory: Airway is patent Respiratory effort is even, unlabored, Respiratory pattern is regular, symmetrical. GI: No signs and/or symptoms were reported involving the gastrointestinal system. : No signs and/or symptoms were reported regarding the genitourinary system. EENT: No signs and/or symptoms were reported regarding the EENT system. Derm: No signs and/or symptoms reported regarding the dermatologic system. Musculoskeletal: No signs and/or symptoms reported regarding the musculoskeletal system. 23:12 Reassessment: Patient appears in no apparent distress at this time. No changes from bm8 previously documented assessment. Patient and/or family updated on plan of care and expected duration. Pain level reassessed. Patient is alert, oriented x 3, equal unlabored respirations, skin warm/dry/pink. Patient denies pain at this time. 23:12 Reassessment: 1st unit of blood started. bm8 07/21 00:23 Reassessment: Patient appears in no apparent distress at this time. No changes from bm8 previously documented assessment. Patient and/or family updated on plan of care and expected duration. Pain level reassessed. Patient is alert, oriented x 3, equal unlabored respirations, skin warm/dry/pink. 1st unit of blood complete Patient denies pain at this time. Patient states feeling better. 00:45 Reassessment: 2nd unit of blood started. bm8 01:07 Reassessment: Patient appears in no apparent distress at this time. Patient and/or bm8 family updated on plan of care and expected duration. Pain level reassessed. Patient is alert, oriented x 3, equal unlabored respirations, skin warm/dry/pink. Patient denies pain at this time. Patient states feeling better. Patient states symptoms have improved. 02:03 Reassessment: Patient appears in no apparent distress at this time. No changes from bm8 previously documented assessment. Patient and/or family updated on plan of care and expected duration. Pain level reassessed. Patient is alert, oriented x 3, equal unlabored respirations, skin warm/dry/pink. 2nd unit of blood completed Patient denies pain at this time. Patient states feeling better. Patient states symptoms have improved. Vital Signs: 07/20 18:48 BP 151 / 68; Pulse 81; Resp 17; Temp 97.7; Pulse Ox 99% ; Weight 95.25 kg; Height 5 ft. ll1 11 in. ; Pain 0/10; 20:51 BP 122 / 58; Pulse 67; Resp 18; Temp 97.7; Pulse Ox 98% ; Pain 0/10; bm8 23:12 BP 124 / 56; Pulse 60; Resp 17; Temp 97.8; Pulse Ox 95% ; bm8 07/21 00:23 BP 109 / 62; Pulse 63; Resp 18; Temp 97.7; Pulse Ox 96% ; Pain 0/10; bm8 01:07 BP 109 / 62; Pulse 76; Resp 18; Temp 97.6; Pulse Ox 97% ; Pain 0/10; bm8 02:03 BP 117 / 55; Pulse 68; Resp 18; Temp 98; Pulse Ox 97% ; Pain 0/10; bm8 07/20 18:48 Body Mass Index 29.29 (95.25 kg, 180.34 cm) ll1 07/20 18:48 Pain Scale: Adult ll1 20:51 Pain Scale: Adult bm8 07/21 00:23 Pain Scale: Adult bm8 01:07 Pain Scale: Adult bm8 02:03 Pain Scale: Adult bm8 [place] Coma Score: 07/20 20:51 Eye Response: spontaneous(4). Motor Response: obeys commands(6). Verbal Response: bm8 oriented(5). Total: 15. 23:12 Eye Response: spontaneous(4). Motor Response: obeys commands(6). Verbal Response: bm8 oriented(5). Total: 15. 07/21 00:23 Eye Response: spontaneous(4). Motor Response: obeys commands(6). Verbal Response: bm8 oriented(5). Total: 15. :07 Eye Response: spontaneous(4). Motor Response: obeys commands(6). Verbal Response: bm8 oriented(5). Total: 15. 02:03 Eye Response: spontaneous(4). Motor Response: obeys commands(6). Verbal Response: bm8 oriented(5). Total: 15. NIH Stroke Scale Scores: 07/20 20:51 NIHSS Score: 0 bm8 ED Course: 18:43 Patient arrived in ED. ra3 18:44 Arm band placed on. ll1 18:45 Salvador Nieves MD is Attending Physician. sp3 18:49 Triage completed. ll1 19:26 Inserted saline lock: 20 gauge in right antecubital area, using aseptic technique. mm11 Blood collected. Flushed with 10 mL NS. 19:27 Basic Metabolic Panel Sent. mm11 19:27 CBC with Diff Sent. mm11 19:27 LFT's Sent. mm11 19:27 Magnesium Sent. mm11 19:27 NT PRO-BNP Sent. mm11 19:27 PT-INR Sent. mm11 19:27 Troponin HS Sent. mm11 19:27 Type And Screen Sent. mm11 20:22 Adebayo Salas, RN is Primary Nurse. bm8 20:26 Attending Physician role handed off by Salvador Nieves MD bo1 20:26 Brandon Quintero MD is Attending Physician. bo1 20:51 Patient has correct armband on for positive identification. Placed in gown. Bed in low bm8 position. Call light in reach. Side rails up X 1. Client placed on continuous cardiac and pulse oximetry monitoring. NIBP monitoring applied. academic support center director on. Pulse ox on. NIBP on. Door closed. Noise minimized. Warm blanket given. Pillow given. PO fluids given. Verbal reassurance given. Head of bed elevated. 20:51 Provided Education on: Blood Transfusion. bm8 20:51 No provider procedures requiring assistance completed. Lab(s) recollected, by me, sent bm8 to lab. COVID swab sent to lab. Flu and/or RSV swab sent to lab. Strep swab sent to lab. T\T\S collected, blood band applied to patient. Patient maintains SpO2 saturation greater than 95% on room air. 07/21 02:22 IV discontinued, intact, bleeding controlled, No redness/swelling at site. Pressure vc1 dressing applied. Administered Medications: No medications were administered Medication: 07/20 20:51 VIS not applicable for this client. bm8 23:12 Blood products: PRBCs. bm8 07/21 02:03 Blood products: PRBCs X 2 units given. See transfusion record. bm8 Outcome: 02:15 Discharge ordered by . bo1 02:21 Discharged to home ambulatory, vc1 02:21 Condition: stable 02:21 Discharge instructions given to patient, Instructed on discharge instructions, follow up and referral plans. Demonstrated understanding of instructions, follow-up care, 02:22 Patient left the ED. vc1 NIH Stroke Scale - NIH Stroke Score Date: 07/20/2024 Time: 20:51 Total Score = 0 10. Dysarthria (speech clarity - read or repeat words) - 0(Normal) 11. Extinction and Inattention (visual/tactile/auditory/spatial/personal) - 0(No abnormality) 1a. Level of Consciousness (LOC) - 0(Alert) 1b. Level of Consciousness (LOC) (Month \T\ Age) - 0(Both) 1c. LOC Commands (Open \T\ Closes Eyes/Litigation Associate) - 0(Both) 2. Best Gaze (Lateral Gaze Paresis) - 0(Normal) 3. Visual Field Loss - 0(No visual loss) 4. Facial Palsy - 0(Normal) 5a. Left Arm: Motor (10-second hold) - 0(No drift) 5b. Right Arm: Motor (10-second hold) - 0(No drift) 6a. Left Leg: Motor (5-second hold - always test supine) - 0(No drift) 6b. Right Leg: Motor (5-second hold - always test supine) - 0(No drift) 7. Limb Ataxia (finger/nose \T\ heel/echevarria - test with eyes open) - 0(Absent) 8. Sensory Loss (pinprick arms/legs/face) - 0(Normal) 9. Best Language: Aphasia (description/naming/reading) - 0(No aphasia) Initials: bm8 Signatures: Jian Cowan RN RN ll1 Salvador Nieves MD MD sp3 Maria E Bonilla RN RN vc1 Rupinder Gómez ra3 Brandon Quintero MD MD bo1 Adebayo Salas RN RN bm8 kenisha sierra mm11 Corrections: (The following items were deleted from the chart) 07/20 18:57 18:48 Chief complaint: Patient states: Weak and dizzy for 2 days. Sore throat ll1 for 2-3 days, no fever. ll1
--- NOTE | 2024-07-21 02:16 | EDPHYS ---
Physician Documentation [facility] Name: Quentin Lei Age: 78 yrs Sex: Male : 1945 Arrival Date: 07/20/2024 Time: 18:41 Bed 7 Private MD: ED Physician Brandon Quintero HPI: 07/20 19:42 This 78 yrs old Male presents to ER via Ambulatory with complaints of Weakness, sp3 Dizziness. 19:42 78-year-old male with a history of chronic anemia, Arevalo's esophagitis, sp3 hyperlipidemia, COPD, hypothyroidism, with frequent blood transfusions, with bone marrow biopsy pending as of last week now presents to the ED for recurrent generalized weakness and fatigue. Patient is concerned that his hemoglobin may be low again. He also has a small sore throat which she would like us to evaluate. He denies any fever, shortness of breath, chest pain, abdominal pain, vomiting, diarrhea, melena, bleeding, syncope, or any other signs or symptoms on ROS at this time.. Historical: - Allergies: 18:44 tramadol; ll1 - PMHx: 18:44 Anemia; Arthritis; Arevalo's Esophagus; Hypercholesterolemia; COPD; Hypothyroidism; ll1 Lung tumor with radiation tx completed January 2023; Hypertension; Osteoporosis; Myelodysplastic Syndrome; - PSHx: 18:44 triple bypass; lung biopsy; ll1 - Immunization history:: Adult Immunizations up to date. - Infectious Disease History:: Denies. - Social history:: Smoking status: Patient/guardian denies using tobacco, the patient reports quitting approximately 20 years ago. ROS: 19:46 Constitutional: Negative for fever, chills, and weight loss, Eyes: Negative for injury, sp3 pain, redness, and discharge, Neck: Negative for injury, pain, and swelling, Cardiovascular: Negative for chest pain, palpitations, and edema, Respiratory: Negative for shortness of breath, cough, wheezing, and pleuritic chest pain, Abdomen/GI: Negative for abdominal pain, nausea, vomiting, diarrhea, and constipation, Back: Negative for injury and pain, MS/Extremity: Negative for injury and deformity, Skin: Negative for injury, rash, and discoloration, Neuro: Negative for headache, weakness, numbness, tingling, and seizure, Psych: Negative for depression, anxiety, suicide ideation, homicidal ideation, and hallucinations, Allergy/Immunology: Negative for hives, rash, and allergies, 19:46 All other systems are negative, Exam: 19:46 Constitutional: This is a well developed, well nourished patient who is awake, alert, sp3 and in no acute distress. Head/Face: Normocephalic, atraumatic. Eyes: Pupils equal round and reactive to light, extra-ocular motions intact. Lids and lashes normal. Conjunctiva and sclera are non-icteric and not injected. Cornea within normal limits. Periorbital areas with no swelling, redness, or edema. ENT: Nares patent. No nasal discharge, no septal abnormalities noted. External auditory canals are clear. Oropharynx with no redness, swelling, or masses, exudates, or evidence of obstruction, uvula midline. Mucous membranes moist. Neck: Trachea midline, no thyromegaly or masses palpated, and no cervical lymphadenopathy. Supple, full range of motion without nuchal rigidity, or vertebral point tenderness. No Meningismus. Chest/axilla: Normal chest wall appearance and motion. Nontender with no deformity. No lesions are appreciated. Cardiovascular: Regular rate and rhythm with a normal S1 and S2. No gallops, murmurs, or rubs. Normal PMI, no JVD. No pulse deficits. Respiratory: Lungs have equal breath sounds bilaterally, clear to auscultation and percussion. No rales, rhonchi or wheezes noted. No increased work of breathing, no retractions or nasal flaring. Abdomen/GI: Soft, non-tender, with normal bowel sounds. No distension or tympany. No guarding or rebound. No evidence of tenderness throughout. Back: No spinal tenderness. No costovertebral tenderness. Full range of motion. Skin: Warm, dry with normal turgor. Normal color with no rashes, no lesions, and no evidence of cellulitis. MS/ Extremity: Pulses equal, no cyanosis. Neurovascular intact. Full, normal range of motion. Neuro: Awake and alert, GCS 15, oriented to person, place, time, and situation. Cranial nerves II-XII grossly intact. Motor strength 5/5 in all extremities. Sensory grossly intact. Cerebellar exam normal. Normal gait. Psych: Awake, alert, with orientation to person, place and time. Behavior, mood, and affect are within normal limits. 19:46 ECG was reviewed by the Attending Physician. EKG demonstrates normal sinus rhythm at 81 bpm with normal intervals, normal QRS, normal axis, nonspecific diffuse ST/T changes without evidence of acute ischemia. Vital Signs: 18:48 BP 151 / 68; Pulse 81; Resp 17; Temp 97.7; Pulse Ox 99% ; Weight 95.25 kg; Height 5 ft. ll1 11 in. ; Pain 0/10; 20:51 BP 122 / 58; Pulse 67; Resp 18; Temp 97.7; Pulse Ox 98% ; Pain 0/10; bm8 23:12 BP 124 / 56; Pulse 60; Resp 17; Temp 97.8; Pulse Ox 95% ; bm8 07/21 00:23 BP 109 / 62; Pulse 63; Resp 18; Temp 97.7; Pulse Ox 96% ; Pain 0/10; bm8 01:07 BP 109 / 62; Pulse 76; Resp 18; Temp 97.6; Pulse Ox 97% ; Pain 0/10; bm8 02:03 BP 117 / 55; Pulse 68; Resp 18; Temp 98; Pulse Ox 97% ; Pain 0/10; bm8 07/20 18:48 Body Mass Index 29.29 (95.25 kg, 180.34 cm) ll1 07/20 18:48 Pain Scale: Adult ll1 20:51 Pain Scale: Adult bm8 07/21 00:23 Pain Scale: Adult bm8 01:07 Pain Scale: Adult bm8 02:03 Pain Scale: Adult bm8 NIH Stroke Scale Scores: 07/20 20:51 NIHSS Score: 0 bm8 [place] Coma Score: 20:51 Eye Response: spontaneous(4). Motor Response: obeys commands(6). Verbal Response: bm8 oriented(5). Total: 15. 23:12 Eye Response: spontaneous(4). Motor Response: obeys commands(6). Verbal Response: bm8 oriented(5). Total: 15. 07/21 00:23 Eye Response: spontaneous(4). Motor Response: obeys commands(6). Verbal Response: bm8 oriented(5). Total: 15. 01:07 Eye Response: spontaneous(4). Motor Response: obeys commands(6). Verbal Response: bm8 oriented(5). Total: 15. 02:03 Eye Response: spontaneous(4). Motor Response: obeys commands(6). Verbal Response: bm8 oriented(5). Total: 15. MDM: 07/20 18:46 Medical Screening Exam initiated sp3 19:47 Data reviewed: vital signs, nurses notes, lab test result(s), EKG. ED course: sp3 78-year-old male with generalized weakness. Differential diagnosis includes recurrent anemia, electrolyte abnormality, viral illness, strep pharyngitis, among others. Workup will include general labs, EKG and viral swabs. Disposition pending workup and patient course with probable discharge home after PRBCs if indicated. Patient is well plugged into PCP and hematology.. 07/21 02:13 ED course: Transfusion is completed (2 units of PRBCs). bo 07/20 19:00 Order name: Type And Screen 3 07/20 19:00 Order name: Basic Metabolic Panel; Complete Time: 20:17 [facility] 07/20 19:00 Order name: CBC with Diff; Complete Time: 20:17 [facility] 07/20 19:00 Order name: LFT's; Complete Time: 20:17 [facility] 07/20 19:00 Order name: Magnesium; Complete Time: 20:17 [facility] 07/20 19:00 Order name: NT PRO-BNP; Complete Time: 20:17 [facility] 07/20 19:00 Order name: PT-INR; Complete Time: 20:17 [facility] 07/20 19:00 Order name: Troponin HS; Complete Time: 20:17 [facility] 07/20 19:48 Order name: Strep [facility] 07/20 19:48 Order name: Flu; Complete Time: 02:18 [facility] 07/20 19:48 Order name: SARS RAPID; Complete Time: 02:18 [facility] 07/20 20:29 Order name: Packed RBC Leukored [facility] 07/20 21:34 Order name: Throat Culture [facility] 07/20 19:00 Order name: Cardiac monitoring; Complete Time: 20:56 [facility] 07/20 19:00 Order name: EKG - Nurse/Tech; Complete Time: 20:56 [facility] 07/20 19:00 Order name: IV Saline Lock; Complete Time: 19:27 [facility] 07/20 19:00 Order name: Labs collected and sent; Complete Time: 19:27 [facility] 07/20 19:00 Order name: O2 Per Protocol; Complete Time: 20:56 sp3 07/20 19:00 Order name: O2 Sat Monitoring; Complete Time: 20:56 sp3 07/20 20:23 Order name: Transfuse; Complete Time: 23:24 bo1 EC/31 20:38 Rate is 68 beats/min. Rhythm is regular. Left axis deviation noted. Q waves are Present bo1 in lead aVR. T waves are Inverted in leads V1, V2, V3. Clinical impression: Normal ECG, LVH, Septal CO - age indeterminate, and RBBB. Interpreted by me. Reviewed by me. Administered Medications: No medications were administered Disposition Summary: 07/21/24 02:15 Discharge Ordered Notes: Location: Home bo1 Problem: chronic bo1 Symptoms: have improved bo1 Condition: Stable bo1 Diagnosis - Anemia, unspecified bo1 Followup: bo1 - With: Private Physician - When: Upon discharge from the Emergency Department - Reason: Recheck today's complaints, Continuance of care Discharge Instructions: - Discharge Summary Sheet bo1 - Anemia bo1 - Blood Transfusion, Adult bo1 Forms: - Medication Reconciliation Form bo1 - Antibiotic Education bo1 - Prescription Opioid Use bo1 - Patient Portal Instructions bo1 - Leadership Thank You Letter bo1 NIH Stroke Scale - NIH Stroke Score Date: 07/20/2024 Time: 20:51 Total Score = 0 10. Dysarthria (speech clarity - read or repeat words) - 0(Normal) 11. Extinction and Inattention (visual/tactile/auditory/spatial/personal) - 0(No abnormality) 1a. Level of Consciousness (LOC) - 0(Alert) 1b. Level of Consciousness (LOC) (Month \T\ Age) - 0(Both) 1c. LOC Commands (Open \T\ Closes Eyes/Bilingual Student Tutor) - 0(Both) 2. Best Gaze (Lateral Gaze Paresis) - 0(Normal) 3. Visual Field Loss - 0(No visual loss) 4. Facial Palsy - 0(Normal) 5a. Left Arm: Motor (10-second hold) - 0(No drift) 5b. Right Arm: Motor (10-second hold) - 0(No drift) 6a. Left Leg: Motor (5-second hold - always test supine) - 0(No drift) 6b. Right Leg: Motor (5-second hold - always test supine) - 0(No drift) 7. Limb Ataxia (finger/nose \T\ heel/echevarria - test with eyes open) - 0(Absent) 8. Sensory Loss (pinprick arms/legs/face) - 0(Normal) 9. Best Language: Aphasia (description/naming/reading) - 0(No aphasia) Initials: bm8 Signatures: Dispatcher [employer] EDMS Jian Cowan, RN RN ll1 Salvador Nieves MD MD sp3 Brandon Quintero MD MD bo1 Corrections: (The following items were deleted from the chart) 19:01 19:01 Chest Single View+RAD.RAD.BRZ ordered. EDMS EDMS 19:48 19:48 Group A Streptococcus Rapid Sc+BA.LAB.BRZ ordered. EDMS EDMS 19:48 19:48 Influenza Screen (A \T\ B)+BA.LAB.BRZ ordered. EDMS EDMS 19:48 19:48 SARS-COV-2 Antigen Rapid+I.LAB.BRZ ordered. EDMS EDMS 21:27 20:24 PACKED RBC LEUKORED+BB.LAB.BRZ ordered. EDMS EDMS 21:27 20:26 ABO/RH typing ordered. EDMS EDMS 21:27 20:26 Antibody Screen ordered. EDMS EDMS
[2024-07-21 02:49] VITALS: O2SAT 97
[2024-07-21 02:51] VITALS: BP 117/55; TEMP 98
== END 2024-07-21 02:22 | disposition home or self-care (01) ==
LOC: ER 18:41
DX: D64.9 Anemia, unspecified (principal); I10 Essential (primary) hypertension; J44.9 Chronic obstructive pulmonary disease, unspecified; Z95.1 Presence of aortocoronary bypass graft; Z11.52 Encounter for screening for COVID-19
CPT/HCPCS: 87070; 85025; 80048; 36415; 86900; 83735; 86850; 85610; 86901; 80076; 87081; 86920 ×2; 84484; 83880; 87804 ×2; 36430; 99285; 87811; P9016 ×2; J7050; 93005

== ENCOUNTER 2024-08-09 17:16 | Emergency (ER) | payer OTHER ==
[2024-08-09 18:03] LABS: Absolute Lymphocytes (CBC) 1.4 K/uL (0.7-4.9); Absolute Monocytes 0.4 K/uL (0.1-1.3); Absolute Neutrophil 2.2 K/uL (1.8-8.0); Basophils % 0.4 % (0-1.3); Eosinophils % 1.2 % (0-4.4); Hematocrit 22.7 % (39.6-49.0); Hemoglobin 7.7 g/dL (13.6-17.9); Lymphocytes % 34.8 % (15.3-44.8); MCH 29.4 pg (27.0-35.0); MCHC 33.7 g/dL (32.0-36.0); MCV 87.1 fL (80-100); MPV 7.1 fL (7.6-11.3); Monocytes % 9.3 % (3.3-12.3); Neutrophils % 54.3 % (41.7-73.7); Nucleated Red Blood Cells % 0.1 % (0-0); Platelets 147 thou/uL (152-406); RBC Red Blood Cell Count 2.61 M/uL (4.33-5.43); Red Cell Distribution Width 19.2 % (12.1-15.2)
[2024-08-09 18:23] LABS: Albumin 3.6 g/dL (3.4-5.0); Anion Gap 8.3 mEq/L (5.0-15.0); Bilirubin Direct 0.2 mg/dL (0-0.2); Bilirubin Indirect, Calculated 0.4 mg/dL (0.2-0.8); Bilirubin Total 0.6 mg/dL (0.2-1.0); Globulin 3.6 g/dL (2.3-3.5); Potassium 4.3 mEq/L (3.5-5.1); Protein, Total 7.2 g/dL (6.4-8.2); Troponin High Sensitivity 22.2 pg/mL (<58.9)
--- NOTE | 2024-08-09 22:23 | EDPHYS ---
Physician Documentation [facility] Name: Quentin Lei Age: 78 yrs Sex: Male : 1945 Arrival Date: 08/09/2024 Time: 17:16 Bed 8 Private MD: ED Physician Peter Cottrell HPI: 08/09 18:17 This 78 yrs old Male presents to ER via Ambulatory with complaints of Shortness Of rt Breath, Weakness. 18:17 Patient with history of chronic anemia without bleeding presents to the ED with rt shortness of breath, generalized weakness starting today. This feels similar to when he needs a blood transfusion. Denies any active bleeding currently. Denies other acute complaints at this time, symptoms are moderate in severity, no other aggravating or alleviating factors.. Historical: - Allergies: 17:32 tramadol; ap3 - PMHx: 17:32 Anemia; Arthritis; Arevalo's Esophagus; COPD; Hypercholesterolemia; Hypertension; ap3 Hypothyroidism; Lung tumor with radiation tx completed January 2023; Myelodysplastic Syndrome; Osteoporosis; - PSHx: 17:32 lung biopsy; triple bypass; ap3 - Immunization history:: Client reports receiving the 2nd dose of the Covid vaccine, Flu vaccine is up to date. - Infectious Disease History:: Denies. - Social history:: Smoking status: Patient denies any tobacco usage or history of. - Family history:: not pertinent. ROS: 18:17 Constitutional: Negative for fever, chills, and weight loss, Cardiovascular: Negative rt for chest pain, palpitations, and edema, Abdomen/GI: Negative for abdominal pain, nausea, vomiting, diarrhea, and constipation, MS/Extremity: Negative for injury and deformity, Skin: Negative for injury, rash, and discoloration, 18:17 Respiratory: Positive for shortness of breath, Negative for cough, 18:17 Neuro: Positive for weakness, Negative for syncope, Exam: 18:17 Constitutional: This is a well developed, well nourished patient who is awake, alert, rt and in no acute distress. Head/Face: Normocephalic, atraumatic. Chest/axilla: Normal chest wall appearance and motion. Nontender with no deformity. No lesions are appreciated. Cardiovascular: Regular rate and rhythm with a normal S1 and S2. No gallops, murmurs, or rubs. Normal PMI, no JVD. No pulse deficits. Respiratory: Lungs have equal breath sounds bilaterally, clear to auscultation and percussion. No rales, rhonchi or wheezes noted. No increased work of breathing, no retractions or nasal flaring. Abdomen/GI: Soft, non-tender, with normal bowel sounds. No distension or tympany. No guarding or rebound. No evidence of tenderness throughout. Skin: Warm, dry with normal turgor. Normal color with no rashes, no lesions, and no evidence of cellulitis. MS/ Extremity: Pulses equal, no cyanosis. Neurovascular intact. Full, normal range of motion. Neuro: Awake and alert, GCS 15, oriented to person, place, time, and situation. Cranial nerves II-XII grossly intact. Motor strength 5/5 in all extremities. Sensory grossly intact. Cerebellar exam normal. Normal gait. 18:17 ECG was reviewed by the Attending Physician. Vital Signs: 17:31 BP 172 / 68; Pulse 87; Resp 16; Temp 97.9(TE); Pulse Ox 99% ; Weight 94.35 kg; Height 5 ap3 ft. 11 in. ; 18:00 BP 129 / 61; Pulse 77; Resp 16 S; Pulse Ox 100% on R/A; aa5 19:00 BP 164 / 58; Pulse 84; Resp 16; Pulse Ox 100% on R/A; al5 20:00 BP 147 / 59; Pulse 71; Resp 17; Pulse Ox 100% on R/A; al5 21:00 BP 152 / 68; Pulse 68; Resp 17; Pulse Ox 100% on R/A; al5 22:00 BP 145 / 60; Pulse 73; Resp 14; Pulse Ox 100% on R/A; al5 23:00 BP 114 / 55; Pulse 68; Resp 15; Pulse Ox 100% on R/A; al5 17:31 Body Mass Index 29.01 (94.35 kg, 180.34 cm) ap3 NIH Stroke Scale Scores: 22:25 NIHSS Score: 0 sp4 [place] Coma Score: 22:25 Eye Response: spontaneous(4). Motor Response: obeys commands(6). Verbal Response: sp4 oriented(5). Total: 15. MDM: 17:32 Medical Screening Exam initiated rt 22:19 Differential diagnosis: Anemia Anxiety Reaction asthma, Bronchitis CHF exacerbation, sp4 Chronic Obstructive Pulmonary Disease. Data reviewed: vital signs, nurses notes, lab test result(s), EKG. ED course: Patient declined x-ray of the chest. Patient also refused admission. Patient was offered admission for evaluation of shortness of breath with physical exertion. Patient declined that. Patient was informed that in case he changes his mind we can always admit him for further evaluation and a workup targeting to determine if he has a heart failure.. 08/09 17:38 Order name: Basic Metabolic Panel; Complete Time: 19:11 rt 08/09 17:38 Order name: CBC with Diff; Complete Time: 19:11 rt 08/09 17:38 Order name: LFT's; Complete Time: 19:11 rt 08/09 17:38 Order name: Troponin HS; Complete Time: 19: rt 08/09 17:38 Order name: Type And Screen; Complete Time: 19:11 rt 08/09 21:33 Order name: BNP; Complete Time: 23:19 sp4 08/09 21:33 Order name: TSH; Complete Time: 23:19 sp4 08/09 21:33 Order name: T4 Free; Complete Time: 23:19 sp4 08/09 17:38 Order name: EKG; Complete Time: 17:38 rt 08/09 17:38 Order name: Cardiac monitoring; Complete Time: 17:49 rt 08/09 17:38 Order name: EKG - Nurse/Tech; Complete Time: 17:49 rt 08/09 17:38 Order name: IV Saline Lock; Complete Time: 17:49 rt 08/09 17:38 Order name: Labs collected and sent; Complete Time: 17:49 rt 08/09 17:38 Order name: O2 Per Protocol; Complete Time: 17:49 rt 08/09 17:38 Order name: O2 Sat Monitoring; Complete Time: 17:49 rt EC:17 Rate is 79 beats/min. Rhythm is regular, Normal Sinus Rhythm with Right bundle branch rt block, LVH present. QRS [place] is Normal. NV interval is normal. QRS interval is normal. QT interval is normal. No Q waves. Administered Medications: No medications were administered Disposition Summary: 08/09/24 22:22 Discharge Ordered Problem: new sp4 Symptoms: are unchanged sp4 Condition: Stable sp4 Diagnosis - Shortness of breath sp4 - Dyspnea on exertion, chronic anemia, history of COPD, sp4 Followup: sp4 - With: Private Physician - When: 7 - 10 days - Reason: Recheck today's complaints Discharge Instructions: - Discharge Summary Sheet sp4 - Shortness of Breath, Adult, [id number] sp4 Forms: - Patient Portal Instructions sp4 NIH Stroke Scale - NIH Stroke Score Date: 08/09/2024 Time: 22:25 Total Score = 0 10. Dysarthria (speech clarity - read or repeat words) - 0(Normal) 11. Extinction and Inattention (visual/tactile/auditory/spatial/personal) - 0(No abnormality) 1a. Level of Consciousness (LOC) - 0(Alert) 1b. Level of Consciousness (LOC) (Month \T\ Age) - 0(Both) 1c. LOC Commands (Open \T\ Closes Eyes/Rn Intake) - 0(Both) 2. Best Gaze (Lateral Gaze Paresis) - 0(Normal) 3. Visual Field Loss - 0(No visual loss) 4. Facial Palsy - 0(Normal) 5a. Left Arm: Motor (10-second hold) - 0(No drift) 5b. Right Arm: Motor (10-second hold) - 0(No drift) 6a. Left Leg: Motor (5-second hold - always test supine) - 0(No drift) 6b. Right Leg: Motor (5-second hold - always test supine) - 0(No drift) 7. Limb Ataxia (finger/nose \T\ heel/echevarria - test with eyes open) - 0(Absent) 8. Sensory Loss (pinprick arms/legs/face) - 0(Normal) 9. Best Language: Aphasia (description/naming/reading) - 0(No aphasia) Initials: sp4 Signatures: Dispatcher [employer] EDMS Paulina Burciaga RN RN ap3 Jeffrey Fleming MD MD rt Peter Cottrell MD MD sp4 Corrections: (The following items were deleted from the chart) 17:38 17:38 BASIC METABOLIC PANEL+C.LAB.BRZ ordered. EDMS EDMS 17:38 17:38 CBC+H.LAB.BRZ ordered. EDMS EDMS 17:38 17:38 HEPATIC FUNCTION+C.LAB.BRZ ordered. EDMS EDMS 17:38 17:38 Troponin High Sensitivity+C.LAB.BRZ ordered. EDMS EDMS 17:38 17:38 TYPE AND SCREEN+BB.LAB.BRZ ordered. EDMS EDMS 18:34 17:38 Chest Single View+RAD.RAD.BRZ ordered. EDMS EDMS 21:34 21:34 PROBNP+C.LAB.BRZ ordered. EDMS EDMS 21:34 21:34 THYROID STIMULAT HORMONE+C.LAB.BRZ ordered. EDMS EDMS 21:34 21:34 T4 FREE+C.LAB.BRZ ordered. EDMS EDMS 21:51 21:37 Chest Single View+RAD.RAD.BRZ ordered. EDMS EDMS
--- NOTE | 2024-08-09 22:23 | ER ---
Nurse's Notes [facility] Name: Quentin Lei Age: 78 yrs Sex: Male : 1945 Arrival Date: 08/09/2024 Time: 17:16 Bed 8 Private MD: Diagnosis: Shortness of breath;Dyspnea on exertion, chronic anemia, history of COPD, Presentation: 08/09 17:31 Chief complaint: Patient states: he started feeling short of breath and weak today. ap3 patient states he usually feels this way when he needs a blood transfusion. Coronavirus screen: At this time, the client does not indicate any symptoms associated with coronavirus-19. Ebola Screen: No symptoms or risks identified at this time. Initial Sepsis Screen: Does the patient meet any 2 criteria? No. Patient's initial sepsis screen is negative. Does the patient have a suspected source of infection? No. Patient's initial sepsis screen is negative. Risk Assessment: Do you want to hurt yourself or someone else? Patient reports no desire to harm self or others. Onset of symptoms was August 09, 2024. 17:31 Method Of Arrival: Ambulatory ap3 17:31 Acuity: MAE 3 ap3 Triage Assessment: 17:32 General: Appears in no apparent distress. Behavior is calm, cooperative, appropriate ap3 for age. Pain: Denies pain. Neuro: Level of Consciousness is awake, alert, obeys commands, Oriented to person, place, time, situation, Reports weakness. Cardiovascular: Patient's skin is warm and dry. Respiratory: Reports shortness of breath on exertion Airway is patent Respiratory effort is even, unlabored, Respiratory pattern is regular, symmetrical, Onset: The symptoms/episode began/occurred today. Historical: - Allergies: 17:32 tramadol; ap3 - PMHx: 17:32 Anemia; Arthritis; Arevalo's Esophagus; COPD; Hypercholesterolemia; Hypertension; ap3 Hypothyroidism; Lung tumor with radiation tx completed January 2023; Myelodysplastic Syndrome; Osteoporosis; - PSHx: 17:32 lung biopsy; triple bypass; ap3 - Immunization history:: Client reports receiving the 2nd dose of the Covid vaccine, Flu vaccine is up to date. - Infectious Disease History:: Denies. - Social history:: Smoking status: Patient denies any tobacco usage or history of. - Family history:: not pertinent. Screenin:33 Abuse screen: Denies threats or abuse. Nutritional screening: No deficits noted. ap3 Tuberculosis screening: No symptoms or risk factors identified. 19:20 [facility] ED Fall Risk Assessment (Adult) History of falling in the last 3 months, al5 including since admission No falls in past 3 months (0 pts) Confusion or Disorientation No (0 pts) Intoxicated or Sedated No (0 pts) Impaired Gait No (0 pts) Mobility Assist Device Used No (0 pt) Altered Elimination No (0 pt) Score/Fall Risk Level 0 - 2 = Low Risk Oriented to surroundings, Maintained a safe environment, Hourly rounding (assess needs \T\ fall precautionary measures) done. Assessment: 17:49 General: Appears in no apparent distress. comfortable, Behavior is calm, cooperative, bp appropriate for age. Cardiovascular: Rhythm is sinus rhythm. Respiratory: Airway is patent Breath sounds are clear bilaterally. 20:48 General: Per a report from radiology, pt refused X-ray. ay 23:19 Reassessment: patient to lobby at this time. al5 Vital Signs: 17:31 BP 172 / 68; Pulse 87; Resp 16; Temp 97.9(TE); Pulse Ox 99% ; Weight 94.35 kg; Height 5 ap3 ft. 11 in. ; 18:00 BP 129 / 61; Pulse 77; Resp 16 S; Pulse Ox 100% on R/A; aa5 19:00 BP 164 / 58; Pulse 84; Resp 16; Pulse Ox 100% on R/A; al5 20:00 BP 147 / 59; Pulse 71; Resp 17; Pulse Ox 100% on R/A; al5 21:00 BP 152 / 68; Pulse 68; Resp 17; Pulse Ox 100% on R/A; al5 22:00 BP 145 / 60; Pulse 73; Resp 14; Pulse Ox 100% on R/A; al5 23:00 BP 114 / 55; Pulse 68; Resp 15; Pulse Ox 100% on R/A; al5 17:31 Body Mass Index 29.01 (94.35 kg, 180.34 cm) ap3 Tabby Coma Score: 22:25 Eye Response: spontaneous(4). Motor Response: obeys commands(6). Verbal Response: sp4 oriented(5). Total: 15. NIH Stroke Scale Scores: 22:25 NIHSS Score: 0 sp4 ED Course: 17:19 Patient arrived in ED. mr 17:22 Jeffrey Fleming MD is Attending Physician. rt 17:28 Srinivas Collado, RN is Primary Nurse. bp 17:32 Triage completed. ap3 17:33 Patient has correct armband on for positive identification. Bed in low position. Call ap3 light in reach. Side rails up X 1. Client placed on continuous cardiac and pulse oximetry monitoring. NIBP monitoring applied. hospital monitor on. Pulse ox on. NIBP on. 17:33 Arm band placed on right wrist. ap3 17:45 EKG done, by ED staff, reviewed by Jeffrey Fleming MD. aa5 17:55 Initial lab(s) drawn, by me, sent to lab. Inserted saline lock: 20 gauge in right zm wrist, using aseptic technique. Blood collected. Flushed with 10 mL NS. 19:20 Provided Education on: plan of care. al5 19:20 No provider procedures requiring assistance completed. al5 20:07 Attending Physician role handed off by Jeffrey Fleming MD sp4 20:07 Peter Cottrell MD is Attending Physician. sp4 23:18 IV discontinued, intact, bleeding controlled, No redness/swelling at site. Pressure al5 dressing applied. Administered Medications: No medications were administered Medication: 19:20 VIS not applicable for this client. al5 Outcome: 22:22 Discharge ordered by . sp4 23:18 Discharged to home ambulatory, al5 23:18 Condition: good 23:18 Discharge instructions given to patient, Instructed on discharge instructions, follow up and referral plans. Demonstrated understanding of instructions, follow-up care, 23:32 Patient left the ED. br2 NIH Stroke Scale - NIH Stroke Score Date: 08/09/2024 Time: 22:25 Total Score = 0 10. Dysarthria (speech clarity - read or repeat words) - 0(Normal) 11. Extinction and Inattention (visual/tactile/auditory/spatial/personal) - 0(No abnormality) 1a. Level of Consciousness (LOC) - 0(Alert) 1b. Level of Consciousness (LOC) (Month \T\ Age) - 0(Both) 1c. LOC Commands (Open \T\ Closes Eyes/Carpet Tile Layer) - 0(Both) 2. Best Gaze (Lateral Gaze Paresis) - 0(Normal) 3. Visual Field Loss - 0(No visual loss) 4. Facial Palsy - 0(Normal) 5a. Left Arm: Motor (10-second hold) - 0(No drift) 5b. Right Arm: Motor (10-second hold) - 0(No drift) 6a. Left Leg: Motor (5-second hold - always test supine) - 0(No drift) 6b. Right Leg: Motor (5-second hold - always test supine) - 0(No drift) 7. Limb Ataxia (finger/nose \T\ heel/echevarria - test with eyes open) - 0(Absent) 8. Sensory Loss (pinprick arms/legs/face) - 0(Normal) 9. Best Language: Aphasia (description/naming/reading) - 0(No aphasia) Initials: sp4 Signatures: Bharati Pace, Reg Reg mr Ang, Cintia, RN RN aa5 Srinivas Collado, RN RN bp Paulina Burciaga, RN RN ap3 Yumiko Allen Ryan, MD MD rt Potepalov, Sergey, MD MD sp4 Paulina Chavez, RN RN al5 Hollie Jacob RN RN br2 Pietro Bosch RN DUC ay
[2024-08-09 22:37] LABS: Thyroid Stimulating Hormone 4.13 uIU/mL (0.358-3.740)
[2024-08-10 21:41] VITALS: TEMP 97.9
[2024-08-10 21:42] VITALS: O2SAT 100
[2024-08-10 21:47] VITALS: BP 114/55
--- NOTE | 2024-08-13 12:15 | EKG ---
Test Date: 2024-08-09 Test Time: 17:44:38 Faculty Neuropsychologist: MARNIE MEASUREMENT RESULTS: Intervals: Rate: 79 HI: 162 QRSD: 138 QT: 408 QTc: 467 [place]: P: 51 HI: 162 QRS: -32 T: 76 INTERPRETIVE STATEMENTS: Normal sinus rhythm Left axis deviation Right bundle branch block Left ventricular hypertrophy with repolarization abnormality Abnormal ECG Compared to ECG 07/20/2024 20:32:36 Myocardial infarct finding no longer present Electronically Signed On 08-13-24 12:11:40 VETERINARY MEDICINE SCIENTIST by Louis Scales
== END 2024-08-09 23:32 | disposition home or self-care (01) ==
LOC: ER 17:16
DX: R06.09 Other forms of dyspnea (principal); D64.9 Anemia, unspecified; Z87.09 Personal history of other diseases of the respiratory system; I10 Essential (primary) hypertension; Z95.1 Presence of aortocoronary bypass graft
CPT/HCPCS: 36415; 80048; 80076; 83880; 84439; 84443; 84484; 85025; 86850; 86900; 86901; 93005; 99284

== ENCOUNTER 2024-08-14 16:48 | Emergency (ER) | payer OTHER ==
[2024-08-14 18:57] LABS: Absolute Lymphocytes (CBC) 1.7 K/uL (0.7-4.9); Absolute Monocytes 0.6 K/uL (0.1-1.3); Absolute Neutrophil 2.3 K/uL (1.8-8.0); Basophils % 0.5 % (0-1.3); Eosinophils % 0.8 % (0-4.4); Hemoglobin 6.2 g/dL (13.6-17.9); Lymphocytes % 36.4 % (15.3-44.8); MCH 31.3 pg (27.0-35.0); MCHC 36.2 g/dL (32.0-36.0); MCV 86.5 fL (80-100); MPV 7.1 fL (7.6-11.3); Monocytes % 12.7 % (3.3-12.3); Neutrophils % 49.6 % (41.7-73.7); Nucleated Red Blood Cells % 0.1 % (0-0); Platelets 135 thou/uL (152-406); RBC Red Blood Cell Count 1.97 M/uL (4.33-5.43)
[2024-08-14 19:14] LABS: Albumin 3.4 g/dL (3.4-5.0); Albumin/Globulin Ratio 1.1 (1.1-1.8); Anion Gap 6.5 mEq/L (5.0-15.0); Bilirubin Total 0.5 mg/dL (0.2-1.0); Magnesium 2.1 mg/dL (1.6-2.4); Potassium 4.5 mEq/L (3.5-5.1); Protein, Total 6.4 g/dL (6.4-8.2); Troponin High Sensitivity 14.6 pg/mL (<58.9)
[2024-08-14] MEDS ORDERED: NA CHLORIDE 0.9% 250 ML ONE (20:25)
[2024-08-14 20:31] LABS: Blood Morphology Comment NOTED (NOT SEEN); Platelet Estimate DECR; White Blood Cell Scan OK (OK)
--- NOTE | 2024-08-15 00:30 | EDPHYS ---
Physician Documentation [facility] Name: Quentin Lei Age: 78 yrs Sex: Male : 1945 Arrival Date: 08/14/2024 Time: 16:48 Bed 6 Private MD: ED Physician Jose Ibrahim HPI: 08/14 17:10 This 78 yrs old Male presents to ER via Unassigned with complaints of General Weakness. kb 17:10 Pt is an 78 year old male who presents for weakness that started 2 days ago and has kb gotten worse. Believes it is due to anemia. Reports history of chronic, severe anemia. Denies any bleeding. Recent endoscopy and colonoscopy were normal. Reports shortness of breath. Denies v/d, fever, chills, cough. Historical: - Allergies: 17:24 tramadol; iw - PMHx: 17:24 Anemia; Arevalo's Esophagus; Arthritis; COPD; Hypertension; Hypercholesterolemia; Lung iw tumor with radiation tx completed January 2023; Hypothyroidism; Myelodysplastic Syndrome; Osteoporosis; - PSHx: 17:24 lung biopsy; triple bypass; iw - Immunization history:: Adult Immunizations up to date. - Infectious Disease History:: Denies. - Social history:: Smoking status: . ROS: 17:12 Constitutional: As per HPI kb Exam: 17:12 Constitutional: This is a well developed, well nourished patient who is awake, alert, kb and in no acute distress. Head/Face: Normocephalic, atraumatic. ENT: Moist Mucous membranes Cardiovascular: Regular rate Respiratory: Respirations even and unlabored. No increased work of breathing. Talking in full sentences Abdomen/GI: Soft, non-tender. No distention Skin: Warm, dry with normal turgor. Normal color. MS/ Extremity: Pulses equal, no cyanosis. Neurovascular intact. Full, normal range of motion. Neuro: Awake and alert, GCS 15, oriented to person, place, time, and situation. 20:33 ECG was reviewed by the Attending Physician. kb Vital Signs: 17:23 BP 141 / 53; Pulse 92; Resp 18; Temp 98.2; Pulse Ox 97% on R/A; Weight 94.35 kg; Height iw 5 ft. 11 in. ; 19:32 BP 110 / 75; Pulse 82; Resp 16; Pulse Ox 96% on R/A; al5 20:00 BP 115 / 54; Pulse 80; Resp 16; Pulse Ox 98% on R/A; al5 20:30 al5 22:00 BP 132 / 69; Pulse 74; Resp 14; Pulse Ox 99% on R/A; al5 22:15 BP 128 / 67; Pulse 72; Resp 19; Pulse Ox 99% on R/A; al5 22:30 al5 08/15 00:30 BP 127 / 62; Pulse 76; Resp 16; Pulse Ox 99% on R/A; al5 01:00 BP 127 / 53; Pulse 76; Resp 15; Pulse Ox 99% on R/A; al5 08/14 17:23 Body Mass Index 29.01 (94.35 kg, 180.34 cm) iw 08/14 20:30 see blood transfusion flow sheet for vitals al5 22:30 see blood transfusion flow sheet for vitals al5 MDM: 16:58 Medical Screening Exam initiated kb 20:13 Data reviewed: vital signs, nurses notes. kb 20:27 Differential diagnosis: anemia, COPD exacerbation, abnormal electrolytes. Consideration kb of Admission/Observation Escalation of care including admission/observation considered. admission considered but pt has chronic anemia and has had transfusions frequently, denies any bleeding. Counseling: I had a detailed discussion with the patient and/or guardian regarding the historical points, exam findings, and any diagnostic results supporting the discharge/admit diagnosis, lab results, the need for outpatient follow up, a family practitioner, to return to the emergency department if symptoms worsen or persist or if there are any questions or concerns that arise at home. 08/14 17:14 Order name: Type And Screen kb 08/14 17:14 Order name: CBC with Diff kb 08/14 17:14 Order name: Magnesium; Complete Time: 19:17 kb 08/14 17:14 Order name: NT PRO-BNP; Complete Time: 19:17 kb 08/14 17:14 Order name: Troponin HS; Complete Time: 19:17 kb 08/14 17:14 Order name: CMP; Complete Time: 19:17 kb 08/14 19:11 Order name: LAB Add On sp 08/14 19:45 Order name: Packed RBCs (Additional Unit) EDLA 08/14 20:32 Order name: CBC Smear Scan EDLA 08/14 17:14 Order name: EKG; Complete Time: 17:15 kb 08/14 17:14 Order name: Cardiac monitoring; Complete Time: 18:43 kb 08/14 17:14 Order name: EKG - Nurse/Tech; Complete Time: 18:54 kb 08/14 17:14 Order name: IV Saline Lock; Complete Time: 18:43 kb 08/14 17:14 Order name: Labs collected and sent; Complete Time: 18:43 kb 08/14 17:14 Order name: O2 Per Protocol; Complete Time: 18:43 kb 08/14 17:14 Order name: O2 Sat Monitoring; Complete Time: 18:44 kb EC:33 Rate is 75 beats/min. Rhythm is regular. QRS [place] is Normal. AL interval is normal at kb 184 msec. QRS interval is normal at 138 msec. QT interval is normal at 448 msec. Administered Medications: No medications were administered Disposition: 21:28 I agree with the assessment and plan of care. Patient with chronic anemia, anemic today ec2 without evidence of bleeding, plan to infuse 2 units of blood, reassess and likely discharge home.. Disposition Summary: 08/15/24 00:30 Discharge Ordered Notes: Location: Home kb Condition: Stable kb Diagnosis - Anemia, unspecified kb Followup: kb - With: Emergency Department - When: As needed - Reason: Worsening of condition Followup: kb - With: Private Physician - When: 2 - 3 days - Reason: Recheck today's complaints, Continuance of care, Re-evaluation by your physician Discharge Instructions: - Discharge Summary Sheet kb - Anemia kb - Blood Transfusion, Adult, Care After, [id number] kb Forms: - Medication Reconciliation Form kb - Antibiotic Education kb - Prescription Opioid Use kb - Patient Portal Instructions kb - Leadership Thank You Letter kb Critical care time excluding procedures: 20:13 Critical care time: Bedside Care: 20 minutes, Consultation: 10 minutes. Total time: 30 kb minutes Signatures: Dispatcher [employer] Yue Bass FNP-Anil GONZALESP-Vicki Valenzuela, Fe Belle RN, RN RN Jose Rebollar MD MD ec2 Corrections: (The following items were deleted from the chart) 17:15 17:15 CBC+H.LAB.BRZ ordered. EDMS EDMS 17:15 17:15 MAGNESIUM+C.LAB.BRZ ordered. EDMS EDMS 17:15 17:15 PROBNP+C.LAB.BRZ ordered. EDMS EDMS 17:15 17:15 Troponin High Sensitivity+C.LAB.BRZ ordered. EDMS EDMS 17:15 17:15 TYPE AND SCREEN+BB.LAB.BRZ ordered. EDMS EDMS 17:15 17:15 COMPREHENSIVE METABOLIC PANEL+C.LAB.BRZ ordered. EDMS EDMS 17:50 17:15 Chest Single View+RAD.RAD.BRZ ordered. EDMS EDMS 08/15 00:30 08/14 23:53 Transition of care: After a detail discussion of the patient's case, care kb is transferred to Jose roper
--- NOTE | 2024-08-15 00:30 | ER ---
Nurse's Notes [facility] Name: Quentin Lei Age: 78 yrs Sex: Male : 1945 Arrival Date: 08/14/2024 Time: 16:48 Bed 6 Private MD: Diagnosis: Anemia, unspecified Presentation: 08/14 17:23 Chief complaint: Patient states: general weakness, fatigue, SOB on exertion X 2 days, iw hx of anemia, last blood transfusion was a month ago. Coronavirus screen: At this time, the client does not indicate any symptoms associated with coronavirus-19. Ebola Screen: No symptoms or risks identified at this time. Initial Sepsis Screen: Does the patient meet any 2 criteria? No. Patient's initial sepsis screen is negative. Does the patient have a suspected source of infection? No. Patient's initial sepsis screen is negative. Risk Assessment: Do you want to hurt yourself or someone else? Patient reports no desire to harm self or others. Onset of symptoms was August 12, 2024. 17:23 Method Of Arrival: Ambulatory iw 17:23 Acuity: MAE 3 iw Historical: - Allergies: 17:24 tramadol; iw - PMHx: 17:24 Anemia; Arevalo's Esophagus; Arthritis; COPD; Hypertension; Hypercholesterolemia; Lung iw tumor with radiation tx completed January 2023; Hypothyroidism; Myelodysplastic Syndrome; Osteoporosis; - PSHx: 17:24 lung biopsy; triple bypass; iw - Immunization history:: Adult Immunizations up to date. - Infectious Disease History:: Denies. - Social history:: Smoking status: . Screenin:41 [facility] ED Fall Risk Assessment (Adult) History of falling in the last 3 months, hb including since admission No falls in past 3 months (0 pts) Confusion or Disorientation No (0 pts) Intoxicated or Sedated No (0 pts) Impaired Gait No (0 pts) Mobility Assist Device Used No (0 pt) Altered Elimination No (0 pt) Score/Fall Risk Level 0 - 2 = Low Risk Oriented to surroundings, Maintained a safe environment, Educated pt \T\ family on fall prevention, incl call for assistance when getting out of bed. Abuse screen: Denies threats or abuse. Denies injuries from another. Nutritional screening: No deficits noted. Tuberculosis screening: No symptoms or risk factors identified. Assessment: 18:41 General: Appears in no apparent distress. Behavior is calm, cooperative. Pain: Denies hb pain. Neuro: Level of Consciousness is awake, alert, obeys commands, Oriented to person, place, time, situation. Cardiovascular: Patient's skin is warm and dry. Respiratory: Respiratory effort is even, unlabored, Respiratory pattern is regular, symmetrical. GI: No signs and/or symptoms were reported involving the gastrointestinal system. : No signs and/or symptoms were reported regarding the genitourinary system. EENT: No signs and/or symptoms were reported regarding the EENT system. Derm: Skin is pink, warm \T\ dry. Musculoskeletal: Reports generalized weakness. 19:31 General: Appears in no apparent distress. comfortable, Behavior is calm, cooperative. al5 Pain: Denies pain. Neuro: Level of Consciousness is awake, alert, obeys commands, Oriented to person, place, time, situation. Cardiovascular: Capillary refill < 3 seconds Patient's skin is warm and dry. Rhythm is sinus rhythm. Respiratory: Airway is patent Respiratory effort is even, unlabored, Respiratory pattern is regular, symmetrical. GI: No signs and/or symptoms were reported involving the gastrointestinal system. : No signs and/or symptoms were reported regarding the genitourinary system. EENT: No signs and/or symptoms were reported regarding the EENT system. Derm: Skin is intact, is healthy with good turgor, Skin is pink, warm \T\ dry. normal. Musculoskeletal: Reports generalized weakness. 20:57 Reassessment: Patient appears in no apparent distress at this time. No changes from al5 previously documented assessment. Patient and/or family updated on plan of care and expected duration. Pain level reassessed. Patient is alert, oriented x 3, equal unlabored respirations, skin warm/dry/pink. 21:51 Reassessment: Patient appears in no apparent distress at this time. No changes from al5 previously documented assessment. Patient and/or family updated on plan of care and expected duration. Pain level reassessed. Patient is alert, oriented x 3, equal unlabored respirations, skin warm/dry/pink. 22:57 Reassessment: Patient appears in no apparent distress at this time. No changes from al5 previously documented assessment. Patient and/or family updated on plan of care and expected duration. Pain level reassessed. Patient is alert, oriented x 3, equal unlabored respirations, skin warm/dry/pink. 08/15 00:30 Reassessment: Patient appears in no apparent distress at this time. No changes from al5 previously documented assessment. Patient and/or family updated on plan of care and expected duration. Pain level reassessed. Patient is alert, oriented x 3, equal unlabored respirations, skin warm/dry/pink. Vital Signs: 08/14 17:23 BP 141 / 53; Pulse 92; Resp 18; Temp 98.2; Pulse Ox 97% on R/A; Weight 94.35 kg; Height iw 5 ft. 11 in. ; 19:32 BP 110 / 75; Pulse 82; Resp 16; Pulse Ox 96% on R/A; al5 20:00 BP 115 / 54; Pulse 80; Resp 16; Pulse Ox 98% on R/A; al5 20:30 al5 22:00 BP 132 / 69; Pulse 74; Resp 14; Pulse Ox 99% on R/A; al5 22:15 BP 128 / 67; Pulse 72; Resp 19; Pulse Ox 99% on R/A; al5 22:30 al5 08/15 00:30 BP 127 / 62; Pulse 76; Resp 16; Pulse Ox 99% on R/A; al5 01:00 BP 127 / 53; Pulse 76; Resp 15; Pulse Ox 99% on R/A; al5 08/14 17:23 Body Mass Index 29.01 (94.35 kg, 180.34 cm) iw 08/14 20:30 see blood transfusion flow sheet for vitals al5 22:30 see blood transfusion flow sheet for vitals al5 ED Course: 16:50 Patient arrived in ED. im 16:58 Yue Cole FNP-C is PHCP. kb 16:58 Rafa Higgins MD is Attending Physician. kb 17:24 Triage completed. iw 17:24 Arm band placed on. iw 17:40 Patient placed in an exam room, on a stretcher. ll1 18:41 Patient has correct armband on for positive identification. Bed in low position. Call hb light in reach. Provided Education on: tests, result times. 18:41 No provider procedures requiring assistance completed. Initial lab(s) drawn, by me, hb sent to lab. Inserted saline lock: 22 gauge in right antecubital area, using aseptic technique. ,using aseptic technique. BY ANTONIO XAVIER Blood collected. Flushed with 10 mL NS. 18:44 CBC with Diff Sent. hb 18:44 Magnesium Sent. hb 18:44 NT PRO-BNP Sent. hb 18:44 Troponin HS Sent. hb 18:59 EKG done, by ED staff, reviewed by Yue DE LEON. ty 19:27 Paulina Chavez, RN is Primary Nurse. al5 19:31 Provided Education on: Blood Transfusion. al5 21:28 Jose Ibrahim MD is Attending Physician. ec2 08/15 01:10 IV discontinued, intact, bleeding controlled, No redness/swelling at site. Pressure al5 dressing applied. Administered Medications: No medications were administered Medication: 08/14 18:41 VIS not applicable for this client. hb 22:00 Blood products: PRBCs X 1 unit given. al5 08/15 00:30 Blood products: PRBCs X 1 unit given. al5 Outcome: 00:30 Discharge ordered by . kb 01:10 Discharged to home ambulatory, al5 01:10 Condition: good 01:10 Discharge instructions given to patient, Instructed on discharge instructions, follow up and referral plans. Demonstrated understanding of instructions, follow-up care, 01:10 Patient left the ED. al5 Signatures: Yue Cole FNP-C FNP-Vicki Valenzuela, Fe Belle RN, RN RN hb Lewis, Lynsay, RN RN ll1 Sherrell Agee Jose Ibrahim MD MD 2 Shawn Crooks ty Paulina Chavez RN RN al5
[2024-08-15 01:38] VITALS: TEMP 98.2
[2024-08-15 01:43] VITALS: O2SAT 99
[2024-08-15 01:48] VITALS: BP 127/53
--- NOTE | 2024-08-16 16:51 | EKG ---
Test Date: 2024-08-14 Test Time: 18:51:04 Web Production Manager: NATHAN MEASUREMENT RESULTS: Intervals: Rate: 75 SC: 184 QRSD: 138 QT: 402 QTc: 448 [place]: P: 64 SC: 184 QRS: -25 T: 78 INTERPRETIVE STATEMENTS: Sinus rhythm with frequent premature ventricular complexes Right bundle branch block Anterior infarct, age undetermined Abnormal ECG Compared to ECG 08/09/2024 17:44:38 Ventricular premature complex(es) now present Myocardial infarct finding now present Left-axis deviation no longer present Left ventricular hypertrophy no longer present Early repolarization no longer present Electronically Signed On 08-16-24 16:45:50 BRIM POUNCING MACHINE OPERATOR by Louis Scales
== END 2024-08-15 01:10 | disposition home or self-care (01) ==
LOC: ER 16:48
PROC: 30233N1 Transfusion of Nonautologous Red Blood Cells into Peripheral Vein, Percutaneous Approach (ICD-10-PCS; principal; 2024-08-15)
DX: D64.9 Anemia, unspecified (principal); Z95.1 Presence of aortocoronary bypass graft
CPT/HCPCS: 85025; 36415; 86900; 83735; 86850; 86901; 86920 ×2; 84484; 80053; 83880; 36430; P9016 ×2; J7050; 93005; 99284

== ENCOUNTER 2024-09-07 17:51 | Emergency (ER) | payer OTHER ==
[2024-09-07] MEDS ORDERED: NA CHLORIDE 0.9% 1,000 ML ONE (21:16)
[2024-09-07] MEDS ORDERED: FAMOTIDINE 20 MG/2 ML VIAL IV ONE (21:16)
[2024-09-07 21:55] LABS: Absolute Lymphocytes (CBC) 1.8 K/uL (0.7-4.9); Absolute Monocytes 0.4 K/uL (0.1-1.3); Absolute Neutrophil 1.9 K/uL (1.8-8.0); Basophils % 0.3 % (0-1.3); Eosinophils % 0.4 % (0-4.4); Hematocrit 18.6 % (39.6-49.0); Hemoglobin 6.6 g/dL (13.6-17.9); Lymphocytes % 44.4 % (15.3-44.8); MCH 32.6 pg (27.0-35.0); MCHC 35.6 g/dL (32.0-36.0); MCV 91.5 fL (80-100); MPV 7.2 fL (7.6-11.3); Monocytes % 8.9 % (3.3-12.3); Nucleated Red Blood Cells % 0.1 % (0-0); Platelets 131 thou/uL (152-406); RBC Red Blood Cell Count 2.03 M/uL (4.33-5.43); Red Cell Distribution Width 27.6 % (12.1-15.2)
[2024-09-07 21:57] LABS: Anisocytosis 3+; Blood Morphology Comment NOTED (NOT SEEN); Platelet Estimate DECR; White Blood Cell Scan OK (OK)
[2024-09-07 21:58] LABS: Specific Gravity 1.025 (1.005-1.030); Sqamous Epithelial None Seen /HPF (None Seen); Urine Bacteria None Seen /HPF (<20); Urine Bilirubin NEGATIVE (Negative); Urine Blood Negative (Negative); Urine Clarity Turbid (Clear); Urine Color Yellow (Yellow); Urine Culture Reflex Order NOT NEEDED; Urine Glucose NEGATIVE (Negative); Urine Ketones NEGATIVE (Negative); Urine Microscopic Reflex YN ORDER UMIC; Urine Mucus Slight /HPF (None Seen); Urine Nitrite NEGATIVE (Negative); Urine Protein TRACE (Negative); Urine RBC <5 /HPF (None Seen); Urine Urobilinogen Normal (Normal); Urine WBC <5 /HPF (<5); Urine WBC Clump Rare /HPF (None Seen); Urine Yeast (Budding) Trace /HPF (None Seen); Urine pH 5.5 (5.0-7.0)
[2024-09-07 21:59] LABS: PT Prothrombin Time 16.8 SECONDS (10-13.0); Protime INR 1.5
[2024-09-07 22:13] LABS: Anion Gap 8.3 mEq/L (5.0-15.0); Potassium 4.3 mEq/L (3.5-5.1); Troponin High Sensitivity 16.2 pg/mL (<58.9)
[2024-09-07 22:33] LABS: Influenza A Ag Negative; Influenza B Ag Negative; SARS-CoV-2 Antigen Rapid Res Negative (Negative)
--- NOTE | 2024-09-07 22:50 | EDPHYS ---
Physician Documentation [facility] Name: Quentin Lei Age: 78 yrs Sex: Male : 1945 Arrival Date: 09/07/2024 Time: 17:51 Bed 8 Private MD: ED Laruo Parks HPI: 09/07 20:43 This 78 yrs old Male presents to ER via Ambulatory with complaints of General mikaela Weakness. Historical: - Allergies: 19:12 tramadol; iw - PMHx: 19:12 Anemia; Arthritis; Arevalo's Esophagus; COPD; Hypercholesterolemia; Hypertension; iw Hypothyroidism; Myelodysplastic Syndrome; Osteoporosis; Lung tumor with radiation tx completed January 2023; - PSHx: 19:12 triple bypass; lung biopsy; iw - Immunization history:: Adult Immunizations up to date. - Infectious Disease History:: Denies. - Social history:: Smoking status: Patient denies any tobacco usage or history of. ROS: 20:45 Constitutional: Negative for fever, chills, and weight loss, Eyes: Negative for injury, mikaela pain, redness, and discharge, ENT: Negative for injury, pain, and discharge, Neck: Negative for injury, pain, and swelling, Cardiovascular: Negative for chest pain, palpitations, and edema, Respiratory: Negative for shortness of breath, cough, wheezing, and pleuritic chest pain, Abdomen/GI: Negative for abdominal pain, nausea, vomiting, diarrhea, and constipation, Back: Negative for injury and pain, : Negative for injury, bleeding, discharge, and swelling, MS/Extremity: Negative for injury and deformity, Skin: Negative for injury, rash, and discoloration, Psych: Negative for depression, anxiety, suicide ideation, homicidal ideation, and hallucinations, Allergy/Immunology: Negative for hives, rash, and allergies, Endocrine: Negative for neck swelling, polydipsia, polyuria, polyphagia, and marked weight changes, Hematologic/Lymphatic: Negative for swollen nodes, abnormal bleeding, and unusual bruising, 20:45 Neuro: Positive for weakness, Exam: 20:45 Constitutional: This is a well developed, well nourished patient who is awake, alert, mikaela and in no acute distress. Head/Face: Normocephalic, atraumatic. Eyes: Pupils equal round and reactive to light, extra-ocular motions intact. Lids and lashes normal. Conjunctiva and sclera are non-icteric and not injected. Cornea within normal limits. Periorbital areas with no swelling, redness, or edema. ENT: Nares patent. No nasal discharge, no septal abnormalities noted. Tympanic membranes are normal and external auditory canals are clear. Oropharynx with no redness, swelling, or masses, exudates, or evidence of obstruction, uvula midline. Mucous membranes moist. Neck: Trachea midline, no thyromegaly or masses palpated, and no cervical lymphadenopathy. Supple, full range of motion without nuchal rigidity, or vertebral point tenderness. No Meningismus. Chest/axilla: Normal chest wall appearance and motion. Nontender with no deformity. No lesions are appreciated. Cardiovascular: Regular rate and rhythm with a normal S1 and S2. No gallops, murmurs, or rubs. Normal PMI, no JVD. No pulse deficits. Respiratory: Lungs have equal breath sounds bilaterally, clear to auscultation and percussion. No rales, rhonchi or wheezes noted. No increased work of breathing, no retractions or nasal flaring. Abdomen/GI: Soft, non-tender, with normal bowel sounds. No distension or tympany. No guarding or rebound. No evidence of tenderness throughout. Back: No spinal tenderness. No costovertebral tenderness. Full range of motion. Male : Normal genitalia with no discharge or lesions. Skin: Warm, dry with normal turgor. Normal color with no rashes, no lesions, and no evidence of cellulitis. MS/ Extremity: Pulses equal, no cyanosis. Neurovascular intact. Full, normal range of motion., bilateral aka Neuro: Awake and alert, GCS 15, oriented to person, place, time, and situation. Cranial nerves II-XII grossly intact. Motor strength 5/5 in all extremities. Sensory grossly intact. Cerebellar exam normal. Normal gait. Psych: Awake, alert, with orientation to person, place and time. Behavior, mood, and affect are within normal limits. 22:48 ECG was reviewed by the Attending Physician. [facility] Vital Signs: 19:11 BP 137 / 56; Pulse 80; Resp 16; Temp 98.1; Pulse Ox 100% on R/A; Weight 91.63 kg; iw Height 5 ft. 11 in. ; 22:50 BP 118 / 59; Pulse 86; Resp 17 S; Pulse Ox 100% on R/A; ha1 23:30 BP 121 / 61; Pulse 87; Resp 17; Pulse Ox 100% ; vc1 09/08 00:40 BP 124 / 58; Pulse 81; Resp 16 S; Pulse Ox 100% on R/A; ha1 01:45 BP 113 / 49; Pulse 67; Resp 14; Pulse Ox 99% ; vc1 02:45 BP 121 / 51; Pulse 68; Resp 14; Pulse Ox 99% ; vc1 03:45 BP 113 / 56; Pulse 67; Resp 16 S; Pulse Ox 100% on R/A; ha1 04:00 BP 119 / 57; Pulse 66; Resp 16 S; Pulse Ox 100% on R/A; ha1 05:00 BP 109 / 57; Pulse 69; Resp 17 S; Pulse Ox 100% on R/A; ha1 05:30 BP 134 / 61; Pulse 67; Resp 17 S; Temp 98.1(O); Pulse Ox 100% ; ha1 09/07 19:11 Body Mass Index 28.17 (91.63 kg, 180.34 cm) iw MDM: 09/07 19:13 Medical Screening Exam initiated gb1 20:46 Differential Diagnosis sepsis, flu. Data reviewed: vital signs, nurses notes, lab test mikaela result(s), EKG, radiologic studies, plain films. Consideration of Admission/Observation Escalation of care including admission/observation considered. I considered the following discharge prescriptions or medication management in the emergency department Medications were administered in the Emergency Department. See MAR. Independent interpretation of the following test(s) in the Emergency Department EKG: See my EKG interpretation above. Test considered but Not performed: CT: no ct ab / pel. Care significantly affected by the following chronic conditions: Hypertension, Chronic Obstructive Pulmonary Disease, Obesity, hypothyroid, MDS. 09/07 20:47 Order name: ABO/RH typing [facility] 09/07 20:48 Order name: Antibody Screen [facility] 09/07 17:58 Order name: Basic Metabolic Panel; Complete Time: 22:47 gb1 09/07 17:58 Order name: CBC with Diff; Complete Time: 22:47 gb1 09/07 17:58 Order name: NT PRO-BNP; Complete Time: 22:47 gb1 09/07 17:58 Order name: PT-INR; Complete Time: 22:47 gb1 09/07 17:58 Order name: Troponin HS; Complete Time: 22:47 gb1 09/07 20:11 Order name: Blood Culture Adult (2) [facility] 09/07 20:11 Order name: Lactate w/ 2H reflex if indic.; Complete Time: 22:47 [facility] 09/07 20:11 Order name: Urinalysis w/ reflexes; Complete Time: 22:47 [facility] 09/07 20:11 Order name: COVID-19 Ag + Flu A+B Ag; Complete Time: 22:47 [facility] 09/07 20:45 Order name: PRBC [facility] 09/07 21:57 Order name: CBC Smear Scan; Complete Time: 22:47 EDMS 09/07 17:58 Order name: EKG; Complete Time: 17:58 gb1 09/07 17:58 Order name: Cardiac monitoring; Complete Time: 21:42 gb1 09/07 17:58 Order name: EKG - Nurse/Tech; Complete Time: 21:42 gb1 09/07 17:58 Order name: IV Saline Lock; Complete Time: 21:42 gb1 09/07 17:58 Order name: Labs collected and sent; Complete Time: 21:42 gb1 09/07 17:58 Order name: O2 Per Protocol; Complete Time: 21:42 gb1 09/07 17:58 Order name: O2 Sat Monitoring; Complete Time: 21:42 gb1 09/07 20:45 Order name: Transfuse: if hgb less than 8; Complete Time: 01:03 [facility] EC:48 Rate is 74 beats/min. Rhythm is regular. QRS [place] is Normal. CA interval is normal. QRS mikaela interval is normal. QT interval is normal. No Q waves. T waves are Normal. No ST changes noted. Clinical impression: NSR w/ Non-specific ST/T Changes and No evidence of ischemia. Interpreted by me. Reviewed by me. Administered Medications: 22:13 Drug: NS 0.9% IV 1000 ml IV at 1 bolus Per protocol; to be given as a bolus over 60 ha1 minutes Route: IV; Rate: 1 bolus; Site: right antecubital; 09/08 02:00 Follow up: Response: No adverse reaction; IV Status: Completed infusion ha1 09/07 22:13 Drug: Famotidine IVP 20 mg IVP once; dilute with 10 mL 0.9% NaCl; give over 2 minutes ha1 Route: IVP; Site: right antecubital; 22:30 Follow up: Response: No adverse reaction; Marked relief of symptoms ha1 09/08 00:00 Drug: Pantoprazole IVP 40 mg IVP once Route: IVP; Site: right antecubital; ha1 00:30 Follow up: Response: No adverse reaction; Marked relief of symptoms ha1 Disposition Summary: 09/07/24 22:49 Discharge Ordered Notes: Location: Home [facility] Problem: an ongoing problem mikaela Symptoms: have improved mikaela Condition: Stable mikaela Diagnosis - 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 mikaela - Weakness mikaela Followup: mikaela - With: Private Physician - When: 2 - 3 days - Reason: Recheck today's complaints, Continuance of care, Re-evaluation by your physician Followup: mikaela - With: Madelyn Howard MD - When: 2 - 3 days - Reason: Recheck today's complaints, Re-evaluation by your physician Discharge Instructions: - Discharge Summary Sheet mikaela - Anemia mikaela - Blood Transfusion, Adult mikaela - Weakness mikaela - Fatigue mikaela - Blood Transfusion, Adult, [id number] mikaela - Weakness, [id number] mikaela - Deconditioning mikaela - Blood Transfusion, Adult, Care After, [id number] mikaela - Blood Transfusion, Adult, Care After [facility] Forms: - Medication Reconciliation Form [facility] - Antibiotic Education mikaela - Prescription Opioid Use [facility] - Patient Portal Instructions [facility] - Leadership Thank You Letter [facility] Prescriptions: - Protonix 40 mg Oral Tablet - take 1 tablet ORAL route once daily; 30 tablet; Refills: 0, Product Selection mikaela Permitted Signatures: Dispatcher [employer] EDLauro Silva MD MD cha Williams, Irene, RN RN Matilde Tai RN RN ha1 Juliette Camarena MD MD gb1 Corrections: (The following items were deleted from the chart) 09/07 18:47 17:58 Chest Single View+RAD.RAD.BRZ ordered. EDMS EDMS 21:57 20:42 TYPE AND SCREEN+BB.LAB.BRZ ordered. EDMS EDMS
--- NOTE | 2024-09-07 22:50 | ER ---
Nurse's Notes [facility] Name: Quentin Lei Age: 78 yrs Sex: Male : 1945 Arrival Date: 09/07/2024 Time: 17:51 Bed 8 Private MD: Diagnosis: Anemia in other chronic diseases classified elsewhere-MDS;Weakness Presentation: 09/07 19:11 Chief complaint: Patient states: feeling weak since yesterday, feels like h is due for iw a blood transfusion , last transfused 25 days ago , hx of anemia. Coronavirus screen: At this time, the client does not indicate any symptoms associated with coronavirus-19. Ebola Screen: No symptoms or risks identified at this time. Initial Sepsis Screen: Does the patient meet any 2 criteria? No. Patient's initial sepsis screen is negative. Does the patient have a suspected source of infection? No. Patient's initial sepsis screen is negative. Risk Assessment: Do you want to hurt yourself or someone else? Patient reports no desire to harm self or others. Onset of symptoms was September 06, 2024. 19:11 Method Of Arrival: Ambulatory iw 19:11 Acuity: MAE 3 iw Historical: - Allergies: 19:12 tramadol; iw - PMHx: 19:12 Anemia; Arthritis; Arevalo's Esophagus; COPD; Hypercholesterolemia; Hypertension; iw Hypothyroidism; Myelodysplastic Syndrome; Osteoporosis; Lung tumor with radiation tx completed January 2023; - PSHx: 19:12 triple bypass; lung biopsy; iw - Immunization history:: Adult Immunizations up to date. - Infectious Disease History:: Denies. - Social history:: Smoking status: Patient denies any tobacco usage or history of. Screenin:00 [facility] ED Fall Risk Assessment (Adult) History of falling in the last 3 months, ha1 including since admission Yes- single mechanical fall (1 pt) Confusion or Disorientation No (0 pts) Intoxicated or Sedated No (0 pts) Impaired Gait Yes (1 pt) Mobility Assist Device Used Yes (1 pt) Altered Elimination No (0 pt) Score/Fall Risk Level 3 or more points = High Risk Oriented to surroundings, Maintained a safe environment, Educated pt \T\ family on fall prevention, incl call for assistance when getting out of bed, Hourly rounding (assess needs \T\ fall precautionary measures) done. Abuse screen: Denies threats or abuse. Denies injuries from another. Nutritional screening: No deficits noted. Tuberculosis screening: No symptoms or risk factors identified. Assessment: 21:30 General: Appears uncomfortable, Behavior is calm, cooperative. Pain: Denies pain. ha1 Neuro: Level of Consciousness is awake, alert, obeys commands, Oriented to person, place, time, situation, Reports weakness generalized. Cardiovascular: Heart tones S1 S2 present Capillary refill < 3 seconds Patient's skin is warm and dry. Respiratory: Airway is patent Respiratory effort is even, unlabored, Respiratory pattern is regular, symmetrical. GI: No signs and/or symptoms were reported involving the gastrointestinal system. Abdomen is round Bowel sounds present X 4 quads. : No signs and/or symptoms were reported regarding the genitourinary system. Derm: Skin is pale. Musculoskeletal: Circulation, motion, and sensation intact. Range of motion: intact in all extremities. 22:30 Reassessment: Patient and/or family updated on plan of care and expected duration. Pain ha1 level reassessed. Patient is alert, oriented x 3, equal unlabored respirations, skin warm/dry/pink. 23:00 Reassessment: Patient and/or family updated on plan of care and expected duration. Pain ha1 level reassessed. Patient is alert, oriented x 3, equal unlabored respirations, skin warm/dry/pink. DISCHARGE PENDING ON BLOOD TRANSFUSION. 23:58 Reassessment: Patient appears in no apparent distress at this time. No changes from vc1 previously documented assessment. Patient and/or family updated on plan of care and expected duration. Pain level reassessed. Patient is alert, oriented x 3, equal unlabored respirations, skin warm/dry/pink. 09/08 00:40 Reassessment: Patient and/or family updated on plan of care and expected duration. Pain ha1 level reassessed. Patient is alert, oriented x 3, equal unlabored respirations, skin warm/dry/pink. FIRST UNIT OF BLOOD STARTED. 01:00 Reassessment: Patient and/or family updated on plan of care and expected duration. Pain ha1 level reassessed. Patient is alert, oriented x 3, equal unlabored respirations, skin warm/dry/pink. 02:00 Reassessment: Patient and/or family updated on plan of care and expected duration. Pain ha1 level reassessed. Patient is alert, oriented x 3, equal unlabored respirations, skin warm/dry/pink. 02:52 Reassessment: Patient appears in no apparent distress at this time. No changes from vc1 previously documented assessment. Patient and/or family updated on plan of care and expected duration. Pain level reassessed. Patient is alert, oriented x 3, equal unlabored respirations, skin warm/dry/pink. 03:20 Reassessment: Patient and/or family updated on plan of care and expected duration. Pain ha1 level reassessed. Patient is alert, oriented x 3, equal unlabored respirations, skin warm/dry/pink. 03:45 Reassessment: SECOND UNIT OF BLOOD STARTED. ha1 04:16 Reassessment: Patient and/or family updated on plan of care and expected duration. Pain ha1 level reassessed. Patient is alert, oriented x 3, equal unlabored respirations, skin warm/dry/pink. 04:19 Reassessment: SEE FLOATING SHEET FOR MORE VITAL SIGNS. ha1 05:20 Reassessment: Patient and/or family updated on plan of care and expected duration. Pain ha1 level reassessed. Patient is alert, oriented x 3, equal unlabored respirations, skin warm/dry/pink. Patient denies pain at this time. Patient states feeling better. Patient states symptoms have improved. Vital Signs: 09/07 19:11 BP 137 / 56; Pulse 80; Resp 16; Temp 98.1; Pulse Ox 100% on R/A; Weight 91.63 kg; iw Height 5 ft. 11 in. ; 22:50 BP 118 / 59; Pulse 86; Resp 17 S; Pulse Ox 100% on R/A; ha1 23:30 BP 121 / 61; Pulse 87; Resp 17; Pulse Ox 100% ; vc1 09/08 00:40 BP 124 / 58; Pulse 81; Resp 16 S; Pulse Ox 100% on R/A; ha1 01:45 BP 113 / 49; Pulse 67; Resp 14; Pulse Ox 99% ; vc1 02:45 BP 121 / 51; Pulse 68; Resp 14; Pulse Ox 99% ; vc1 03:45 BP 113 / 56; Pulse 67; Resp 16 S; Pulse Ox 100% on R/A; ha1 04:00 BP 119 / 57; Pulse 66; Resp 16 S; Pulse Ox 100% on R/A; ha1 05:00 BP 109 / 57; Pulse 69; Resp 17 S; Pulse Ox 100% on R/A; ha1 05:30 BP 134 / 61; Pulse 67; Resp 17 S; Temp 98.1(O); Pulse Ox 100% ; ha1 09/07 19:11 Body Mass Index 28.17 (91.63 kg, 180.34 cm) ED Course: 09/07 17:52 Patient arrived in ED. im 17:58 Juliette Camarena MD is Attending Physician. gb1 18:44 X-ray completed. Note: pt refused cxr do to having to many. ins will not pay for more, mh1 bc he has lung cancer.. 19:12 Triage completed. iw 19:13 Arm band placed on. iw 20:10 Attending Physician role handed off by Juliette Camarena MD mikaela 20:10 Lauro Carr MD is Attending Physician. mikaela 21:20 Patient has correct armband on for positive identification. Placed in gown. Bed in low ha1 position. Call light in reach. Side rails up X2. 21:42 Inserted saline lock: 20 gauge in right antecubital area, using aseptic technique. af3 Blood collected. Flushed with 10 mL NS. 21:43 EKG done, by sleep lab technician. af3 22:49 Madelyn Howard MD is Referral Physician. [facility] 23:00 Provided Education on: BLOOD TRANSFUSION . 1 09/08 05:50 No provider procedures requiring assistance completed. IV discontinued, intact, ha1 bleeding controlled, No redness/swelling at site. Pressure dressing applied. Administered Medications: 09/07 22:13 Drug: NS 0.9% IV 1000 ml IV at 1 bolus Per protocol; to be given as a bolus over 60 ha1 minutes Route: IV; Rate: 1 bolus; Site: right antecubital; 09/08 02:00 Follow up: Response: No adverse reaction; IV Status: Completed infusion 1 09/07 22:13 Drug: Famotidine IVP 20 mg IVP once; dilute with 10 mL 0.9% NaCl; give over 2 minutes ha1 Route: IVP; Site: right antecubital; 22:30 Follow up: Response: No adverse reaction; Marked relief of symptoms [facility] 09/08 00:00 Drug: Pantoprazole IVP 40 mg IVP once Route: IVP; Site: right antecubital; ha1 00:30 Follow up: Response: No adverse reaction; Marked relief of symptoms ha1 Medication: 00:55 VIS not applicable for this client. ha1 Outcome: 09/07 22:49 Discharge ordered by . mikaela 09/08 05:50 Discharged to home ambulatory, ha1 Condition: stable Discharge instructions given to patient, Instructed on discharge instructions, follow up and referral plans. medication usage, Demonstrated understanding of instructions, follow-up care, medications, Prescriptions given X 1, 05:51 Patient left the ED. ha1 Signatures: Lauro Carr MD MD cha Harvey, Martha 1 Vicki Stewart RN RN iw Maria E Bonilla RN RN vc1 Matilde Tai RN RN ha1 Sherrell Agee Gina, MD MD gb1 Rose Trujillo3
[2024-09-07] MEDS ORDERED: PANTOPRAZOLE 40 MG INJ ONE (23:57)
[2024-09-07] MEDS ORDERED: NA CHLORIDE 0.9% 250 ML ONE (23:59)
[2024-09-08] MEDS ORDERED: NA CHLORIDE 0.9% 250 ML ONE (03:07)
[2024-09-08 06:14] VITALS: TEMP 98.1
[2024-09-08 06:26] VITALS: O2SAT 100
[2024-09-08 06:27] VITALS: BP 119/57
--- NOTE | 2024-09-10 12:07 | EKG ---
Test Date: 2024-09-07 Test Time: 21:23:45 Emr Specialist: AF MEASUREMENT RESULTS: Intervals: Rate: 74 [place]: 180 QRSD: 130 QT: 422 QTc: 468 [place]: P: 88 [place]: 180 QRS: -34 T: 72 INTERPRETIVE STATEMENTS: Sinus rhythm with occasional premature ventricular complexes Left axis deviation Right bundle branch block Septal infarct, age undetermined Abnormal ECG Compared to ECG 08/14/2024 18:51:04 Left-axis deviation now present Myocardial infarct finding still present Electronically Signed On 09-10-24 12:02:07 CDT by Louis Scales
== END 2024-09-08 05:51 | disposition home or self-care (01) ==
LOC: ER 17:51
PROC: 30233N1 Transfusion of Nonautologous Red Blood Cells into Peripheral Vein, Percutaneous Approach (ICD-10-PCS; principal; 2024-09-08)
DX: C94.6 Myelodysplastic disease, not elsewhere classified (principal); D63.8 Anemia in other chronic diseases classified elsewhere; Z95.1 Presence of aortocoronary bypass graft; Z11.52 Encounter for screening for COVID-19
CPT/HCPCS: 96361; 93005; 87040 ×2; 85025; 81001; 80048; 36415; 86900; 86850; 85610; 86901; 83605; 86920 ×2; 84484; 83880; 96375; 96374; 99284; 87428; 36430; J2470; P9016 ×2; J7050 ×2; J7030

== ENCOUNTER 2024-10-04 16:43 | Emergency (ER) | payer OTHER ==
[2024-10-04 18:04] LABS: Specific Gravity 1.022 (1.005-1.030); Sqamous Epithelial <5 /HPF (None Seen); Urine Bacteria None Seen /HPF (<20); Urine Bilirubin NEGATIVE (Negative); Urine Blood Negative (Negative); Urine Clarity Clear (Clear); Urine Color Yellow (Yellow); Urine Crystals Unidentified Few /HPF (None Seen); Urine Culture Reflex Order NOT NEEDED; Urine Glucose NEGATIVE (Negative); Urine Ketones NEGATIVE (Negative); Urine Microscopic Reflex YN ORDER UMIC; Urine Mucus Slight /HPF (None Seen); Urine Nitrite NEGATIVE (Negative); Urine Protein TRACE (Negative); Urine RBC <5 /HPF (None Seen); Urine Urobilinogen Normal (Normal); Urine WBC <5 /HPF (<5); Urine pH 5.5 (5.0-7.0)
[2024-10-04 20:40] LABS: Hematocrit 15.4 % (39.6-49.0); MCHC 35.9 g/dL (32.0-36.0); MCV 94.6 fL (80-100); Platelets 105 thou/uL (152-406); RBC Red Blood Cell Count 1.62 M/uL (4.33-5.43); Red Cell Distribution Width 27.2 % (12.1-15.2)
[2024-10-04 20:47] LABS: Hemoglobin 5.5 g/dL (13.6-17.9)
[2024-10-04 21:12] LABS: PT Prothrombin Time 14.6 SECONDS (10-13.0); Protime INR 1.3
[2024-10-04] MEDS ORDERED: PANTOPRAZOLE 40 MG INJ ONE (21:17)
[2024-10-04 21:39] LABS: Albumin 3.3 g/dL (3.4-5.0); Albumin/Globulin Ratio 1.1 (1.1-1.8); Anion Gap 5.9 mEq/L (5.0-15.0); Bilirubin Total 0.4 mg/dL (0.2-1.0); Globulin 2.9 g/dL (2.3-3.5); Protein, Total 6.2 g/dL (6.4-8.2)
[2024-10-04 21:40] LABS: Potassium 3.9 mEq/L (3.5-5.1)
[2024-10-04 22:09] LABS: Troponin High Sensitivity 16.1 pg/mL (<58.9)
--- NOTE | 2024-10-05 00:14 | ER ---
Nurse's Notes [facility] Name: Quentin Lei Age: 79 yrs Sex: Male : 1945 Arrival Date: 10/04/2024 Time: 16:43 Bed 12 Private MD: Diagnosis: Weakness;Anemia, unspecified-SYMPTOMATIC;Arevalo's esophagus with dysplasia, unspecified Presentation: 10/04 16:47 Chief complaint: Patient states: blood in urine today , hx of anemia. Coronavirus iw screen: At this time, the client does not indicate any symptoms associated with coronavirus-19. Ebola Screen: No symptoms or risks identified at this time. Initial Sepsis Screen: Does the patient meet any 2 criteria? No. Patient's initial sepsis screen is negative. Does the patient have a suspected source of infection? No. Patient's initial sepsis screen is negative. Risk Assessment: Do you want to hurt yourself or someone else? Patient reports no desire to harm self or others. Onset of symptoms was October 04, 2024. 16:47 Method Of Arrival: Ambulatory iw 16:47 Acuity: MAE 3 iw Triage Assessment: 16:50 General: Appears in no apparent distress. Behavior is calm, cooperative. Pain: Denies iw pain. Historical: - Allergies: 16:48 tramadol; iw - Home Meds: 16:48 aspirin 81 mg Oral tablet [Active]; Eliquis 5 mg Oral tablet 2 times per day [Active]; iw furosemide 40 mg Oral tablet Every other day [Active]; levothyroxine 50 mcg capsule daily [Active]; losartan 25 mg Oral tablet once [Active]; omeprazole 40 mg Oral capsule 2 times per day [Active]; simvastatin 40 mg Oral tablet daily [Active]; - PMHx: 16:48 Arthritis; Hypertension; Hypothyroidism; COPD; Anemia; Lung tumor with radiation tx iw completed January 2023; Arevalo's Esophagus; Hypercholesterolemia; Myelodysplastic Syndrome; Osteoporosis; - PSHx: 16:48 lung biopsy; triple bypass; iw - Immunization history:: Adult Immunizations up to date. - Infectious Disease History:: Denies. - Social history:: Smoking status: Patient denies any tobacco usage or history of. Patient/guardian denies using alcohol, street drugs, IV drugs. Screenin:16 [facility] ED Fall Risk Assessment (Adult) History of falling in the last 3 months, jj7 including since admission No falls in past 3 months (0 pts) Confusion or Disorientation No (0 pts) Intoxicated or Sedated No (0 pts) Impaired Gait No (0 pts) Mobility Assist Device Used No (0 pt) Altered Elimination No (0 pt) Score/Fall Risk Level 0 - 2 = Low Risk Oriented to surroundings, Maintained a safe environment, Educated pt \T\ family on fall prevention, incl call for assistance when getting out of bed, Assessed \T\ reinforced patient's understanding of fall precautions. Abuse screen: Denies threats or abuse. Nutritional screening: No deficits noted. Tuberculosis screening: No symptoms or risk factors identified. Assessment: 19:16 Reassessment: ASSUMED CARE OF PT. PT IN BED. NO PAIN OR DISTRESS NOTED. VS STABLE. CALL jj7 KRISHNA IN REACH. General: Appears in no apparent distress. comfortable, Behavior is calm, cooperative, appropriate for age. Pain: Denies pain. : Reports HAD BLOOD IN URINE EARLIER, BUT IT HAS GONE AWAY. 22:30 Reassessment: Patient is alert, oriented x 3, equal unlabored respirations, skin jj7 warm/dry/pink. 23:30 Reassessment: Patient is alert, oriented x 3, equal unlabored respirations, skin jj7 warm/dry/pink. 10/05 00:10 Reassessment: THIS NURSE CALLED LAB TO INQUIRY ABOUT WHEN BLOOD WILL BE READY. MANISH cook IN LAB STATES IT WILL BE READY IN ABOUT 5 MINUTES. PT HAS BEEN DISCHARGED IN THE COMPUTER BY DR DAVIS, BUT HE STILL NEEDS 2 UNITS OF BLOOD TO BE TRANSFUSED. Vital Signs: 10/04 16:47 BP 135 / 62; Pulse 81; Resp 18; Temp 98.6; Pulse Ox 98% on R/A; Weight 92.08 kg; Height iw 5 ft. 11 in. ; 19:16 BP 122 / 55; Pulse 79; Resp 17; Pulse Ox 97% ; Pain 0/10; jj7 20:30 BP 116 / 57; Pulse 70; Resp 17; Pulse Ox 100% ; jj7 21:30 BP 116 / 60; Pulse 76; Resp 17; Pulse Ox 100% ; jj7 22:30 BP 101 / 50; Pulse 68; Resp 17; Pulse Ox 100% ; Pain 0/10; jj7 23:30 BP 119 / 58; Pulse 63; Resp 17; Pulse Ox 100% ; jj7 10/05 05:38 jj7 05:39 BP 130 / 77; Pulse 63; Resp 19; Temp 97.9; Pulse Ox 99% ; Pain 0/10; jj7 10/04 16:47 Body Mass Index 28.31 (92.08 kg, 180.34 cm) iw 19:16 Pain Scale: Adult jj7 22:30 Pain Scale: Adult jj7 05:39 Pain Scale: Adult jj7 05:38 SEE BLOOD TRANSFUSION SHEET FOR VS jj7 ED Course: 10/04 16:46 Patient arrived in ED. im 16:47 Elnea Stewart MD is Attending Physician. 6 16:48 Triage completed. iw 16:49 Arm band placed on. iw 17:40 Urinalysis w/ reflexes Sent. iw 19:15 Selene Almaraz, DUC is Primary Nurse. jj7 19:16 Patient has correct armband on for positive identification. Bed in low position. Call jj7 light in reach. Side rails up X 1. Provided Education on: USE OF CALL KRISHNA. Warm blanket given. 20:24 Attending Physician role handed off by Elena Stewart MD mikaela 20:24 Lauro Davis MD is Attending Physician. mikaela 20:36 CBC w/o diff Sent. jj7 20:53 PT-INR Sent. jj7 20:53 Comprehensive Metabolic Panel Sent. jj7 21:58 BNP Sent. jj7 21:58 Troponin High Sensitivity Sent. jj7 21:58 Antibody Screen Sent. jj7 10/05 00:11 Madelyn Howard MD is Referral Physician. mikaela 05:36 No provider procedures requiring assistance completed. IV discontinued, intact, jj7 bleeding controlled, No redness/swelling at site. Pressure dressing applied. Administered Medications: 10/04 21:58 Drug: Pantoprazole IVP 80 mg IVP once Route: IVP; Site: right antecubital; jj7 10/05 00:26 Follow up: Response: No adverse reaction jj7 05:35 Drug: Sucralfate PO 1 grams PO once Route: PO; jj7 05:40 Follow up: Response: No adverse reaction jj7 Medication: 10/04 19:16 VIS not applicable for this client. jj7 Outcome: 10/05 00:13 Discharge ordered by MD. al 05:36 Discharged to home ambulatory, with friend, joey 05:36 Condition: improved 05:36 Discharge instructions given to patient, Instructed on discharge instructions, follow up and referral plans. medication usage, Demonstrated understanding of instructions, follow-up care, medications, Prescriptions given X 2, 05:40 Patient left the ED. jj7 Signatures: Lauro Davis MD MD cha Williams, Irene, RN RN iw Johnson, Juwairiyah, RN RN jj7 Sherrell Agee Sandra, MD MD sw6
--- NOTE | 2024-10-05 00:14 | EDPHYS ---
Physician Documentation [facility] Name: Quentin Lei Age: 79 yrs Sex: Male : 1945 Arrival Date: 10/04/2024 Time: 16:43 Bed 12 Private MD: ED Physician Lauro Carr HPI: 10/04 16:53 This 79 yrs old Male presents to ER via Ambulatory with complaints of General sw6 Weakness, Urinary Problem. 16:53 The patient presents from home for evaluation for hematuria that he noted today. No sw6 dysuria. No abdominal pain. No flank pain. No nausea, vomiting or diarrhea. No fevers or chills. He reports he does have issues with emptying his bladder all the way but feels like he did about 1 hour prior to arrival. He does take Eliquis. He reports has been told he has a kidney stone in the past and that it may move at some point in time. No injury or trauma. Here for evaluation.. Historical: - Allergies: 16:48 tramadol; iw - Home Meds: 16:48 aspirin 81 mg Oral tablet [Active]; Eliquis 5 mg Oral tablet 2 times per day [Active]; iw furosemide 40 mg Oral tablet Every other day [Active]; levothyroxine 50 mcg capsule daily [Active]; losartan 25 mg Oral tablet once [Active]; omeprazole 40 mg Oral capsule 2 times per day [Active]; simvastatin 40 mg Oral tablet daily [Active]; - PMHx: 16:48 Arthritis; Hypertension; Hypothyroidism; COPD; Anemia; Lung tumor with radiation tx iw completed January 2023; Arevalo's Esophagus; Hypercholesterolemia; Myelodysplastic Syndrome; Osteoporosis; - PSHx: 16:48 lung biopsy; triple bypass; iw - Immunization history:: Adult Immunizations up to date. - Infectious Disease History:: Denies. - Social history:: Smoking status: Patient denies any tobacco usage or history of. Patient/guardian denies using alcohol, street drugs, IV drugs. ROS: 16:53 Constitutional: Negative for fever, chills, and weight loss, Cardiovascular: Negative sw6 for chest pain, palpitations, and edema, Respiratory: Negative for shortness of breath, cough, wheezing, and pleuritic chest pain, Abdomen/GI: Negative for abdominal pain, nausea, vomiting, diarrhea, and constipation, 16:53 : Positive for hematuria, Negative for burning with urination, 16:53 All other systems are negative, Exam: 16:53 Constitutional: This is a well developed, well nourished patient who is awake, alert, sw6 and in no acute distress. Chest/axilla: Normal chest wall appearance and motion. Nontender with no deformity. No lesions are appreciated. Cardiovascular: Regular rate and rhythm with a normal S1 and S2. No gallops, murmurs, or rubs. Normal PMI, no JVD. No pulse deficits. Respiratory: Lungs have equal breath sounds bilaterally, clear to auscultation and percussion. No rales, rhonchi or wheezes noted. No increased work of breathing, no retractions or nasal flaring. Abdomen/GI: Soft, non-tender, with normal bowel sounds. No distension or tympany. No guarding or rebound. No evidence of tenderness throughout. Back: No spinal tenderness. No costovertebral tenderness. Full range of motion. MS/ Extremity: Pulses equal, no cyanosis. Neurovascular intact. Full, normal range of motion. Neuro: Awake and alert, GCS 15, oriented to person, place, time, and situation. Cranial nerves II-XII grossly intact. Motor strength 5/5 in all extremities. Sensory grossly intact. Cerebellar exam normal. Normal gait. Psych: Awake, alert, with orientation to person, place and time. Behavior, mood, and affect are within normal limits. Vital Signs: 16:47 BP 135 / 62; Pulse 81; Resp 18; Temp 98.6; Pulse Ox 98% on R/A; Weight 92.08 kg; Height iw 5 ft. 11 in. ; 19:16 BP 122 / 55; Pulse 79; Resp 17; Pulse Ox 97% ; Pain 0/10; jj7 20:30 BP 116 / 57; Pulse 70; Resp 17; Pulse Ox 100% ; jj7 21:30 BP 116 / 60; Pulse 76; Resp 17; Pulse Ox 100% ; jj7 22:30 BP 101 / 50; Pulse 68; Resp 17; Pulse Ox 100% ; Pain 0/10; jj7 23:30 BP 119 / 58; Pulse 63; Resp 17; Pulse Ox 100% ; jj7 0418 05:38 jj7 05:39 BP 130 / 77; Pulse 63; Resp 19; Temp 97.9; Pulse Ox 99% ; Pain 0/10; jj7 10/04 16:47 Body Mass Index 28.31 (92.08 kg, 180.34 cm) iw 19:16 Pain Scale: Adult jj7 22:30 Pain Scale: Adult jj7 05:39 Pain Scale: Adult jj7 05:38 SEE BLOOD TRANSFUSION SHEET FOR VS jj7 MDM: 10/04 16:53 Differential diagnosis: nonspecific abdominal pain, UTI, urinary retention, Renal sw6 colic. Data reviewed: vital signs, nurses notes. 19:51 Medical Screening Exam initiated [facility] 10/04 16:52 Order name: Urinalysis w/ reflexes; Complete Time: 18:39 [facility] 10/04 18:39 Interpretation: Within normal limits. [facility] 10/04 19:10 Order name: CBC w/o diff; Complete Time: 23:58 [facility] 10/04 20:25 Order name: Comprehensive Metabolic Panel; Complete Time: 23:58 [facility] 10/04 20:25 Order name: PT-INR; Complete Time: 23:58 [facility] 10/04 21:04 Order name: PRBC [facility] 10/04 21:04 Order name: BNP; Complete Time: 23:58 [facility] 10/04 21:04 Order name: Troponin High Sensitivity; Complete Time: 23:58 [facility] 10/04 21:07 Order name: ABO/RH typing [facility] 10/04 21:07 Order name: Antibody Screen [facility] 10/04 21:04 Order name: Transfuse; Complete Time: 01:31 [facility] 10/04 21:47 Order name: Misc. Order: RECOLLECT TYPE AND SCREEN; Complete Time: 00:26 rv1 Administered Medications: 21:58 Drug: Pantoprazole IVP 80 mg IVP once Route: IVP; Site: right antecubital; jj7 10/05 00:26 Follow up: Response: No adverse reaction jj7 05:35 Drug: Sucralfate PO 1 grams PO once Route: PO; jj7 05:40 Follow up: Response: No adverse reaction jj7 Disposition Summary: 10/05/24 00:13 Discharge Ordered Notes: Location: Home mikaela Problem: new mikaela Symptoms: have improved mikaela Condition: Stable mikaela Diagnosis - Weakness mikaela - Anemia, unspecified - SYMPTOMATIC mikaela - Arevalo's esophagus with dysplasia, unspecified mikaela Followup: miakela - With: Private Physician - When: 2 - 3 days - Reason: Recheck today's complaints, Continuance of care, Re-evaluation by your physician Followup: [facility] - With: Madelyn Howard MD - When: 2 - 3 days - Reason: Recheck today's complaints, Continuance of care, Re-evaluation by your physician Discharge Instructions: - Discharge Summary Sheet [facility] - Anemia [facility] - Blood Transfusion, Adult [facility] - Weakness [facility] - Arevalo's Esophagus [facility] - Blood Transfusion, Adult, [id number] [facility] - Weakness, [id number] [facility] - Blood Transfusion, Adult, Care After, [id number] [facility] - Blood Transfusion, Adult, Care After [facility] Forms: - Medication Reconciliation Form [facility] - Antibiotic Education [facility] - Prescription Opioid Use [facility] - Patient Portal Instructions [facility] - Leadership Thank You Letter [facility] Prescriptions: - Protonix 40 mg Oral tablet, delayed release (enteric coated) - take 1 tablet ORAL route every 12 hours for 2 weeks; 28 tablet; Refills: 0, [facility] Product Selection Permitted - Carafate 1 gram Oral Tablet - take 1 tablet ORAL route 4 times per day take on an empty stomach, beginning on [facility] waking and last dose at bedtime; 100 tablet; Refills: 0, Product Selection Permitted Signatures: Dispatcher [employer] EDMS Lauro Carr MD MD cha Williams, Irene RN Selene Monk RN RN jj7 Danielle Lorenzana rv1 Elena Stewart MD MD sw6 Corrections: (The following items were deleted from the chart) 10/04 16:53 16:53 Urinalysis+U.LAB.BRZ ordered. EDMS EDMS 21:14 21:04 Chest Single View+RAD.RAD.BRZ ordered. EDMS EDMS 22:24 20:25 TYPE AND SCREEN+BB.LAB.BRZ ordered. EDMS EDMS
[2024-10-05] MEDS ORDERED: NA CHLORIDE 0.9% 250 ML ONE (01:03)
[2024-10-05] MEDS ORDERED: SUCRALFATE 1GM/10ML UCUP ONE (05:27)
[2024-10-05 05:52] VITALS: BP 130/77; TEMP 97.9; O2SAT 99
== END 2024-10-05 05:40 | disposition home or self-care (01) ==
LOC: ER 16:43
PROC: 30233N1 Transfusion of Nonautologous Red Blood Cells into Peripheral Vein, Percutaneous Approach (ICD-10-PCS; principal; 2024-10-05)
DX: D64.9 Anemia, unspecified (principal); K22.719 Barrett's esophagus with dysplasia, unspecified; Z87.442 Personal history of urinary calculi; Z95.1 Presence of aortocoronary bypass graft; I10 Essential (primary) hypertension; J44.9 Chronic obstructive pulmonary disease, unspecified; Z79.01 Long term (current) use of anticoagulants; Z79.82 Long term (current) use of aspirin
CPT/HCPCS: 81001; 36415; 86900; 86850; 85610; 86901; 86920 ×2; 85027; 84484; 80053; 83880; 36430; J2470; P9016 ×2; J7050

== ENCOUNTER 2024-10-25 17:10 | Emergency (ER) | payer OTHER ==
[2024-10-25 18:05] LABS: PT Prothrombin Time 15.4 SECONDS (10-13.0); Protime INR 1.37
[2024-10-25 18:06] LABS: Absolute Eosinophils 0.1 K/uL (0-0.5); Absolute Lymphocytes (CBC) 2.4 K/uL (0.7-4.9); Absolute Monocytes 0.5 K/uL (0.1-1.3); Absolute Neutrophil 2.5 K/uL (1.8-8.0); Basophils % 0.3 % (0-1.3); Eosinophils % 1.5 % (0-4.4); Hematocrit 19.8 % (39.6-49.0); Hemoglobin 7.2 g/dL (13.6-17.9); Lymphocytes % 43.1 % (15.3-44.8); MCH 35.6 pg (27.0-35.0); MCHC 36.3 g/dL (32.0-36.0); MPV 7.2 fL (7.6-11.3); Monocytes % 9.5 % (3.3-12.3); Neutrophils % 45.6 % (41.7-73.7); Nucleated Red Blood Cells % 0.1 % (0-0); Platelets 169 thou/uL (152-406); RBC Red Blood Cell Count 2.02 M/uL (4.33-5.43); Red Cell Distribution Width 25.8 % (12.1-15.2)
[2024-10-25 18:17] LABS: Albumin 3.5 g/dL (3.4-5.0); Albumin/Globulin Ratio 1.1 (1.1-1.8); Anion Gap 9.9 mEq/L (5.0-15.0); Bilirubin Direct 0.2 mg/dL (0-0.2); Bilirubin Indirect, Calculated 0.4 mg/dL (0.2-0.8); Bilirubin Total 0.6 mg/dL (0.2-1.0); Globulin 3.2 g/dL (2.3-3.5); Magnesium 1.9 mg/dL (1.6-2.4); Potassium 3.9 mEq/L (3.5-5.1); Protein, Total 6.7 g/dL (6.4-8.2); Troponin High Sensitivity 19.3 pg/mL (<58.9)
[2024-10-25 19:48] LABS: Blood Morphology Comment NOTED (NOT SEEN); Platelet Estimate ADEQ; White Blood Cell Scan OK (OK)
[2024-10-25 19:50] LABS: Anisocytosis 3+; Polychromasia 1+
[2024-10-25] MEDS ORDERED: NA CHLORIDE 0.9% 500 ML ONE (20:06)
--- NOTE | 2024-10-25 20:30 | EDPHYS ---
Physician Documentation [facility] Name: Quentin Lei Age: 79 yrs Sex: Male : 1945 Arrival Date: 10/25/2024 Time: 17:10 Bed 2 Private MD: ED Physician Salvador Nieves HPI: 10/25 18:51 This 79 yrs old Male presents to ER via Ambulatory with complaints of Breathing sp3 Difficulty, Back Pain. 18:51 79-year-old male with history of ongoing MDS workup, Arevalo's esophagus, sp3 hyperlipidemia, hypertension, COPD currently being seen by Dr. Karthik lezama. Patient has had multiple transfusions related to this ongoing issue. Today comes in for dyspnea on exertion and generalized weakness which he feels like he is ready for another transfusion. He denies any headache, chest pain, bleeding, back pain, abdominal pain, melena, vomiting, diarrhea, or any other signs or symptoms on ROS at this time.. Historical: - Allergies: 17:28 tramadol; iw - Home Meds: 17:28 aspirin 81 mg Oral tablet [Active]; Eliquis 5 mg Oral tablet 2 times per day [Active]; iw furosemide 40 mg Oral tablet Every other day [Active]; levothyroxine 50 mcg capsule daily [Active]; losartan 25 mg Oral tablet once [Active]; omeprazole 40 mg Oral capsule 2 times per day [Active]; simvastatin 40 mg Oral tablet daily [Active]; - PMHx: 17:28 Arthritis; Anemia; Arevalo's Esophagus; COPD; Hypercholesterolemia; Hypertension; iw Hypothyroidism; Lung tumor with radiation tx completed January 2023; Myelodysplastic Syndrome; Osteoporosis; - PSHx: 17:28 lung biopsy; triple bypass; iw - Immunization history:: Adult Immunizations up to date. - Infectious Disease History:: Denies. - Social history:: Smoking status: Patient/guardian denies using tobacco, the patient reports quitting approximately 25 years ago. ROS: 18:55 Constitutional: Negative for fever, chills, and weight loss, Eyes: Negative for injury, sp3 pain, redness, and discharge, Neck: Negative for injury, pain, and swelling, Cardiovascular: Negative for chest pain, palpitations, and edema, Respiratory: Negative for shortness of breath, cough, wheezing, and pleuritic chest pain, Abdomen/GI: Negative for abdominal pain, nausea, vomiting, diarrhea, and constipation, Back: Negative for injury and pain, MS/Extremity: Negative for injury and deformity, Skin: Negative for injury, rash, and discoloration, Neuro: Negative for headache, weakness, numbness, tingling, and seizure, Allergy/Immunology: Negative for hives, rash, and allergies, 18:55 All other systems are negative, Exam: 18:55 Constitutional: This is a well developed, well nourished patient who is awake, alert, sp3 and in no acute distress. Head/Face: Normocephalic, atraumatic. Eyes: Pupils equal round and reactive to light, extra-ocular motions intact. Lids and lashes normal. Conjunctiva and sclera are non-icteric and not injected. Cornea within normal limits. Periorbital areas with no swelling, redness, or edema. Neck: Trachea midline, no thyromegaly or masses palpated, and no cervical lymphadenopathy. Supple, full range of motion without nuchal rigidity, or vertebral point tenderness. No Meningismus. Chest/axilla: Normal chest wall appearance and motion. Nontender with no deformity. No lesions are appreciated. Cardiovascular: Regular rate and rhythm with a normal S1 and S2. No gallops, murmurs, or rubs. Normal PMI, no JVD. No pulse deficits. Respiratory: Lungs have equal breath sounds bilaterally, clear to auscultation and percussion. No rales, rhonchi or wheezes noted. No increased work of breathing, no retractions or nasal flaring. Abdomen/GI: Soft, non-tender, with normal bowel sounds. No distension or tympany. No guarding or rebound. No evidence of tenderness throughout. Back: No spinal tenderness. No costovertebral tenderness. Full range of motion. MS/ Extremity: Pulses equal, no cyanosis. Neurovascular intact. Full, normal range of motion. Neuro: Awake and alert, GCS 15, oriented to person, place, time, and situation. Cranial nerves II-XII grossly intact. Motor strength 5/5 in all extremities. Sensory grossly intact. Cerebellar exam normal. Normal gait. Psych: Awake, alert, with orientation to person, place and time. Behavior, mood, and affect are within normal limits. 18:55 Skin: Patient has pallor on his skin. Vital signs are normal.. 18:57 ECG was reviewed by the Attending Physician. EKG demonstrates normal sinus rhythm at 71 sp3 bpm with occasional PACs, right bundle branch block and nonspecific diffuse ST/T changes without evidence of acute ischemia. Vital Signs: 17:27 BP 135 / 58; Pulse 65; Resp 16; Temp 98.9; Pulse Ox 94% on R/A; Weight 93.89 kg; Height iw 5 ft. 11 in. ; 18:56 BP 127 / 56; Pulse 68; Resp 19; Pulse Ox 100% ; bp 20:00 BP 142 / 55; Pulse 68; Resp 18; Temp 98.9; Pulse Ox 99% ; Pain 0/10; bm8 22:05 BP 138 / 63; Pulse 68; Resp 18; Temp 98.3; Pulse Ox 100% ; Pain 0/10; bm8 23:10 BP 138 / 64; Pulse 65; Resp 19; Temp 97.6; Pulse Ox 99% ; Pain 0/10; bm8 10/26 00:38 BP 128 / 62; Pulse 61; Resp 20; Temp 97.8; Pulse Ox 98% ; Pain 0/10; bm8 10/25 17:27 Body Mass Index 28.87 (93.89 kg, 180.34 cm) iw 20:00 Pain Scale: Adult bm8 22:05 Pain Scale: Adult bm8 23:10 Pain Scale: Adult bm8 10/26 00:38 Pain Scale: Adult bm8 Tabby Coma Score: 10/25 20:00 Eye Response: spontaneous(4). Motor Response: obeys commands(6). Verbal Response: bm8 oriented(5). Total: 15. 22:05 Eye Response: spontaneous(4). Motor Response: obeys commands(6). Verbal Response: bm8 oriented(5). Total: 15. 10/26 00:38 Eye Response: spontaneous(4). Motor Response: obeys commands(6). Verbal Response: bm8 oriented(5). Total: 15. MDM: 10/25 17:34 Medical Screening Exam initiated sp3 18:56 Data reviewed: vital signs, nurses notes, old medical records, lab test result(s), EKG. sp3 ED course: 79-year-old male with probable anemia from MDS or related pathology. Hemoglobin is 7.1 and we will transfuse 2 units PRBCs. I do not believe patient has any other issue including bleeding or any other critical aspect on differential diagnosis. Clinically not sepsis, ACS, PE or shock.. 20:29 ED course: Patient will be discharged after 2 units of. BC's. Patient will be placed in sp3 discharge status due to signout. Dr. Carr will be available for any complications however after blood patient will be safely discharged assuming no complication.. 10/25 17:33 Order name: Type And Screen ll1 10/25 17:23 Order name: Basic Metabolic Panel; Complete Time: 18:47 sp3 10/25 17:23 Order name: CBC with Diff sp3 10/25 17:23 Order name: LFT's; Complete Time: 18:47 sp3 10/25 17:23 Order name: Magnesium; Complete Time: 18:47 sp3 10/25 17:23 Order name: NT PRO-BNP; Complete Time: 18:47 sp3 10/25 17:23 Order name: PT-INR; Complete Time: 18:47 sp3 10/25 17:23 Order name: Troponin HS; Complete Time: 18:47 sp3 10/25 19:06 Order name: Packed RBC Leukored EDMO 10/25 19:50 Order name: CBC Smear Scan EDMO 10/25 17:23 Order name: Cardiac monitoring; Complete Time: 17:33 sp3 10/25 17:23 Order name: EKG - Nurse/Tech; Complete Time: 17:45 sp3 10/25 17:23 Order name: IV Saline Lock; Complete Time: 17:45 sp3 10/25 17:23 Order name: Labs collected and sent; Complete Time: 17:45 sp3 10/25 17:23 Order name: O2 Per Protocol; Complete Time: 17:33 sp3 10/25 17:23 Order name: O2 Sat Monitoring; Complete Time: 17:33 sp3 10/25 18:50 Order name: Transfuse; Complete Time: 00:49 sp3 Administered Medications: No medications were administered Disposition Summary: 10/25/24 20:30 Discharge Ordered Notes: Location: Home sp3 Condition: Stable sp3 Diagnosis - Anemia, myelodysplastic type syndrome undifferentiated sp3 Followup: sp3 - With: Private Physician - When: Upon discharge from the Emergency Department - Reason: Continuance of care Discharge Instructions: - Discharge Summary Sheet sp3 - Blood Transfusion, Adult, Care After sp3 Forms: - Medication Reconciliation Form sp3 - Antibiotic Education sp3 - Prescription Opioid Use sp3 - Patient Portal Instructions sp3 - Leadership Thank You Letter sp3 Signatures: Dispatcher [employer] Vicki Olguin, RN RN Salvador Garzon MD MD sp3 Corrections: (The following items were deleted from the chart) 17:24 17:24 Chest Single View+RAD.RAD.BRZ ordered. EDMS EDMS 19:06 18:52 ABO/RH typing ordered. EDMS EDMS 19:06 18:52 Antibody Screen ordered. EDMS EDMS 19:07 18:50 PACKED RBC LEUKORED+BB.LAB.BRZ ordered. EDMS EDMS
--- NOTE | 2024-10-25 20:30 | ER ---
Nurse's Notes [facility] Name: Quentin Lei Age: 79 yrs Sex: Male : 1945 Arrival Date: 10/25/2024 Time: 17:10 Bed 2 Private MD: Diagnosis: Anemia, myelodysplastic type syndrome undifferentiated Presentation: 10/25 17:27 Chief complaint: Patient states: feels SOB, pain in back and shoulders, X 2 days, feels iw like he needs a blood transfusion. Coronavirus screen: At this time, the client does not indicate any symptoms associated with coronavirus-19. Ebola Screen: No symptoms or risks identified at this time. Initial Sepsis Screen: Does the patient meet any 2 criteria? No. Patient's initial sepsis screen is negative. Does the patient have a suspected source of infection? No. Patient's initial sepsis screen is negative. Risk Assessment: Do you want to hurt yourself or someone else? Patient reports no desire to harm self or others. 17:27 Method Of Arrival: Ambulatory iw 17:27 Acuity: MAE 3 iw 17:29 Onset of symptoms was October 23, 2024. Triage Assessment: 17:30 General: Appears in no apparent distress. Behavior is calm, cooperative, appropriate bp for age. Pain: Complains of pain in back. EENT: No deficits noted. Neuro: No deficits noted. Cardiovascular: Rhythm is sinus rhythm. Respiratory: Reports shortness of breath Onset: The symptoms/episode began/occurred at an unknown time. the patient has mild shortness of breath. GI: No signs and/or symptoms were reported involving the gastrointestinal system. : No signs and/or symptoms were reported regarding the genitourinary system. Derm: Skin is pale. Musculoskeletal: No deficits noted. Historical: - Allergies: 17:28 tramadol; iw - Home Meds: 17:28 aspirin 81 mg Oral tablet [Active]; Eliquis 5 mg Oral tablet 2 times per day [Active]; iw furosemide 40 mg Oral tablet Every other day [Active]; levothyroxine 50 mcg capsule daily [Active]; losartan 25 mg Oral tablet once [Active]; omeprazole 40 mg Oral capsule 2 times per day [Active]; simvastatin 40 mg Oral tablet daily [Active]; - PMHx: 17:28 Arthritis; Anemia; Arevalo's Esophagus; COPD; Hypercholesterolemia; Hypertension; iw Hypothyroidism; Lung tumor with radiation tx completed January 2023; Myelodysplastic Syndrome; Osteoporosis; - PSHx: 17:28 lung biopsy; triple bypass; iw - Immunization history:: Adult Immunizations up to date. - Infectious Disease History:: Denies. - Social history:: Smoking status: Patient/guardian denies using tobacco, the patient reports quitting approximately 25 years ago. Screenin:57 [facility] ED Fall Risk Assessment (Adult) History of falling in the last 3 months, bp including since admission No falls in past 3 months (0 pts) Confusion or Disorientation No (0 pts) Intoxicated or Sedated No (0 pts) Impaired Gait No (0 pts) Mobility Assist Device Used No (0 pt) Altered Elimination No (0 pt) Score/Fall Risk Level 0 - 2 = Low Risk Oriented to surroundings. Abuse screen: Denies threats or abuse. Denies injuries from another. Nutritional screening: No deficits noted. Tuberculosis screening: No symptoms or risk factors identified. Assessment: 17:34 Reassessment: Patient and/or family updated on plan of care and expected duration. Pain ll1 level reassessed. 17:45 General: Appears in no apparent distress. comfortable, well groomed, well developed, kc6 Behavior is calm, cooperative, appropriate for age. Pain: Complains of pain in back. Neuro: Level of Consciousness is awake, alert, obeys commands, Oriented to person, place, time, situation, Appropriate for age. Cardiovascular: Denies chest pain, Capillary refill < 3 seconds. Respiratory: Reports shortness of breath on exertion Airway is patent Trachea midline Respiratory effort is even, unlabored, Respiratory pattern is regular, symmetrical. GI: No signs and/or symptoms were reported involving the gastrointestinal system. : No signs and/or symptoms were reported regarding the genitourinary system. EENT: No signs and/or symptoms were reported regarding the EENT system. Derm: No signs and/or symptoms reported regarding the dermatologic system. Skin is intact, is healthy with good turgor, Skin is dry, Skin is pale, Skin temperature is warm. Musculoskeletal: No signs and/or symptoms reported regarding the musculoskeletal system. Circulation, motion, and sensation intact. Range of motion: intact in all extremities. 18:45 Reassessment: Patient appears in no apparent distress at this time. No changes from kc6 previously documented assessment. Patient and/or family updated on plan of care and expected duration. Pain level reassessed. Patient is alert, oriented x 3, equal unlabored respirations, skin warm/dry/pink. 18:56 Cardiovascular: Rhythm is sinus rhythm. Respiratory: Airway is patent Respiratory bp effort is even, unlabored, Breath sounds are clear bilaterally. 20:00 Reassessment: Patient appears in no apparent distress at this time. Patient and/or bm8 family updated on plan of care and expected duration. Pain level reassessed. Patient is alert, oriented x 3, equal unlabored respirations, skin warm/dry/pink. Patient denies pain at this time. 20:20 Reassessment: 1ST UNIT OF BLOOD STARTED. bm8 20:49 Reassessment: PT TO COMPLETE BLOOD TRANSFUSION PRIOR TO DISCHARGE. bm8 22:05 Reassessment: Patient appears in no apparent distress at this time. Patient and/or bm8 family updated on plan of care and expected duration. Pain level reassessed. Patient is alert, oriented x 3, equal unlabored respirations, skin warm/dry/pink. 1st unit of PRBC complete. Patient denies pain at this time. Patient states feeling better. Patient states symptoms have improved. 23:10 Reassessment: 2nd unit of PBRC started. bm8 23:26 Reassessment: Patient appears in no apparent distress at this time. Patient and/or bm8 family updated on plan of care and expected duration. Pain level reassessed. Patient is alert, oriented x 3, equal unlabored respirations, skin warm/dry/pink. Patient denies pain at this time. 10/26 00:38 Reassessment: Patient appears in no apparent distress at this time. Patient and/or bm8 family updated on plan of care and expected duration. Pain level reassessed. Patient is alert, oriented x 3, equal unlabored respirations, skin warm/dry/pink. Pt has completed 2nd Unit of PRBC Patient denies pain at this time. Patient states feeling better. Patient states symptoms have improved. Vital Signs: 10/25 17:27 BP 135 / 58; Pulse 65; Resp 16; Temp 98.9; Pulse Ox 94% on R/A; Weight 93.89 kg; Height iw 5 ft. 11 in. ; 18:56 BP 127 / 56; Pulse 68; Resp 19; Pulse Ox 100% ; bp 20:00 BP 142 / 55; Pulse 68; Resp 18; Temp 98.9; Pulse Ox 99% ; Pain 0/10; bm8 22:05 BP 138 / 63; Pulse 68; Resp 18; Temp 98.3; Pulse Ox 100% ; Pain 0/10; bm8 23:10 BP 138 / 64; Pulse 65; Resp 19; Temp 97.6; Pulse Ox 99% ; Pain 0/10; bm8 10/26 00:38 BP 128 / 62; Pulse 61; Resp 20; Temp 97.8; Pulse Ox 98% ; Pain 0/10; bm8 10/25 17:27 Body Mass Index 28.87 (93.89 kg, 180.34 cm) iw 20:00 Pain Scale: Adult bm8 22:05 Pain Scale: Adult bm8 23:10 Pain Scale: Adult bm8 10/26 00:38 Pain Scale: Adult bm8 Tabby Coma Score: 10/25 20:00 Eye Response: spontaneous(4). Motor Response: obeys commands(6). Verbal Response: bm8 oriented(5). Total: 15. 22:05 Eye Response: spontaneous(4). Motor Response: obeys commands(6). Verbal Response: bm8 oriented(5). Total: 15. 10/26 00:38 Eye Response: spontaneous(4). Motor Response: obeys commands(6). Verbal Response: bm8 oriented(5). Total: 15. ED Course: 10/25 17:15 Patient arrived in ED. al6 17:17 Salvador Nieves MD is Attending Physician. sp3 17:28 Triage completed. iw 17:31 Thalia Camp, DUC is Primary Nurse. kc6 17:34 Arm band placed on Patient placed in an exam room, on a stretcher. ll1 17:45 Patient has correct armband on for positive identification. Bed in low position. Call kc6 light in reach. Side rails up X 1. hospital monitor on. Pulse ox on. NIBP on. Door closed. Noise minimized. Lights dimmed. Warm blanket given. Pillow given. Verbal reassurance given. 17:45 Initial lab(s) drawn, by me, sent to lab. T\T\S collected, blood band applied to patient. bp Inserted saline lock: 20 gauge in right forearm, using aseptic technique. Blood collected. Flushed with 10 mL NS. 17:45 Patient maintains SpO2 saturation greater than 95% on room air. kc6 18:57 Patient has correct armband on for positive identification. bp 19:00 Report given to DUC Rangel \T\ DUC Fiore. kc6 20:00 Provided Education on: Blood Transfusion, Procedure Consent. bm8 10/26 00:38 No provider procedures requiring assistance completed. IV discontinued, intact, bm8 bleeding controlled, No redness/swelling at site. Pressure dressing applied. Administered Medications: No medications were administered Medication: 10/25 20:00 VIS not applicable for this client. bm8 Outcome: 20:30 Discharge ordered by . sp3 10/26 00:38 Discharged to home ambulatory, bm8 Condition: good Discharge instructions given to patient, Instructed on discharge instructions, follow up and referral plans. no drinking with medication, no driving heavy equipment, medication usage, safety practices, Demonstrated understanding of instructions, follow-up care, medications, 00:49 Patient left the ED. bm8 Signatures: Vicki Stewart RN RN iw Srinivas Collado RN RN Jian Borrero RN RN ll1 Salvador Nieves MD MD sp3 Thalia Camp RN RN kc6 Adebayo Salas, RN RN bm8 Monica Barone6 Corrections: (The following items were deleted from the chart) 10/25 17:29 17:27 BP 135 / 58; Pulse 65bpm; Resp 16bpm; Pulse Ox 94% RA; Temp 98.9F; 93.89 kg; iw Height 5 ft. 11 in.; BMI: 28.8; iw
[2024-10-26 01:19] VITALS: BP 128/62; TEMP 97.8; O2SAT 98
--- NOTE | 2024-10-29 12:10 | EKG ---
Test Date: 2024-10-25 Test Time: 17:40:03 Clerical Administrative Assistant: EM MEASUREMENT RESULTS: Intervals: Rate: 71 SC: 176 QRSD: 138 QT: 448 QTc: 486 [place]: P: 89 SC: 176 QRS: -39 T: 78 INTERPRETIVE STATEMENTS: Sinus rhythm with occasional premature ventricular complexes Left axis deviation Right bundle branch block Left ventricular hypertrophy with repolarization abnormality Cannot rule out Septal infarct, age undetermined Abnormal ECG Compared to ECG 09/07/2024 21:23:45 Left ventricular hypertrophy now present Early repolarization now present Myocardial infarct finding still present Electronically Signed On 10-29-24 12:07:45 CDT by Louis Scales
== END 2024-10-26 00:49 | disposition home or self-care (01) ==
LOC: ER 17:10
PROC: 30233N1 Transfusion of Nonautologous Red Blood Cells into Peripheral Vein, Percutaneous Approach (ICD-10-PCS; principal; 2024-10-26)
DX: D46.9 Myelodysplastic syndrome, unspecified (principal); I10 Essential (primary) hypertension; J44.9 Chronic obstructive pulmonary disease, unspecified; Z79.01 Long term (current) use of anticoagulants; Z79.82 Long term (current) use of aspirin
CPT/HCPCS: 93005; 85025; 80048; 36415; 86900; 83735; 86850; 85610; 86901; 80076; 86920 ×2; 84484; 83880; 99284; 36430; P9016 ×2; J7050

== ENCOUNTER 2025-01-29 17:24 | Emergency (ER) | payer OTHER ==
[2025-01-29 18:47] LABS: Absolute Lymphocytes (CBC) 2.2 K/uL (0.7-4.9); Hematocrit 16.8 % (39.6-49.0); MCH 33.0 pg (27.0-35.0); MCHC 34.3 g/dL (32.0-36.0); MCV 96.4 fL (80-100); MPV 7.5 fL (7.6-11.3); Nucleated RBC Absolute Count 0.0 (0-0); Nucleated Red Blood Cells % 0.0 % (0-0); RBC Red Blood Cell Count 1.74 M/uL (4.33-5.43); White Blood Count 4.10 thou/uL (4.3-10.9)
[2025-01-29 18:55] LABS: PT Prothrombin Time 20.4 SECONDS (10-13.0); Protime INR 1.84
[2025-01-29 18:58] LABS: Hemoglobin 5.8 g/dL (13.6-17.9)
[2025-01-29 19:09] LABS: ALT/SGPT 56.0 U/L (16-61); AST/SGOT 42.0 U/L (15-37); Albumin 3.4 g/dL (3.4-5.0); Albumin/Globulin Ratio 1.2 (1.1-1.8); Alkaline Phosphatase 50.0 U/L (45-117); Anion Gap 7.9 mEq/L (5.0-15.0); BUN Blood Urea Nitrogen 35.0 mg/dL (7-18); Bilirubin Indirect, Calculated 0.3 mg/dL (0.2-0.8); Globulin 2.9 g/dL (2.3-3.5); Glucose Level 142.0 mg/dL (74-106); Magnesium 1.8 mg/dL (1.6-2.4); NT PRO-BNP 592.0 pg/mL (<450); Potassium 3.9 mEq/L (3.5-5.1); Troponin High Sensitivity 16.7 pg/mL (<58.9)
[2025-01-29 19:44] LABS: Anisocytosis 2+; Blood Morphology Comment NOTED (NOT SEEN); Macrocytosis SLIGHT; Microcytosis 1+; Ovalocytes SLIGHT; White Blood Cell Scan OK (OK)
[2025-01-29] MEDS ORDERED: NA CHLORIDE 0.9% 250 ML ONE (20:06)
--- NOTE | 2025-01-30 02:21 | EDPHYS ---
Physician Documentation [facility] Name: Quentin Lei Age: 79 yrs Sex: Male : 1945 Arrival Date: 01/29/2025 Time: 17:24 Bed 4 Private MD: ED Physician Peter Cottrell HPI: 01/29 17:34 This 79 yrs old Male presents to ER via Unassigned with complaints of General Weakness. sp3 17:34 79-year-old male with history of ongoing MDS workup, Arevalo's esophagus, sp3 hyperlipidemia, hypertension, COPD currently being seen by Dr. Karthik lezama. Patient has had multiple transfusions related to this ongoing issue. Today comes in for dyspnea on exertion and generalized weakness which he feels like he is ready for another transfusion. He denies any headache, chest pain, bleeding, back pain, abdominal pain, melena, vomiting, diarrhea, or any other signs or symptoms on ROS at this time.. Historical: - Allergies: 17:43 tramadol; hb - PMHx: 17:43 Anemia; Hypothyroidism; Hypertension; Arevalo's Esophagus; Arthritis; COPD; hb Hypercholesterolemia; Lung tumor with radiation tx completed January 2023; Myelodysplastic Syndrome; Osteoporosis; - PSHx: 17:43 lung biopsy; triple bypass; hb - Immunization history:: Adult Immunizations up to date. - Infectious Disease History:: Denies. - Social history:: Smoking status: unknown. ROS: 18:04 Eyes: Negative for injury, pain, redness, and discharge, ENT: Negative for injury, sp3 pain, and discharge, Neck: Negative for injury, pain, and swelling, Cardiovascular: Negative for chest pain, palpitations, and edema, Respiratory: Negative for shortness of breath, cough, wheezing, and pleuritic chest pain, Abdomen/GI: Negative for abdominal pain, nausea, vomiting, diarrhea, and constipation, Back: Negative for injury and pain, MS/Extremity: Negative for injury and deformity, Skin: Negative for injury, rash, and discoloration, Neuro: Negative for headache, weakness, numbness, tingling, and seizure, Psych: Negative for depression, anxiety, suicide ideation, homicidal ideation, and hallucinations, Allergy/Immunology: Negative for hives, rash, and allergies, 18:04 All other systems are negative, Exam: 18:04 Constitutional: This is a well developed, well nourished patient who is awake, alert, sp3 and in no acute distress. Head/Face: Normocephalic, atraumatic. Eyes: Pupils equal round and reactive to light, extra-ocular motions intact. Lids and lashes normal. Conjunctiva and sclera are non-icteric and not injected. Cornea within normal limits. Periorbital areas with no swelling, redness, or edema. ENT: Nares patent. No nasal discharge, no septal abnormalities noted. External auditory canals are clear. Oropharynx with no redness, swelling, or masses, exudates, or evidence of obstruction, uvula midline. Mucous membranes moist. Neck: Trachea midline, no thyromegaly or masses palpated, and no cervical lymphadenopathy. Supple, full range of motion without nuchal rigidity, or vertebral point tenderness. No Meningismus. Chest/axilla: Normal chest wall appearance and motion. Nontender with no deformity. No lesions are appreciated. Cardiovascular: Regular rate and rhythm with a normal S1 and S2. No gallops, murmurs, or rubs. Normal PMI, no JVD. No pulse deficits. Respiratory: Lungs have equal breath sounds bilaterally, clear to auscultation and percussion. No rales, rhonchi or wheezes noted. No increased work of breathing, no retractions or nasal flaring. Abdomen/GI: Soft, non-tender, with normal bowel sounds. No distension or tympany. No guarding or rebound. No evidence of tenderness throughout. Back: No spinal tenderness. No costovertebral tenderness. Full range of motion. Skin: Warm, dry with normal turgor. Normal color with no rashes, no lesions, and no evidence of cellulitis. MS/ Extremity: Pulses equal, no cyanosis. Neurovascular intact. Full, normal range of motion. Neuro: Awake and alert, GCS 15, oriented to person, place, time, and situation. Cranial nerves II-XII grossly intact. Motor strength 5/5 in all extremities. Sensory grossly intact. Cerebellar exam normal. Normal gait. Psych: Awake, alert, with orientation to person, place and time. Behavior, mood, and affect are within normal limits. 01/30 03:50 ECG was reviewed by the Attending Physician. EKG at 2123 normal sinus rhythm left axis sp4 deviation right bundle branch block. Otherwise normal. Sinus rhythm rate 64 An electrocardiogram was deferred on this patient Vital Signs: 01/29 17:40 BP 158 / 43; Pulse 74; Resp 18; Temp 97.9; Pulse Ox 100% on R/A; Weight 93.44 kg; hb Height 5 ft. 11 in. ; Pain 0/10; 21:24 BP 145 / 77; Pulse 64; Resp 18; Pulse Ox 100% ; kd3 22:21 BP 133 / 60; Pulse 62; Resp 18; Pulse Ox 98% on R/A; kd3 01/30 01:01 BP 115 / 56; Pulse 52; Resp 18; Pulse Ox 100% on R/A; kd3 02:05 BP 109 / 57; Pulse 51; Resp 18; Temp 98.2; Pulse Ox 99% on R/A; kd3 01/29 17:40 Body Mass Index 28.73 (93.44 kg, 180.34 cm) hb 01/29 17:40 Pain Scale: Adult hb Tabby Coma Score: 03:50 Eye Response: spontaneous(4). Motor Response: obeys commands(6). Verbal Response: sp4 oriented(5). Total: 15. MDM: 01/29 17:33 Medical Screening Exam initiated sp3 18:05 Data reviewed: vital signs, nurses notes, old medical records, lab test result(s), EKG, sp3 radiologic studies. ED course: 79-year-old male with undifferentiated myelodysplastic syndrome, Arevalo's esophagus now for probable anemia acute on chronic. Patient will likely need blood transfusion. Initial workup pending. Differential diagnosis includes MDS related decreased production, iron deficiency, blood loss though unlikely, among others. Patient already is being seen in hematology office. Will administer blood if needed and discharged home. Vital signs are currently stable. Patient is in no acute distress. Patient likely need to be signed out to nighttime physician for final reevaluation and disposition.. 01/29 17:33 Order name: Basic Metabolic Panel; Complete Time: 19:35 sp3 01/29 17:33 Order name: CBC with Diff; Complete Time: 20:46 sp3 01/29 17:33 Order name: LFT's; Complete Time: 19:35 sp3 01/29 17:33 Order name: Magnesium; Complete Time: 19:35 sp3 01/29 17:33 Order name: NT PRO-BNP; Complete Time: 19:35 sp3 01/29 17:33 Order name: PT-INR; Complete Time: 19:02 sp3 01/29 17:33 Order name: Troponin HS; Complete Time: 19:35 sp3 01/29 17:33 Order name: Type And Screen sp3 01/29 19:01 Order name: CBC Smear Scan; Complete Time: 20:46 EDCO 01/29 19:17 Order name: Packed RBC Leukored EDCO 01/29 17:33 Order name: Cardiac monitoring; Complete Time: 20:49 sp3 01/29 17:33 Order name: EKG - Nurse/Tech; Complete Time: 21:27 sp3 01/29 17:33 Order name: IV Saline Lock; Complete Time: 18:41 sp3 01/29 17:33 Order name: Labs collected and sent; Complete Time: 18:41 sp3 01/29 17:33 Order name: O2 Per Protocol; Complete Time: 18:41 sp3 01/29 17:33 Order name: O2 Sat Monitoring; Complete Time: 18:41 sp3 EC:23 Rate is 64 beats/min. Rhythm is regular, Sinus Rhythm. Left axis deviation noted. WI sp4 interval is normal. QRS interval is prolonged. QT interval is normal. No Q waves. T waves are Normal. No ST changes noted. Clinical impression: No evidence of ischemia. Interpreted by me. Reviewed by me. Administered Medications: 20:40 Drug: Acetaminophen PO 1000 mg PO once Route: PO; [facility] 01/30 02:27 Follow up: Response: No adverse reaction 3 01/29 20:40 Drug: diphenhydrAMINE PO 25 mg PO once Route: PO; 1 01/30 02:27 Follow up: Response: No adverse reaction kd3 Disposition Summary: 01/30/25 02:20 Discharge Ordered Notes: Location: Home sp4 Problem: new sp4 Symptoms: have improved sp4 Condition: Stable sp4 Diagnosis - Acute on chronic symptomatic anemia sp4 Followup: sp4 - With: Private Physician - When: 7 - 10 days - Reason: Recheck today's complaints Discharge Instructions: - Discharge Summary Sheet sp4 - Anemia sp4 Forms: - Patient Portal Instructions sp4 Signatures: Dispatcher [employer] EDFe Tamayo RN RN hb Patel, Setul, MD MD sp3 Jazzmine Rodas, RN RN kd3 Matilde Tai, RN RN ha1 Peter Cottrell MD MD sp4 Corrections: (The following items were deleted from the chart) 01/29 17:34 17:34 BASIC METABOLIC PANEL+C.LAB.BRZ ordered. EDMS EDMS 17:34 17:34 CBC+H.LAB.BRZ ordered. EDMS EDMS 17:34 17:34 HEPATIC FUNCTION+C.LAB.BRZ ordered. EDMS EDMS 17:34 17:34 MAGNESIUM+C.LAB.BRZ ordered. EDMS EDMS 17:34 17:34 PROBNP+C.LAB.BRZ ordered. EDMS EDMS 17:34 17:34 PROTIME (+INR)+COAG.LAB.BRZ ordered. EDMS EDMS 17:34 17:34 Troponin High Sensitivity+C.LAB.BRZ ordered. EDMS EDMS 17:34 17:34 TYPE AND SCREEN+BB.LAB.BRZ ordered. EDMS EDMS 17:34 17:34 Chest Single View+RAD.RAD.BRZ ordered. EDMS EDMS 19:18 18:59 PACKED RBC LEUKORED+BB.LAB.BRZ ordered. EDMS EDMS 19:18 19:02 ABO/RH typing ordered. EDMS EDMS 19:18 19:02 Antibody Screen ordered. EDMS EDMS
--- NOTE | 2025-01-30 02:21 | ER ---
Nurse's Notes [facility] Name: Quentin Lei Age: 79 yrs Sex: Male : 1945 Arrival Date: 01/29/2025 Time: 17:24 Bed 4 Private MD: Diagnosis: Acute on chronic symptomatic anemia Presentation: 01/29 17:40 Chief complaint: Generalized weakness and SOB since yesterday. Had an episode 3 days hb ago with upper back pain followed by N/V, similar to previous heart attack. Coronavirus screen: At this time, the client does not indicate any symptoms associated with coronavirus-19. Ebola Screen: No symptoms or risks identified at this time. Initial Sepsis Screen: Does the patient meet any 2 criteria? No. Patient's initial sepsis screen is negative. Does the patient have a suspected source of infection? No. Patient's initial sepsis screen is negative. Risk Assessment: Do you want to hurt yourself or someone else? Patient reports no desire to harm self or others. Onset of symptoms was January 28, 2025. 17:40 Method Of Arrival: Ambulatory hb 17:40 Acuity: MAE 3 hb Triage Assessment: 21:25 General: Appears in no apparent distress. Behavior is calm, cooperative. Pain: Denies kd3 pain. Historical: - Allergies: 17:43 tramadol; hb - PMHx: 17:43 Anemia; Hypothyroidism; Hypertension; Arevalo's Esophagus; Arthritis; COPD; hb Hypercholesterolemia; Lung tumor with radiation tx completed January 2023; Myelodysplastic Syndrome; Osteoporosis; - PSHx: 17:43 lung biopsy; triple bypass; hb - Immunization history:: Adult Immunizations up to date. - Infectious Disease History:: Denies. - Social history:: Smoking status: unknown. Screenin:24 [facility] ED Fall Risk Assessment (Adult) History of falling in the last 3 months, kd3 including since admission No falls in past 3 months (0 pts) Confusion or Disorientation No (0 pts) Intoxicated or Sedated No (0 pts) Impaired Gait No (0 pts) Mobility Assist Device Used No (0 pt) Altered Elimination No (0 pt) Score/Fall Risk Level 0 - 2 = Low Risk Maintained a safe environment. Abuse screen: Denies threats or abuse. Denies injuries from another. Nutritional screening: No deficits noted. Tuberculosis screening: No symptoms or risk factors identified. Assessment: 21:42 General: Appears in no apparent distress. Behavior is calm, cooperative. Neuro: Level kd3 of Consciousness is awake, alert, obeys commands, Oriented to person, place, time, situation. Cardiovascular: Capillary refill < 3 seconds Patient's skin is warm and dry. Respiratory: Airway is patent Trachea midline Respiratory effort is even, unlabored, Respiratory pattern is regular, symmetrical. GI: No signs and/or symptoms were reported involving the gastrointestinal system. : No signs and/or symptoms were reported regarding the genitourinary system. EENT: No signs and/or symptoms were reported regarding the EENT system. Derm: No signs and/or symptoms reported regarding the dermatologic system. 22:54 General: First unit complete. No adverse reaction. Pt's second unit is requested. . kd3 01/30 02:06 General: second unit complete. No adverse reactions . kd3 Vital Signs: 01/29 17:40 BP 158 / 43; Pulse 74; Resp 18; Temp 97.9; Pulse Ox 100% on R/A; Weight 93.44 kg; hb Height 5 ft. 11 in. ; Pain 0/10; 21:24 BP 145 / 77; Pulse 64; Resp 18; Pulse Ox 100% ; kd3 22:21 BP 133 / 60; Pulse 62; Resp 18; Pulse Ox 98% on R/A; kd3 01/30 01:01 BP 115 / 56; Pulse 52; Resp 18; Pulse Ox 100% on R/A; kd3 02:05 BP 109 / 57; Pulse 51; Resp 18; Temp 98.2; Pulse Ox 99% on R/A; kd3 01/29 17:40 Body Mass Index 28.73 (93.44 kg, 180.34 cm) hb 01/29 17:40 Pain Scale: Adult hb Tabby Coma Score: 03:50 Eye Response: spontaneous(4). Motor Response: obeys commands(6). Verbal Response: sp4 oriented(5). Total: 15. ED Course: 01/29 17:28 Patient arrived in ED. im 17:29 Salvador Nieves MD is Attending Physician. sp3 17:43 Triage completed. hb 17:44 Arm band placed on. hb 18:42 Basic Metabolic Panel Sent. dd2 18:42 CBC with Diff Sent. dd2 18:42 LFT's Sent. dd2 18:42 Magnesium Sent. dd2 18:42 NT PRO-BNP Sent. dd2 18:42 PT-INR Sent. dd2 18:42 Troponin HS Sent. dd2 18:42 No provider procedures requiring assistance completed. Initial lab(s) drawn, by or, dd2 sent to lab. T\T\S collected, blood band applied to patient. Inserted saline lock: 20 gauge in right antecubital area, using aseptic technique. Blood collected. Flushed with 10 mL NS. Patient maintains SpO2 saturation greater than 95% on room air. 19:35 Attending Physician role handed off by Salvador Nieves MD sp4 19:35 Peter Cottrell MD is Attending Physician. sp4 19:45 Jazzmine Rodas RN is Primary Nurse. kd3 21:25 Patient has correct armband on for positive identification. Provided Education on: kd3 Blood Transfusion. 01/30 02:26 IV discontinued, intact, bleeding controlled, No redness/swelling at site. Pressure kd3 dressing applied. Administered Medications: 01/29 20:40 Drug: Acetaminophen PO 1000 mg PO once Route: PO; [facility] 01/30 02:27 Follow up: Response: No adverse reaction kd3 01/29 20:40 Drug: diphenhydrAMINE PO 25 mg PO once Route: PO; [facility] 01/30 02:27 Follow up: Response: No adverse reaction kd3 Medication: 01/29 21:25 VIS not applicable for this client. kd3 Outcome: 01/30 02:20 Discharge ordered by . sp4 02:26 Discharged to home ambulatory, kd3 02:26 Condition: stable 02:26 Discharge instructions given to patient, Instructed on discharge instructions, follow up and referral plans. Demonstrated understanding of instructions, follow-up care, 02:27 Patient left the ED. kd3 Signatures: Fe Gallo RN RN Salvador Nieves MD MD sp3 Jazzmine Rodas RN RN kd3 Matilde Tai RN RN ha Peter Cottrell MD MD sp4 Sherrell Agee DIANA, RN RN dd2 Corrections: (The following items were deleted from the chart) 01/29 17:45 17:40 Chief complaint: Generalized weakness and SOB since yesterday hb hb
[2025-01-30 02:55] VITALS: BP 109/57; TEMP 98.2; O2SAT 99
== END 2025-01-30 02:27 | disposition home or self-care (01) ==
LOC: ER 17:24
DX: D64.89 Other specified anemias (principal); I10 Essential (primary) hypertension; E03.9 Hypothyroidism, unspecified; D46.9 Myelodysplastic syndrome, unspecified; Z88.5 Allergy status to narcotic agent
CPT/HCPCS: 36415; 80048; 80076; 83735; 83880; 84484; 85025; 85610; 86850; 86900; 86901; 86920; 93005; 99284; J7050; P9016

== ENCOUNTER 2025-03-11 17:37 | Emergency (ER) | payer OTHER ==
[2025-03-11 18:18] LABS: Absolute Lymphocytes (CBC) 2.5 K/uL (0.7-4.9); Hematocrit 18.6 % (39.6-49.0); Hemoglobin 6.3 g/dL (13.6-17.9); MCH 30.3 pg (27.0-35.0); MCHC 34.0 g/dL (32.0-36.0); MCV 89.1 fL (80-100); MPV 7.6 fL (7.6-11.3); Nucleated RBC Absolute Count 0.0 (0-0); Nucleated Red Blood Cells % 0.2 % (0-0); RBC Red Blood Cell Count 2.08 M/uL (4.33-5.43); White Blood Count 5.10 thou/uL (4.3-10.9)
[2025-03-11 18:23] LABS: PT Prothrombin Time 19.4 SECONDS (10-13.0); Protime INR 1.74
[2025-03-11 18:27] LABS: Anisocytosis 3+; Blood Morphology Comment NOTED (NOT SEEN); White Blood Cell Scan OK (OK)
[2025-03-11 18:34] LABS: ALT/SGPT 60.0 U/L (16-61); AST/SGOT 39.0 U/L (15-37); Albumin 3.6 g/dL (3.4-5.0); Albumin/Globulin Ratio 1.2 (1.1-1.8); Alkaline Phosphatase 59.0 U/L (45-117); Anion Gap 8.1 mEq/L (5.0-15.0); BUN Blood Urea Nitrogen 33.0 mg/dL (7-18); Globulin 3.0 g/dL (2.3-3.5); Glucose Level 126.0 mg/dL (74-106); Potassium 4.1 mEq/L (3.5-5.1)
[2025-03-11] MEDS ORDERED: NA CHLORIDE 0.9% 250 ML ONE (19:53)
--- NOTE | 2025-03-12 01:43 | ER ---
Nurse's Notes [facility] Name: Quentin Lei Age: 79 yrs Sex: Male : 1945 Arrival Date: 03/11/2025 Time: 17:37 Bed IW10 Private MD: Diagnosis: Anemia, unspecified Presentation: 03/11 18:00 Chief complaint: Patient states: generalized weakness and fatigue that began Tuesday. HX ss of chronic anemia. Pt believes his hgb may be low again. Coronavirus screen: Client denies travel out of the [place] in the last 14 days. Ebola Screen: Patient denies exposure to infectious person. Patient denies travel to an Ebola-affected area in the 21 days before illness onset. Initial Sepsis Screen: Does the patient meet any 2 criteria? No. Patient's initial sepsis screen is negative. Does the patient have a suspected source of infection? No. Patient's initial sepsis screen is negative. Risk Assessment: Do you want to hurt yourself or someone else? Patient reports no desire to harm self or others. Onset of symptoms was March 08, 2025. 18:00 Method Of Arrival: Ambulatory ss 18:00 Acuity: MAE 3 ss Triage Assessment: 18:05 General: Appears in no apparent distress. Behavior is cooperative, appropriate for age, bp anxious. Pain: Denies pain. EENT: No deficits noted. Neuro: No deficits noted. Cardiovascular: No deficits noted. Respiratory: No deficits noted. GI: No signs and/or symptoms were reported involving the gastrointestinal system. : No signs and/or symptoms were reported regarding the genitourinary system. Derm: No deficits noted. Musculoskeletal: No deficits noted. Historical: - Allergies: 18:02 tramadol; ss - PMHx: 18:02 Anemia; Hypercholesterolemia; COPD; Osteoporosis; Myelodysplastic Syndrome; Arthritis; ss Arevalo's Esophagus; Hypertension; Hypothyroidism; Lung tumor with radiation tx completed January 2023; - PSHx: 18:02 lung biopsy; triple bypass; ss - Immunization history:: Adult Immunizations up to date. - Infectious Disease History:: Denies. - Social history:: Smoking status: Patient/guardian denies using tobacco, but has a distant history of tobacco abuse. Screenin:00 [facility] ED Fall Risk Assessment (Adult) History of falling in the last 3 months, hm5 including since admission No falls in past 3 months (0 pts) Confusion or Disorientation No (0 pts) Intoxicated or Sedated No (0 pts) Impaired Gait No (0 pts) Mobility Assist Device Used No (0 pt) Altered Elimination No (0 pt) Score/Fall Risk Level 0 - 2 = Low Risk. Abuse screen: Denies threats or abuse. Denies injuries from another. Nutritional screening: No deficits noted. Tuberculosis screening: No symptoms or risk factors identified. Assessment: 19:00 General: Appears in no apparent distress. comfortable, well groomed, well developed, hm5 well nourished, Behavior is calm, cooperative. Pain: Denies pain. Neuro: Reports weakness since a couple of days. Cardiovascular: No deficits noted. Respiratory: No deficits noted. GI: No deficits noted. No signs and/or symptoms were reported involving the gastrointestinal system. : No deficits noted. No signs and/or symptoms were reported regarding the genitourinary system. EENT: No deficits noted. No signs and/or symptoms were reported regarding the EENT system. Derm: No deficits noted. No signs and/or symptoms reported regarding the dermatologic system. Musculoskeletal: No deficits noted. No signs and/or symptoms reported regarding the musculoskeletal system. 03/12 01:55 Reassessment: Patient is alert, oriented x 3, equal unlabored respirations, skin hm5 warm/dry/pink. First unit of blood started 03/11/25 at 20:20. Unit number [id number] exp 04/13/25, unit B+. Completed at 03/11/25 at 22:45. pt tolerated well, no symptoms of reaction noted during transfusion. Patient states feeling better. Patient states symptoms have improved. 01:58 Musculoskeletal: No deficits noted. No signs and/or symptoms reported regarding the hm5 musculoskeletal system. 02:44 Reassessment: Second unit of blood began 03/12/25 at 23:35, completed 03/12/25 at 0151. 5 Unit number [id number], exp 04/03/25, unit B+. Pt tolerated well, no s/s transfusion reaction. 02:46 Reassessment: No changes from previously documented assessment. Neuro: No deficits hm5 noted. Cardiovascular: No deficits noted. Respiratory: No deficits noted. GI: No deficits noted. No signs and/or symptoms were reported involving the gastrointestinal system. : No deficits noted. No signs and/or symptoms were reported regarding the genitourinary system. EENT: No deficits noted. No signs and/or symptoms were reported regarding the EENT system. Derm: No deficits noted. No signs and/or symptoms reported regarding the dermatologic system. Vital Signs: 03/11 18:00 BP 140 / 64; Pulse 77; Resp 16; Temp 98.7(O); Pulse Ox 99% on R/A; Weight 91.17 kg; ss Height 5 ft. 11 in. ; Pain 0/10; 20:15 BP 134 / 68; Pulse 71; Resp 18; Temp 98(O); Pulse Ox 99% on R/A; hm5 20:25 BP 116 / 60; Pulse 72; Resp 18; Temp 98.2(O); Pulse Ox 99% ; hm5 20:30 BP 121 / 55; Pulse 69; Resp 19; Temp 98(O); Pulse Ox 100% on R/A; hm5 20:35 BP 125 / 64; Pulse 72; Resp 18; Temp 98.2; Pulse Ox 100% on R/A; hm5 20:50 BP 115 / 62; Pulse 76; Resp 19; Temp 98(O); Pulse Ox 100% on R/A; hm5 21:20 BP 120 / 64; Pulse 67; Resp 18; Temp 97.9(O); Pulse Ox 100% on R/A; hm5 21:50 BP 127 / 67; Pulse 71; Resp 19; Temp 98.1(O); Pulse Ox 98% on R/A; hm5 22:20 BP 124 / 61; Pulse 68; Resp 18; Temp 98(O); Pulse Ox 100% on R/A; hm5 22:45 BP 133 / 61; Pulse 66; Resp 17; Temp 98.2(O); Pulse Ox 100% on R/A; hm5 23:30 BP 128 / 61; Pulse 66; Resp 17; Temp 98.2(O); Pulse Ox 100% ; hm5 23:40 BP 117 / 63; Pulse 66; Resp 18; Temp 98.1(O); Pulse Ox 100% on R/A; hm5 23:45 BP 126 / 61; Pulse 65; Resp 17; Temp 97.6(O); Pulse Ox 100% ; hm5 23:50 BP 137 / 59; Pulse 66; Resp 18; Temp 97.8(O); Pulse Ox 100% on R/A; hm5 03/12 00:05 BP 122 / 59; Pulse 68; Resp 19; Temp 97.8(O); Pulse Ox 100% on R/A; hm5 00:35 BP 127 / 62; Pulse 70; Resp 17; Temp 98(O); Pulse Ox 100% on R/A; hm5 01:05 BP 130 / 64; Pulse 67; Resp 19; Temp 97.7(O); Pulse Ox 100% on R/A; hm5 01:35 BP 121 / 66; Pulse 69; Resp 17; Temp 97.9(O); Pulse Ox 100% on R/A; hm5 01:51 BP 133 / 59; Pulse 73; Resp 18; Temp 97.9(O); Pulse Ox 100% on R/A; hm5 03/11 18:00 Body Mass Index 28.03 (91.17 kg, 180.34 cm) 03/11 18:00 Pain Scale: Adult ss ED Course: 03/11 17:41 Patient arrived in ED. al6 17:42 Richie Ken F[facility] dr5 17:42 Rafa Higgins MD is Attending Physician. dr5 18:00 Initial lab(s) drawn, by id, sent to lab. Inserted saline lock: 20 gauge in right bp antecubital area, using aseptic technique. Blood collected. Flushed with 10 mL NS. 18:02 Triage completed. ss 18:02 Arm band placed on right wrist. ss 18:05 Srinivas Collado, DUC is Primary Nurse. bp 19:58 Patient has correct armband on for positive identification. Bed in low position. Call [facility] light in reach. Side rails up X2. Provided Education on: Blood Transfusion. 03/12 01:58 No provider procedures requiring assistance completed. IV discontinued, intact, hm5 bleeding controlled, No redness/swelling at site. Pressure dressing applied. 02:35 Provided Education on: Blood Transfusion, blood transfusion consent obtained and signed hm5 by pt, this RN as witness, and Subhash Ken NP.. Administered Medications: No medications were administered Medication: 03/11 19:00 VIS not applicable for this client. hm5 Outcome: 03/12 01:42 Discharge ordered by . kwaku 01:59 Discharged to home ambulatory, with friend, [facility] 01:59 Condition: improved 01:59 Discharge instructions given to patient, Instructed on discharge instructions, follow up and referral plans. Demonstrated understanding of instructions, follow-up care, 02:48 Patient left the ED. [facility] Signatures: Vicky Martinez, RN RN Srinivas Fischer RN RN Richie Arce, AUTO LOCATOR-C AUTO LOCATOR-[facility]5 Monica Barone Heather, RN RN [facility]
--- NOTE | 2025-03-12 01:43 | EDPHYS ---
Physician Documentation [facility] Name: Quentin Lei Age: 79 yrs Sex: Male : 1945 Arrival Date: 03/11/2025 Time: 17:37 Bed IW10 Private MD: ED Physician Rafa Higgins HPI: 03/11 18:48 This 79 yrs old Male presents to ER via Ambulatory with complaints of General dr5 Weakness. 18:48 Onset: The symptoms/episode began/occurred 3 day(s) ago. Patient is a 79-year-old male dr5 with history of history of chronic symptomatic anemia, Arevalo's esophagus, COPD, hyperlipidemia, hypertension, hypothyroidism coming in with weakness for the past 3 days. Patient reports that he has generalized fatigue and knows he needs a blood transfusion. Patient denies chest pain, shortness of breath, nausea, vomiting or diarrhea, melena, hematuria or hemoptysis. Historical: - Allergies: 18:02 tramadol; ss - PMHx: 18:02 Anemia; Hypercholesterolemia; COPD; Osteoporosis; Myelodysplastic Syndrome; Arthritis; ss Arevalo's Esophagus; Hypertension; Hypothyroidism; Lung tumor with radiation tx completed January 2023; - PSHx: 18:02 lung biopsy; triple bypass; ss - Immunization history:: Adult Immunizations up to date. - Infectious Disease History:: Denies. - Social history:: Smoking status: Patient/guardian denies using tobacco, but has a distant history of tobacco abuse. ROS: 18:48 Constitutional: as per hpi dr5 Exam: 18:48 Constitutional: This is a well developed, well nourished patient who is awake, alert, dr5 and in no acute distress. Head/Face: Normocephalic, atraumatic. Eyes: Pupils equal round and reactive to light, extra-ocular motions intact. Lids and lashes normal. Conjunctiva and sclera are non-icteric and not injected. Cornea within normal limits. Periorbital areas with no swelling, redness, or edema. Pale conjunctiva noted bilaterally ENT: Nares patent. No nasal discharge, no septal abnormalities noted. Tympanic membranes are normal and external auditory canals are clear. Oropharynx with no redness, swelling, or masses, exudates, or evidence of obstruction, uvula midline. Mucous membranes moist. Neck: Trachea midline, no thyromegaly or masses palpated, and no cervical lymphadenopathy. Supple, full range of motion without nuchal rigidity, or vertebral point tenderness. No Meningismus. Chest/axilla: Normal chest wall appearance and motion. Nontender with no deformity. No lesions are appreciated. Cardiovascular: Regular rate and rhythm with a normal S1 and S2. Normal PMI, no JVD. No pulse deficits. Respiratory: Lungs have equal breath sounds bilaterally, clear to auscultation. No rales, rhonchi or wheezes noted. No increased work of breathing, no retractions or nasal flaring. Back: No spinal tenderness. No costovertebral tenderness. Full range of motion. Skin: Warm, dry with normal turgor. Normal color with no rashes, no lesions, and no evidence of cellulitis. MS/ Extremity: Pulses equal, no cyanosis. Neurovascular intact. Full, normal range of motion. Neuro: Awake and alert, GCS 15, oriented to person, place, time, and situation. Cranial nerves II-XII grossly intact. Motor strength 5/5 in all extremities. Sensory grossly intact. Cerebellar exam normal. Normal gait. Vital Signs: 18:00 BP 140 / 64; Pulse 77; Resp 16; Temp 98.7(O); Pulse Ox 99% on R/A; Weight 91.17 kg; ss Height 5 ft. 11 in. ; Pain 0/10; 20:15 BP 134 / 68; Pulse 71; Resp 18; Temp 98(O); Pulse Ox 99% on R/A; hm5 20:25 BP 116 / 60; Pulse 72; Resp 18; Temp 98.2(O); Pulse Ox 99% ; hm5 20:30 BP 121 / 55; Pulse 69; Resp 19; Temp 98(O); Pulse Ox 100% on R/A; hm5 20:35 BP 125 / 64; Pulse 72; Resp 18; Temp 98.2; Pulse Ox 100% on R/A; hm5 20:50 BP 115 / 62; Pulse 76; Resp 19; Temp 98(O); Pulse Ox 100% on R/A; hm5 21:20 BP 120 / 64; Pulse 67; Resp 18; Temp 97.9(O); Pulse Ox 100% on R/A; hm5 21:50 BP 127 / 67; Pulse 71; Resp 19; Temp 98.1(O); Pulse Ox 98% on R/A; hm5 22:20 BP 124 / 61; Pulse 68; Resp 18; Temp 98(O); Pulse Ox 100% on R/A; hm5 22:45 BP 133 / 61; Pulse 66; Resp 17; Temp 98.2(O); Pulse Ox 100% on R/A; hm5 23:30 BP 128 / 61; Pulse 66; Resp 17; Temp 98.2(O); Pulse Ox 100% ; hm5 23:40 BP 117 / 63; Pulse 66; Resp 18; Temp 98.1(O); Pulse Ox 100% on R/A; hm5 23:45 BP 126 / 61; Pulse 65; Resp 17; Temp 97.6(O); Pulse Ox 100% ; 5 23:50 BP 137 / 59; Pulse 66; Resp 18; Temp 97.8(O); Pulse Ox 100% on R/A; [facility] 03/12 00:05 BP 122 / 59; Pulse 68; Resp 19; Temp 97.8(O); Pulse Ox 100% on R/A; hm5 00:35 BP 127 / 62; Pulse 70; Resp 17; Temp 98(O); Pulse Ox 100% on R/A; hm5 01:05 BP 130 / 64; Pulse 67; Resp 19; Temp 97.7(O); Pulse Ox 100% on R/A; hm5 01:35 BP 121 / 66; Pulse 69; Resp 17; Temp 97.9(O); Pulse Ox 100% on R/A; 5 01:51 BP 133 / 59; Pulse 73; Resp 18; Temp 97.9(O); Pulse Ox 100% on R/A; [facility] 03/11 18:00 Body Mass Index 28.03 (91.17 kg, 180.34 cm) 03/11 18:00 Pain Scale: Adult ss MDM: 03/11 17:42 Medical Screening Exam initiated dr5 03/12 00:50 Differential diagnosis: Anemia, acute kidney injury, electrolyte abnormality, chronic dr5 versus acute anemia requiring blood transfusion. Data reviewed: vital signs, nurses notes, lab test result(s), CBC, white blood cell count, hemoglobin, hematocrit, platelets, electrolytes, sodium, potassium, chloride, serum bicarbonate, BUN, creatinine, serum glucose, PT, INR, EKG. Consideration of Admission/Observation Escalation of care including admission/observation considered. Escalation considered patient found to not improve after blood transfusion. I considered the following discharge prescriptions or medication management in the emergency department I discussed and recommended Over The Counter medications, Medications were administered in the Emergency Department. See MAR. Test considered but Not performed: CT: CT considered but deferred due to patient not having any pain including chest pain or abdominal pain.. Care significantly affected by the following chronic conditions: Anemia, hyperlipidemia, COPD, osteoporosis, myelodysplastic syndrome, arthritis. Care significantly affected by the following Social Determinants of Health: Poor access to healthcare and/or lack of insurance, Poor access to transportation, Problems related to employment. Counseling: I had a detailed discussion with the patient and/or guardian regarding the historical points, exam findings, and any diagnostic results supporting the discharge/admit diagnosis, the presence of at least one elevated blood pressure reading (>120/80) during this emergency department visit, lab results, the need for outpatient follow up, for definitive care, a family practitioner, Watchmaking Teacher, to return to the emergency department if symptoms worsen or persist or if there are any questions or concerns that arise at home. Medication response: Blood transfusion x 2. Response to treatment: the patient's symptoms have resolved after treatment, the patient's condition has returned to base line, the patient is now symptom free. Special discussion: I discussed with the patient/guardian in detail that at this point there is no indication for admission to the hospital. It is understood, however, that if the symptoms persist or worsen the patient needs to return immediately for re-evaluation. Based on the history and exam findings, there is no indication for further emergent testing or inpatient evaluation. I discussed with the patient/guardian the need to see the relocation coordinator/oncologist for further evaluation of the symptoms. ED course: 2 units of blood were given in ER with resolution of symptoms. Patient reports he feels so much better.. 00:56 Awaiting: Blood Transfusion completion and d/c. dr5 03/11 17:47 Order name: CBC with Diff; Complete Time: 18:36 dr5 03/11 17:47 Order name: CMP; Complete Time: 18:36 dr5 03/11 17:47 Order name: Type And Screen dr5 03/11 17:49 Order name: PT-INR; Complete Time: 18:25 dr5 03/11 18:27 Order name: CBC Smear Scan; Complete Time: 18:36 [facility] 03/11 18:57 Order name: Packed RBCs (Additional Unit) [facility] 03/11 17:49 Order name: EKG; Complete Time: 17:50 [facility] 03/11 17:49 Order name: Cardiac monitoring; Complete Time: 18:05 [facility] 03/11 17:49 Order name: EKG - Nurse/Tech; Complete Time: 18:30 [facility] 03/11 17:49 Order name: IV Saline Lock; Complete Time: 18:05 [facility] 03/11 17:49 Order name: Labs collected and sent; Complete Time: 18:05 [facility] 03/11 17:49 Order name: O2 Per Protocol; Complete Time: 18:05 [facility] 03/11 17:49 Order name: O2 Sat Monitoring; Complete Time: 18: [facility] 03/11 18:45 Order name: Transfuse; Complete Time: 00:16 dr5 EC/22 17:27 Rate is 74 beats/min. Rhythm is regular. QRS [place] is Normal. AL interval is normal at dr5 172 msec. QRS interval is normal at 134 msec. QT interval is normal at 414 msec. Clinical impression: Normal ECG, No change from prior ECG, and No evidence of ischemia. Administered Medications: No medications were administered Disposition Summary: 03/12/25 01:42 Discharge Ordered Notes: Location: Home dr5 Condition: Stable dr5 Diagnosis - Anemia, unspecified dr5 Followup: dr5 - With: Emergency Department - When: As needed - Reason: Worsening of condition Followup: dr5 - With: Private Physician - When: 1 - 2 days - Reason: Recheck today's complaints, Continuance of care, Re-evaluation by your physician Discharge Instructions: - Discharge Summary Sheet dr5 - Anemia dr5 - Blood Transfusion, Adult dr5 Forms: - Medication Reconciliation Form dr5 - Patient Portal Instructions dr5 - Leadership Thank You Letter dr5 Critical care time excluding procedures: 03/12 00:58 Critical care time: Bedside Care: 25 minutes, Consultation: 10 minutes. Total time: 35 dr5 minutes Addendum: 03/14/2025 07:02 Co-signature as Attending Physician, Rafa Higgins MD I reviewed the patient's care r n provided by the Advanced Practice Provider and agree with the diagnosis and treatment plan. Signatures: Dispatcher [employer] [facility] Rafa Higgins MD MD rn Blanchard, Shelby RN RN ss Richie Ken, COLLECTION AGENT-C COLLECTION AGENT-Cdr5 Fe Littlejohn, DUC RN hm5
[2025-03-12 03:25] VITALS: O2SAT 100
[2025-03-12 03:41] VITALS: TEMP 97.9
[2025-03-12 03:43] VITALS: BP 133/59
== END 2025-03-12 02:48 | disposition home or self-care (01) ==
LOC: ER 17:37
PROC: 30233N1 Transfusion of Nonautologous Red Blood Cells into Peripheral Vein, Percutaneous Approach (ICD-10-PCS; principal; 2025-03-12)
DX: D64.9 Anemia, unspecified (principal)
CPT/HCPCS: 93005; 85025; 36415; 86900; 86850; 85610; 86901; 86920 ×2; 80053; 99284; 36430; P9016 ×2; J7050

== ENCOUNTER 2025-03-27 16:40 | Emergency (ER) | payer OTHER ==
[2025-03-27 17:39] LABS: Absolute Lymphocytes (CBC) 2.3 K/uL (0.7-4.9); Hematocrit 19.3 % (39.6-49.0); Hemoglobin 6.5 g/dL (13.6-17.9); MCH 30.2 pg (27.0-35.0); MCHC 33.7 g/dL (32.0-36.0); MCV 89.8 fL (80-100); MPV 8.1 fL (7.6-11.3); Nucleated RBC Absolute Count 0.0 (0-0); Nucleated Red Blood Cells % 0.1 % (0-0); RBC Red Blood Cell Count 2.15 M/uL (4.33-5.43); White Blood Count 4.40 thou/uL (4.3-10.9)
[2025-03-27 17:41] LABS: ALT/SGPT 75.0 U/L (16-61); AST/SGOT 48.0 U/L (15-37); Albumin 3.5 g/dL (3.4-5.0); Albumin/Globulin Ratio 1.1 (1.1-1.8); Alkaline Phosphatase 54.0 U/L (45-117); Anion Gap 9.6 mEq/L (5.0-15.0); BUN Blood Urea Nitrogen 25.0 mg/dL (7-18); Globulin 3.1 g/dL (2.3-3.5); Glucose Level 143.0 mg/dL (74-106); Potassium 3.6 mEq/L (3.5-5.1)
[2025-03-27] MEDS ORDERED: NA CHLORIDE 0.9% 250 ML ONE (18:28)
[2025-03-27 20:14] LABS: Anisocytosis SLIGHT; Blood Morphology Comment NOTED (NOT SEEN); White Blood Cell Scan OK (OK)
--- NOTE | 2025-03-27 22:56 | EDPHYS ---
Physician Documentation [facility] Name: Quentin Lei Age: 79 yrs Sex: Male : 1945 Arrival Date: 03/27/2025 Time: 16:40 Bed 8 Private MD: ED Physician Mil Wolf HPI: 03/27 17:31 This 79 yrs old Male presents to ER via Ambulatory with complaints of Weakness. kb 17:31 Patient is a 79-year-old male who presents for generalized weakness and intermittent kb shortness of breath that started 2 days ago. States this is how he normally starts to feel whenever he needs a blood transfusion. Reports he has a chronic history of chronic anemia but they have been unable to find the cause of it. States he normally needs blood transfusions every 3 to 4 weeks.. Historical: - Allergies: 16:52 tramadol; dd2 - PMHx: 16:52 Anemia; Arthritis; Arevalo's Esophagus; COPD; Hypercholesterolemia; Hypertension; dd2 Hypothyroidism; Lung tumor with radiation tx completed January 2023; Myelodysplastic Syndrome; Osteoporosis; - PSHx: 16:52 lung biopsy; triple bypass; dd2 - Immunization history:: Adult Immunizations up to date. - Infectious Disease History:: Denies. - Social history:: Smoking status: Patient denies any tobacco usage or history of. ROS: 17:30 Constitutional: As per HPI kb Exam: 17:30 Constitutional: This is a well developed, well nourished patient who is awake, alert, kb and in no acute distress. Head/Face: Normocephalic, atraumatic. ENT: Moist Mucous membranes Cardiovascular: Regular rate Respiratory: Respirations even and unlabored. No increased work of breathing. Talking in full sentences Skin: Warm, dry with normal turgor. Normal color. MS/ Extremity: Pulses equal, no cyanosis. Neurovascular intact. Full, normal range of motion. Neuro: Awake and alert, GCS 15, oriented to person, place, time, and situation. Vital Signs: 16:50 BP 140 / 72; Pulse 49; Resp 16; Temp 98.2; Pulse Ox 99% on R/A; Weight 92.08 kg; Pain dd2 0/10; 17:48 BP 122 / 66; Pulse 75; Resp 18; Pulse Ox 100% on R/A; nh2 18:00 BP 128 / 52; Pulse 78; Resp 16; Pulse Ox 100% ; nh2 19:00 BP 118 / 52; Pulse 73; Resp 18; Pulse Ox 100% on R/A; kb4 21:00 BP 123 / 53; Pulse 67; Resp 18; Pulse Ox 100% on R/A; kb4 22:00 BP 133 / 76; Pulse 66; Resp 18; Pulse Ox 100% on R/A; kb4 22:36 BP 131 / 42; Pulse 66; Resp 18; Pulse Ox 98% on R/A; kb4 22:49 BP 130 / 61; Pulse 75; Resp 18; Temp 97.6(TE); Pulse Ox 100% ; kd3 16:50 Pain Scale: Adult dd2 MDM: 16:47 Medical Screening Exam initiated kb 17:31 Data reviewed: vital signs, nurses notes. kb 18:02 Consideration of Admission/Observation Escalation of care including kb admission/observation considered. admission considered but anemia is chronic, pt denies any bleeding. Pt normally gets a blood transfusion and is able to go home. . Counseling: I had a detailed discussion with the patient and/or guardian regarding the historical points, exam findings, and any diagnostic results supporting the discharge/admit diagnosis, lab results, the need for outpatient follow up, a family practitioner, to return to the emergency department if symptoms worsen or persist or if there are any questions or concerns that arise at home. 03/27 16:52 Order name: Type And Screen 03/27 16:51 Order name: CBC with Diff 03/27 16:51 Order name: CMP; Complete Time: 17:50 kb 03/27 17:55 Order name: Bb Add On bd 03/27 18:16 Order name: Packed RBC Leukored [facility] 03/27 20:15 Order name: CBC Smear Scan [facility] 03/27 16:51 Order name: IV Start; Complete Time: 17:16 kb Administered Medications: No medications were administered Disposition: 19:46 I was immediately available on-site in the Emergency Department for consultation in the ms3 care of the patient. Disposition Summary: 03/27/25 22:56 Discharge Ordered Notes: Location: Home cp Condition: Stable cp Diagnosis - Anemia, unspecified cp Followup: kb - With: Emergency Department - When: As needed - Reason: Worsening of condition Followup: kb - With: Private Physician - When: 2 - 3 days - Reason: Recheck today's complaints, Continuance of care, Re-evaluation by your physician Discharge Instructions: - Discharge Summary Sheet kb - Blood Transfusion, Adult, Care After, [id number] kb - Anemia cp Forms: - Medication Reconciliation Form cp - Antibiotic Education cp - Prescription Opioid Use cp - Patient Portal Instructions cp - Leadership Thank You Letter cp Critical care time excluding procedures: 18:03 Critical care time: Bedside Care: 16 minutes, Consultation: 15 minutes. Total time: 31 kb minutes Signatures: Dispatcher [employer] EDYue Guerrero, HALEY TORREZ-Lauro Robles PA-C PAMil Natarajan cp, DO DO ms3 CHIDI FERREIRA RN RN dd2 Corrections: (The following items were deleted from the chart) 18:20 16:52 Chest Single View+RAD.RAD.BRZ ordered. EDMD EDMD
--- NOTE | 2025-03-27 22:56 | ER ---
Nurse's Notes [facility] Name: Quentni Lei Age: 79 yrs Sex: Male : 1945 Arrival Date: 03/27/2025 Time: 16:40 Bed 8 Private MD: Diagnosis: Anemia, unspecified Presentation: 03/27 16:50 Chief complaint: Patient states: WEAKNESS AND SOB X 2 WEEKS. PT REPORTS ITS BEEN 3 dd2 WEEKS SINCE LAST BLOOD TRANSFUSION. Coronavirus screen: At this time, the client does not indicate any symptoms associated with coronavirus-19. Ebola Screen: No symptoms or risks identified at this time. Initial Sepsis Screen: Does the patient meet any 2 criteria? No. Patient's initial sepsis screen is negative. Does the patient have a suspected source of infection? No. Patient's initial sepsis screen is negative. Risk Assessment: Do you want to hurt yourself or someone else? Patient reports no desire to harm self or others. Onset of symptoms was March 25, 2025. 16:50 Method Of Arrival: Ambulatory dd2 16:50 Acuity: MAE 3 dd2 Triage Assessment: 16:52 General: Appears in no apparent distress. well nourished, Behavior is calm, dd2 cooperative, appropriate for age. Pain: Denies pain. Cardiovascular: Reports shortness of breath, WEAK. Historical: - Allergies: 16:52 tramadol; dd2 - PMHx: 16:52 Anemia; Arthritis; Arevalo's Esophagus; COPD; Hypercholesterolemia; Hypertension; dd2 Hypothyroidism; Lung tumor with radiation tx completed January 2023; Myelodysplastic Syndrome; Osteoporosis; - PSHx: 16:52 lung biopsy; triple bypass; dd2 - Immunization history:: Adult Immunizations up to date. - Infectious Disease History:: Denies. - Social history:: Smoking status: Patient denies any tobacco usage or history of. Screenin:00 [facility] ED Fall Risk Assessment (Adult) History of falling in the last 3 months, nh2 including since admission No falls in past 3 months (0 pts) Confusion or Disorientation No (0 pts) Intoxicated or Sedated No (0 pts) Impaired Gait No (0 pts) Mobility Assist Device Used No (0 pt) Altered Elimination No (0 pt) Score/Fall Risk Level 0 - 2 = Low Risk Oriented to surroundings, Maintained a safe environment, Educated pt \T\ family on fall prevention, incl call for assistance when getting out of bed, Assessed \T\ reinforced patient's understanding of fall precautions. Abuse screen: Denies threats or abuse. Denies injuries from another. Nutritional screening: No deficits noted. Tuberculosis screening: No symptoms or risk factors identified. Assessment: 17:00 General: Appears in no apparent distress. Behavior is calm, cooperative. Pain: Denies nh2 pain. Neuro: Level of Consciousness is awake, alert, obeys commands, Oriented to person, place, time, situation, Appropriate for age Reports dizziness, weakness since 03/25/2025 GENERALIZED. Cardiovascular: Denies chest pain, Patient's skin is warm and dry. Respiratory: Reports shortness of breath on exertion Airway is patent Trachea midline Respiratory effort is even, unlabored, Respiratory pattern is regular, symmetrical, Breath sounds are clear bilaterally. GI: Abdomen is round non-distended, Patient currently denies nausea, vomiting. : No signs and/or symptoms were reported regarding the genitourinary system. Denies burning with urination. EENT: No signs and/or symptoms were reported regarding the EENT system. Derm: Skin is intact, Skin is pale, Skin temperature is warm. Musculoskeletal: Circulation, motion, and sensation intact. Range of motion: intact in all extremities. 18:00 Reassessment: Patient and/or family updated on plan of care and expected duration. Pain nh2 level reassessed. Patient is alert, oriented x 3, equal unlabored respirations, skin warm/dry/pink. Patient denies pain at this time. 18:53 Reassessment: Blood transfusion initiated at this time. See paper charting. cm10 20:43 Reassessment: Patient and/or family updated on plan of care and expected duration. Pain kb4 level reassessed. Patient is alert, oriented x 3, equal unlabored respirations, skin warm/dry/pink. 1st unit of blood transfusion complete Patient denies pain at this time. 20:43 Cardiovascular: Patient's skin is warm and dry. Respiratory: Airway is patent kb4 Respiratory effort is even, unlabored, Respiratory pattern is regular, symmetrical. 21:15 Reassessment: 2nd unit of blood started. kb4 21:15 General: Appears in no apparent distress. comfortable, Behavior is calm, cooperative. kb4 Cardiovascular: Patient's skin is warm and dry. Respiratory: Airway is patent Respiratory effort is even, unlabored, Respiratory pattern is regular, symmetrical. 22:36 Reassessment: Patient appears in no apparent distress at this time. No changes from kb4 previously documented assessment. Patient and/or family updated on plan of care and expected duration. Pain level reassessed. Patient is alert, oriented x 3, equal unlabored respirations, skin warm/dry/pink. 22:47 Reassessment: No changes from previously documented assessment. Patient and/or family kb4 updated on plan of care and expected duration. Pain level reassessed. Patient is alert, oriented x 3, equal unlabored respirations, skin warm/dry/pink. transfusion complete Patient denies pain at this time. 22:49 General: pt's second unit of blood complete. see paper charting. . kd3 Vital Signs: 16:50 BP 140 / 72; Pulse 49; Resp 16; Temp 98.2; Pulse Ox 99% on R/A; Weight 92.08 kg; Pain dd2 0/10; 17:48 BP 122 / 66; Pulse 75; Resp 18; Pulse Ox 100% on R/A; nh2 18:00 BP 128 / 52; Pulse 78; Resp 16; Pulse Ox 100% ; nh2 19:00 BP 118 / 52; Pulse 73; Resp 18; Pulse Ox 100% on R/A; kb4 21:00 BP 123 / 53; Pulse 67; Resp 18; Pulse Ox 100% on R/A; kb4 22:00 BP 133 / 76; Pulse 66; Resp 18; Pulse Ox 100% on R/A; kb4 22:36 BP 131 / 42; Pulse 66; Resp 18; Pulse Ox 98% on R/A; kb4 22:49 BP 130 / 61; Pulse 75; Resp 18; Temp 97.6(TE); Pulse Ox 100% ; kd3 16:50 Pain Scale: Adult dd2 ED Course: 16:45 Patient arrived in ED. al6 16:47 Yue Cole FNP-C [facility] kb 16:47 Mil Wolf DO is Attending Physician. kb 16:52 Triage completed. dd2 16:52 Arm band placed on right wrist. dd2 16:59 Enrrique Hines Jr, RN is Primary Nurse. nh2 17:00 Patient has correct armband on for positive identification. Bed in low position. Call nh2 light in reach. Side rails up X 1. Provided Education on: using call light for assistance. 17:00 Inserted saline lock: 20 gauge in right antecubital area, using aseptic technique. nh2 Blood collected. Flushed with 10 mL NS. 17:15 Type And Screen Sent. nh2 17:16 CMP Sent. nh2 17:16 CBC with Diff Sent. nh2 18:00 Provided Education on: Blood Transfusion. cm10 21:43 PHCP role handed off by Yue Cole FNP-C cp 21:43 Lauro Ibrahim PA-C is PHCP. cp 23:14 No provider procedures requiring assistance completed. IV discontinued, intact, kb4 bleeding controlled, No redness/swelling at site. Pressure dressing applied. Administered Medications: No medications were administered Medication: 17:00 VIS not applicable for this client. nh2 18:53 Blood products: PRBCs X 2 units given. See transfusion record. cm10 Outcome: 22:56 Discharge ordered by MD. cp 23:15 Discharged to home ambulatory, kb4 23:15 Condition: good 23:15 Discharge instructions given to patient, Instructed on discharge instructions, follow up and referral plans. Demonstrated understanding of instructions, follow-up care, 23:15 Patient left the ED. kb4 Signatures: Yue Cole FNP-C FNP-Lauro Robles PA-C PA-C cp Doucette, Kyli, RN RN kd3 Gaby Allen RN RN cm10 CHIDI FERREIRA RN RN dd2 Enrrique Hines Jr, RN RN nh2 Monica Barone al6 Taylor Prasad RN RN kb4 Corrections: (The following items were deleted from the chart) 17:19 17:00 Neuro: Level of Consciousness is awake, alert, obeys commands, Oriented to nh2 person, place, time, situation, Appropriate for age nh2 17:22 17:00 Neuro: Level of Consciousness is awake, alert, obeys commands, Oriented to nh2 person, place, time, situation, Appropriate for age Reports dizziness, weakness GENERALIZED nh2
[2025-03-27 23:52] VITALS: BP 130/61; TEMP 97.6; O2SAT 100
== END 2025-03-27 23:15 | disposition home or self-care (01) ==
LOC: ER 16:40
DX: D64.9 Anemia, unspecified (principal)
CPT/HCPCS: 93005; 85025; 36415; 86900; 86850; 86901; 86920 ×2; 80053; 36430; 99284; P9016 ×2; J7050

== ENCOUNTER 2025-04-13 18:11 | Emergency (ER) | payer OTHER ==
[2025-04-13 18:47] LABS: Absolute Lymphocytes (CBC) 2.4 K/uL (0.7-4.9); Hematocrit 17.3 % (39.6-49.0); Hemoglobin 6.2 g/dL (13.6-17.9); MCH 32.2 pg (27.0-35.0); MCHC 35.6 g/dL (32.0-36.0); MCV 90.4 fL (80-100); MPV 7.8 fL (7.6-11.3); Nucleated RBC Absolute Count 0.0 (0-0); Nucleated Red Blood Cells % 0.1 % (0-0); RBC Red Blood Cell Count 1.91 M/uL (4.33-5.43); White Blood Count 4.20 thou/uL (4.3-10.9)
[2025-04-13 19:01] LABS: Anion Gap 9.1 mEq/L (5.0-15.0); BUN Blood Urea Nitrogen 31.0 mg/dL (7-18); Glucose Level 123.0 mg/dL (74-106); Potassium 4.1 mEq/L (3.5-5.1)
[2025-04-13] MEDS ORDERED: NA CHLORIDE 0.9% 250 ML ONE (19:28)
[2025-04-13 20:13] LABS: Anisocytosis 1+; Blood Morphology Comment NOTED (NOT SEEN); Differential Total Cells Count 100; Segmented Neutrophils 47 % (40-80); Smudge Cells PRESENT
--- NOTE | 2025-04-13 23:30 | EDPHYS ---
Physician Documentation [facility] Name: Quentin Lei Age: 79 yrs Sex: Male : 1945 Arrival Date: 04/13/2025 Time: 18:11 Bed 5 Private MD: ED Physician Rafa Higgins HPI: 04/13 18:38 This 79 yrs old Male presents to ER via Ambulatory with complaints of General dr5 Weakness. 18:38 Onset: The symptoms/episode began/occurred acutely. Patient is a 79-year-old male with dr5 history of anemia, arthritis, hyperlipidemia, COPD, hypertension, thyroidism coming in with shortness of breath intermittently throughout the day as well as weakness. Patient reports he took Flomax this morning patient has. Chronic anemia and likely needs blood transfusion.. Historical: - Allergies: 18:24 tramadol; dd2 - PMHx: 18:24 Anemia; Arthritis; Arevalo's Esophagus; COPD; Hypercholesterolemia; Hypertension; dd2 Hypothyroidism; Lung tumor with radiation tx completed January 2023; Myelodysplastic Syndrome; Osteoporosis; - PSHx: 18:24 lung biopsy; triple bypass; dd2 - Social history:: Smoking status: Patient denies any tobacco usage or history of. ROS: 18:38 Constitutional: as per hpi dr5 Exam: 18:38 Constitutional: This is a well developed, well nourished patient who is awake, alert, dr5 and in no acute distress. Head/Face: Normocephalic, atraumatic. Eyes: Pupils equal round and reactive to light, extra-ocular motions intact. Lids and lashes normal. Conjunctiva and sclera are non-icteric and not injected. Cornea within normal limits. Periorbital areas with no swelling, redness, or edema. Neck: Trachea midline, no thyromegaly or masses palpated, and no cervical lymphadenopathy. Supple, full range of motion without nuchal rigidity, or vertebral point tenderness. No Meningismus. Chest/axilla: Normal chest wall appearance and motion. Nontender with no deformity. No lesions are appreciated. Cardiovascular: Irregular rate and rhythm with a normal S1 and S2. Normal PMI, no JVD. No pulse deficits. Patient has radial pulse with irregular rate of 74. Respiratory: Lungs have equal breath sounds bilaterally, clear to auscultation. No rales, rhonchi or wheezes noted. No increased work of breathing, no retractions or nasal flaring. Back: No spinal tenderness. No costovertebral tenderness. Full range of motion. Skin: Warm, dry with normal turgor. Normal color with no rashes, no lesions, and no evidence of cellulitis. MS/ Extremity: Pulses equal, no cyanosis. Neurovascular intact. Full, normal range of motion. Neuro: Awake and alert, GCS 15, oriented to person, place, time, and situation. Cranial nerves II-XII grossly intact. Motor strength 5/5 in all extremities. Sensory grossly intact. Cerebellar exam normal. Normal gait. Vital Signs: 18:22 BP 157 / 54; Pulse 41; Resp 17; Temp 98.4; Pulse Ox 99% on R/A; Weight 91.5 kg; Pain dd2 0/10; 18:43 Pulse 74; dr5 20:30 BP 118 / 45; Pulse 73; Resp 16; Pulse Ox 99% on R/A; jb4 21:39 BP 120 / 60; Pulse 62; Resp 15; Temp 98.4; Pulse Ox 100% ; Pain 0/10; bm8 23:05 BP 117 / 59; Pulse 64; Resp 16; Pulse Ox 100% on R/A; jb4 23:15 BP 133 / 61; Pulse 73; Resp 16; Temp 98.4; Pulse Ox 94% ; Pain 0/10; bm8 18:22 Pain Scale: Adult dd2 21:39 Pain Scale: Adult bm8 23:15 Pain Scale: Adult bm8 20:30 see transfusion flow sheet for further documentation jb4 23:05 See transfusion flow sheet for vitals jb4 [place] Coma Score: 21:39 Eye Response: spontaneous(4). Motor Response: obeys commands(6). Verbal Response: bm8 oriented(5). Total: 15. MDM: 18:15 Medical Screening Exam initiated dr5 18:40 Transition of care: After a detail discussion of the patient's case, care is dr5 transferred to Yue DE LEON. 18:43 Differential diagnosis: Chronic anemia, HLD, HTN. Data reviewed: vital signs, nurses dr5 notes, lab test result(s), CBC, white blood cell count, hemoglobin, hematocrit, platelets, electrolytes, sodium, potassium, chloride, serum bicarbonate, BUN, creatinine, serum glucose, T\T\S. Consideration of Admission/Observation Escalation of care including admission/observation considered. Escalation if patient had chest pain. 18:45 I considered the following discharge prescriptions or medication management in the [facility] emergency department I discussed and recommended Over The Counter medications, Medications were administered in the Emergency Department. See MAR. Test considered but Not performed: X-ray: Chest x-ray considered but not completed due to patient not having chest pain and not hypoxic. Care significantly affected by the following chronic conditions: Anemia, arthritis, Arevalo's, COPD, hyperlipidemia, hypertension, hypothyroidism. Care significantly affected by the following Social Determinants of Health: Poor access to healthcare and/or lack of insurance, Poor access to transportation, Problems related to employment. Counseling: I had a detailed discussion with the patient and/or guardian regarding the historical points, exam findings, and any diagnostic results supporting the discharge/admit diagnosis, the presence of at least one elevated blood pressure reading (>120/80) during this emergency department visit, lab results, the need for outpatient follow up, for definitive care, a family practitioner, to return to the emergency department if symptoms worsen or persist or if there are any questions or concerns that arise at home. Medication response: PRBCs. Response to treatment: the patient's symptoms have markedly improved after treatment. Special discussion: I discussed with the patient/guardian in detail that at this point there is no indication for admission to the hospital. It is understood, however, that if the symptoms persist or worsen the patient needs to return immediately for re-evaluation. Based on the history and exam findings, there is no indication for further emergent testing or inpatient evaluation. I discussed with the patient/guardian the need to see the mat making machine tender/oncologist for further evaluation of the symptoms. I discussed with the patient/guardian the need to see the primary care provider for further evaluation of the symptoms. 04/13 18:22 Order name: CBC with Diff; Complete Time: 20:14 dr5 04/13 18:22 Order name: BMP; Complete Time: 19:01 dr5 04/13 18:22 Order name: Type And Screen dr5 04/13 18:51 Order name: Manual Differential; Complete Time: 20:14 EDMS 04/13 19:08 Order name: Packed RBC Leukored EDMS 04/13 19:02 Order name: Transfuse; Complete Time: 20:03 dr5 Administered Medications: No medications were administered Disposition: 04/14 07:13 Co-signature as Attending Physician, Rafa Higgins MD I reviewed the patient's care rn provided by the Advanced Practice Provider and agree with the diagnosis and treatment plan. Disposition Summary: 04/13/25 23:29 Discharge Ordered Notes: Location: Home kb Condition: Stable kb Diagnosis - Anemia, unspecified kb Followup: kb - With: Emergency Department - When: As needed - Reason: Worsening of condition Followup: kb - With: Private Physician - When: 2 - 3 days - Reason: Recheck today's complaints, Continuance of care, Re-evaluation by your physician Discharge Instructions: - Discharge Summary Sheet kb - Anemia kb - Blood Transfusion, Adult, Care After, [id number] kb Forms: - Medication Reconciliation Form kb - Antibiotic Education kb - Prescription Opioid Use kb - Patient Portal Instructions kb - Leadership Thank You Letter kb Critical care time excluding procedures: 04/13 22:00 Critical care time: Bedside Care: 20 minutes, Consultation: 10 minutes. Total time: 30 kb minutes Signatures: Dispatcher [employer] EDYue Guerrero, HORTICULTURE INSTRUCTOR-C HORTICULTURE INSTRUCTOR-Ckb Rafa Higgins MD MD rn DAVIS, DIANA, RN RN dd2 Richie Ken FNP-C HORTICULTURE INSTRUCTOR-Cdr5 Corrections: (The following items were deleted from the chart) 19:06 19:03 PACKED RBC LEUKORED+BB.LAB.BRZ ordered. EDMN EDMS 19:06 19:05 ABO/RH typing ordered. EDMN EDMS 19:06 19:05 Antibody Screen ordered. EDMN EDMS
--- NOTE | 2025-04-13 23:30 | ER ---
Nurse's Notes [facility] Name: Quentin Lei Age: 79 yrs Sex: Male : 1945 Arrival Date: 04/13/2025 Time: 18:11 Bed 5 Private MD: Diagnosis: Anemia, unspecified Presentation: 04/13 18:22 Chief complaint: Patient states: HE WOKE UP THIS MORNING FEELING WEAK AND SHORT OF dd2 BREATH. REPORTS 2 WEEKS SINCE LAST BLOOD TRANSFUSION. Coronavirus screen: At this time, the client does not indicate any symptoms associated with coronavirus-19. Ebola Screen: No symptoms or risks identified at this time. Initial Sepsis Screen: Does the patient meet any 2 criteria? No. Patient's initial sepsis screen is negative. Does the patient have a suspected source of infection? No. Patient's initial sepsis screen is negative. Risk Assessment: Do you want to hurt yourself or someone else? Patient reports no desire to harm self or others. Onset of symptoms was April 13, 2025. 18:22 Method Of Arrival: Ambulatory dd2 18:22 Acuity: MAE 3 dd2 Triage Assessment: 18:24 General: Appears in no apparent distress. well nourished, Behavior is calm, dd2 cooperative, appropriate for age. Pain: Denies pain. Cardiovascular: Reports fatigue. Respiratory: Reports shortness of breath at rest on exertion. Historical: - Allergies: 18:24 tramadol; dd2 - PMHx: 18:24 Anemia; Arthritis; Arevalo's Esophagus; COPD; Hypercholesterolemia; Hypertension; dd2 Hypothyroidism; Lung tumor with radiation tx completed January 2023; Myelodysplastic Syndrome; Osteoporosis; - PSHx: 18:24 lung biopsy; triple bypass; dd2 - Social history:: Smoking status: Patient denies any tobacco usage or history of. Screenin:00 [facility] ED Fall Risk Assessment (Adult) History of falling in the last 3 months, jb4 including since admission No falls in past 3 months (0 pts) Confusion or Disorientation No (0 pts) Intoxicated or Sedated No (0 pts) Impaired Gait No (0 pts) Mobility Assist Device Used No (0 pt) Altered Elimination No (0 pt) Score/Fall Risk Level 0 - 2 = Low Risk Oriented to surroundings, Maintained a safe environment. Abuse screen: Denies threats or abuse. Nutritional screening: No deficits noted. Tuberculosis screening: No symptoms or risk factors identified. Assessment: 19:00 General: Appears in no apparent distress. comfortable, Behavior is calm, cooperative, jb4 appropriate for age. Pain: Denies pain. Neuro: Level of Consciousness is awake, alert, obeys commands, Oriented to person, place, time, situation, Reports generalized weakness. Cardiovascular: Patient's skin is warm and dry. Respiratory: Airway is patent Respiratory effort is even, unlabored, Respiratory pattern is regular, symmetrical. Derm: Skin is intact, Skin is pink, warm \T\ dry. Musculoskeletal: Circulation, motion, and sensation intact. Range of motion: intact in all extremities. 19:45 Reassessment: Patient appears in no apparent distress at this time. Patient and/or jb4 family updated on plan of care and expected duration. Pain level reassessed. Patient is alert, oriented x 3, equal unlabored respirations, skin warm/dry/pink. blood transfusion started. 20:45 Reassessment: Patient appears in no apparent distress at this time. Patient and/or jb4 family updated on plan of care and expected duration. Pain level reassessed. Patient is alert, oriented x 3, equal unlabored respirations, skin warm/dry/pink. 21:30 Reassessment: First unit complete. jb4 22:00 Reassessment: Patient appears in no apparent distress at this time. Patient and/or jb4 family updated on plan of care and expected duration. Pain level reassessed. Patient is alert, oriented x 3, equal unlabored respirations, skin warm/dry/pink. Second unit of blood started. 23:04 Reassessment: Patient appears in no apparent distress at this time. Patient and/or jb4 family updated on plan of care and expected duration. Pain level reassessed. Patient is alert, oriented x 3, equal unlabored respirations, skin warm/dry/pink. 23:28 Reassessment: Second unit finished, no adverse reactions noted. jb4 Vital Signs: 18:22 BP 157 / 54; Pulse 41; Resp 17; Temp 98.4; Pulse Ox 99% on R/A; Weight 91.5 kg; Pain dd2 0/10; 18:43 Pulse 74; dr5 20:30 BP 118 / 45; Pulse 73; Resp 16; Pulse Ox 99% on R/A; jb4 21:39 BP 120 / 60; Pulse 62; Resp 15; Temp 98.4; Pulse Ox 100% ; Pain 0/10; bm8 23:05 BP 117 / 59; Pulse 64; Resp 16; Pulse Ox 100% on R/A; jb4 23:15 BP 133 / 61; Pulse 73; Resp 16; Temp 98.4; Pulse Ox 94% ; Pain 0/10; bm8 18:22 Pain Scale: Adult dd2 21:39 Pain Scale: Adult bm8 23:15 Pain Scale: Adult bm8 20:30 see transfusion flow sheet for further documentation jb4 23:05 See transfusion flow sheet for vitals jb4 [place] Score: 21:39 Eye Response: spontaneous(4). Motor Response: obeys commands(6). Verbal Response: bm8 oriented(5). Total: 15. ED Course: 18:14 Patient arrived in ED. im 18:15 Richie Ken FNP-C is PHCP. dr5 18:15 Rafa Higgins MD is Attending Physician. dr5 18:20 Srinivas Collado, DUC is Primary Nurse. bp 18:24 Triage completed. dd2 18:24 Arm band placed on right wrist. dd2 18:30 Inserted saline lock: 20 gauge in right antecubital area, using aseptic technique. bm8 ,using aseptic technique. by DUC alvarez Blood collected. Flushed with 10 mL NS. 18:30 No provider procedures requiring assistance completed. bm8 19:00 Patient has correct armband on for positive identification. Placed in gown. Bed in low jb4 position. Call light in reach. Side rails up X 1. Provided Education on: plan of care. 19:01 PHCP role handed off by Richie Ken FNP-C kb 19:01 Yue Cole FNP-C is PHCP. kb 23:28 IV discontinued, intact, bleeding controlled, No redness/swelling at site. Pressure jb4 dressing applied. Administered Medications: No medications were administered Medication: 19:00 VIS not applicable for this client. jb4 Outcome: 23:29 Discharge ordered by . kb 23:39 Discharged to home ambulatory, jb4 23:39 Condition: stable 23:39 Discharge instructions given to patient, Instructed on discharge instructions, follow up and referral plans. Demonstrated understanding of instructions, follow-up care, 23:39 Patient left the ED. jb4 Signatures: Yue Cole, LORE-C CARE TRANSITION MANAGER-Ckb Sam Reza, RN RN jb4 Srinivas Collado, RN RN bp Sherrell Agee Brad, RN RN bm8 CHIDI FERREIRA, DUC RN dd2 Richie Ken, CARE TRANSITION MANAGER-C CARE TRANSITION MANAGER-Cdr5
[2025-04-14 00:20] VITALS: TEMP 98.4
[2025-04-14 00:45] VITALS: BP 133/61; O2SAT 94
== END 2025-04-13 23:39 | disposition home or self-care (01) ==
LOC: ER 18:11
PROC: 30233N1 Transfusion of Nonautologous Red Blood Cells into Peripheral Vein, Percutaneous Approach (ICD-10-PCS; principal; 2025-04-13)
DX: D64.9 Anemia, unspecified (principal); I10 Essential (primary) hypertension; Z95.1 Presence of aortocoronary bypass graft
CPT/HCPCS: 85025; 80048; 36415; 86900; 86850; 86901; 86920 ×2; 99284; 36430; P9016 ×2; J7050